=== PATIENT | male | born 1955 | race Caucasian/White ===

== ENCOUNTER 2019-02-18 10:06 | Inpatient (IN) | payer OTHER, SELFPAY ==
[2018-09-02 16:15] VITALS: BMI 24.6
[2019-02-18] VITALS (16 sets, daily range): BP systolic 123–150; BP diastolic 63–110; PULSE 71–102; RESP 16–18; TEMP 36.4–37.1; O2SAT 98–100; BMI 24.3; BMI 23.5
--- NOTE | 2019-02-18 10:11 | ED.RN ---
pt states seen for this yesterday and has been ongoing since January. due to hx this rn called for ekg
--- NOTE | 2019-02-18 10:17 | EKG12_ITS ---
Test Reason : SOB Blood Pressure : / mmHG Vent. Rate : 104 BPM Atrial Rate : 104 BPM P-R Int : 124 ms QRS Dur : 078 ms QT Int : 350 ms P-R-T Axes : 058 005 023 degrees QTc Int : 460 ms Sinus tachycardia Nonspecific ST abnormality Abnormal ECG Confirmed by AQUILES ARGUELLO MD ([id number]), greeting card editor KATHY LOGAN ([id number]) on 02/20/2019 10:56:51 AM Referred By: Christina Urbina Confirmed By:AQUILES ARGUELLO MD
--- NOTE | 2019-02-18 10:18 | ED.DCSUM_ITS ---
- ER Visit Summary Date of Service: 02/18/19 Chief Complaint: Pains History of Present Illness: The patient is a 63 M with pains in his arms and legs of the past 2 weeks. This started after he started taking Lipitor early in January. Symptoms are worse with use. At work, his pain is worse when he lifts and when he cleans floors. Better with rest. The pain is in his arms, and it is bilateral and involves the whole arm. It also involves his entire legs bilaterally. Occasionally the pain does go into his chest and he gets short of breath, but he is not having chest pain or shortness of breath currently. He has a history of diabetes, hypertension, hyperlipidemia, [place], stents. He is compliant with his medical therapies. He went to urgent care yesterday, and they started him on a Medrol Dosepak for his symptoms, but he was not advised to change his other medications or discontinue his statin. Physical Examination: Afebrile and vital signs are unremarkable. Patient alert and oriented. No acute distress. Heart regular rate and rhythm. Lungs clear. Abdomen soft. Extremities show good strength and sensation. Neurovascularly intact. Pale skin. Test Results: EKG shows sinus rhythm at a rate of 104. No sign of ischemia or infarction pattern. He has nonspecific ST changes. Laboratory studies including CPK are pending. Emergency Department Course and Treatment: Patient presents with myalgias. It seems to coincide with starting his Lipitor. We will check some basic labs. Because of his history of heart disease and occasional chest pain or shortness of breath, nursing ordered an EKG. This was unremarkable. Will monitor the patient. Hemoglobin 5.9. Chloride 108 and glucose 219. Hepatic panel normal. Troponin and CPK normal. We were notified by lab about his panic hemoglobin. I added on coags and fecal occult blood testing. Rectal exam showed no gross blood. Patient never had a colonoscopy. No history of cancer. Denies any blood in his stool. He does take aspirin and Brilinta for his heart disease. On reevaluation, patient is stable. Patient will need type and cross 2 units packed red cells. He consented to treatment. Risks discussed. Patient will need hospitalization. Coags and fecal occult blood testing is pending. Patient is stable. Dr. Buckner was notified and will see the patient in consultation. Treatment Plan: As above Disposition: Admission Impression: 1. Anemia This note was generated with [employer] dictation software. It may contain incorrect words, spelling, and punctuation that were not noted in review of the chart prior to signing ED Disposition - Plan for ED Patient: Referrals: Travis Bassett MD [Primary Care Provider] -
--- NOTE | 2019-02-18 10:20 | RAD_ITS ---
STUDY: X-RAY CHEST REASON FOR EXAM: Male, 63 years old. TECHNIQUE: 1 view COMPARISON: September 09, 2015 FINDINGS: The lungs are clear and expanded. There is no demonstrated pleural abnormality. Normal size heart. Normal mediastinum and lee. Normal visualized pulmonary arteries. Normal visualized aortic arch and descending thoracic aorta. Normal visualized thoracic spine. Normal visualized ribs, clavicles, and shoulders. There is no demonstrated abnormality of the visualized soft tissue structures of the upper abdomen. RAD/Chest 1 View (Portable) IMPRESSION: Normal x-ray examination of the chest unchanged since September 05, 2015. Electronically Signed: Wai Pruitt, at 10:36 EST Tel , Service support ,
[2019-02-18 10:49] LABS: Absolute Lymphocyte Count 0.42 X10^3/uL (0.83-4.51); Absolute Neutrophil Count 5.9 X10^3/uL (2.0-7.7); Basophil# 0.02 X10^3/uL; Basophil% 0.3 % (0-1); Eosinophil# 0.03 X10^3/uL; Eosinophils% 0.5 % (0-5); Hematocrit 19.5 % (40-54); Lymphocyte # 0.42 X10^3/ul (4.0); Lymphocyte % 6.5 % (19-41); Mean Corp Hgb Conc 30.3 g/dL (32-36); Mean Corpuscular Hgb 25.3 pg (27.0-32.0); Mean Corpuscular Volume 83.7 fL (80-94); Mean Platelet Vol. 9.2 fl (6.2-12.0); Monocyte# 0.09 X10^3/uL; Monocyte% 1.4 % (0-10); NRBC Flagged by Analyzer 0 % (0-5); Neutrophil # 5.93 X10^3/uL (2.7-7.7); POSITIVE COUNT YES; POSITIVE DIFFERENTIAL YES; Platelet Count 249 K/mm3 (150-450); RBC Distribution Width CV 14.3 % (11.6-14.6); RBC Distribution Width SD 43.3 fl (35.1-43.9); Red Blood Count 2.33 M/mm3 (4.6-6.2); White Blood Count 6.5 K/mm3 (4.4-11.0)
[2019-02-18 10:56] LABS: Hemoglobin 5.9 g/dL (13.0-16.5)
[2019-02-18 10:57] LABS: Differential Indicated SCAN CRITERIA MET
--- NOTE | 2019-02-18 11:00 | ED.RN ---
[facility] CRITICAL PER CALL FROM LAB, MD AND PRIMARY RN NOTIFIED.
[2019-02-18 11:07] LABS: ALB/GLOB Ratio 1.1 RATIO (0.9-2.4); AST(SGOT) 21 U/L (15-37); Alanine Aminotransfer ALT/SGPT 28 U/L (16-61); Albumin, Serum 3.8 g/dL (3.2-5.0); Alkaline Phosphatase 61 U/L (45-117); Anion Gap 9 (5-15); BUN 17 mg/dL (7-18); BUN/Creat Ratio 17.4 RATIO (10-20); CPK Total, Creatine Kinase 205 U/L (39-308); Calcium,Total 8.8 mg/dL (8.5-10.1); Chloride 108 mmol/L (98-107); Creatinine, Serum 0.98 mg/dL (0.70-1.30); EST Glomerular Filtration Rate 83 mL/min (>60); Est Glom Filt Rate - Afr Amer 100 mL/min (>60); Estimated Creatinine Clearance 81.73 ml/min; Globulin 3.5 g/dL (2.2-4.2); Glucose 219 mg/dL (74-106); Potassium 4.5 mmol/L (3.5-5.1); Protein, Total 7.3 g/dL (6.4-8.2); Sodium Level 139 mmol/L (136-145)
[2019-02-18 11:28] LABS: International Normalized Ratio 1.2; Prothrombin Time (Protime)PT. 14.6 SECONDS (11.7-14.9)
[2019-02-18 11:29] LABS: Partial Thromboplast Time 28.7 Seconds (24.1-36.2)
--- NOTE | 2019-02-18 11:40 | HP.PCM_ITS ---
Problem List (1) Laceration without foreign body of left thumb without damage to nail, initial encounter Status: Acute (2) Ischemic cardiomyopathy Status: Chronic Comment: EF 30-35% per echo 09/06/15 and 50% per echo 10/10/15 (3) Hyperlipidemia Status: Chronic Qualifiers: Hyperlipidemia type: unspecified Qualified Code(s): E78.5 - Hyperlipidemia, unspecified (4) Stented coronary artery Status: Chronic Comment: PCI to ostial LAD 09/05/15 @ [facility] per Dr. Todd Cagle (5) Antiplatelet or antithrombotic long-term use Status: Chronic (6) Diabetes mellitus type II, controlled Status: Chronic Qualifiers: Diabetes mellitus assisted insulin use: without asbestos brake lining finisher helper use History of Present Illness Date of Admission: 02/18/19 Chief Complaint: Shortness of breath, bilateral shoulder pain, ongoing for weeks The patient is a 63 year old M's medical history of CAD status post stents, hypertension, hyperlipidemia who comes in with progressive shortness of breath as well as bilateral shoulder and arms pain ongoing for a couple of weeks. Patient has been taking ibuprofen intermittently for shoulder pain. He denied any melena or hematochezia or abdominal discomfort or nausea vomiting. He denied any dizziness or palpitations but he has shortness of breath with exertion. His vitals in the ED showed pressure of 97.6F, heart rate 102, blood pressure was 135/110, RR 18, Spo2 98%. His admitting blood work showed WBC 6.5, Hb 5.9, (his last hemoglobin in 2016 was 15.8 ), Plt 249, INR 1.2, PTT 28.7, Na 139, 4.5, Cl 108, HCO3 22, BUN 17, Cr 0.98. Chest x-ray is unremarkable. EKG shows normal sinus rhythm, no acute ST-T changes. Past Medical History Past Medical History (Chronic Problems): Chronic Problems (Last Reviewed 09/02/18 @ 16:16 by Delia Longo) Essential (primary) hypertension (Chronic) Ischemic cardiomyopathy (Chronic) EF 30-35% per echo 09/06/15 and 50% per echo 10/10/15 Hyperlipidemia (Chronic) History of anterior wall myocardial infarction (Chronic) Atherosclerotic heart disease of [place] coronary artery without angina pectoris (Chronic) PCI to ostial LAD 09/05/15 @ [facility] per Dr. Todd Cagle Stented coronary artery (Chronic) PCI to ostial LAD 09/05/15 @ [facility] per Dr. Todd Cagle Antiplatelet or antithrombotic long-term use (Chronic) Diabetes mellitus type II, controlled (Chronic) Medical History: Medical History (Last Reviewed 09/02/18 @ 16:16 by Delia Longo) Essential (primary) hypertension (Chronic) I10 Ischemic cardiomyopathy (Chronic) I25.5 EF 30-35% per echo 09/06/15 and 50% per echo 10/10/15 Hyperlipidemia (Chronic) E78.5 History of anterior wall myocardial infarction (Chronic) I25.2 Atherosclerotic heart disease of [place] coronary artery without angina pectoris (Chronic) I25.10 PCI to ostial LAD 09/05/15 @ [facility] per Dr. Todd Cagle Antiplatelet or antithrombotic long-term use (Chronic) Z79.02 Diabetes mellitus type II, controlled (Chronic) E11.9 Allergies No Known Allergies Allergy (Verified 02/18/19 10:09) Home Medications: Ambulatory Orders Medication Instructions Recorded Aspirin [Aspirin, Baby] 81 mg PO DAILY@0800 12/02/14 Paroxetine HCl [Paxil] 30 mg PO DAILY 12/02/14 Atorvastatin Calcium [Lipitor] 80 mg PO QHS 10/25/15 Glipizide [Glipizide ER] 2.5 mg PO DAILY 10/25/15 Nitroglycerin (INPATIENT USE) 0.4 mg SUBLINGUAL Q5M PRN 10/25/15 [Nitrostat] lisinopril 10 mg tablet 10 mg PO DAILY 05/14/17 metformin 500 mg tablet 1,000 mg PO BID tab 05/14/17 metoprolol succinate ER 25 mg 12.5 mg PO DAILY tab 05/14/17 tablet,extended release 24 hr multivitamin tablet 1 tab PO QDAY 05/14/17 ticagrelor 90 mg tablet 90 mg PO BID #60 tab 12/18/18 Glimepiride 4 mg PO DAILY 02/18/19 MethylPREDNISolone DosePak [Medrol 02/18/19 DosePak] Surgical History: Surgical History (Last Reviewed 09/02/18 @ 16:16 by Delia Longo) Stented coronary artery (Chronic) Z95.5 PCI to ostial LAD 09/05/15 @ [facility] per Dr. Todd Cagle Surgical History: - - taumatic left middle finger amputation. Lives: Alone Smoking Status: Former smoker Tobacco Use: Non-smoker Alcohol: None Drugs: None - *Family History Maternal Family History: Family History (Last Reviewed 09/02/18 @ 16:16 by Delia Longo) Mother No problems noted. Father No problems noted. History Items: Heart Disease Paternal Family History: Family History (Last Reviewed 09/02/18 @ 16:16 by Delia Longo) Mother No problems noted. Father No problems noted. History Items: Unknown Review of Systems Constitutional: Reports: Fatigue. Denies: Anorexia, Chills, Fever, Malaise, Weakness, Weight Change Eyes: Denies: Blurred vision, Cataracts, Conjunctivae Inflammation HEENT: Denies: Head Aches, Hearing Changes, Sinus Congestion, Sinus Drainage Cardiovascular: Denies: Chest Pain, Claudication, Light Headedness, Palpitations, Syncope Respiratory: Reports: Shortness of Breath, Shortness of breath upon exertion. Denies: Cough, Shortness of breath at rest, Sputum production Gastrointestinal: Denies: Abdominal Pain, Hematemesis, Hematochezia, Nausea, Vomiting Genitourinary: Denies: Dysuria, Frequency Musculoskeletal: Denies: Joint Pain, Joint Tenderness Skin: Denies: Rash, Wounds Neurological: Denies: Difficulty swallowing, Focal weakness, Numbness, Tingling Psychiatric: Denies: Anxiety, Depression, Homicidal Ideations, Suicidal Ideations Hematologic/ Lymphatic: Denies: Easy Bruising, Easy Bleeding VTE Information - Inpt Only VTE Present on Admission: No VTE Pharm Prophylaxis ordered?: Yes - Physical Exam Vitals/I&O's: Vital Signs Temp Pulse Resp BP Pulse Ox 97.6 F L 102 H 18 135/110 H 98 02/18/19 10:07 02/18/19 10:07 02/18/19 10:07 02/18/19 10:07 02/18/19 10:23 Oxygen Delivery Method Room Air Weight: 77.111 kg Body Mass Index (BMI) 24.3 Finger Stick Blood Glucose 278 General: Alert, Oriented x3, Cooperative, No apparent distress, - - pale, not jaundiced HEENT: Atraumatic, PERRLA, EOMI, Normocephalic Oral: Moist Mucosa Neck: Supple Lungs: Clear to auscultation, Normal air movement Cardiovascular: Regular rate, Regular Rhythm, Normal S1, Normal S2, No murmurs Abdomen: Bowel Sounds Present, Soft, Non Tender, Non-Distended, No Hepato- splenomegaly Extremities: No edema Skin: No rashes, No breakdown Musculoskeletal: No Tenderness to Palpation of Joints or Extremities Lymphatic: No Cervical, Supraclavicular, or Inguinal Adenopathy Neurological: Cranial nerves II-XII grossly intact Psych/Mental Status: Normal Affect, Appropriate Microbiology Past 72 Hours 02/18/19 11:00 Stool Stool Occult Blood (NAYELI) - Final Occult Blood Positive Laboratory Results 02/18/19 10:30: WBC 6.5, RBC 2.33 L, Hgb 5.9 L*, Hct 19.5 L, MCV 83.7, MCH 25.3 L, MCHC 30.3 L, RDW Std Deviation 43.3, RDW Coeff of Talon 14.3, Plt Count 249, MPV 9.2, Immature Gran % (Auto) 0.300, Neut % (Auto) 91.0 H, Lymph % (Auto) 6.5 L, Sierra % (Auto) 1.4, Eos % (Auto) 0.5, Baso % (Auto) 0.3, Absolute Neuts (auto) 5.9, Absolute Lymphs (auto) 0.42 L, Nucleated RBC % 0, Differential Comment COMMENT, Diff Path Review July02/18/19 10:30: Sodium 139, Potassium 4.5, Chloride 108 H, Carbon Dioxide 22.0, Anion Gap 9, BUN 17, Creatinine 0.98, Estim Creat Clear Calc 81.73, Est GFR (M DRD) Af Amer 100, Est GFR (MDRD) Non-Af 83, BUN/Creatinine Ratio 17.4, Glucose 219 H, Calcium 8.8, Total Bilirubin 0.30, AST 21, ALT 28, Alkaline Phosphatase 61, Total Creatine Kinase 205, Troponin I < 0.015, Total Protein 7.3, Albumin 3.8, Globulin 3.5, Albumin/Globulin Ratio 1.1 02/18/19 11:10: Blood Type Pending, Antibody Screen Pending, Crossmatch See Detail 02/18/19 11:10: PT 14.6, INR 1.2, APTT 28.7 Assessment/Plan All Active Problems (Last Reviewed 09/02/18 @ 16:16 by Delia Longo) Laceration without foreign body of left thumb without damage to nail, initial encounter (Acute) 63 year old M's medical history of CAD status post stents, hypertension, hyperlipidemia who comes in with progressive shortness of breath as well as bilateral shoulder and arms pain ongoing for a couple of weeks. His hemoglobin is 5.9, stool occult blood is positive 1. Acute GI bleed, unclear etiology, likely lower History of recent NSAID use, also on aspirin and Brilinta Stool occult blood is positive General surgery consulted from the ED On clear liquid diet for EGD/colonoscopy in a.m. IV PPI twice daily Hold aspirin and Brilinta 2. Acute symptomatic blood loss anemia due to #1, hemoglobin is 5.9, dropped from 15.8 in 2016 History of CAD status post stents We will transfuse 2 units of packed RBCs with Lasix in between transfusion H&H every 6 3. Hypertension, controlled, would hold metoprolol and lisinopril 4. Type II DM, on glipizide, glimepiride, metformin Will hold home medications and continue on Accu-Cheks with insulin sliding scale 5. CAD status post stents 4 yrs ago, no acute ST-T changes on EKG We will hold aspirin and Brilinta 6. DVT prophylaxis with SCDs Code Visit Inpatient E&M: 59282 Init Hosp L3
--- NOTE | 2019-02-18 12:54 | PCM.CONS.B ---
- Consult Date of Consult: 02/18/19 - Reason for Consult Chief complaint: anemia History of present illness: 63 y/o WM presents with anemia, shortness of breath and light headedness. He was found to have a Hgb of 5.9. He denies any blood in stools, denies hematemesis, denies melena. Denies abdominal pain. Denies previous colonoscopy. Denies history of PUD. Has been taking NSAIDs for joint pain, also recently placed on steroids for this. PAST MEDICAL HISTORY ? Diabetes mellitus without mention of complication 2001? ? Diabetes mellitus - TYPE II ? Generalized anxiety disorder 1991 ? Anxiety, Generalized ? Hyperlipidemia 09/14/2015 ? Mixed hyperlipidemia 2001? ? Hyperlipidemia ? Other and unspecified disc disorder of unspecified region ? ? Intervertebral disc disorders-DEGEN. DISK DX. Coronary artery disease with stent placement Ischemic cardiomyopathy ? PAST SURGICAL HISTORY ? REMOVAL OF TONSILS,<12 Y/O ? 4 ? Tonsillectomy ? REPAIR ING HERNIA,5+Y/O,REDUCIBL ? 10 ? Hernia repair, inguinal ? CURRENT MEDICATIONS atorvastatin (LIPITOR) 80 mg tablet TAKE ONE TABLET BY MOUTH ONCE DAILY FOR CHOLESTEROL metFORMIN ER (GLUCOPHAGE XR) 500 mg 24 hr tablet Take 2 tablets by mouth twice daily. levothyroxine (LEVOXYL) 75 mcg tablet Take 1 tablet by mouth once daily. Take on empty stomach. For thyroid. glimepiride (AMARYL) 4 mg tablet Take 1 tablet by mouth daily with breakfast. PARoxetine (PAXIL) 30 mg tablet Take 1 tablet by mouth once daily. blood sugar diagnostic (InstapagarTOUCH ULTRA TEST) test strip Use with One Touch Ultra 3-4 times daily and as needed nitroglycerin sublingual (NITROSTAT) 0.4 mg SL tablet Dissolve 1 tablet under the tongue every 5 minutes as needed for Chest Pain. aspirin, enteric coated (ASPIR-LOW) 81 mg EC tablet Take 1 tablet by mouth once daily. ticagrelor (BRILINTA) 90 mg tablet Take 1 tablet by mouth twice daily. lancets(ONE TOUCH ULTRASOFT LANCETS) Use with One Touch Ultra Glucometer THERAPEUTIC MULTIVITAMIN TAB Take one(1) tablet daily. ALLERGIES: denies REVIEW OF SYSTEMS: General - denies fevers, denies weight loss, denies anorexia Cardiovascular denies chest pain Pulmonary complaint of shortness of breath, denies coughing up blood Gastrointestinal as per HPI, denies noting blood in stools, denies abdominal pain Neurological denies seizures Genitourinary denies burning with urination, denies blood in urine Hematological denies spontaneous/prolonged bleeding Skin denies open non healing wounds Musculoskeletal has joint pain in multiple locations Endocrine has diabetes Psychological denies hallucinations Physical examination: Vital signs Temp 97.7F HR 66 BP 96/64 RR 16 General WD/WN WM in no apparent distress, alert and oriented, not septic appearing HEENT Normocephalic. EOM intact with sclera clear and no icterus noted. Neck is supple with no jugular venous distention noted. Trachea is midline. Lungs normal breath sounds . No rales/rhonchi/wheezing noted. No labored breathing noted, such as retractions. No cough heard. Heart normal S1 and S2 auscultated. No rubs/clicks/murmurs noted. Normal size and location by auscultation. Abdomen soft and benign. Normal bowel sounds Extremities no calf tenderness or swelling noted. No pitting edema noted. No obvious deformity noted. Genitourinary/Rectal deferred Skin no rashes noted. Normal skin integrity. Neurological cranial nerves II-XII intact. Normal motor strength in arms and legs. No localized numbness detected. Psychological normal affect, patient is calm and appropriate Impression: anemia, heme positive stools Plan: upper and lower endoscopy tomorrow around 11:30 tomorrow I have discussed above with patient. I have explained risks of procedure, including but not limited to: infection, bleeding, perforation of the GI tract, inability to complete the procedure, injury to any intraabdominal organs such as liver/spleen, etc. - he understands. he agrees to proceed. I have answered all his questions and he has no further questions.
[2019-02-18] MEDS: 0.9% Normal Saline 1,000 ML 100 ML IV (13:46)
[2019-02-18 13:48] LABS: Hematocrit 19.7 % (40-54); POSITIVE COUNT YES
[2019-02-18 13:50] LABS: Bedside Glucose 150 mg/dL (70-110)
[2019-02-18] MEDS: 0.9% Saline Lock 10 ML Syringe IV (13:54)
[2019-02-18] MEDS: Furosemide 40 MG/4 ML Vial IV (13:54)
[2019-02-18 13:56] LABS: Hemoglobin 5.9 g/dL (13.0-16.5)
--- NOTE | 2019-02-18 14:01 | CASEMGMT ---
RN CM Assessment Intro role of CM to patient. Pt is awake, alert and able to participate in assessment. PCP: Dr. Travis Bassett Specialists: Dr. Buckner [facility]acy: [facility] Prescription Coverage: yes LNOK: Father, Huey Hess Living arrangements: Lives independently @ home. No DME and no care needs identified. DME: none DC Plan: home on discharge. Pt informed to contact CM if any dc needs arise. Frandy GALAVIZN RN ACM
--- NOTE | 2019-02-18 16:23 | CHAPLAIN ---
Type of Pastoral Visit _x__ Initial Visit ___ Follow-up Visit ___ On-call Visit ___ General Patient Visit ___ Spiritual Assessment ___ Family Conference ___ Bereavement ___ Rapid Response ___ Code Blue ___ Other (describe below) Pastoral Care Referral From _x__ Patient ___ Family ___ Nurse ___ Physician ___ Meringuer ___ Third Cook ___ Other (describe below) Sacrament/Intervention _x__ Active listening ___ Anointing ___ Spiritism ___ Bereavement ___ Communion ___ [place] exploration ___ _x__ Life review _x__ Prayer ___ Reconciliation ___ Sacrament of Sick _x__ Supportive presence ___ Wedding ___ Other (describe below) Pastoral Comments
[2019-02-18] MEDS: Insulin Lispro 100 UNIT/ML INSULN.PEN SC (18:23)
[2019-02-18] MEDS: Electrolyte Solution/Peg's 4000 ML PO (18:24)
[2019-02-18 18:30] LABS: Bedside Glucose 154 mg/dL (70-110)
--- NOTE | 2019-02-18 20:12 | NURSING ---
rickie in lab notified that blood completed @ 1999 next h&h due @ 2100
[2019-02-18 22:02] LABS: Hematocrit 27.2 % (40-54); Hemoglobin 8.6 g/dL (13.0-16.5)
[2019-02-18 23:01] LABS: Bedside Glucose 79 mg/dL (70-110)
[2019-02-19] VITALS (12 sets, daily range): BP systolic 96–139; BP diastolic 48–74; PULSE 61–76; RESP 16; TEMP 36.3–36.8; O2SAT 95–99; BMI 23.1
--- NOTE | 2019-02-19 | GASB_PTH ---
PATIENT: BRAD HALLMAN LOC: [facility] U#:[id number] AGE/SX: 63/M ROOM: [facility] RE02/18/[address]: Dr. Karthikeyan Lee MD : 1955 BED: 1 DIS: 02/19/2019 SPEC #: [id number] RECD: 02/19/19 07:31 STATUS: TEOFILO RE #: [id number] DEVON: 02/19/19 00:[address]: Moni Buckner DEPT: SURGICAL PATHOLOGY RECD BY: Cristian Galdamez ENTERED: 02/20/19 07:31 SP TYPE: Gastric Bx OTHR DR: MD Dr. Moni Dominguez MD Dr. Mark Elderbrock, MD Dr. Prakash Chand, MD Tissues: Gastric mucous membrane Procedures: Surgery Specimen Level IV Comments: @ Ordering doctor for SUIV edited from to DR.LWANG Rip AGUAYO at 02/20/19899 @ Submitting doctor edited from to DR.LWANG Rip AGUAYO at 02/20/19899 HEADER OPERATION: Colonoscopy, EGD ([facility] [place]) PRE-OP DIAGNOSIS: Anemia and guaiac positive stools TISSUE SUBMITTED: Antral biopsy for H. pylori MICROSCOPIC DIAGNOSIS Gastric antrum, biopsy: Mild chronic gastritis. See comment. AM:agnieszka 02/23/19 COMMENT The results of immunohistochemistry for Helicobacter pylori will be reported separately ([id number]). MICROSCOPIC DESCRIPTION Slides are reviewed. GROSS DESCRIPTION Received in fixative is one container labeled with the patient's name and designated antral biopsy. The specimen consists of multiple irregular fragments of light walker soft tissue that in aggregate measure 0.6 x 0.2 x 0.1 cm. The specimen is totally submitted in one cassette. / LONNIE:agnieszka 02/20/19 TC:3 CPT: 29841
[2019-02-19 06:11] LABS: Bedside Glucose 151 mg/dL (70-110)
[2019-02-19 06:19] LABS: Absolute Lymphocyte Count 1.52 X10^3/uL (0.83-4.51); Absolute Neutrophil Count 4.3 X10^3/uL (2.0-7.7); Basophil# 0.05 X10^3/uL; Basophil% 0.7 % (0-1); Eosinophil# 0.38 X10^3/uL; Eosinophils% 5.7 % (0-5); Hematocrit 28.7 % (40-54); Hemoglobin 8.8 g/dL (13.0-16.5); Lymphocyte # 1.52 X10^3/ul (4.0); Lymphocyte % 22.6 % (19-41); Mean Corp Hgb Conc 30.7 g/dL (32-36); Mean Corpuscular Hgb 26.5 pg (27.0-32.0); Mean Corpuscular Volume 86.4 fL (80-94); Mean Platelet Vol. 9.4 fl (6.2-12.0); Monocyte% 7.4 % (0-10); NRBC Flagged by Analyzer 0 % (0-5); Neutrophil # 4.25 X10^3/uL (2.7-7.7); Neutrophil % 63.3 % (47-70); Platelet Count 297 K/mm3 (150-450); RBC Distribution Width CV 14.2 % (11.6-14.6); RBC Distribution Width SD 44.9 fl (35.1-43.9); Red Blood Count 3.32 M/mm3 (4.6-6.2); White Blood Count 6.7 K/mm3 (4.4-11.0)
[2019-02-19 06:42] LABS: ALB/GLOB Ratio 1.1 RATIO (0.9-2.4); AST(SGOT) 22 U/L (15-37); Alanine Aminotransfer ALT/SGPT 26 U/L (16-61); Alkaline Phosphatase 67 U/L (45-117); Anion Gap 7 (5-15); BUN 11 mg/dL (7-18); BUN/Creat Ratio 11.4 RATIO (10-20); Calcium,Total 8.7 mg/dL (8.5-10.1); Chloride 109 mmol/L (98-107); Creatinine, Serum 0.97 mg/dL (0.70-1.30); EST Glomerular Filtration Rate 84 mL/min (>60); Est Glom Filt Rate - Afr Amer 101 mL/min (>60); Estimated Creatinine Clearance 82.57 ml/min; Globulin 3.5 g/dL (2.2-4.2); Glucose 159 mg/dL (74-106); Potassium 3.8 mmol/L (3.5-5.1); Protein, Total 7.5 g/dL (6.4-8.2); Sodium Level 141 mmol/L (136-145)
[2019-02-19 08:57] LABS: Hemoglobin A1c 6.8 % (4.2-6.3)
[2019-02-19] MEDS: 0.9% Saline Lock 10 ML Syringe IV (11:03)
[2019-02-19 11:11] LABS: Bedside Glucose 170 mg/dL (70-110)
--- NOTE | 2019-02-19 12:00 | IMM_PTH ---
PATIENT: BRAD HALLMAN LOC: [facility] U#:[id number] AGE/SX: 63/M ROOM: [facility] RE02/18/[address]: Dr. Karthikeyan Lee MD : 1955 BED: 1 DIS: 02/19/2019 SPEC #: [id number] RECD: 02/20/19 09:00 STATUS: TEOFILO REQ #: [id number] DEVON: 02/19/19 12:[address]: Moni Buckner DEPT: IMMUNOHISTOCHEMISTRY RECD BY: Fay Blankenship ENTERED: 02/20/19 09:01 SP TYPE: IMMUNO OTHR DR: MD Dr. Travis Dominguez MD Dr. Prakash Chand, MD Tissues: Stomach, NOS Procedures: H Pylori (initial) PHYSICIAN & INSTITUTION [place] [id number] SPECIMEN INFORMATION: Tissue Source: Antral biopsy Clinical Info: Anemia and guaiac positive stools Specimen Number: [id number] CPT code: 59476 METHODOLOGY: Deparaffinized sections of prefer/formalin-fixed tissue or PAP/DQ stained slides are incubated with monoclonal/polyclonal antibodies/oligonucleotide probes. Localization is made via biotin free immunoperoxidase method. Appropriate controls are performed and reacted as expected. Results on target cell population are indicated in the following table: RESULTS: ANTIBODY / CLONE RESULT H Pylori (polyclonal) negative These tests were developed and their performance characteristics determined by [facility]. They may not have been cleared or approved by the U.S. Food and Drug Administration. The FDA has determined that such clearance or approval is not necessary. INTERPRETATION: Antral biopsy: Negative for Helicobacter pylori organisms. AM:agnieszka 02/23/19
--- NOTE | 2019-02-19 12:48 | OP.EGD_ITS ---
Patient Name: Iftikhar Hess Procedure Date: 02/19/2019 11:21 AM Date of : 1955 Age: 63 Procedure: Upper GI endoscopy Indications: Unexplained iron deficiency anemia, Occult blood in stool Providers: Moni Buckner MD Referring MD: Christina Urbina Medicines: See the Anesthesia note for documentation of the administered medications Patient Profile: Refer to note in patient chart for documentation of history and physical. Complications: No immediate complications. Procedure: Pre-Anesthesia Assessment: - see anesthesia note After obtaining informed consent, the endoscope was passed under direct vision. Throughout the procedure, the patient's blood pressure, pulse, and oxygen saturations were monitored continuously. The gastroscope was introduced through the mouth, and advanced to the second part of duodenum. The upper GI endoscopy was accomplished without difficulty. The patient tolerated the procedure well. Scope In: 12:02:31 PM Scope Out: 12:09:22 PM Total Procedure Duration Time 0 hours 6 minutes 51 seconds Findings: The first portion of the duodenum and second portion of the duodenum were normal. A small hiatal hernia was present. The entire examined stomach was normal. Biopsies were taken with a cold forceps for histology. Estimated blood loss was minimal. Impression: - Normal first portion of the duodenum and second portion of the duodenum. - Small hiatal hernia. - Normal stomach. Biopsied. Recommendation: - Return patient to hospital [facility] for observation. - Resume previous diet. - Continue present medications. Procedure Code(s): --- Professional --- 35297, Esophagogastroduodenoscopy, flexible, transoral; with biopsy, single or multiple Diagnosis Code(s): --- Professional --- K44.9, Diaphragmatic hernia without obstruction or gangrene D50.9, Iron deficiency anemia, unspecified R19.5, Other fecal abnormalities CPT copyright 2017 [employer]. All rights reserved. The codes documented in this report are preliminary and upon cook chill technician review may be revised to meet current compliance requirements. MD Moni Lugo MD 02/19/2019 12:48:01 PM This report has been signed electronically. Number of Addenda: 0 Note Initiated On: 02/19/2019 11:21 AM
--- NOTE | 2019-02-19 12:50 | OP.COLON_ITS ---
Patient Name: Iftikhar Hess Procedure Date: 02/19/2019 12:10 PM Date of : 1955 Age: 63 Procedure: Colonoscopy Indications: Heme positive stool, Unexplained iron deficiency anemia Providers: Moni Buckner MD Referring MD: Christina Ubrina Medicines: See the Anesthesia note for documentation of the administered medications Patient Profile: Refer to note in patient chart for documentation of history and physical. Last Colonoscopy: date unknown. Complications: No immediate complications. Procedure: Pre-Anesthesia Assessment: - see anesthesia note After I obtained informed consent, the scope was passed under direct vision. Throughout the procedure, the patient's blood pressure, pulse, and oxygen saturations were monitored continuously. The Colonoscope was introduced through the anus and advanced to the cecum, identified by the appendiceal orifice, IC valve and transillumination. The colonoscopy was performed without difficulty. The patient tolerated the procedure well. The quality of the bowel preparation was adequate. Scope In: 12:11:42 PM Scope Withdrawal Time 0 hours 7 minutes 13 seconds Scope Out: 12:39:54 PM Total Procedure Duration Time 0 hours 28 minutes 12 seconds Findings: The perianal and digital rectal examinations were normal. Pertinent negatives include normal sphincter tone. Non-bleeding internal hemorrhoids were found. Impression: - Non-bleeding internal hemorrhoids. - No specimens collected. Recommendation: - Repeat colonoscopy in 10 years for screening purposes. - [facility]. - Continue present medications. Procedure Code(s): --- Professional --- 01408, Colonoscopy, flexible; diagnostic, including collection of specimen(s) by brushing or washing, when performed (separate procedure) Diagnosis Code(s): --- Professional --- K64.8, Other hemorrhoids R19.5, Other fecal abnormalities D50.9, Iron deficiency anemia, unspecified CPT copyright 2017 [employer]. All rights reserved. The codes documented in this report are preliminary and upon certified coder review may be revised to meet current compliance requirements. MD Moni Lugo MD 02/19/2019 12:49:44 PM This report has been signed electronically. Number of Addenda: 0 Note Initiated On: 02/19/2019 12:10 PM
--- NOTE | 2019-02-19 12:50 | PCM.PN.BLA ---
Progress Note No obvious source of GI bleeding found on upper and lower endoscopy May begin regular diet D/c to home STROKE Vital Signs/Narrative: Vital Signs Temp Pulse Resp BP Pulse Ox 02/19/19 10:53 98.1 F 71 16 139/74 H 95
--- NOTE | 2019-02-19 13:47 | PCM.DC ---
You will use the following diet at home:: Calorie/Carbohydrate Controlled (specify 1200, 1400, etc) - 1800 ADA diet, Cardiac Your food should be the consistency of: Regular Your liquids should be the consistency of: Regular/Thin Discharge Activity: May Not Drive Call your doctor if you observe: Coldness, Increased Pain, Inability to urinate, Inability to have a bowel movement, Shortness of breath, Dizziness, Fainting spells, Swelling in the ankles, Chest pain, Increased palpitations (irregular heartbeat) Additional Instructions: Don't take NSAIDS like Ibuprofen or Aleve and steroids. Allergies/Adverse Reactions: Allergies No Known Allergies Allergy (Verified 02/18/19 10:09) Medications to take at Discharge Aspirin [Aspirin, Baby] 81 mg PO DAILY@0800 12/02/14 Paroxetine HCl [Paxil] 30 mg PO DAILY 12/02/14 Atorvastatin Calcium [Lipitor] 80 mg PO QHS 10/25/15 Nitroglycerin (INPATIENT USE) [Nitrostat] 0.4 mg SUBLINGUAL Q5M PRN 10/25/15 lisinopril 10 mg tablet 10 mg PO DAILY 05/14/17 metformin 500 mg tablet 1,000 mg PO BID tab 05/14/17 metoprolol succinate ER 25 mg tablet,extended release 24 hr 12.5 mg PO DAILY tab 05/14/17 multivitamin tablet 1 tab PO QDAY 05/14/17 ticagrelor 90 mg tablet 90 mg PO BID #60 tab 12/18/18 Glimepiride 4 mg PO DAILY 02/18/19 Pantoprazole Sodium [Protonix] 40 mg PO DAILY #30 tab 02/19/19 The following prescriptions were given: Pantoprazole Sodium [Protonix] 40 mg PO DAILY #30 tab Transmission Status: Pending to [id number] Primary Care Physician: Travis Bassett MD [Primary Care Provider] - Please follow up with your Primary Care Physician in: in 1-2 weeks Test Results: Test results from this visit will be discussed in further detail at your follow-up appointment, if applicable.
--- NOTE | 2019-02-19 13:49 | PCM.DC.SUM ---
Discharge Date and Diagnosis Date of Admission: 02/18/19 Date of Discharge: 02/19/19 - Primary Discharge Diagnosis Acute blood loss anemia Acute occult GI bleed, source not found. - Secondary Discharge Diagnosis Chronic Problems (Last Reviewed 09/02/18 @ 16:16 by Delia Longo) Essential (primary) hypertension (Chronic) Ischemic cardiomyopathy (Chronic) EF 30-35% per echo 09/06/15 and 50% per echo 10/10/15 Hyperlipidemia (Chronic) History of anterior wall myocardial infarction (Chronic) Atherosclerotic heart disease of [place] coronary artery without angina pectoris (Chronic) PCI to ostial LAD 09/05/15 @ [facility] per Dr. Todd Cagle Stented coronary artery (Chronic) PCI to ostial LAD 09/05/15 @ [facility] per Dr. Todd Cagle Antiplatelet or antithrombotic long-term use (Chronic) Diabetes mellitus type II, controlled (Chronic) Hospital Course and Treatment Summary of Care Provided: The patient is a 63 year old M with medical history of CAD status post stents, hypertension, hyperlipidemia who was admitted with progressive shortness of breath as well as bilateral shoulder and arms pain ongoing for a couple of weeks. His hemoglobin is 5.9, stool occult blood is positive. Patient was recently started on methylprednisone for aches and pains and shoulder. He also takes NSAID. Patient is also on aspirin and Brilinta for history of coronary artery disease status post stents. Patient was admitted in PCU. Further evaluation and management as follows: 1. Acute GI bleed probably from NSAIDs/steroid: Patient had 2 units of PRBC transfusion. H&H was done every 6 hourly and patient showed H&H increased appropriately from 5.9 to 8.8 g%. On IV PPI twice daily. Aspirin and Brilinta were held. Patient had EGD and colonoscopy today and did not find any specific lesion. Internal hemorrhoids but nonbleeding. Small hiatus hernia. Patient given a prescription for Protonix 40 mg daily. Hold aspirin for 5 more days to complete a total of 7 days. Resume Brilinta. 2. Acute symptomatic blood loss anemia probably secondary to GI bleed: Prescription for ferrous sulfate 325 mg daily given. If patient continues to have low H&H, will need further detail anemia work-up by PCP. Follow-up PCP in 1 to 2 weeks 3. Hypertension, controlled, medications resumed 4. Type II DM, on glimepiride, metformin: Glucose in good control. Patient is not taking glipizide XL but on glimepiride 4 mg daily. Confirmed with the patient. 5. CAD status post stents 4 yrs ago, no acute ST-T changes on EKG: Medications regimen. 6. DVT prophylaxis with SCDs [] Patient was admitted as inpatient but was discharged because of sooner recovery than expected and no active bleeding was found. Discharge medication reconciliation done. Discharge follow-up instructions completed. Discharge process discussed with the patient and all questions were answered to patient's satisfaction. Prescription for Protonix and ferrous sulfate sent to patient pharmacy. Total time spent, exact 35 minutes on discharge meds reconciliation, examination, review of imaging and blood test and discussion with the patient on follow-up instructions. Subjective: Seen and examined. Patient was admitted for acute anemia along with shortness of breath on exertion, along with bilateral shoulder and arm pain for couple of weeks for which he was given methylprednisone in urgent care. Is also taking intermittent NSAIDs. EGD and colonoscopy was done. No active source of bleeding found. Patient wants to go home. - Physical Exam Vitals/I&O's: Vital Signs Temp Pulse Resp BP Pulse Ox 97.9 F 69 16 129/70 H 99 02/19/19 13:23 02/19/19 13:23 02/19/19 13:23 02/19/19 13:23 02/19/19 13:23 Oxygen Delivery Method Room Air Weight: 161 lb 6.054 oz Body Mass Index (BMI) 23.1 Finger Stick Blood Glucose 278 Intake and Output for Last 24 Hours 02/17/19 02/18/19 02/19/19 23:59 23:59 23:59 Intake Total 2400 / 2400 1921 Output Total 3550 / 3550 Balance -1150 / -1150 1921 General: Alert, Oriented x3, Cooperative HEENT: Atraumatic, PERRLA, EOMI, Normocephalic Neck: Supple, No JVD, Negative Carotid Bruits Lungs: Clear to auscultation, Normal air movement, No rhonchi, No wheeze, No rales Cardiovascular: Regular rate, Regular Rhythm, Normal S1, Normal S2, No murmurs Abdomen: Bowel Sounds Present, Soft, Non Tender, Non-Distended Extremities: No edema, Capillary Refill Less than 3 Seconds Skin: No rashes, No breakdown Musculoskeletal: No Tenderness to Palpation of Joints or Extremities, Arthritic Changes Neurological: Cranial nerves II-XII grossly intact, Deep Tendon Reflexes 2+/4 and Symmetrical, Neuro grossly intact Psych/Mental Status: Normal Affect, Appropriate Microbiology Past 72 Hours 02/18/19 11:00 Stool Stool Occult Blood (NAYELI) - Final Occult Blood Positive Laboratory Results 02/18/19 11:10: Blood Type A POSITIVE, Antibody Screen NEGATIVE, Crossmatch See Detail 02/18/19 13:40: Troponin I < 0.015 02/18/19 13:40: Hgb 5.9 L*, Hct 19.7 L 02/18/19 13:45: POC Glucose 150 H 02/18/19 17:10: Troponin I < 0.015 02/18/19 18:19: POC Glucose 154 H 02/18/19 21:55: Hgb 8.6 L, Hct 27.2 L 02/18/19 22:52: POC Glucose 79 02/19/19 05:55: WBC 6.7, RBC 3.32 L, Hgb 8.8 L, Hct 28.7 L, MCV 86.4, MCH 26.5 L, MCHC 30.7 L, RDW Std Deviation 44.9 H, RDW Coeff of Talon 14.2, Plt Count 297, MPV 9.4, Immature Gran % (Auto) 0.300, Neut % (Auto) 63.3, Lymph % (Auto) 22.6, [place] % (Auto) 7.4, Eos % (Auto) 5.7 H, Baso % (Auto) 0.7, Absolute Neuts (auto) 4.3, Absolute Lymphs (auto) 1.52, Nucleated RBC % 0 02/19/19 05:55: Sodium 141, Potassium 3.8, Chloride 109 H, Carbon Dioxide 25.0, Anion Gap 7, BUN 11, Creatinine 0.97, Estim Creat Clear Calc 82.57, Est GFR (MDRD) Af Amer 101, Est GFR (MDRD) Non-Af 84, BUN/Creatinine Ratio 11.4, Glucose 159 H, Calcium 8.7, Total Bilirubin 0.40, AST 22, ALT 26, Alkaline Phosphatase 67, Total Protein 7.5, Albumin 4.0, Globulin 3.5, Albumin/Globulin Ratio 1.1 02/19/19 05:55: Hemoglobin A1c 6.8 H 02/19/19 06:02: POC Glucose 151 H 02/19/19 10:57: POC Glucose 170 H Current Medications Acetaminophen (Tylenol) 650 mg PO Q6H PRN PRN PRN Reason: Pain Score 1-3/Temp > 100.7 F Dextrose (D50w Syringe) 0 gm IV X1 PRN; Protocol PRN Reason: Hypoglycemia Glucagon () 1 mg IM .X1 PRN PRN Reason: Hypoglycemia Insulin Human Lispro (Humalog Kwikpen (Bkc)) 0 unit SC Q6 LEANDRA; Protocol Last Admin: 02/19/19 11:03 Dose: Not Given Documented by: Multivitamins (Multivitamin) 1 tablet PO DAILY@0800 LEANDRA Last Admin: 02/19/19 07:11 Dose: Not Given Documented by: Ondansetron HCl (Zofran) 4 mg IV Q8H PRN PRN PRN Reason: NAUSEA/VOMITING Sodium Chloride () 10 - 40 ml IV UD PRN PRN Reason: SALINE FLUSH Last Admin: 02/19/19 11:03 Dose: 10 ml Documented by: Discharge Activity: May Not Drive Call your doctor if you observe: Coldness, Increased Pain, Inability to urinate, Inability to have a bowel movement, Shortness of breath, Dizziness, Fainting spells, Swelling in the ankles, Chest pain, Increased palpitations (irregular heartbeat) Home Medications: Medications to take at Discharge Aspirin [Aspirin, Baby] 81 mg PO DAILY@0800 12/02/14 Paroxetine HCl [Paxil] 30 mg PO DAILY 12/02/14 Atorvastatin Calcium [Lipitor] 80 mg PO QHS 10/25/15 Nitroglycerin (INPATIENT USE) [Nitrostat] 0.4 mg SUBLINGUAL Q5M PRN 10/25/15 lisinopril 10 mg tablet 10 mg PO DAILY 05/14/17 metformin 500 mg tablet 1,000 mg PO BID tab 05/14/17 metoprolol succinate ER 25 mg tablet,extended release 24 hr 12.5 mg PO DAILY tab 05/14/17 multivitamin tablet 1 tab PO QDAY 05/14/17 ticagrelor 90 mg tablet 90 mg PO BID #60 tab 12/18/18 Glimepiride 4 mg PO DAILY 02/18/19 Pantoprazole Sodium [Protonix] 40 mg PO DAILY #30 tab 02/19/19 Following Prescrptions Were Given to Patient: Pantoprazole Sodium [Protonix] 40 mg PO DAILY #30 tab Transmission Status: Pending to [id number] Primary Care Physician: Travis Bassett MD [Primary Care Provider] - Please follow up with your Primary Care Physician in: in 1-2 weeks Medical Necessity - Tobacco Use Smoking Status: Former smoker Tobacco Use: Non-smoker Meaningful Use Info Meaningful Use Diagnoses (Choose all that apply): None applicable Code Visit Inpatient E&M: 92812 Disch Hosp
[2019-02-20 14:18] LABS: Pathologist Review Reviewed
== END 2019-02-19 15:57 | disposition home or self-care (01) | DRG 378 ==
LOC: ED 11:06 → PCU 11:51
PROVIDERS: Anesthesiology; Surgery; Admitting Provider Internal Medicine; Emergency Provider Emergency Medicine; Family Provider Family Medicine; PCP Family Medicine; Referring Provider Internal Medicine; Visit Provider Internal Medicine
PROC: 0DJD8ZZ Inspection of Lower Intestinal Tract, Via Natural or Artificial Opening Endoscopic (ICD-10-PCS; CPT 45378; principal; 2019-02-19 11:55)
DX: K92.2 Gastrointestinal hemorrhage, unspecified (principal); D62 Acute posthemorrhagic anemia; K64.8 Other hemorrhoids; K44.9 Diaphragmatic hernia without obstruction or gangrene; R19.5 Other fecal abnormalities; I25.5 Ischemic cardiomyopathy; I25.10 Atherosclerotic heart disease of native coronary artery without angina pectoris; I25.2 Old myocardial infarction; I10 Essential (primary) hypertension; E78.5 Hyperlipidemia, unspecified; E11.9 Type 2 diabetes mellitus without complications; M25.512 Pain in left shoulder; M25.511 Pain in right shoulder; Z79.02 Long term (current) use of antithrombotics/antiplatelets; Z95.5 Presence of coronary angioplasty implant and graft; Z79.82 Long term (current) use of aspirin; Z79.84 Long term (current) use of oral hypoglycemic drugs; Z79.899 Other long term (current) drug therapy; Z87.891 Personal history of nicotine dependence
CPT/HCPCS: 36415; 71045; 80053; 82274; 82550; 82962; 83036; 84484; 85014; 85018; 85025; 85610; 85730; 86850; 86900; 86901; 86920; 86922; 88305; 88342; 93005; 99251; 99283; J7030; J7040; J7120; P9016; A4216; G0463; J1940

== ENCOUNTER 2019-12-01 06:46 | Observation (INO) | payer OTHER, SELFPAY ==
[2019-02-19 10:53] VITALS: BMI 23.1
[2019-12-01] VITALS (12 sets, daily range): BP systolic 110–135; BP diastolic 54–74; PULSE 60–78; RESP 14–18; TEMP 36.4–36.6; O2SAT 96–99; BMI 25.9; BMI 24.0
--- NOTE | 2019-12-01 07:09 | EKG12_ITS ---
Test Reason : CP Blood Pressure : / mmHG Vent. Rate : 078 BPM Atrial Rate : 078 BPM P-R Int : 138 ms QRS Dur : 082 ms QT Int : 390 ms P-R-T Axes : 028 -14 005 degrees QTc Int : 444 ms Normal sinus rhythm Normal ECG Confirmed by JOS AMBRIZ, AQUILES ([id number]), copy editor BALDO ROBERSON ([id number]) on 12/03/2019 9:34:36 AM Referred By: ANDRES Confirmed By:AQUILES ARGUELLO MD
--- NOTE | 2019-12-01 07:09 | RAD_ITS ---
STUDY: X-RAY CHEST REASON FOR EXAM: Male, 64 years old patient with chest pain starting this morning. Past medical history of myocardial infarct with endovascular coronary artery stent placement. TECHNIQUE: Single AP portable view of the chest. COMPARISON: 02/18/2019. FINDINGS: Cardiac monitoring leads are present. The lungs are clear and expanded. There is no demonstrated pleural abnormality. Normal size heart. Normal mediastinum and lee. There is prominence of the pulmonary hilar arteries without peripheral pulmonary vascular congestion. Normal visualized aortic arch and descending thoracic aorta. Normal visualized thoracic spine. Normal visualized ribs, clavicles, and shoulders. There is no demonstrated abnormality of the visualized soft tissue structures of the upper abdomen. RAD/Chest 1 View (Portable) IMPRESSION: No radiographic evidence of acute cardiopulmonary disease. Electronically Signed: Maylin Barton MD at 7:57 EDT , Service support ,
[2019-12-01] MEDS: Nitroglycerin SL (ED/IMG/CATH) 0.4 MG TABLET SUBLINGUAL (07:20)
[2019-12-01 07:25] LABS: Absolute Lymphocyte Count 1.53 X10^3/uL (0.83-4.51); Absolute Neutrophil Count 3.9 X10^3/uL (2.0-7.7); Basophil# 0.05 X10^3/uL; Basophil% 0.8 % (0-1); Eosinophil# 0.36 X10^3/uL; Eosinophils% 5.6 % (0-5); Hematocrit 37.7 % (40-54); Hemoglobin 12.8 g/dL (13.0-16.5); Lymphocyte # 1.53 X10^3/ul (4.0); Lymphocyte % 23.9 % (19-41); Mean Corpuscular Hgb 32.7 pg (27.0-32.0); Mean Corpuscular Volume 96.4 fL (80-94); Mean Platelet Vol. 9.4 fl (6.2-12.0); Monocyte# 0.51 X10^3/uL; NRBC Flagged by Analyzer 0 % (0-5); Neutrophil # 3.94 X10^3/uL (2.7-7.7); Neutrophil % 61.4 % (47-70); Platelet Count 218 K/mm3 (150-450); RBC Distribution Width CV 12.7 % (11.6-14.6); RBC Distribution Width SD 44.1 fl (35.1-43.9); Red Blood Count 3.91 M/mm3 (4.6-6.2); White Blood Count 6.4 K/mm3 (4.4-11.0)
--- NOTE | 2019-12-01 07:41 | ED.VIS.GEN ---
History of Present Illness Chief Complaint: Chest Pain Informant: Patient Onset: Today Context: Sudden Onset Timing: Continuous Quality: Indigestion Location: Midsternum Current Severity: Mild Maximum Severity: Severe Worsened by: Exertion Relieved by: Significantly improved after 1 nitro Associated Symptoms: Diaphoresis and radiation right shoulder Narrative: Patient is a 64-year-old male with past medical history of coronary disease with placement of a stent 3 years ago, diabetes and hypercholesterolemia. Patient presented from work via ambulance because he developed midsternal discomfort described as indigestion with radiation to the right shoulder and diaphoresis. He denied nausea or vomiting. He denies history of peptic ulcer disease or GERD. He denies black or maroon stool. He denies fever, chills night sweats. He denies any upper respiratory symptoms. He is still having chest discomfort. He denies abdominal pain. He denies urologic symptoms. He denies history of PE or DVT. He denies leg pain, swelling discoloration. He denies symptoms of claudication. Prior similar symptoms: Yes Recent Illness/Hospitalization: No - Past Medical History (1) Antiplatelet or antithrombotic long-term use Status: Deleted (2) Atherosclerotic heart disease of [place] coronary artery without angina pectoris Status: Chronic Comment: PCI to ostial LAD 09/05/15 @ [facility] per Dr. Todd Cagle (3) Diabetes mellitus type II, controlled Status: Chronic (4) Essential (primary) hypertension Status: Chronic (5) History of anterior wall myocardial infarction Status: Chronic (6) Hyperlipidemia Status: Chronic (7) Ischemic cardiomyopathy Status: Chronic Comment: EF 30-35% per echo 09/06/15 and 50% per echo 10/10/15 Past Medical History - Allergies and Home Meds Allergies/Adverse Reactions: Allergies No Known Allergies Allergy (Verified 12/01/19 06:54) Prior records reviewed: Yes Surgical History: - - taumatic left middle finger amputation. Lives: Alone Smoking Status: Former smoker Alcohol: None Drugs: None - Family History Maternal Family History: Family History (Last Reviewed 09/02/18 @ 16:16 by Delia Longo) Mother No problems noted. Father No problems noted. Family History: Reports: Heart Disease Paternal Family History: Family History (Last Reviewed 09/02/18 @ 16:16 by Delia Longo) Mother No problems noted. Father No problems noted. Family History: Reports: Unknown Review of Systems General: Denies: Chills, Fever, Malaise, Subjective Eyes: Denies: Visual changes - bilaterally, Blurred Vision - bilaterally ENT: Denies: Rhinorrhea, Sore throat Cardiovascular: Reports: Chest pain. Denies: Palpitations, Heart racing Respiratory: Reports: Dyspnea. Denies: Cough, Sputum, Dyspnea on exertion, Orthopnea Gastrointestinal: Denies: Abdominal pain, Nausea, Vomiting, Diarrhea, Melena, Hematochezia Genitourinary: Denies: Dysuria, Hematuria, Frequency Musculoskeletal: Denies: Myalgias, Arthralgias, Neck pain, Back pain, Swelling, Extremity Pain, -, - - Patient did report pain right shoulder which resolved with 1 nitro. Skin: Denies: Rash, Wounds Neurological: Denies: Headache, Weakness, Numbness Endocrine: Denies: Polyuria, Polydipsia Hematologic: Reports: Easy bruising Physical Exam Vital Signs/Narrative: Vital Signs Temp Pulse Resp BP Pulse Ox 12/01/19 07:31 69 15 114/67 97 12/01/19 07:20 69 130/67 H 12/01/19 06:47 97.9 F 78 17 120/71 96 Inital Vital Signs reviewed: Yes General: Well nourished, Well developed, No Acute Distress Head: Normocephalic, Atraumatic Eyes: Perrl, EOMI ENT: Moist mucous membranes, No rhinorrhea Neck: Supple, Nontender Cardiovascular: Regular rate, Regular rhythm, No murmurs Respiratory: No distress, CTA bilaterally, Chest nontender Abdomen: Soft, Nontender, Nondistended, Normal bowel sounds. Negative for: No masses Back: Nontender, Normal Inspection Extremities: Nontender, No edema, - - DP and PT pulse are palpable. There is no asymmetry, swelling, discoloration, leg vein distention, palpable cords or tenderness along the distribution of the deep venous system. Skin: Normal color, No rash, No Trauma. Negative for: Cyanosis, Diaphoresis, Jaundice Neurological: Alert, Oriented x3, Cranial nerves II-XII grossly intact, Normal Strength, Normal Sensation Psychological: Normal affect, Normal Mood Diagnostic/Tx/Re-eval Chest X-Ray - ED: 1 View, Read by ED Physician, Normal, Heart, Lungs, Mediastinum, Bony Structures, No Acute Disease, - - As interpreted by me at 0740. X-ray was a single view portable x-ray of the chest. Impressions Chest X-Ray 12/01/19 07:09 IMPRESSION: No radiographic evidence of acute cardiopulmonary disease. Electronically Signed: Maylin Barton MD at 7:57 EDT , Service support , 12/01/19 07:09 Chest 1 View (Portable) [RAD] Stat Laboratory Results 12/01/19 12/01/19 06:50 06:50 WBC 6.4 RBC 3.91 L Hgb 12.8 L Hct 37.7 L MCV 96.4 H MCH 32.7 H MCHC 34.0 RDW Std Deviation 44.1 H RDW Coeff of [place] 12.7 Plt Count 218 MPV 9.4 Immature Gran % (Auto) 0.300 Neut % (Auto) 61.4 Lymph % (Auto) 23.9 [place] % (Auto) 8.0 Eos % (Auto) 5.6 H Baso % (Auto) 0.8 Absolute Neuts (auto) 3.9 Absolute Lymphs (auto) 1.53 Nucleated RBC % 0 Sodium 132 L Potassium 4.6 Chloride 98 Carbon Dioxide 27.0 Anion Gap 7 BUN 17 Creatinine 1.24 Estim Creat Clear Calc 63.78 Est GFR (MDRD) Af Amer 76 Est GFR (MDRD) Non-Af 63 BUN/Creatinine Ratio 13.7 Glucose 624 H* Calcium 8.7 Troponin I < 0.015 Blood sugar is 624 with a normal CO2 and anion gap. He will receive a fluid bolus and subcu insulin. Dr. Thierry Baeza was paged to discuss patient's case and discuss if he would like patient to receive Lovenox. - Rhythm Strip Rhythm Strip: Sinus Rhythm Rate: 73 Ectopy: None - EKG Initial EKG Interpretation: Sinus Rhythm - EKG revealed a normal sinus rhythm with a rate of 78. NM interval is 138 ms. QS duration 82 ms. QT duration 390 ms. [place] is normal. The EKG is normal. The EKG was obtained with minimal discomfort. - Medical Decision Making Patient presents with suspicious story for classic exertional ischemia. Patient's heart score prior to troponin level is 5. The fact that the pain radiated to the right shoulder is concerning since odds ratio for cardiac ischemia is 3 times greater. He did receive aspirin prior to arrival. He received nitro since he was still having some discomfort. 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 Thierry Baeza. Patient's heart score is 5. Patient at moderate risk for coronary event. Will discuss anticoagulation with handhole machine operator. Patient did receive insulin for his elevated glucose and fluid bolus. Hospitalist was paged. - Critical Care Time Critical care time (excluding procedures): 30-74 minutes - 31 minutes, Discussing w/Patient &/or Family/Car Storer, Discussing w/Consultants, Arranging Admission or Transfer ED Disposition - Plan for ED Patient: Disposition: Acute Care Hospital [facility] Diagnosis: Acute coronary syndrome without high troponin, Hyperglycemia due to type 2 diabetes mellitus, Essential (primary) hypertension
[2019-12-01 08:04] LABS: BUN 17 mg/dL (7-18); Creatinine, Serum 1.24 mg/dL (0.70-1.30); EST Glomerular Filtration Rate 63 mL/min (>60); Est Glom Filt Rate - Afr Amer 76 mL/min (>60); Estimated Creatinine Clearance 63.78 ml/min; Glucose 624 mg/dL (74-106)
[2019-12-01 08:05] LABS: Anion Gap 7 (5-15); BUN/Creat Ratio 13.7 RATIO (10-20); Calcium,Total 8.7 mg/dL (8.5-10.1); Chloride 98 mmol/L (98-107); Potassium 4.6 mmol/L (3.5-5.1); Sodium Level 132 mmol/L (136-145)
[2019-12-01] MEDS: 0.9% Normal Saline 1,000 ML 1000 ML IV (08:18)
[2019-12-01] MEDS: Insulin Lispro 100 UNIT/ML INSULN.PEN 8 UNIT SC (08:19)
[2019-12-01] MEDS: Enoxaparin 80 MG/0.8 ML Syringe SC (08:44)
--- NOTE | 2019-12-01 09:19 | EKG12_ITS ---
Test Reason : C.P. ADMISSION Blood Pressure : / mmHG Vent. Rate : 061 BPM Atrial Rate : 061 BPM P-R Int : 130 ms QRS Dur : 084 ms QT Int : 402 ms P-R-T Axes : 020 004 023 degrees QTc Int : 404 ms Normal sinus rhythm Nonspecific T wave abnormality Abnormal ECG When compared with ECG of 18-FEB-2019 10:16, Vent. rate has decreased BY 43 BPM Nonspecific T wave abnormality now evident in Anterolateral leads QT has shortened Confirmed by JOS AMBRIZ, AQUILES ([id number]), editor dictionary BALDO ROBERSON ([id number]) on 12/03/2019 9:40:36 AM Referred By: BALDO Confirmed By:AQUILES ARGUELLO MD
[2019-12-01 09:49] LABS: Prothrombin Time (Protime)PT. 12.9 SECONDS (11.7-14.9)
[2019-12-01] MEDS: 0.9% Normal Saline 1,000 ML 100 ML IV (09:55)
--- NOTE | 2019-12-01 09:55 | HP.PCM_ITS ---
Problem List (1) Chest pain Status: Acute (2) Hyperglycemia due to type 2 diabetes mellitus Status: Acute (3) Essential (primary) hypertension Status: Chronic (4) Ischemic cardiomyopathy Status: Chronic Comment: EF 30-35% per echo 09/06/15 and 50% per echo 10/10/15 (5) Hyperlipidemia Status: Chronic Qualifiers: Hyperlipidemia type: unspecified Qualified Code(s): E78.5 - Hyperlipidemia, unspecified (6) Atherosclerotic heart disease of [place] coronary artery without angina pectoris Status: Chronic Qualifiers: [place] vs. transplanted heart: [place] heart Qualified Code(s): I25.10 - Atherosclerotic heart disease of [place] coronary artery without angina pectoris Comment: PCI to ostial LAD 09/05/15 @ [facility] per Dr. Todd Cagle (7) Stented coronary artery Status: Chronic Comment: PCI to ostial LAD 09/05/15 @ [facility] per Dr. Todd Cagle (8) Diabetes mellitus type II, controlled Status: Chronic Qualifiers: Diabetes mellitus shelter insulin use: without shelter use History of Present Illness Date of Admission: 12/01/19 Chief Complaint: Chest pain. The patient is a 64 year old M with past medical history as mentioned above presented to the emergency room because of chest pain. Patient works at [employer], went for up today and while standing lifting a heavy object, he started having chest pain, upper chest pain across the chest, dull aching pain, 4-5 out of 10 in severity, not radiating, lasted until he came to the emergency department, no associated symptoms and no aggravating or relieving factors. He denied associated shortness of breath, diaphoresis, nausea or vomiting. He denied cough or sputum production. At this time, he is chest pain-free. In the emergency department, his vital signs were stable. His routine blood work was remarkable for hemoglobin of 12.8 g/dL which is chronic, sodium of 132 and blood glucose of 624. There is no evidence of DKA. Chest x-ray showed no acute findings. EKG revealed normal sinus rhythm, normal QRS, normal OH interval, normal QTC, no acute ischemic changes. He is being admitted for chest pain for evaluation as well as hyperglycemia without evidence of DKA. Past Medical History Past Medical History (Chronic Problems): Chronic Problems (Last Updated 12/01/19 @ 09:[address] Ruslan Rodriguez MD) Essential (primary) hypertension (Chronic) Ischemic cardiomyopathy (Chronic) EF 30-35% per echo 09/06/15 and 50% per echo 10/10/15 Hyperlipidemia (Chronic) History of anterior wall myocardial infarction (Chronic) Atherosclerotic heart disease of [place] coronary artery without angina pectoris (Chronic) PCI to ostial LAD 09/05/15 @ [facility] per Dr. Todd Cagle Stented coronary artery (Chronic) PCI to ostial LAD 09/05/15 @ [facility] per Dr. Todd Cagle Diabetes mellitus type II, controlled (Chronic) Medical History: Medical History (Last Updated 12/01/19 @ 09:[address] Ruslan Rodriguez MD) Essential (primary) hypertension (Chronic) I10 Ischemic cardiomyopathy (Chronic) I25.5 EF 30-35% per echo 09/06/15 and 50% per echo 10/10/15 Hyperlipidemia (Chronic) E78.5 History of anterior wall myocardial infarction (Chronic) I25.2 Atherosclerotic heart disease of [place] coronary artery without angina pectoris (Chronic) I25.10 PCI to ostial LAD 09/05/15 @ [facility] per Dr. Todd Cagle Diabetes mellitus type II, controlled (Chronic) E11.9 Allergies No Known Allergies Allergy (Verified 12/01/19 06:54) Home Medications: Ambulatory Orders Medication Instructions Recorded Paroxetine HCl [Paxil] 30 mg PO DAILY 12/02/14 Atorvastatin Calcium [Lipitor] 80 mg PO QHS 10/25/15 Nitroglycerin (INPATIENT USE) 0.4 mg SUBLINGUAL Q5M PRN 10/25/15 [Nitrostat] lisinopril 10 mg tablet 10 mg PO DAILY 05/14/17 metformin 500 mg tablet 1,000 mg PO BID tab 05/14/17 multivitamin 1 tab PO QDAY 05/14/17 ticagrelor 90 mg tablet 90 mg PO BID #60 tab 12/18/18 Glimepiride 4 mg PO DAILY 02/18/19 Aspirin [Aspirin, Baby] 81 mg PO DAILY@0800 #0 02/19/19 Ferrous Sulfate [Ferosul] 325 mg PO DAILY #30 tab 02/19/19 Pantoprazole Sodium [Protonix] 40 mg PO DAILY #30 tab 02/19/19 Surgical History: Surgical History (Last Reviewed 09/02/18 @ 16:16 by Delia Longo) Stented coronary artery (Chronic) Z95.5 PCI to ostial LAD 09/05/15 @ [facility] per Dr. Todd Cagle Surgical History: noncontributory, - Lives: Alone Smoking Status: Former smoker Alcohol: None Drugs: None - *Family History Maternal Family History: Family History (Last Reviewed 09/02/18 @ 16:16 by Delia Longo) Mother No problems noted. Father No problems noted. History Items: Heart Disease Paternal Family History: Family History (Last Reviewed 09/02/18 @ 16:16 by Delia Longo) Mother No problems noted. Father No problems noted. History Items: No pertinent history Review of Systems Constitutional: Denies: Anorexia, Chills, Fever, Weakness Eyes: Denies: Blurred vision, Conjunctivae Inflammation, Double vision, Redness HEENT: Denies: Difficulty Hearing, Dysphasia, Ear Pain, Eye Pain, Nasal Congestion, Sore Throat Cardiovascular: Reports: Chest Pain. Denies: Chest Pressure, Chest Tightness, Heaviness, Light Headedness, Palpitations, Syncope Respiratory: Denies: Cough, Pleuritic Pain, Shortness of Breath, Sputum production, Wheezing Gastrointestinal: Denies: Abdominal Pain, Constipation, Diarrhea, Nausea, Vomiting Genitourinary: Denies: Dysuria, Frequency, Hematuria Musculoskeletal: Denies: Arm Pain, Back Pain, Foot Pain Skin: Denies: Dryness, Rash Neurological: Denies: Balance problems, Double vision, Change in Speech, Slurred speech, Confusion, Headaches, Incoordination Psychiatric: Denies: Anxiety, Depression Endocrine: Denies: Change in Body Habitus, Polydipsia, Polyuria VTE Information - Inpt Only VTE Present on Admission: No VTE Mechan Device Prophylaxis: None VTE Pharm Prophylaxis ordered?: Yes Patient Problems: Active and Suspected Problems (Last Updated 12/01/19 @ 09:[address] Ruslan Rodriguez MD) Chest pain (Acute) Hyperglycemia due to type 2 diabetes mellitus (Acute) - Physical Exam Vitals/I&O's: Vital Signs Temp Pulse Resp BP Pulse Ox 97.6 F L 60 14 135/74 H 99 12/01/19 09:03 12/01/19 09:03 12/01/19 09:03 12/01/19 09:03 12/01/19 09:03 Oxygen Delivery Method Room Air Weight: 167 lb 8.821 oz Body Mass Index (BMI) 24.0 Finger Stick Blood Glucose 278 Intake and Output for Last 24 Hours 11/29/19 11/30/19 12/01/19 23:59 23:59 23:59 Intake Total 1000 / 1000 Balance 1000 / 1000 General: Alert, Oriented x3, Cooperative, No apparent distress HEENT: Atraumatic, PERRLA, EOMI, Normocephalic Oral: Moist Mucosa, No Gingival or Mucosal Lesions/ Ulcerations Neck: Supple, No JVD, Negative Carotid Bruits, Trachea Midline, Thyroid Normal Size and Texture Lungs: Clear to auscultation, Normal air movement, No rhonchi, No wheeze, No rales Cardiovascular: Regular rate, Regular Rhythm, Normal S1, Normal S2, PMI Normal Abdomen: Bowel Sounds Present, Soft, Non Tender, Non-Distended, No Hepato- splenomegaly Extremities: No clubbing, No cyanosis, No edema Skin: No rashes, No breakdown Lymphatic: No Cervical, Supraclavicular, or Inguinal Adenopathy Neurological: Cranial nerves II-XII grossly intact, Motor Exam 5/5 strength throughout Psych/Mental Status: Normal Affect, Appropriate, Alert and oriented to time, place, person, mood and affect Laboratory Results 12/01/19 06:50: WBC 6.4, RBC 3.91 L, Hgb 12.8 L, Hct 37.7 L, MCV 96.4 H, MCH 32.7 H, MCHC 34.0, RDW Std Deviation 44.1 H, RDW Coeff of [place] 12.7, Plt Count 218, MPV 9.4, Immature Gran % (Auto) 0.300, Neut % (Auto) 61.4, Lymph % (Auto) 23.9, [place] % (Auto) 8.0, Eos % (Auto) 5.6 H, Baso % (Auto) 0.8, Absolute Neuts (auto) 3.9, Absolute Lymphs (auto) 1.53, Nucleated RBC % 0 12/01/19 06:50: Sodium 132 L, Potassium 4.6, Chloride 98, Carbon Dioxide 27.0, Anion Gap 7, BUN 17, Creatinine 1.24, Estim Creat Clear Calc 63.78, Est GFR (MDRD) Af Amer 76, Est GFR (MDRD) Non-Af 63, BUN/Creatinine Ratio 13.7, Glucose 624 H*, Calcium 8.7, Troponin I < 0.015 12/01/19 06:50: PT Pending, INR Pending 12/01/19 06:50: Hemoglobin A1c Pending Clinical Impression(s) from Imaging Studies Chest X-Ray 12/01/19 07:09 IMPRESSION: No radiographic evidence of acute cardiopulmonary disease. Electronically Signed: Maylin Barton MD at 7:57 EDT , Service support , Current Medications Acetaminophen (Tylenol) 650 mg PO Q6H PRN PRN PRN Reason: Pain Score 1-10/Temp > 100.7 F Aspirin (Aspirin, Baby) 81 mg PO DAILY@0800 [facility] Atorvastatin Calcium (Lipitor) 80 mg PO QHS [facility] Enoxaparin Sodium (Lovenox) 40 mg SC DAILY [facility] Ferrous Sulfate (Ferrous Sulfate) 325 mg PO DAILY@1200 [facility] Glimepiride (Amaryl) 4 mg PO DAILY [facility] Sodium Chloride () 1,000 mls @ 100 mls/hr IV .Q10H [facility] Stop: 12/02/19 04:52 Sodium Chloride () 250 mls @ 15 mls/hr IV .[id number] PRN PRN Reason: Saline Flush Sodium Chloride () 250 mls @ 15 mls/hr IV .[id number] PRN PRN Reason: Additional IVPB Infusion Insulin Human Lispro (Humalog Kwikpen (Bkc)) 0 unit SC Q4 [facility]; Protocol Lisinopril (Zestril) 10 mg PO DAILY [facility] Morphine Sulfate () 1 - 2 mg IV Q3H PRN PRN PRN Reason: Pain Score 6-10/10 Nitroglycerin (Nitrostat) 0.4 mg SUBLINGUAL Q5M PRN PRN Reason: CARDIAC/CHEST PAIN Non-Formulary Medication (Paroxetine Hcl [Paxil]) 30 mg PO DAILY [facility] Ondansetron HCl (Zofran) 4 mg IV Q8H PRN PRN PRN Reason: NAUSEA/VOMITING Pantoprazole Sodium (Protonix) 40 mg PO DAILY LEANDRA Senna/Docusate Sodium (Senokot-S, Any-Colace) 2 tablet PO BID PRN PRN PRN Reason: Constipation Sodium Chloride () 10 - 40 ml IV UD PRN PRN Reason: SALINE FLUSH Ticagrelor (Brilinta) 90 mg PO BID LEANDRA Zolpidem Tartrate (Ambien (Generic)) 5 mg PO QHS PRN PRN PRN Reason: INSOMNIA Assessment/Plan All Active Problems (Last Updated 12/01/19 @ 09:[address] Ruslan Rodriguez MD) Chest pain (Acute) Hyperglycemia due to type 2 diabetes mellitus (Acute) This is a 64 years old male patient presented to the emergency room because of chest pain and he is being admitted for evaluation and also found to have hyperglycemia without evidence of DKA. #1 chest pain: In context of history of CAD status post stents, hypertension, diabetes and hyperlipidemia. Initial EKG revealed no acute segment changes. Troponin is negative. Chest x-ray showed no acute findings. Plan: Admit to PCU, cardiac monitoring, serial cardiac enzymes, IV morphine PRN for pain, sublingual nitroglycerin PRN for pain, IV fluids, Tylenol PRN, Zofran PRN, nuclear stress test tomorrow morning if cardiac enzymes are negative. #2 hyperglycemia/hyponatremia: Blood sugar is 624. No evidence of DKA, serum bicarb and anion gap are normal. Patient has been on metformin and glimepiride. In the past, he used to be on insulin but he was taken off. His sodium is 132, likely due to pseudohyponatremia because of hyperglycemia. Plan: Accu- Cheks every 4 hours, continue glimepiride, hold metformin, high medium insulin sliding scale, check hemoglobin A1c, IV fluids with normal saline, repeat BMP tomorrow morning. #3 CAD status post stents: EKG reviewed as above, troponin is negative. Continue aspirin, statins, lisinopril and Brilinta. #4 type 2 diabetes mellitus: ADA diet, Accu-Cheks every 4 hours, sliding scale, continue glimepiride, hold metformin, check hemoglobin A1c. #5 ischemic cardiomyopathy: Without evidence of acute CHF. Continue aspirin, statins, lisinopril. #6 hypertension: Blood pressure stable, continue lisinopril. #7 hyperlipidemia: Continue statins. #8 DVT prophylaxis: Subcu Lovenox. This note was generated with [employer] dictation software. It may contain incorrect words, spelling, and punctuation that were not noted in checking the note before signing. Inpatient E&M: 93856 Init Hosp L2
[2019-12-01] MEDS: Insulin Lispro 100 UNIT/ML INSULN.PEN SC ×3 (10:33→21:34)
[2019-12-01] MEDS: Lisinopril 10 MG Tablet PO (10:34)
[2019-12-01] MEDS: Pantoprazole Sodium 40 MG Tablet PO (10:34)
[2019-12-01] MEDS: TICAGRELOR 90 MG TABLET PO ×2 (10:34→21:34)
[2019-12-01] MEDS: Ferrous Sulfate 325 MG Tablet PO (10:34)
[2019-12-01 10:46] LABS: Bedside Glucose 355 mg/dL (70-110)
[2019-12-01 14:10] LABS: Bedside Glucose 111 mg/dL (70-110)
[2019-12-01 18:56] LABS: Bedside Glucose 257 mg/dL (70-110)
[2019-12-01] MEDS: Atorvastatin Calcium 80 MG Tablet PO (21:34)
[2019-12-01 22:21] LABS: Bedside Glucose 240 mg/dL (70-110)
[2019-12-02 01:51] VITALS: BP 98/58; PULSE 65; RESP 16; TEMP 36.5; O2SAT 96
[2019-12-02 01:55] LABS: Bedside Glucose 196 mg/dL (70-110)
[2019-12-02] MEDS: Insulin Lispro 100 UNIT/ML INSULN.PEN SC ×3 (02:00→13:58)
[2019-12-02 03:22] VITALS: PULSE 56
--- NOTE | 2019-12-02 05:55 | EKG12_ITS ---
Test Reason : AM EKG Blood Pressure : / mmHG Vent. Rate : 060 BPM Atrial Rate : 060 BPM P-R Int : 134 ms QRS Dur : 086 ms QT Int : 436 ms P-R-T Axes : 042 003 006 degrees QTc Int : 436 ms Normal sinus rhythm Normal ECG When compared with ECG of 01-DEC-2019 09:16, MANUAL COMPARISON REQUIRED, DATA IS UNCONFIRMED Confirmed by BRYCE AMBRIZ, AGUS ([id number]), avid editor BALDO ROBERSON ([id number]) on 12/07/2019 1:33:13 PM Referred By: BALDO Confirmed By:KILO WU MD
[2019-12-02 06:10] VITALS: BP 123/71; PULSE 67; RESP 16; TEMP 36.6; O2SAT 98
[2019-12-02] MEDS: Aspirin 81 MG TAB.CHEW PO (06:13)
[2019-12-02] MEDS: TICAGRELOR 90 MG TABLET PO (06:13)
[2019-12-02] MEDS: Lisinopril 10 MG Tablet PO (06:13)
[2019-12-02 06:20] LABS: Bedside Glucose 249 mg/dL (70-110)
[2019-12-02 06:51] LABS: Absolute Lymphocyte Count 1.14 X10^3/uL (0.83-4.51); Absolute Neutrophil Count 3.8 X10^3/uL (2.0-7.7); Basophil# 0.04 X10^3/uL; Basophil% 0.7 % (0-1); Eosinophil# 0.26 X10^3/uL; Eosinophils% 4.6 % (0-5); Hemoglobin 12.3 g/dL (13.0-16.5); Lymphocyte # 1.14 X10^3/ul (4.0); Lymphocyte % 20.2 % (19-41); Mean Corp Hgb Conc 33.2 g/dL (32-36); Mean Corpuscular Hgb 32.5 pg (27.0-32.0); Mean Corpuscular Volume 97.6 fL (80-94); Mean Platelet Vol. 8.9 fl (6.2-12.0); Monocyte# 0.38 X10^3/uL; Monocyte% 6.7 % (0-10); NRBC Flagged by Analyzer 0 % (0-5); Neutrophil % 67.6 % (47-70); Platelet Count 220 K/mm3 (150-450); RBC Distribution Width CV 13.1 % (11.6-14.6); RBC Distribution Width SD 46.1 fl (35.1-43.9); Red Blood Count 3.79 M/mm3 (4.6-6.2); White Blood Count 5.6 K/mm3 (4.4-11.0)
[2019-12-02 07:00] VITALS: PULSE 71
[2019-12-02 07:32] LABS: Anion Gap 3 (5-15); BUN 12 mg/dL (7-18); BUN/Creat Ratio 12.8 RATIO (10-20); Calcium,Total 8.6 mg/dL (8.5-10.1); Chloride 106 mmol/L (98-107); Creatinine, Serum 0.94 mg/dL (0.70-1.30); EST Glomerular Filtration Rate 86 mL/min (>60); Est Glom Filt Rate - Afr Amer 105 mL/min (>60); Estimated Creatinine Clearance 84.13 ml/min; Glucose 267 mg/dL (74-106); Potassium 4.6 mmol/L (3.5-5.1); Sodium Level 138 mmol/L (136-145)
[2019-12-02 07:46] VITALS: O2SAT 95
[2019-12-02] MEDS: Pantoprazole Sodium 40 MG Tablet PO (10:45)
[2019-12-02] MEDS: Glimepiride 4 MG Tablet PO (10:45)
[2019-12-02] MEDS: PARoxetine 10 MG Tablet 30 MG PO (10:45)
[2019-12-02 10:55] LABS: Bedside Glucose 297 mg/dL (70-110)
--- NOTE | 2019-12-02 11:17 | CASEMGMT ---
RN CM Face to Face with patient for initial transition planning/care coordination assessment. RN CM introduced self and role at [facility]. Patient lying in bed, alert and oriented, brother in law at bedside. Patient willing to participate in assessment and is able to answer all questions appropriately. Care providers, pharmacy, and demographics verified. Patient wishes to discharge home, denies need for home health at this time. Patient states he has no further needs or concerns at this time. CM to follow for discharge planning needs that may arise. PCP: Danyelle Specialists: None Preferred Pharmacy: [facility] Insurance: MMO Prescription Benefit: yes Living Will/HPOA: Yes, brother in law Sam Burrows LNOK: Father, KODY Living Arrangements: Patient lives alone in a first floor apartment, 1 step to enter the home. Patient is independent at home and works Transportation: Self, family DME/HHC: Patient has glucometer and testing supplies at home. Denies further DME. No previous HHC. Disposition Plan: Patient to discharge home with family support and follow-up plans in place. Amie MCCRACKEN, RN, CM
--- NOTE | 2019-12-02 11:45 | DCINST_ITS ---
- Discharge Diagnoses Current Active Problems: Current Active and Chronic Problems (Last Updated 12/01/19 @ 09:[address] Ruslan Rodriguez MD) Chest pain (Acute) Hyperglycemia due to type 2 diabetes mellitus (Acute) Essential (primary) hypertension (Chronic) You will use the following diet at home:: Calorie/Carbohydrate Controlled (specify 1200, 1400, etc) - 1800 ADA diet, Cardiac Your food should be the consistency of: Regular Discharge Activity: Return to Normal Activity Weight Bearing Status: Weight bearing as tolerated Call your doctor if you observe: Fever of 101 or Higher, Coldness, Increased Pain, Inability to urinate, Inability to have a bowel movement, Shortness of breath, Dizziness, Fainting spells, Swelling in the ankles, Chest pain, Prolonged hiccoughing, Increased palpitations (irregular heartbeat) Allergies/Adverse Reactions: Allergies No Known Allergies Allergy (Verified 12/01/19 06:54) Medications to take at Discharge Paroxetine HCl [Paxil] 30 mg PO DAILY 12/02/14 Atorvastatin Calcium [Lipitor] 80 mg PO QHS 10/25/15 Nitroglycerin (INPATIENT USE) [Nitrostat] 0.4 mg SUBLINGUAL Q5M PRN 10/25/15 lisinopril 10 mg tablet 10 mg PO DAILY 05/14/17 metformin 500 mg tablet 1,000 mg PO BID tab 05/14/17 multivitamin 1 tab PO QDAY 05/14/17 ticagrelor 90 mg tablet 90 mg PO BID #60 tab 12/18/18 Glimepiride 4 mg PO DAILY 02/18/19 Aspirin [Aspirin, Baby] 81 mg PO DAILY@0800 #0 02/19/19 Ferrous Sulfate [Ferosul] 325 mg PO DAILY #30 tab 02/19/19 Pantoprazole Sodium [Protonix] 40 mg PO DAILY #30 tab 02/19/19 Primary Care Physician: Travis Bassett MD [Primary Care Provider] - Please follow up with your Primary Care Physician in: in 2 weeks Test Results: Test results from this visit will be discussed in further detail at your follow- up appointment, if applicable.
--- NOTE | 2019-12-02 12:07 | PCM.DC.SUM ---
Discharge Date and Diagnosis Date of Admission: 12/01/19 Date of Discharge: 12/02/19 - Primary Discharge Diagnosis Acute Problems: Active Problems (Last Updated 12/01/19 @ 09:[address] Ruslan Rodriguez MD) Chest pain (Acute) Hyperglycemia due to type 2 diabetes mellitus (Acute) - Secondary Discharge Diagnosis Chronic Problems: Chronic Problems (Last Updated 12/01/19 @ 09:[address] Ruslan Rodriguez MD) Essential (primary) hypertension (Chronic) Ischemic cardiomyopathy (Chronic) EF 30-35% per echo 09/06/15 and 50% per echo 10/10/15 Hyperlipidemia (Chronic) History of anterior wall myocardial infarction (Chronic) Atherosclerotic heart disease of [place] coronary artery without angina pectoris (Chronic) PCI to ostial LAD 09/05/15 @ [facility] per Dr. Todd Cagle Stented coronary artery (Chronic) PCI to ostial LAD 09/05/15 @ [facility] per Dr. Todd Cagle Diabetes mellitus type II, controlled (Chronic) Hospital Course and Treatment Imaging Results: 12/02/19 05:55 Nuclear Stress Test - Treadmil [NM] Routine Summary of Care Provided: The patient is a 64 year old M with history of coronary artery status post PCI came to ED with chest pain, dull ache while lifting a heavy object. EKG showed normal sinus rhythm, normal QTc interval with no acute ischemic changes. Patient is admitted in PCU. Serial troponin enzymes are negative. Patient had treadmill nuclear stress test which was reported negative for acute ischemic changes. Patient is on baby aspirin, Brilinta, atorvastatin, lisinopril. Patient not on beta-brian since home most likely secondary to heart rate in 60s. Glucose of 624 on admission with a normal anion gap and bicarb 27. A1c 10. Patient blood sugar was controlled. On glimepiride and metformin. Discharge medication reconciliation done. Discharge follow-up instructions completed. Discharge process discussed with the patient and all questions were answered to patient's satisfaction. Patient advised to follow-up with PCP for glycemic control. Patient might need long-acting insulin. Total time spent, exact 35 minutes on discharge meds reconciliation, examination, coordination of care with nurses and ancillary staff, review of imaging and blood test and discussion with the patient on follow-up instructions [] Objective: Patient does not have chest pain or shortness of breath. Patient chest pain got resolved by the time he came to ED. Physical exam General: Alert, Oriented x3, Cooperative HEENT: Atraumatic, PERRLA, EOMI, Normocephalic Oral: No Gingival or Mucosal Lesions/ Ulcerations Neck: Supple, No JVD, Negative Carotid Bruits Lungs: Air entry equal in bilateral lungs. No crepitation/rhonchi Cardiovascular: Regular rate, Regular Rhythm, Normal S1, Normal S2, No murmurs Abdomen: Bowel Sounds Present, Soft, Non Tender, Non-Distended : No renal angle tenderness. No suprapubic tenderness. Extremities: No edema, Capillary Refill Less than 3 Seconds Skin: No rashes, No breakdown Musculoskeletal: No Tenderness to Palpation of Joints or Extremities Neurological: Cranial nerves II-XII grossly intact, Deep Tendon Reflexes 2+/4 and Symmetrical, Neuro grossly intact Psych/Mental Status: Normal Affect, Appropriate. - Physical Exam Vitals/I&O's: Vital Signs Temp Pulse Resp BP Pulse Ox 97.9 F 71 16 123/71 H 95 12/02/19 06:10 12/02/19 07:00 12/02/19 06:10 12/02/19 06:10 12/02/19 07:46 Oxygen Delivery Method Room Air Weight: 167 lb 8.821 oz Body Mass Index (BMI) 24.0 Finger Stick Blood Glucose 278 Intake and Output for Last 24 Hours 11/30/19 12/01/19 12/02/19 23:59 23:59 23:59 Intake Total 2250.00 / 2250.00 0 / 0 Balance 2250.00 / 2250.00 0 / 0 Laboratory Results 12/01/19 13:10: Troponin I < 0.015 12/01/19 13:54: POC Glucose 111 H 12/01/19 18:25: POC Glucose 257 H 12/01/19 21:33: POC Glucose 240 H 12/02/19 01:46: POC Glucose 196 H 12/02/19 06:12: POC Glucose 249 H 12/02/19 06:25: WBC 5.6, RBC 3.79 L, Hgb 12.3 L, Hct 37.0 L, MCV 97.6 H, MCH 32.5 H, MCHC 33.2, RDW Std Deviation 46.1 H, RDW Coeff of [place] 13.1, Plt Count 220, MPV 8.9, Immature Gran % (Auto) 0.200, Neut % (Auto) 67.6, Lymph % (Auto) 20.2, [place] % (Auto) 6.7, Eos % (Auto) 4.6, Baso % (Auto) 0.7, Absolute Neuts (auto) 3.8, Absolute Lymphs (auto) 1.14, Nucleated RBC % 0 12/02/19 06:25: Sodium 138, Potassium 4.6, Chloride 106, Carbon Dioxide 29.0, Anion Gap 3 L, BUN 12, Creatinine 0.94, Estim Creat Clear Calc 84.13, Est GFR (MDRD) Af Amer 105, Est GFR (MDRD) Non-Af 86, BUN/Creatinine Ratio 12.8, Glucose 267 H, Calcium 8.6 12/02/19 10:41: POC Glucose 297 H Current Medications Acetaminophen (Tylenol) 650 mg PO Q6H PRN PRN PRN Reason: Pain Score 1-10/Temp > 100.7 F Aspirin (Aspirin, Baby) 81 mg PO DAILY@0800 [facility] Last Admin: 12/02/19 06:13 Dose: 81 mg Documented by: Atorvastatin Calcium (Lipitor) 80 mg PO QHS [facility] Last Admin: 12/01/19 21:34 Dose: 80 mg Documented by: Enoxaparin Sodium (Lovenox) 40 mg SC DAILY [facility] Ferrous Sulfate (Ferrous Sulfate) 325 mg PO DAILY@1200 [facility] Last Admin: 12/01/19 10:34 Dose: 325 mg Documented by: Glimepiride (Amaryl) 4 mg PO DAILY@0800 [facility] Last Admin: 12/02/19 10:45 Dose: 4 mg Documented by: Sodium Chloride () 250 mls @ 15 mls/hr IV .[id number] PRN PRN Reason: Saline Flush Sodium Chloride () 250 mls @ 15 mls/hr IV .[id number] PRN PRN Reason: Additional IVPB Infusion Insulin Glargine (Lantus (Bk)) 10 units SC DAILY [facility] Insulin Human Lispro (Humalog Kwikpen ([facility])) 0 unit SC Q4 [facility]; Protocol Last Admin: 12/02/19 10:48 Dose: 6 units Documented by: Lisinopril (Zestril) 10 mg PO DAILY [facility] Last Admin: 12/02/19 06:13 Dose: 10 mg Documented by: Morphine Sulfate () 1 - 2 mg IV Q3H PRN PRN PRN Reason: Pain Score 6-10/10 Nitroglycerin (Nitrostat) 0.4 mg SUBLINGUAL Q5M PRN PRN Reason: CARDIAC/CHEST PAIN Ondansetron HCl (Zofran) 4 mg IV Q8H PRN PRN PRN Reason: NAUSEA/VOMITING Pantoprazole Sodium (Protonix) 40 mg PO DAILY [facility] Last Admin: 12/02/19 10:45 Dose: 40 mg Documented by: Paroxetine HCl (Paxil) 30 mg PO DAILY [facility] Last Admin: 12/02/19 10:45 Dose: 30 mg Documented by: Senna/Docusate Sodium (Senokot-S, Any-Colace) 2 tablet PO BID PRN PRN PRN Reason: Constipation Sodium Chloride () 10 - 40 ml IV UD PRN PRN Reason: SALINE FLUSH Ticagrelor (Brilinta) 90 mg PO BID [facility] Last Admin: 12/02/19 06:13 Dose: 90 mg Documented by: Zolpidem Tartrate (Ambien (Generic)) 5 mg PO QHS PRN PRN PRN Reason: INSOMNIA Discharge Activity: Return to Normal Activity Weight Bearing Status: Weight bearing as tolerated Call your doctor if you observe: Fever of 101 or Higher, Coldness, Increased Pain, Inability to urinate, Inability to have a bowel movement, Shortness of breath, Dizziness, Fainting spells, Swelling in the ankles, Chest pain, Prolonged hiccoughing, Increased palpitations (irregular heartbeat) Home Medications: Medications to take at Discharge Paroxetine HCl [Paxil] 30 mg PO DAILY 12/02/14 Atorvastatin Calcium [Lipitor] 80 mg PO QHS 10/25/15 Nitroglycerin (INPATIENT USE) [Nitrostat] 0.4 mg SUBLINGUAL Q5M PRN 10/25/15 lisinopril 10 mg tablet 10 mg PO DAILY 05/14/17 metformin 500 mg tablet 1,000 mg PO BID tab 05/14/17 multivitamin 1 tab PO QDAY 05/14/17 ticagrelor 90 mg tablet 90 mg PO BID #60 tab 09/26/19 Glimepiride 4 mg PO DAILY 02/18/19 Aspirin [Aspirin, Baby] 81 mg PO DAILY@0800 #0 02/19/19 Ferrous Sulfate [Ferosul] 325 mg PO DAILY #30 tab 02/19/19 Pantoprazole Sodium [Protonix] 40 mg PO DAILY #30 tab 02/19/19 Primary Care Physician: Travis Bassett MD [Primary Care Provider] - Please follow up with your Primary Care Physician in: in 2 weeks Medical Necessity - Tobacco Use Smoking Status: Former smoker Meaningful Use Info Meaningful Use Diagnoses (Choose all that apply): None applicable OBSV E&M: 65497 Observation care discharge
[2019-12-02 12:08] VITALS: BP 124/62; PULSE 64; RESP 18; TEMP 36.7; O2SAT 98
[2019-12-02] MEDS: Ferrous Sulfate 325 MG Tablet PO (12:16)
[2019-12-02 14:06] LABS: Bedside Glucose 185 mg/dL (70-110)
--- NOTE | 2019-12-02 14:09 | PHA.DC.MR ---
Pharmacy Service has performed discharge medication reconciliation for this patient. The patient's discharge medication list was reviewed for discrepancies and discrepancies were resolved. Home Medications Paroxetine HCl [Paxil] 30 mg PO DAILY 12/02/14 Atorvastatin Calcium [Lipitor] 80 mg PO QHS 10/25/15 Nitroglycerin (INPATIENT USE) [Nitrostat] 0.4 mg SUBLINGUAL Q5M PRN 10/25/15 lisinopril 10 mg tablet 10 mg PO DAILY 05/14/17 metformin 500 mg tablet 1,000 mg PO BID tab 05/14/17 multivitamin 1 tab PO QDAY 05/14/17 ticagrelor 90 mg tablet 90 mg PO BID #60 tab 12/18/18 Glimepiride 4 mg PO DAILY 02/18/19 Aspirin [Aspirin, Baby] 81 mg PO DAILY@0800 #0 02/19/19 Ferrous Sulfate [Ferosul] 325 mg PO DAILY #30 tab 02/19/19 Pantoprazole Sodium [Protonix] 40 mg PO DAILY #30 tab 02/19/19
--- NOTE | 2019-12-02 14:57 | NURSING ---
Pt stated during discharge teaching that he does not have any of his medications at home and would not be able to fill them until Saturday when he gets paid. This RN spoke with EDWARD Holloway. Was able to give pt a coupon for Brilinta. Pt stated he could probably borrow money from brother in law who is here so he can get his meds today. Pt educated on importance of filling medications timely.
--- NOTE | 2019-12-02 18:02 | STRESSREP ---
Stress Test Report Exercise myocardial perfusion stress test. 64-year-old man with a history of chest pain and diabetes. Stress protocol: Resting EKG demonstrates normal sinus rhythm with a rate of 62 bpm normal intervals are noted resting blood pressure is 100/62 mmHg. The patient exercised according to regular Bishnu protocol for total duration of 7 minutes and 45 seconds completing 1 minute and 45 seconds into stage III of the Bishnu protocol. The maximum heart rate attained was 136 bpm which was 86% of max impacted heart rate the maximum workload was 9.7 metabolic equivalents. At rest there were no ST or T wave changes noted suggest ischemia. At peak exercise there was approximately 0.9 mm of upsloping to horizontal ST depression suggestive but not diagnostic of ischemia. The test was terminated due to dyspnea. The target heart rate was achieved. The resting blood pressure was 100/64 with a peak blood pressure 162/60 mmHg. Myocardial perfusion protocol. 12.0 mCi of technetium 99m sestamibi was injected at rest. The patient exercised according to regular Bishnu protocol for a total duration of 7 minutes and 45 seconds at peak exercise 34.2 mCi of technetium 99m sestamibi was injected stress images were obtained stress and rest images were reconstructed and compared in the short axis vertical long horizontal long axis. Gated images were also obtained Perfusion SPECT analysis: Review of the stress images demonstrate normal uptake of tracer noted in all areas of the myocardium except for small portion of the septum. The resting images similarly demonstrate normal uptake of tracer noted in all areas of the myocardium except for the septum. No obvious reversible areas are noted to suggest ischemia. Gated SPECT analysis: The gated ejection fraction is 54%. Conclusion: Normal exercise myocardial perfusion stress test at a high workload. No clinical angina noted.
== END 2019-12-02 14:56 | disposition home or self-care (01) ==
LOC: ED 08:18 → PCU 08:32
PROVIDERS: Admitting Provider Hospitalist; Emergency Provider Emergency Medicine; PCP Family Medicine; Visit Provider Internal Medicine
DX: R07.89 Other chest pain (principal); E11.65 Type 2 diabetes mellitus with hyperglycemia; I25.10 Atherosclerotic heart disease of native coronary artery without angina pectoris; I25.2 Old myocardial infarction; E78.5 Hyperlipidemia, unspecified; I10 Essential (primary) hypertension; I25.5 Ischemic cardiomyopathy; E87.1 Hypo-osmolality and hyponatremia; Z79.899 Other long term (current) drug therapy; Z79.82 Long term (current) use of aspirin; Z79.84 Long term (current) use of oral hypoglycemic drugs; Z95.5 Presence of coronary angioplasty implant and graft; Z87.891 Personal history of nicotine dependence
CPT/HCPCS: 36415; 71045; 78452; 80048; 82962; 83036; 84484; 85025; 85610; 93005; 93017; 96360; 96361; 96372; 99218; 99251; 99285; A9500; J7030; A4216; G0378; G0463

== ENCOUNTER → 2019-12-23 17:15 | Outpatient (CLI) | payer OTHER, SELFPAY ==
[2019-12-01 09:05] VITALS: BMI 24.0
== END ==
PROVIDERS: PCP Family Medicine; Referring Provider Family Medicine; Visit Provider Family Medicine
DX: Z20.828 Contact with and (suspected) exposure to other viral communicable diseases (principal)
CPT/HCPCS: 87635; C9803; U0003

== ENCOUNTER 2021-01-20 05:47 | Inpatient (IN) | payer OTHER, SELFPAY ==
[2021-01-20] VITALS (14 sets, daily range): BP systolic 95–126; BP diastolic 56–84; PULSE 83–115; RESP 16–24; TEMP 36.3–38.2; O2SAT 92–99; BMI 25.8; BMI 24.9
--- NOTE | 2021-01-20 06:00 | EDS_ITS ---
HPI History of Present Illness Chief Complaint: Weakness Informant: patient Onset/Context/Timing Onset: Days (4-5) Context: Gradual Onset Timing: Continuous Narrative Narrative: Patient presenting by EMS for for 5 days of not feeling well. He denies any other symptoms, then when we asked him specifics he says that his right elbow has been bothering him some, and his low back has been sore. He has no neurologic symptoms, cough, shortness of breath, myalgias, headaches, fevers that he knows of although he is febrile here, or loss of taste and smell. He was vaccinated against Covid, he thinks he had the final vaccine in July, no known sick contacts. Since he has felt generally malaise he has stayed home from work most of the week. Today, when trying to walk he felt so weak that he fell and bruised his left knee but sustained no other injuries. He denies any problems urinating. His blood sugar was in the 200s when EMS checked it today. He states he is on multiple medications, he does not know most of them and initially told us he had no medical problems but then we started asking about his heart stents and diabetes and the other medications he is on then he admits that he does have multiple medical issues and also admits he has not been taking his medications like he is supposed to in the last several days this week. [facility] Medical History Atherosclerotic heart disease of [place] coronary artery without angina pectoris Diabetes mellitus type II, controlled Essential (primary) hypertension History of anterior wall myocardial infarction Hyperlipidemia Ischemic cardiomyopathy Home Medications paroxetine HCl 30 mg PO DAILY 12/02/14 [History Last Taken 02/18/19] atorvastatin 80 mg PO QHS 10/25/15 [History Last Taken 02/16/19] nitroglycerin 0.4 mg SUBLINGUAL Q5M PRN 10/25/15 [History Last Taken Unknown] lisinopril 10 mg tablet 10 mg PO DAILY 05/14/17 [History Last Taken 02/18/19] metformin 500 mg tablet 1,000 mg PO BID tab 05/14/17 [History Last Taken 02/18/19] multivitamin 1 tab PO QDAY 05/14/17 [History Last Taken 02/18/19] ticagrelor 90 mg tablet 90 mg PO BID #60 tab 12/18/18 [Rx Last Taken 02/18/19] glimepiride 4 mg PO DAILY 02/18/19 [History Last Taken 02/18/19] aspirin 81 mg PO DAILY@0800 #0 02/19/19 [Rx Last Taken 02/17/19] ferrous sulfate 325 mg PO DAILY #30 tab 02/19/19 [Rx Last Taken Unknown] pantoprazole 40 mg PO DAILY #30 tab 02/19/19 [Rx Last Taken Unknown] Allergy/AdvReac Type Severity Reaction Status Date / Time No Known Allergies Allergy Verified 01/20/21 05:48 Family History Mother No problems noted. Father No problems noted. Surgical History Stented coronary artery Social History Smoking Status: Former smoker alcohol intake: never ROS ROS ED Constitutional Constitutional ED: Reports fatigue and malaise; Denies chills or fever(s) Eyes Eyes: Denies change in vision or diplopia ENT ENT ED: Denies loss taste/smell, rhinorrhea or sore throat Cardiovascular Cardiovascular: Denies chest pain or palpitations Respiratory/Chest Respiratory/Chest: Denies cough or dyspnea Gastrointestinal Gastrointestinal: Denies abdominal pain, diarrhea, nausea or vomiting Genitourinary Genitourinary ED: Denies dysuria or hematuria Musculoskeletal Musculoskeletal: Denies back pain or neck pain Integumentary Denies abscess or rash Neurologic Neurologic: Denies headache(s), paresthesias or weakness Psychiatric Psychiatric: Denies anxiety or suicidal thoughts EXAM Physical Exam Const Vital Signs: 01/20/21 05:48 01/20/21 06:50 01/20/21 07:23 Temperature 100.7 F H 100.7 F H 98.2 F Temperature Source Oral Oral Oral Pulse Rate 106 H 106 H 115 H Respiratory Rate 18 18 19 H Blood Pressure 126/72 H 126/72 H 95/84 H Blood Pressure Mean 90 90 87 Pulse Ox 96 96 95 Oxygen Delivery Method Room Air Room Air Room Air 01/20/21 07:32 Temperature Temperature Source Pulse Rate Respiratory Rate Blood Pressure Blood Pressure Mean Pulse Ox 95 Oxygen Delivery Method Room Air Positive well nourished and well developed General Appearance ED: well developed and NAD HEENT Reports moist mucous membranes normocephalic and atraumatic Eyes PERRL and EOMs intact bilaterally Neck full ROM and supple Resp normal respiratory effort and clear to auscultation bilaterally Cardio regular rate, regular rhythm, no murmurs and no JVD Cardio Narrative: Mildly tachycardic GI non-tender and non-distended Auscultation: normoactive bowel sounds Palpation: soft Back/Spine no CVA tenderness General Back: other FROM Extremity normal to inspection General Extremety ED: Negative for edema, pulses abnormal or tenderness General Extremity: Negative for edema or pulses abnormal Neuro oriented x3, CN's II-XII intact bilaterally and no sensory deficits noted Sensorium / Orientation: awake and alert Motor Exam: strength 5/5 throughout Skin no rashes or lesions noted and no wounds Skin Narrative: Contusion left anteromedial knee MDM MDM MDM Narrative Medical decision making narrative: Rapid Covid is negative. Therefore, septic workup obtained. It appears that the patient has pneumonia that is not Covid, and is septic from it. Because he is not hypoxic, I did a port score on him, and he is in class IV, putting him at high risk for mortality, hospitalization is recommended based on this see below. PSI/PORT Score: Pneumonia Severity Index for CAP from [email or web address] on 01/20/2021 All calculations should be rechecked by clinician prior to use RESULT SUMMARY: 113 points Risk Class IV, 8.2-9.3% mortality. Hospitalization recommended based on risk. INPUTS: Age ?> 65 years Sex ?> 0 = Male long-term resident ?> 0 = No Neoplastic disease ?> 0 = No Liver disease history ?> 0 = No CHF history ?> 10 = Yes Cerebrovascular disease history ?> 0 = No Renal disease history ?> 0 = No Altered mental status ?> 0 = No Respiratory rate ?30 breaths/min ?> 0 = No Systolic blood pressure ?> 0 = No Temperature 39.9?C (103.8?F) ?> 0 = No Pulse ?125 beats/min ?> 0 = No pH ?> 0 = No BUN ?30 mg/dL or ?11 mmol/L ?> 0 = No Sodium ?> 20 = Yes Glucose ?250 mg/dL or ?14 mmol/L ?> 10 = Yes Hematocrit ?> 10 = Yes Partial pressure of oxygen ?> 0 = No Pleural effusion on x-ray ?> 0 = No Treat empirically with Rocephin and Zithromax, discussed with hospitalist for admission. Patient is anemic, the last hemoglobin that we had on him was from several years ago. He denies any symptoms of GI bleeding recently. Lab Data Attestation: I reviewed the patient's lab results. Labs: Laboratory Results - last 24 hr 01/20/21 01/20/21 01/20/21 05:42 05:42 05:42 WBC 16.1 H RBC 2.61 L Hgb 8.2 L Hct 24.9 L MCV 95.4 H MCH 31.4 MCHC 32.9 RDW Std Deviation 45.2 H RDW Coeff of Talon 12.9 Plt Count 311 MPV 9.1 Immature Gran % (Auto) 0.800 Neut % (Auto) 86.6 H Lymph % (Auto) 4.9 L [place] % (Auto) 7.6 Eos % (Auto) 0.0 Baso % (Auto) 0.1 Absolute Neuts (auto) 13.9 H Absolute Lymphs (auto) 0.79 L Nucleated RBC % 0 Sodium 127 L Potassium 4.4 Chloride 93 L Carbon Dioxide 21.0 Anion Gap 13 BUN 24 H Creatinine 1.38 H Estim Creat Clear Calc 54.79 Est GFR (MDRD) Af Amer 67 Est GFR (MDRD) Non-Af 55 L BUN/Creatinine Ratio 17.4 Glucose 267 H Lactic Acid 1.5 Calcium 8.5 Total Bilirubin 0.40 AST 24 ALT 29 Alkaline Phosphatase 72 Total Protein 7.7 Albumin 3.1 L Globulin 4.6 H Albumin/Globulin Ratio 0.7 L Urine Color Urine Clarity Urine pH Ur Specific [place] Urine Protein Urine Glucose (UA) Urine Ketones Urine Occult Blood Urine Nitrite Urine Bilirubin Urine Urobilinogen Ur Leukocyte Esterase Urine RBC Urine WBC Ur Squamous Epith Cells Amorphous Sediment Urine Bacteria Urine Mucus 01/20/21 07:30 WBC RBC Hgb Hct MCV MCH MCHC RDW Std Deviation RDW Coeff of Talon Plt Count MPV Immature Gran % (Auto) Neut % (Auto) Lymph % (Auto) [place] % (Auto) Eos % (Auto) Baso % (Auto) Absolute Neuts (auto) Absolute Lymphs (auto) Nucleated RBC % Sodium Potassium Chloride Carbon Dioxide Anion Gap BUN Creatinine Estim Creat Clear Calc Est GFR (MDRD) Af Amer Est GFR (MDRD) Non-Af BUN/Creatinine Ratio Glucose Lactic Acid Calcium Total Bilirubin AST ALT Alkaline Phosphatase Total Protein Albumin Globulin Albumin/Globulin Ratio Urine Color Yellow Urine Clarity Clear Urine pH 6.0 Ur Specific [place] 1.020 Urine Protein 30 H Urine Glucose (UA) 250 H Urine Ketones 150 A* Urine Occult Blood 10 H Urine Nitrite Negative Urine Bilirubin Negative Urine Urobilinogen Normal Ur Leukocyte Esterase Negative Urine RBC 0 SEEN Urine WBC 0 SEEN Ur Squamous Epith Cells 0 SEEN Amorphous Sediment 1+ Urine Bacteria 0 SEEN Urine Mucus 0 SEEN Radiography Diagnostic Testing: Clinical Impression(s) from Imaging Studies Chest X-Ray 01/20/21 07:08 IMPRESSION: Left lower lobe airspace disease. Findings likely indicate pneumonia. at 0740 Reported and signed by: Damian Singh MD Electronically Signed: Damian Singh MD at 7:39 EDT Tel , Service support , EKG Initial EKG: Attestation: I personally reviewed and interpreted this EKG as follows: Interpretation: No Acute Injury Pattern and Sinus Tachycardia (105) Comments: ST, otherwise, nml EKG Discharge Plan Dx/Rx/DC Orders Clinical Impression: Sepsis, Pneumonia, Generalized weakness Disposition Disposition: Acute Care [facility]
--- NOTE | 2021-01-20 06:03 | EKG12_ITS ---
Test Reason : DYSRHYTHMIA Blood Pressure : / mmHG Vent. Rate : 105 BPM Atrial Rate : 105 BPM P-R Int : 126 ms QRS Dur : 090 ms QT Int : 346 ms P-R-T Axes : 016 -03 027 degrees QTc Int : 457 ms Sinus tachycardia Otherwise normal ECG Confirmed by JOS AMBRIZ, AQUILES ([id number]), electronic news gathering editor GABY LIN ([id number]) on 01/20/2021 9:10:34 AM Referred By: BB Confirmed By:AQUILES ARGUELLO MD
[2021-01-20] MEDS: Acetaminophen 500 MG Tablet 1000 MG PO (06:13)
--- NOTE | 2021-01-20 07:08 | RAD_ITS ---
EXAM: XR CHEST, 1 VIEW : 1955 CLINICAL INDICATION: fever TECHNIQUE: Frontal view of the chest. This report was created using [employer] report generation technology. COMPARISON: 12/01/19 FINDINGS: LUNGS AND PLEURAL SPACES: Left lower lobe airspace disease. No pneumothorax. No effusion. HEART: Unremarkable. Cardiac silhouette not enlarged. MEDIASTINUM: Central airways and mediastinal contour are unremarkable. BONES/JOINTS: Unremarkable. SOFT TISSUES: Unremarkable. RAD/Chest 1 View (Portable) IMPRESSION: Left lower lobe airspace disease. Findings likely indicate pneumonia. at 0740 Reported and signed by: Damian Singh MD Electronically Signed: Damian Singh MD at 7:39 EDT Tel , Service support ,
[2021-01-20 07:11] LABS: Absolute Lymphocyte Count 0.79 X10^3/uL (0.83-4.51); Absolute Neutrophil Count 13.9 X10^3/uL (2.0-7.7); Basophil# 0.02 X10^3/uL; Basophil% 0.1 % (0-1); Hematocrit 24.9 % (40-54); Hemoglobin 8.2 g/dL (13.0-16.5); Lymphocyte # 0.79 X10^3/ul (0.83-4.51); Lymphocyte % 4.9 % (19-41); Mean Corp Hgb Conc 32.9 g/dL (32-36); Mean Corpuscular Hgb 31.4 pg (27.0-32.0); Mean Corpuscular Volume 95.4 fL (80-94); Mean Platelet Vol. 9.1 fl (6.2-12.0); Monocyte# 1.23 X10^3/uL; Monocyte% 7.6 % (0-10); NRBC Flagged by Analyzer 0 % (0-5); Neutrophil # 13.93 X10^3/uL (2.7-7.7); Neutrophil % 86.6 % (47-70); Platelet Count 311 K/mm3 (150-450); RBC Distribution Width CV 12.9 % (11.6-14.6); RBC Distribution Width SD 45.2 fl (35.1-43.9); Red Blood Count 2.61 M/mm3 (4.6-6.2); White Blood Count 16.1 K/mm3 (4.4-11.0)
[2021-01-20 07:22] LABS: ALB/GLOB Ratio 0.7 RATIO (0.9-2.4); AST(SGOT) 24 U/L (15-37); Alanine Aminotransfer ALT/SGPT 29 U/L (16-61); Albumin, Serum 3.1 g/dL (3.2-5.0); Alkaline Phosphatase 72 U/L (45-117); Anion Gap 13 (5-15); BUN 24 mg/dL (7-18); BUN/Creat Ratio 17.4 RATIO (10-20); Calcium,Total 8.5 mg/dL (8.5-10.1); Chloride 93 mmol/L (98-107); Creatinine, Serum 1.38 mg/dL (0.70-1.30); EST Glomerular Filtration Rate 55 mL/min (>60); Est Glom Filt Rate - Afr Amer 67 mL/min (>60); Estimated Creatinine Clearance 54.79 ml/min; Globulin 4.6 g/dL (2.2-4.2); Glucose 267 mg/dL (74-106); Potassium 4.4 mmol/L (3.5-5.1); Protein, Total 7.7 g/dL (6.4-8.2); Sodium Level 127 mmol/L (136-145)
[2021-01-20 07:26] LABS: Lactic Acid 1.5 mmol/L (0.4-1.9)
[2021-01-20] MEDS: 0.9% Normal Saline 1,000 ML 150 ML IV (07:31)
[2021-01-20 07:35] LABS: Bacteria 0 SEEN /hpf (None Seen); Mucous, Urine 0 SEEN /hpf (<or=2+); Red Blood Cells-Urine 0 SEEN /hpf (0-5); Squamous Epithelial Cells - UA 0 SEEN /hpf (0-5); White Blood Cells 0 SEEN /hpf (0-5)
[2021-01-20 07:41] LABS: Color, Urine Yellow (Yellow); Glucose, Dipstick 250 mg/dl (Normal); Leukocyte Esterase-Dipstick Negative /ul (Negative); Nitrite-Dipstick Negative (Negative); Occult Blood-Urine 10 /ul (Negative); Protein-Dipstick 30 mg/dl (Negative); Urine Bilirubin Dipstick Negative (Negative); Urine Clarity Clear (Clear); Urine Urobilinogen Normal (Normal)
[2021-01-20 07:43] LABS: Ketone-Dipstick 150 mg/dl (Negative)
[2021-01-20 07:46] LABS: Amorphous Sediment 1+
[2021-01-20] MEDS: Ceftriaxone 1 GM/50 ML BAG IV (09:00)
[2021-01-20 09:06] LABS: Iron 12 ug/dL (65-175); Iron Binding Capacity,Total 259 ug/dL (250-450); PERCENT IRON SATURATION 4.6 % (15.0-55.0)
[2021-01-20] MEDS: 0.9% Normal Saline 1,000 ML 75 ML IV (10:50)
[2021-01-20] MEDS: Glimepiride 4 MG Tablet PO (10:56)
[2021-01-20] MEDS: Ferrous Sulfate 325 MG Tablet PO (10:56)
[2021-01-20] MEDS: Lisinopril 10 MG Tablet PO (10:56)
[2021-01-20] MEDS: Paroxetine 20 MG Tablet 30 MG PO (10:57)
[2021-01-20] MEDS: metFORMIN HCl 1,000 MG Tablet 1000 MG PO ×2 (10:57→21:28)
[2021-01-20] MEDS: Pantoprazole Sodium 40 MG Tablet PO (10:57)
[2021-01-20] MEDS: Insulin Lispro 100 UNIT/ML INSULN.PEN SC ×3 (11:06→21:28)
[2021-01-20 11:11] LABS: Bedside Glucose 281 mg/dL (70-110)
--- NOTE | 2021-01-20 12:02 | HP.PCM.HOS_ITS ---
Documented by User: Sarwat OLIVA 01/20/21 12:35 HPI - General General Date of Admission: 01/20/21 HPI Narrative Iftikhar Angeles is a 65-year-old male who presents to the ED at [facility] on 01/20/2021 with a chief complaint of generalized weakness and body aches. Patient reports that his symptoms began about 10 days ago and have remained persistent during that time. Patient reports multiple near syncopal events with occasional falls. Patient is unclear about the exact number of these events. Patient denies hitting his head on either of these events, however does report falling on his knee. Patient denies any alleviating or worsening factors. Denies shortness of breath, sputum production, fever, chills, difficulty urinating or defecating, N/V/D. Patient endorses being fully vaccinated for COVID-19 with the Pfizer vaccine, and reports his last shot was in July. Vital signs obtained in the ED are stable and patient is afebrile. Currently satting 99% on room air. CBC demonstrates a leukocytosis at 16,000 with neutrophilic predominance. Patients hemoglobin is 8.2, baseline appears around 12. Iron and iron saturation is low at 12 and 4.6 respectively. BMP demonstrates hyponatremia at 127. Creatinine is elevated at 1.38. UA is unremarkable. Chest x-ray demonstrates left lower lobe airspace disease, possibly suggestive of pneumonia. Urine Legionella antigen positive. Rapid Covid is negative. Blood cultures pending. Urine culture pending. Patient was initiated on Rocephin and azithromycin in the ED. [facility] Medical History Anxiety Atherosclerotic heart disease of [place] coronary artery without angina pectoris Depression Diabetes Diabetes mellitus type II, controlled Essential (primary) hypertension Former smoker History of anterior wall myocardial infarction Hyperlipidemia Hypertension Ischemic cardiomyopathy Myocardial infarct Home Medications paroxetine HCl 30 mg PO DAILY 12/02/14 [History Last Taken 01/19/21] atorvastatin 80 mg PO QHS 10/25/15 [History Last Taken 01/19/21] nitroglycerin 0.4 mg SUBLINGUAL Q5M PRN 10/25/15 [History Last Taken Unknown] lisinopril 10 mg tablet 10 mg PO DAILY 05/14/17 [History Last Taken 01/12/21] metformin 500 mg tablet 1,000 mg PO BID tab 05/14/17 [History Last Taken 01/19/21] multivitamin 1 tab PO QDAY 05/14/17 [History Last Taken 01/19/21] ticagrelor 90 mg tablet 90 mg PO BID #60 tab 12/18/18 [Rx Last Taken 01/19/21] glimepiride 4 mg PO DAILY 02/18/19 [History Last Taken 01/19/21] aspirin 81 mg PO DAILY@0800 #0 02/19/19 [Rx Last Taken 01/19/21] ferrous sulfate 325 mg PO DAILY #30 tab 02/19/19 [Rx Last Taken 01/19/21] pantoprazole 40 mg PO DAILY #30 tab 02/19/19 [Rx Last Taken 01/19/21] Allergy/AdvReac Type Severity Reaction Status Date / Time No Known Allergies Allergy Verified 01/20/21 05:48 Family History Mother No problems noted. Father No problems noted. Surgical History Stented coronary artery Social History (Updated 01/20/21 @ 12:11 by Sarwat OLIVA) Smoking Status: Former smoker quit date: 01/20/91 alcohol intake: never substance use type: does not use ROS Constitutional Constitutional: Reports weakness; Denies anorexia, change in weight, chills, fatigue, fever(s), malaise, night sweats or other Eyes Eyes: Denies blurry vision, change in eye color, change in vision, discharge from eye(s), double vision, erythema, eye pain, loss of vision or other ENT HEENT: Denies abnormal hearing, dysphagia, ear pain, epistaxis, headache(s), hearing loss, nasal congestion, nasal discharge, post nasal drip, sinus pressure, sore throat or other Cardiovascular Cardiovascular: Denies chest pain, claudication, dyspnea on exertion, edema, lightheadedness, orthopnea, palpitations, paroxysmal nocturnal dyspnea, rapid heart rate, syncope or other Respiratory/Chest Respiratory/Chest: Denies cough, dyspnea, excessive phlegm production, he moptysis, productive cough, shortness of breath at rest, shortness of breath with exertion, wheezing or other Gastrointestinal Gastrointestinal: Denies abdominal pain, coffee ground emesis, constipation, diarrhea, dyspepsia, hematemesis, hematochezia, loose stools, melena, nausea, vomiting or other Genitourinary Genitourinary: Denies burning urination, difficulty urinating, dysuria, hematuria, nocturia, urinary frequency, urinary hesitancy, urinary incontinence, urinary urgency or other Musculoskeletal Musculoskeletal: Denies arthralgias, back pain, joint pain, joint stiffness, joint swelling, myalgias, neck pain or other Neurologic Neurologic: Denies abnormal gait, abnormal speech, confusion, disequilibrium, dizziness, focal weakness, headache(s), numbness, paresthesias, seizure-like activity, seizures, syncope, tingling, tremor(s) or other Psychiatric Psychiatric: Denies anxiety, depression, homicidal ideation, suicidal ideation or other Endocrine Endocrinology: Denies change in body appearance, cold intolerance, excessive sweating, heat intolerance, polydipsia, polyuria or other Hematologic/Lymphatic Hematologic/Lymphatic: Denies anemia, easy bleeding, easy bruising, lymphadenopathy or other Allergic/Immunologic Allergic/Immunologic: Denies rhinitis, hives, eczemia, asthma or other Vital Signs Vital Signs Vital Signs: 01/20/21 05:48 01/20/21 06:50 01/20/21 07:23 Temperature 100.7 F H 100.7 F H 98.2 F Temperature Source Oral Oral Oral Pulse Rate 106 H 106 H 115 H Respiratory Rate 18 18 19 H Respiratory Effort Respiratory Depth Respiratory Pattern Blood Pressure 126/72 H 126/72 H 95/84 H Blood Pressure Mean 90 90 87 Blood Pressure Source Blood Pressure Position Blood Pressure Location Pulse Ox 96 96 95 Oxygen Delivery Method Room Air Room Air Room Air 01/20/21 07:32 01/20/21 08:43 01/20/21 08:44 Temperature 98.1 F 98.1 F Temperature Source Oral Oral Pulse Rate 88 Respiratory Rate 19 H Respiratory Effort Respiratory Depth Respiratory Pattern Blood Pressure 104/61 Blood Pressure Mean 75 Blood Pressure Source Blood Pressure Position Blood Pressure Location Pulse Ox 95 95 Oxygen Delivery Method Room Air Room Air 01/20/21 09:01 01/20/21 09:02 01/20/21 10:40 Temperature 98.1 F 98.1 F 97.4 F L Temperature Source Oral Oral Oral Pulse Rate 89 90 83 Respiratory Rate 24 H 19 H 16 Respiratory Effort Normal Respiratory Depth Normal Respiratory Pattern Normal Blood Pressure 110/56 L 110/56 L 120/66 Blood Pressure Mean 74 74 84 Blood Pressure Source Monitor Blood Pressure Position Semi-Fowlers Blood Pressure Location Left Arm Pulse Ox 97 96 99 Oxygen Delivery Method Room Air Room Air Room Air Weight Weight: 169 lb Body Mass Index (BMI) 24.9 Physical Exam Const alert and oriented x3 General Appearance: cooperative HEENT normocephalic, head/scalp atraumatic and hearing grossly normal bilaterally Eyes PERRL, EOMs intact bilaterally and conjunctivae normal Neck no lymphadenopathy, supple and no JVD Resp normal respiratory effort, no retractions, no use of accessory muscles and clear to auscultation bilaterally Cardio regular rate, regular rhythm, no murmurs and no JVD GI normal to inspection, nondistended, normoactive bowel sounds, soft to palpation, non-tender and non-distended Extremity normal to inspection, full ROM and no clubbing, cyanosis or edema Peripheral Pulses: Yes pulses 2+ throughout Skin no rashes or lesions noted, no wounds, skin turgor normal and no jaundice Neuro CN's II-XII intact bilaterally Psych affect normal Results Lab / Micro Data Result Diagrams: 01/20/21 05:42 01/20/21 05:42 Labs: Laboratory Results - last 24 hr 01/20/21 05:42: WBC 16.1 H, RBC 2.61 L, Hgb 8.2 L, Hct 24.9 L, MCV 95.4 H, MCH 31.4, MCHC 32.9, RDW Std Deviation 45.2 H, RDW Coeff of [place] 12.9, Plt Count 311, MPV 9.1, Immature Gran % (Auto) 0.800, Neut % (Auto) 86.6 H, Lymph % (Auto) 4.9 L, [place] % (Auto) 7.6, Eos % (Auto) 0.0, Baso % (Auto) 0.1, Absolute Neuts (auto) 13.9 H, Absolute Lymphs (auto) 0.79 L, Nucleated RBC % 0 01/20/21 05:42: Sodium 127 L, Potassium 4.4, Chloride 93 L, Carbon Dioxide 21.0, Anion Gap 13, BUN 24 H, Creatinine 1.38 H, Estim Creat Clear Calc 54.79, Est GFR (MDRD) Af Amer 67, Est GFR (MDRD) Non-Af 55 L, BUN/Creatinine Ratio 17.4, Glucose 267 H, Calcium 8.5, Total Bilirubin 0.40, AST 24, ALT 29, Alkaline Ph osphatase 72, Total Protein 7.7, Albumin 3.1 L, Globulin 4.6 H, Albumin/Globulin Ratio 0.7 L 01/20/21 05:42: Lactic Acid 1.5 01/20/21 05:42: Iron 12 L, TIBC 259, Iron Saturation 4.6 L 01/20/21 07:30: Urine Color Yellow, Urine Clarity Clear, Urine pH 6.0, Ur Specific [place] 1.020, Urine Protein 30 H, Urine Glucose (UA) 250 H, Urine Ketones 150 A*, Urine Occult Blood 10 H, Urine Nitrite Negative, Urine Bilirubin Negative, Urine Urobilinogen Normal, Ur Leukocyte Esterase Negative, Urine RBC 0 SEEN, Urine WBC 0 SEEN, Ur Squamous Epith Cells 0 SEEN, Amorphous Sediment 1+, Urine Bacteria 0 SEEN, Urine Mucus 0 SEEN 01/20/21 11:03: POC Glucose 281 H Micro: Microbiology 01/20/21 07:30 Urine, Clean Catch Legionella Antigen - Final Legionella Antigen 01/20/21 07:30 Urine, Clean Catch Streptococcus pneumoniae Antigen (M - Final 01/20/21 06:00 Nasal Secretion SARS-CoV-2 Antigen (Rapid) - Final Radiology Impression Chest X-Ray 01/20/21 07:08 IMPRESSION: Left lower lobe airspace disease. Findings likely indicate pneumonia. at 0740 Reported and signed by: Damian Singh MD Electronically Signed: Damian Singh MD at 7:39 EDT Tel , Service support , Assessment & Plan Assessment/Plan (1) Pneumonia: (2) Generalized weakness: (3) Iron deficiency anemia: PLAN: Patient is a 65-year-old male who presents to the ED at [facility] on 01/20/2021 with a chief complaint of generalized weakness and muscle aches. Patient will be admitted for community-acquired pneumonia. 1) Community acquired pneumonia Patient presents with a 2-week history of generalized weakness and muscle aches. Vital signs stable and patient is afebrile and is satting 90% on room air. CBC demonstrates a leukocytosis of 16,000 with neutrophilic predominance. Chest x- ray demonstrates left lower lobe infiltrate, possibly suggestive of pneumonia. Legionella urinary antigen positive. Blood cultures ordered/pending, urine culture pending. Rapid Covid negative. Plan; admit to [facility], continue ceftriaxone and azithromycin, viral respiratory panel ordered, O2 per protocol, PT/OT eval ordered. 2) iron deficiency anemia Hemoglobin is 8.2, baseline appears around 12. Iron and iron saturation are 12 and 4.6 respectively. GI consult ordered, IV ferric gluconate ordered, p.o. iron ordered. 3) DM2 Accu-Cheks with sliding scale insulin ordered, continue Metformin and glimepiride. 4) Depression Continue Paxil. 5) CAD status post stent PCI to the ostial LAD in 2015. Home medication list includes aspirin, statin and ticagrelor. Continue home regimen. DVT prophylaxis - SCD's Patient seen by Sarwat Dubois PA-C, under the supervision of Dr. Mailk. Documented by User: Dr. Travis Malik DO 01/20/21 19:45 HPI - General General Date of Admission: 01/20/21 [facility] Medical History Anxiety Atherosclerotic heart disease of [place] coronary artery without angina pectoris Depression Diabetes Diabetes mellitus type II, controlled Essential (primary) hypertension Former smoker History of anterior wall myocardial infarction Hyperlipidemia Hypertension Ischemic cardiomyopathy Myocardial infarct Home Medications paroxetine HCl 30 mg PO DAILY 12/02/14 [History Last Taken 01/19/21] atorvastatin 80 mg PO QHS 10/25/15 [History Last Taken 01/19/21] nitroglycerin 0.4 mg SUBLINGUAL Q5M PRN 10/25/15 [History Last Taken Unknown] lisinopril 10 mg tablet 10 mg PO DAILY 05/14/17 [History Last Taken 01/12/21] metformin 500 mg tablet 1,000 mg PO BID tab 05/14/17 [History Last Taken 01/19/21] multivitamin 1 tab PO QDAY 05/14/17 [History Last Taken 01/19/21] ticagrelor 90 mg tablet 90 mg PO BID #60 tab 12/18/18 [Rx Last Taken 01/19/21] glimepiride 4 mg PO DAILY 02/18/19 [History Last Taken 01/19/21] aspirin 81 mg PO DAILY@0800 #0 02/19/19 [Rx Last Taken 01/19/21] ferrous sulfate 325 mg PO DAILY #30 tab 02/19/19 [Rx Last Taken 01/19/21] pantoprazole 40 mg PO DAILY #30 tab 02/19/19 [Rx Last Taken 01/19/21] Allergy/AdvReac Type Severity Reaction Status Date / Time No Known Allergies Allergy Verified 01/20/21 05:48 Family History Mother No problems noted. Father No problems noted. Surgical History Stented coronary artery Social History (Updated 01/20/21 @ 12:11 by Sarwat OLIVA) Smoking Status: Former smoker quit date: 01/20/91 alcohol intake: never substance use type: does not use Results Lab / Micro Data Result Diagrams: 01/20/21 05:42 01/20/21 05:42 Charges/Coding Addendum Addendum: Patient was seen and examined independent of Sarwat Dubois today. He came to the emergency room for evaluation of generalized weakness today, work-up in the emergency room included a chest x-ray which showed a left lower lobe infiltrate. Patient was also anemic. On examination he appeared older than his stated age. Vital signs as documented. Skin warm and dry and without overt rashes. Neck without JVD, neck was supple, trachea midline, thyroid was normal. Lungs-inspiratory rales were noted of the patient's left lower lung field, normal air movement was noted. Heart exam notable for regular rhythm, normal sounds and absence of murmurs, rubs or g allops. Abdomen unremarkable and without evidence of organomegaly, masses, or abdominal aortic enlargement. Bowel sounds are present, abdomen is not distended. Extremities nonedematous, no cyanosis was noted, no clubbing was noted. Neuro: Cranial nerves II through XII are grossly intact, no focal motor deficits were noted, sensation to light touch and pinprick intact, motor exam 5/5 throughout. Psych: Patient is alert and oriented x3, he does not appear anxious or depressed, he does not appear agitated. Patient was placed in observation status on Medr 3, he will receive IV Rocephin and Zithromax, iron studies will be ordered due to the patient's anemia. I have reviewed Sarwat Dubois's history and physical including his medical assessment and plan of care and endorse it. Visit Charges OBSV E&M: 76094 Initial observation care L3
--- NOTE | 2021-01-20 12:20 | CASEMGMT ---
RN EDWARD DENTAL CHAIR ASSEMBLER CM to room to meet with patient for initial transition planning/care coordination assessment. RN EDWARD introduced self and role at [facility].? Pt voices understanding and consents to assessment at this time.? Pt resting in bed in no distress at this time.? Touhgbi-co-vkd, Sam, @ bedside. Pt is A/O at this time and answers all questions appropriately.?? Care providers, pharmacy, and demographics verified/updated at this time. PCP: Dr Bassett Specialists: Dr Baeza--states he has not seen him in awhile...probably a couple of years. Preferred Pharmacy: [facility] Retail Insurance: MMO Prescription Benefit:?Yes Living Will/HPOA:? Pt does not currently have LW/HCPOA. Pt made aware that he can contact if he decides he would like to talk with someone about this or would like to utilize [facility] social work for advanced directive completion.? LNOK: Father, Ailyn Hess. 2 brothers: Zaheer and Sarwat Hess. Bro-in-law, Sam. Living Arrangements: Lives alone in one-story home w/no steps to enter. Independent. Works full-time. Transportation: Pt states drives self. His vehicle is at his home and does not have transportation home @ d/c. Pt made aware [facility] can provide taxi voucher. DME: ?Has a glucometer. Denies need for further DME. Ambulates independently HHC/SNF: No hx of either. Denies needs for HHC and no needs identified. Pt wishes to return home and states has no concerns with going home at time of discharge.? CM to follow for any discharge planning/needs.? Pt voices no concerns/needs at this time.? Advised pt to ask for CM if any questions/concerns/needs arise.? Voices understanding. PLAN: ?Home w/discharge plans in place. Pt will need taxi voucher @ dc to transport him home. Denice MCCRACKEN RN, CM
[2021-01-20] MEDS: TICAGRELOR 90 MG TABLET PO ×2 (13:37→21:28)
[2021-01-20] MEDS: Acetaminophen 325 MG Tablet 650 MG PO (16:12)
[2021-01-20 16:20] LABS: Bedside Glucose 205 mg/dL (70-110)
[2021-01-20] MEDS: Albuterol 2.5 MG/3 ML VIAL.NEB. INHALATION (19:12)
[2021-01-20] MEDS: Atorvastatin Calcium 80 MG Tablet PO (21:28)
[2021-01-20 21:35] LABS: Bedside Glucose 176 mg/dL (70-110)
[2021-01-21] VITALS (12 sets, daily range): BP systolic 101–121; BP diastolic 53–65; PULSE 80–111; RESP 16–18; TEMP 36.6–37.8; O2SAT 91–99
[2021-01-21] MEDS: 0.9% Normal Saline 1,000 ML 75 ML IV ×2 (02:16→19:46)
[2021-01-21 06:38] LABS: Absolute Lymphocyte Count 0.61 X10^3/uL (0.83-4.51); Absolute Neutrophil Count 9.3 X10^3/uL (2.0-7.7); Basophil# 0.02 X10^3/uL; Basophil% 0.2 % (0-1); Hematocrit 24.7 % (40-54); Hemoglobin 8.1 g/dL (13.0-16.5); Lymphocyte # 0.61 X10^3/ul (0.83-4.51); Lymphocyte % 5.6 % (19-41); Mean Corp Hgb Conc 32.8 g/dL (32-36); Mean Corpuscular Hgb 31.8 pg (27.0-32.0); Mean Corpuscular Volume 96.9 fL (80-94); Monocyte# 0.79 X10^3/uL; Monocyte% 7.3 % (0-10); NRBC Flagged by Analyzer 0 % (0-5); Neutrophil # 9.32 X10^3/uL (2.7-7.7); Neutrophil % 86.3 % (47-70); Platelet Count 274 K/mm3 (150-450); RBC Distribution Width CV 13.3 % (11.6-14.6); RBC Distribution Width SD 47.2 fl (35.1-43.9); Red Blood Count 2.55 M/mm3 (4.6-6.2); White Blood Count 10.8 K/mm3 (4.4-11.0)
[2021-01-21 06:46] LABS: Bedside Glucose 120 mg/dL (70-110)
[2021-01-21 07:07] LABS: Anion Gap 7 (5-15); BUN 21 mg/dL (7-18); BUN/Creat Ratio 19.1 RATIO (10-20); Calcium,Total 8.1 mg/dL (8.5-10.1); Chloride 102 mmol/L (98-107); EST Glomerular Filtration Rate 72 mL/min (>60); Est Glom Filt Rate - Afr Amer 87 mL/min (>60); Estimated Creatinine Clearance 68.74 ml/min; Glucose 117 mg/dL (74-106); Potassium 4.1 mmol/L (3.5-5.1); Sodium Level 130 mmol/L (136-145)
[2021-01-21] MEDS: Albuterol 2.5 MG/3 ML VIAL.NEB. INHALATION ×3 (07:36→20:46)
[2021-01-21] MEDS: TICAGRELOR 90 MG TABLET PO ×2 (08:44→22:42)
[2021-01-21] MEDS: metFORMIN HCl 1,000 MG Tablet 1000 MG PO ×2 (08:44→22:42)
[2021-01-21] MEDS: Acetaminophen 325 MG Tablet 650 MG PO ×2 (08:44→17:05)
[2021-01-21] MEDS: Pantoprazole Sodium 40 MG Tablet PO (08:44)
[2021-01-21] MEDS: Glimepiride 4 MG Tablet PO (08:44)
[2021-01-21] MEDS: Ferrous Sulfate 325 MG Tablet PO (08:44)
[2021-01-21] MEDS: Paroxetine 20 MG Tablet 30 MG PO (08:45)
[2021-01-21] MEDS: Lisinopril 10 MG Tablet PO (08:54)
[2021-01-21] MEDS: Ceftriaxone 1 GM/50 ML BAG IV (08:58)
--- NOTE | 2021-01-21 10:42 | PCM.DC ---
Discharge Instructions Diet Discharge Diet: No restrictions Activity Discharge Activity: Return to Normal Activity Weight Bearing Status: Weight bearing as tolerated Dressing / Incision Call your doctor if you observe: Fever of 101 or Higher, Numbness or Tingling, Shortness of breath, Dizziness, Chest pain, Increased palpitations (irregular heartbeat) and Calf discomfort Follow Up Care Please Follow Up With: Primary care provider When: Within the next two weeks. Test Results: Test results from this visit will be discussed in further detail at your follow-up appointment, if applicable. Discharge Plan Admission Admit Date/Time: 01/20/21 08:20 Primary Reason for Your Visit: Weakness Attending Provider: Travis Malik Primary Care Provider: Travis Bassett Discharge Orders/Prescriptions Prescriptions: New azithromycin 500 mg tablet 500 mg PO DAILY 5 Days Qty: 5 RF: 0 Continued lisinopril 10 mg tablet 10 mg PO DAILY RF: 0 multivitamin tablet 1 tab PO QDAY RF: 0 metformin 500 MG tablet 1,000 mg PO BID RF: 0 paroxetine HCl 30 MG tablet 30 mg PO DAILY RF: 0 atorvastatin 80 MG tablet 80 mg PO QHS RF: 0 nitroglycerin 0.4 MG tablet 0.4 mg SUBLINGUAL Q5M PRN (Reason: Chest Pain) RF: 0 glimepiride 4 MG tablet 4 mg PO DAILY RF: 0 pantoprazole 40 MG tablet 40 mg PO DAILY Qty: 30 RF: 0 ferrous sulfate 325 MG tablet 325 mg PO DAILY Qty: 30 RF: 0 aspirin 81 MG tablet,chewable 81 mg PO DAILY@0800 Qty: 0 RF: 0 ticagrelor 90 mg tablet 90 mg PO BID Qty: 60 RF: 12 Referrals / Follow Up: Travis Bassett MD [Primary Care Provider] - Within 2 Weeks Aly Gregg DO [STAFF PHYSICIAN] - Within 1 Week Disposition Disposition (needs filled in before D/C Order can be placed): Home, Self Care
--- NOTE | 2021-01-21 11:17 | PN.HOSP_ITS ---
Documented by User: Sarwat OLIVA 01/21/21 11:30 Subjective Subjective Patient is a 65-year-old male comfortably resting in bed, alert and orient x3. Patient continues to have ongoing fatigue and weakness from admission, denies development of any new symptoms overnight. Patient complained of feeling dizzy with ambulation. Patient does not appear to be in acute distress. Objective Data Objective Data Vital Signs: Vital Signs Temp Pulse Resp BP Pulse Ox 99.6 F H 102 H 18 116/65 94 01/21/21 08:27 01/21/21 08:27 01/21/21 08:27 01/21/21 08:27 01/21/21 10:31 Oxygen Delivery Method Room Air Weight: 169 lb 1.513 oz Body Mass Index (BMI) 24.9 Intake & Output: Intake and Output for Last 24 Hours 01/19/21 01/20/21 01/21/21 23:59 23:59 23:59 Intake Total 1586.25 / 1586.25 833.75 / 833.75 Output Total 150 / 150 Balance 1436.25 / 1436.25 833.75 / 833.75 Lab / Micro Data Result Diagrams: 01/21/21 06:26 01/21/21 06:26 Labs: Laboratory Results - last 24 hr 01/20/21 16:10: POC Glucose 205 H 01/20/21 21:27: POC Glucose 176 H 01/21/21 06:26: WBC 10.8, RBC 2.55 L, Hgb 8.1 L, Hct 24.7 L, MCV 96.9 H, MCH 31.8, MCHC 32.8, RDW Std Deviation 47.2 H, RDW Coeff of [place] 13.3, Plt Count 274, MPV 9.0, Immature Gran % (Auto) 0.600, Neut % (Auto) 86.3 H, Lymph % (Auto) 5.6 L, [place] % (Auto) 7.3, Eos % (Auto) 0.0, Baso % (Auto) 0.2, Absolute Neuts (auto) 9.3 H, Absolute Lymphs (auto) 0.61 L, Nucleated RBC % 0 01/21/21 06:26: Sodium 130 L, Potassium 4.1, Chloride 102, Carbon Dioxide 21.0, Anion Gap 7, BUN 21 H, Creatinine 1.10, Estim Creat Clear Calc 68.74, Est GFR (MDRD) Af Amer 87, Est GFR (MDRD) Non-Af 72, BUN/Creatinine Ratio 19.1, Glucose 117 H, Calcium 8.1 L 01/21/21 06:36: POC Glucose 120 H Micro: Microbiology 01/20/21 07:30 Urine, Clean Catch Urine Culture - Preliminary Culture exhibits no growth. 01/20/21 13:40 Mucosa - Nasopharyngeal Respiratory Panel (PCR) - Final 01/20/21 07:30 Urine, Clean Catch Legionella Antigen - Final Legionella Antigen 01/20/21 07:30 Urine, Clean Catch Streptococcus pneumoniae Antigen (M - Final 01/20/21 06:00 Nasal Secretion SARS-CoV-2 Antigen (Rapid) - Final Physical Exam Const alert, oriented x3 and no apparent distress HEENT head/scalp atraumatic and moist oral mucous membranes Head and Scalp: normocephalic Eyes PERRL, EOMs intact bilaterally and conjunctivae normal Neck no lymphadenopathy, supple and no JVD Resp normal respiratory effort, no retractions, no use of accessory muscles and clear to auscultation bilaterally Cardio regular rate, regular rhythm, no murmurs and no JVD GI normal to inspection, nondistended, normoactive bowel sounds, soft to palpation and non-tender Extremity normal to inspection, full ROM and no clubbing, cyanosis or edema Skin no rashes or lesions noted and no wounds Neuro CN's II-XII intact bilaterally Psych affect normal Assessment & Plan Assessment/Plan (1) Iron deficiency anemia: (2) Generalized weakness: (3) Pneumonia: PLAN: Day 1 Discharge planning: Current plan is for patient to discharge home. 1) Community acquired pneumonia Patient continues to feel weak, but denies development of any new symptoms overnight. Vital signs are stable and patient is currently satting 94% on room air with rest and ambulation. Initial plan was to discharge patient today, however patient became dizzy with ambulation despite good oxygen saturations. Believe the dizziness is a result of #2. WBCs are currently 10,000, leukocytosis from admission has resolved. Legionella urinary antigen positive. Urine culture is negative. Rapid Covid negative. Blood cultures ordered/pending. Plan; remain admitted overnight, continue Rocephin and azithromycin. 2) iron deficiency anemia Despite normal oxygen saturations, patient became dizzy with ambulation. Hemoglobin is 8.1, baseline appears around 12. Iron and iron saturation are 12 and 4.6 respectively. Patient to be transfused 1 unit of PRBCs on 01/21/2021. Will trend H&H in the a.m. GI consult ordered, IV ferric gluconate ordered, p.o. iron ordered. 3) DM2 Accu-Cheks with sliding scale insulin ordered, continue Metformin and glimepiride. 4) Depression Continue Paxil. 5) CAD status post stent PCI to the ostial LAD in 2015. Home medication list includes aspirin, statin and ticagrelor. Continue home regimen. DVT prophylaxis - SCD's Patient seen by Sarwat Dubois PA-C, under the supervision of Dr. Malik. Documented by User: Dr. Travis Malik DO 01/21/21 19:11 Objective Data Lab / Micro Data Result Diagrams: 01/21/21 06:26 01/21/21 06:26 Charges/Coding Addendum Addendum: Patient was seen and examined today independently of Sarwat Dubois, his hemoglobin today was 8.1, patient was ambulated and felt dizzy like he was going to pass out. I elected to keep the patient here and transfuse him with 1 unit of packed red blood cells. On examination he appeared in good health and spirits. Vital signs as do cumented. Skin warm and dry and without overt rashes. Neck without JVD, neck was supple, trachea midline, thyroid was normal. Lungs clear bilaterally, normal air movement was noted. Heart exam notable for regular rhythm, normal sounds and absence of murmurs, rubs or gallops. Abdomen unremarkable and without evidence of organomegaly, masses, or abdominal aortic enlargement. Bowel sounds are present, abdomen is not distended. Extremities nonedematous, no cyanosis was noted, no clubbing was noted. Neuro: Cranial nerves II through XII are grossly intact, no focal motor deficits were noted, sensation to light touch and pinprick intact, motor exam 5/5 throughout. Psych: Patient is alert and or iented x3, he does not appear anxious or depressed, he does not appear agitated. Patient will be seen in consultation by gastroenterology, we will recheck his labs in the morning. I have reviewed Sarwat Dubois's progress note including his medical assessment and plan of care and endorse it. Visit Charges Inpatient E&M: 61710 Subs Hosp L2
[2021-01-21 12:11] LABS: Bedside Glucose 259 mg/dL (70-110)
[2021-01-21] MEDS: Insulin Lispro 100 UNIT/ML INSULN.PEN SC (12:40)
--- NOTE | 2021-01-21 15:50 | CASEMGMT ---
RN EDWARD Face to Face with patient for initial transition planning/care coordination assessment. RN CM introduced self and role at [facility]. Patient lying in bed, alert and oriented. Patient willing to participate in assessment and is able to answer all questions appropriately. Care providers, pharmacy, and demographics verified. Patient wishes to discharge home, denies need for home health at this time. Patient states he has no further needs or concerns at this time. CM to follow for discharge planning needs that may arise. PCP: Danyelle Specialists: none Preferred Pharmacy: [facility] Insurance: MMO Prescription Benefit: yes Living Will/HPOA: none LNOK: father, brother in law Living Arrangements: Patient lives alone in a first floor apartment, no steps to enter. Patient states he is independent at home. Transportation: self DME/HHC: Patient denies DME or previous HHC. Disposition Plan: Patient to discharge home with family support and follow-up plans in place. Amie MCCRACKEN, RN, CM
[2021-01-21] MEDS: 0.9% Saline Lock 10 ML Syringe IV (17:06)
[2021-01-21 17:30] LABS: Bedside Glucose 93 mg/dL (70-110)
--- NOTE | 2021-01-21 17:41 | EX.PCM.CON.G ---
HPI Consult Data Date of Consult: 01/21/21 HPI Narrative HPI Narrative: BRAD HALLMAN, is a 65 M who presentsWith lethargy and He has a history of ischemic cardiomyopathy status post PTCA with stent in 09/05/2015. He also carries a history of type 2 diabetes previous [place], depression and anemia. He was admitted to the hospital and diagnosed with commune acquired pneumonia. However he has been struggling with hypotension. When he came into the hospital his hemoglobin was 8.7 And has been slowly trending down to 8.1. He was here for the evaluation of fatigue and weakness back in 2019 was discovered to have a hemoglobin of 5.7. He underwent upper lower endoscopy and did not find any etiology of his Anemia. I was called to see him because he started having some melanotic stools with possibly some maroonish blood. It was also determined to be hypotensive. [facility] Medical History Anxiety Atherosclerotic heart disease of [place] coronary artery without angina pectoris Depression Diabetes Diabetes mellitus type II, controlled Essential (primary) hypertension Former smoker History of anterior wall myocardial infarction Hyperlipidemia Hypertension Ischemic cardiomyopathy Myocardial infarct Home Medications paroxetine HCl 30 mg PO DAILY 12/02/14 [History Last Taken 01/19/21] atorvastatin 80 mg PO QHS 10/25/15 [History Last Taken 01/19/21] nitroglycerin 0.4 mg SUBLINGUAL Q5M PRN 10/25/15 [History Last Taken Unknown] lisinopril 10 mg tablet 10 mg PO DAILY 05/14/17 [History Last Taken 01/12/21] metformin 500 mg tablet 1,000 mg PO BID tab 05/14/17 [History Last Taken 01/19/21] multivitamin 1 tab PO QDAY 05/14/17 [History Last Taken 01/19/21] ticagrelor 90 mg tablet 90 mg PO BID #60 tab 12/18/18 [Rx Last Taken 01/19/21] glimepiride 4 mg PO DAILY 02/18/19 [History Last Taken 01/19/21] aspirin 81 mg PO DAILY@0800 #0 02/19/19 [Rx Last Taken 01/19/21] ferrous sulfate 325 mg PO DAILY #30 tab 02/19/19 [Rx Last Taken 01/19/21] pantoprazole 40 mg PO DAILY #30 tab 02/19/19 [Rx Last Taken 01/19/21] azithromycin 500 mg PO DAILY 5 Days #5 tab 01/21/21 [Rx Last Taken Unknown] Allergy/AdvReac Type Severity Reaction Status Date / Time No Known Allergies Allergy Verified 01/20/21 05:48 Family History Mother No problems noted. Father No problems noted. Surgical History Stented coronary artery Social History (Updated 01/20/21 @ 12:11 by Sarwat OLIVA) Smoking Status: Former smoker quit date: 01/20/91 alcohol intake: never substance use type: does not use ROS Review of Systems ROS Unobtainable: other Constitutional Constitutional: Denies fatigue, fever(s), poor appetite, weight gain or weight loss ENT HEENT: Denies mouth lesions Cardiovascular Cardiovascular: Denies abdominal bloating, abdominal edema or abdominal pain Respiratory/Chest Respiratory/Chest: Denies change in mental status, change in phlegm color, chest congestion or chest tightness Gastrointestinal Gastrointestinal: Denies belching, bloating, change in bowel habits, change in stool character, chewing difficulty, coffee ground emesis, constipation, cramping, diarrhea, dyspepsia, dysphagia, early satiety, excessive flatus, fecal incontinence, heartburn, hematemesis, hematochezia, hemorrhoids, loose stools, melena, nausea, odynophagia, rectal bleeding, tenesmus, vomiting or weight changes Genitourinary Genitourinary: Denies abdominal discomfort, burning urination or itching Musculoskeletal Musculoskeletal: Reports as per HPI; Denies muscle weakness or myalgias Integumentary Integumentary: Denies jaundice Neurologic Neurologic: Denies lack of coordination or weakness Psychiatric Psychiatric: Denies confusion, depression, memory loss, mood swings, paranoia or suicidal ideation Endocrine Endocrinology: Denies systems reviewed and no addt'l complaints, except as documented Hematologic/Lymphatic Hematologic/Lymphatic: Denies anemia, easy bleeding, easy bruising or lymphadenopathy Allergic/Immunologic Allergic/Immunologic: Denies systems reviewed and no addt'l complaints, except as documented Physical Exam Const alert General Appearance: cooperative Orientation / Consciousness: oriented to person HEENT hearing grossly normal bilaterally Head and Scalp: normal to inspection Face and Sinus: face symmetric Nose: external nose normal Mouth: oral and palatal mucosa normal Eyes conjunctivae normal General Eye: normal appearance of both eyes Neck full ROM General: normal visual inspection Lymph Lymphatic: no lymphadenopathy noted Chest inspection of chest normal and palpation of chest normal Chest: symmetrical chest wall rise Resp normal respiratory effort Effort and Inspection: able to speak in complete sentences Cardio regular rate GI non-distended Percussion: normal to percussion Rectal Exam: deferred Neuro Speech: speech normal Gait (Neuro): normal gait Lab / Micro Data Result Diagrams: 01/21/21 06:26 01/21/21 06:26 Labs: Laboratory Results - last 24 hr 01/20/21 21:27: POC Glucose 176 H 01/21/21 06:26: WBC 10.8, RBC 2.55 L, Hgb 8.1 L, Hct 24.7 L, MCV 96.9 H, MCH 31.8, MCHC 32.8, RDW Std Deviation 47.2 H, RDW Coeff of [place]on 13.3, Plt Count 274, MPV 9.0, Immature Gran % (Auto) 0.600, Neut % (Auto) 86.3 H, Lymph % (Auto) 5.6 L, [place] % (Auto) 7.3, Eos % (Auto) 0.0, Baso % (Auto) 0.2, Absolute Neuts (auto) 9.3 H, Absolute Lymphs (auto) 0.61 L, Nucleated RBC % 0 01/21/21 06:26: Sodium 130 L, Potassium 4.1, Chloride 102, Carbon Dioxide 21.0, Anion Gap 7, BUN 21 H, Creatinine 1.10, Estim Creat Clear Calc 68.74, Est GFR (MDRD) Af Amer 87, Est GFR (MDRD) Non-Af 72, BUN/Creatinine Ratio 19.1, Glucose 117 H, Calcium 8.1 L 01/21/21 06:36: POC Glucose 120 H 01/21/21 11:16: POC Glucose 259 H 01/21/21 11:30: Blood Type A POSITIVE, Antibody Screen NEGATIVE, Crossmatch See Detail 01/21/21 16:20: POC Glucose 93 Micro: Microbiology 01/20/21 07:30 Urine, Clean Catch Urine Culture - Preliminary Culture exhibits no growth. 10/29/21 13:40 Mucosa - Nasopharyngeal Respiratory Panel (PCR) - Final Assessment & Plan Assessment/Plan (1) Iron deficiency anemia: PLAN: Patient should undergo iron studies testing along with an EGD, colonoscopy and possible capsule endoscopy. He should also get LDH and reticulocyte count. I will also get a Lizbeth test. (2) Generalized weakness: PLAN: Patient should undergo ACTH cortical stim testing and a cortisol level at 5 AM. I will order this along with an ESR, CRP. He may also need a serum gastrin level and other hormonal testing such as a 5 HIAA because of his symptoms. Charges/Coding Visit Charges Inpatient E&M: 87285 Init Hosp L3
--- NOTE | 2021-01-21 17:46 | EKG12_ITS ---
Test Reason : HYPOTENSION Blood Pressure : / mmHG Vent. Rate : 095 BPM Atrial Rate : 095 BPM P-R Int : 130 ms QRS Dur : 088 ms QT Int : 368 ms P-R-T Axes : 039 004 028 degrees QTc Int : 462 ms Normal sinus rhythm Normal ECG When compared with ECG of 20-JAN-2021 06:01, No significant change was found Confirmed by BRYCE AMBRIZ, AGUS ([id number]), image editor GABY LIN ([id number]) on 01/24/2021 12:30:15 P M Referred By: DR MÁRQUEZ Confirmed By:KILO WU MD
[2021-01-21 18:46] LABS: Platelet Count 296 K/mm3 (150-450); RET-HE 19.4 pg (30-35); Reticulocyte Count 1.64 % (0.5-1.5)
[2021-01-21 19:00] LABS: Erythrocyte Sedimentation Rate 51 mm/hr (0-20)
[2021-01-21 19:09] LABS: Iron 55 ug/dL (65-175); Troponin-I HS 18 pg/mL (3.0-78.0)
[2021-01-21 19:16] LABS: LDH 198 U/L (87-241)
[2021-01-21] MEDS: Electrolyte Solution/Peg's 4000 ML PO (19:44)
[2021-01-21] MEDS: Bisacodyl 5 MG Tablet 20 MG PO (19:47)
--- NOTE | 2021-01-21 22:36 | NURSING ---
Patient was instructed to drink bowel prep at 1999, he has been reminded several times but he keeps going to sleep and is not drinking the golytely. Told him he would not be able to have colonoscopy if his bowels were not cleaned out. Still sleeping at this time.
[2021-01-21] MEDS: Atorvastatin Calcium 80 MG Tablet PO (22:42)
[2021-01-21 22:55] LABS: Bedside Glucose 107 mg/dL (70-110)
[2021-01-22] VITALS (17 sets, daily range): BP systolic 100–124; BP diastolic 51–74; PULSE 80–107; RESP 18; TEMP 36.3–37.3; O2SAT 93–98
[2021-01-22 06:12] LABS: Hematocrit 22.6 % (40-54); Hemoglobin 7.5 g/dL (13.0-16.5)
[2021-01-22 06:51] LABS: Bedside Glucose 130 mg/dL (70-110)
[2021-01-22] MEDS: Albuterol 2.5 MG/3 ML VIAL.NEB. INHALATION ×3 (07:03→20:31)
[2021-01-22] MEDS: Magnesium Citrate 300 ML PO (07:49)
[2021-01-22] MEDS: Bisacodyl 5 MG Tablet 20 MG PO (07:49)
[2021-01-22] MEDS: 0.9% Normal Saline 1,000 ML 75 ML IV (10:04)
[2021-01-22] MEDS: Ceftriaxone 1 GM/50 ML BAG IV (10:04)
[2021-01-22] MEDS: Pantoprazole Sodium 40 MG Tablet PO (10:07)
[2021-01-22] MEDS: metFORMIN HCl 1,000 MG Tablet 1000 MG PO ×2 (10:07→22:46)
[2021-01-22] MEDS: Ferrous Sulfate 325 MG Tablet PO (10:08)
[2021-01-22] MEDS: Glimepiride 4 MG Tablet PO (10:08)
[2021-01-22] MEDS: TICAGRELOR 90 MG TABLET PO ×2 (10:08→22:46)
[2021-01-22] MEDS: Paroxetine 20 MG Tablet 30 MG PO (10:10)
[2021-01-22] MEDS: Lisinopril 10 MG Tablet PO (10:10)
[2021-01-22 11:46] LABS: Bedside Glucose 179 mg/dL (70-110)
--- NOTE | 2021-01-22 12:46 | PN.HOSP_ITS ---
Documented by User: Sarwat OLIVA 01/22/21 12:58 Subjective Subjective Patient is a 65-year-old male comfortably resting in bed, alert and orient x3. Patient reports slight improvement in his weakness and fatigue from admission, denies development of any new symptoms overnight. Does not appear to be in acute distress. Objective Data Objective Data Vital Signs: Vital Signs Temp Pulse Resp BP Pulse Ox 98.9 F 107 H 18 116/65 95 01/22/21 07:54 01/22/21 07:54 01/22/21 07:54 01/22/21 07:54 01/22/21 07:54 Oxygen Delivery Method Room Air Weight: 169 lb 1.513 oz Body Mass Index (BMI) 24.9 Intake & Output: Intake and Output for Last 24 Hours 01/20/21 01/21/21 01/22/21 23:59 23:59 23:59 Intake Total 1586.25 / 1586.25 3238.75 / 3238.75 1309.25 / 1309.25 Output Total 150 / 150 Balance 1436.25 / 1436.25 3238.75 / 3238.75 1309.25 / 1309.25 Lab / Micro Data Result Diagrams: 01/22/21 05:40 01/21/21 06:26 Labs: Laboratory Results - last 24 hr 01/21/21 06:26: ESR 51 H, Retic Count 1.64 H, Immature Retic Fraction 8.30, Retic Hgb Equivalent 19.4 L 01/21/21 11:30: Blood Type A POSITIVE, Antibody Screen NEGATIVE, Crossmatch See Detail 01/21/21 11:30: Crossmatch See Detail 01/21/21 16:20: POC Glucose 93 01/21/21 17:46: Lactate Dehydrogenase 198, C-React Prot Ext Range 187.00 H 01/21/21 18:03: Cortisol 33.90 H 01/21/21 18:03: Iron 55 L, Troponin I High Sens 18 01/21/21 22:42: POC Glucose 107 01/22/21 05:40: Hgb 7.5 L, Hct 22.6 L 01/22/21 05:40: Cortisol 31.00 H 01/22/21 06:14: POC Glucose 130 H 01/22/21 08:33: Cortisol 34.40 H 01/22/21 09:03: Cortisol 40.30 H 01/22/21 11:21: POC Glucose 179 H Micro: Microbiology 01/20/21 07:30 Urine, Clean Catch Urine Culture - Final Culture exhibits no growth. 01/20/21 06:08 Blood Culture (Wb) - Anticubital Left Blood Culture - Preliminary No growth in 48 hours. 01/20/21 07:21 Blood Culture (Wb) - Anticubital Right Blood Culture - Preliminary No growth in 48 hours. 01/20/21 13:40 Mucosa - Nasopharyngeal Respiratory Panel (PCR) - Final 01/20/21 07:30 Urine, Clean Catch Legionella Antigen - Final Legionella Antigen 01/20/21 07:30 Urine, Clean Catch Streptococcus pneumoniae Antigen (M - Final 01/20/21 06:00 Nasal Secretion SARS-CoV-2 Antigen (Rapid) - Final Physical Exam Const alert, oriented x3 and no apparent distress HEENT head/scalp atraumatic and moist oral mucous membranes Head and Scalp: normocephalic Eyes PERRL, EOMs intact bilaterally and conjunctivae normal Neck no lymphadenopathy, supple and no JVD Resp normal respiratory effort, no retractions, no use of accessory muscles and clear to auscultation bilaterally Cardio regular rate, regular rhythm, no murmurs and no JVD GI normal to inspection, nondistended, normoactive bowel sounds, soft to palpation and non-tender Extremity normal to inspection, full ROM and no clubbing, cyanosis or edema Peripheral Pulses: Yes pulses 2+ throughout Skin no rashes or lesions noted, no wounds and skin turgor normal Neuro CN's II-XII intact bilaterally Psych affect normal Assessment & Plan Assessment/Plan (1) Pneumonia: (2) Generalized weakness: (3) Iron deficiency anemia: PLAN: Day 2 Discharge planning: Current plan is for patient to discharge home. 1) Community acquired pneumonia Patient continues to feel weak, but denies development of any new symptoms overnight. Vital signs are stable and patient is currently satting 95% on room air with rest and ambulation. Initial plan was to discharge patient today, however patient became dizzy with ambulation despite good oxygen saturations. Believe the dizziness is a result of #2. WBCs are currently 10,000, leukocytosis from admission has resolved. Legionella urinary antigen positive. Urine culture is negative. Rapid Covid negative. Blood cultures are negative. Plan; remain admitted overnight, continue Rocephin and azithromycin. 2) iron deficiency anemia Patient was transfused 1 unit of blood yesterday, and hemoglobin was 8.1 after transfusion. This morning hemoglobin is currently 7.5. Will transfuse 2 more units. Patient to have EGD and colonoscopy later on today, GI following. LDH, reticulocyte and Lizbeth test pending. 3) DM2 Accu-Cheks with sliding scale insulin ordered, continue Metformin and glimepiride. 4) Depression Continue Paxil. 5) CAD status post stent PCI to the ostial LAD in 2016. Home medication list includes aspirin, statin and ticagrelor. Continue home regimen. DVT prophylaxis - SCD's Patient seen by Sarwat Dubois PA-C, under the supervision of Dr. Malik. Documented by User: Dr. Travis Malik, 01/22/21 14:42 Objective Data Lab / Micro Data Result Diagrams: 01/22/21 05:40 01/21/21 06:26 Charges/Coding Addendum Addendum: Patient was seen and examined independently of Sarwat Dubois, his hem oglobin dropped today to 7.5, I decided to give the patient 2 units of packed red blood cells. Patient was not able to drink his GoLYTELY prep yesterday, he stated to me that he did not feel good I told him that in order to have his colonoscopy he must have a similar prep to be cleaned out completely, I ordered a 2000 cc Colyte prep for the patient. On examination he appeared in good health and spirits. Vital signs as documented. Skin warm and dry and without overt rashes. Neck without JVD, neck was supple, trachea midline, thyroid was normal. Lungs clear bilaterally, normal air movement was noted. Heart exam notable for regular rhythm, normal sounds and absence of murmurs, rubs or gallops. Abdomen unremarkable and without evidence of organomegaly, masses, or abdominal aortic enlargement. Bowel sounds are present, abdomen is not distended. Extremities nonedematous, no cyanosis was noted, no clubbing was noted. Neuro: Cranial nerves II through XII are grossly intact, no focal motor deficits were noted, sensation to light touch and pinprick intact, motor exam 5/5 throughout. Psych: Patient is alert and oriented x3, he does not appear anxious or depressed, he does not appear a gitated. Patient will undergo an EGD and colonoscopy tomorrow, his labs will be rechecked in the morning, I have reviewed Sarwat Calvin's progress note including his medical assessment and plan of care and endorse it. Visit Charges Inpatient E&M: 23657 Subs Hosp L2
[2021-01-22] MEDS: Electrolyte Solution/Peg's 4000 ML 2000 ML PO (15:10)
[2021-01-22] MEDS: Insulin Lispro 100 UNIT/ML INSULN.PEN SC ×2 (16:57→22:48)
[2021-01-22 17:06] LABS: Bedside Glucose 209 mg/dL (70-110)
--- NOTE | 2021-01-22 18:03 | PN.GI_ITS ---
Subjective Subjective Patient was supposed to have an upper and lower endoscopy today to evaluate his anemia. However he did not take his prep. He has been on clear liquids today. He is supposed to be starting His prep with mag citrate. Objective Data Objective Data Vital Signs: Vital Signs Temp Pulse Resp BP Pulse Ox 98.9 F 80 18 121/60 H 98 01/22/21 16:50 01/22/21 16:50 01/22/21 16:50 01/22/21 16:50 01/22/21 16:50 Oxygen Delivery Method Room Air Weight: 169 lb 1.513 oz Body Mass Index (BMI) 24.9 Intake & Output: Intake and Output for Last 24 Hours 01/20/21 01/21/21 01/22/21 23:59 23:59 23:59 Intake Total 1586.25 / 1586.25 3238.75 / 3238.75 2103.00 / 2103.00 Output Total 150 / 150 Balance 1436.25 / 1436.25 3238.75 / 3238.75 2103.00 / 2103.00 Lab / Micro Data Result Diagrams: 01/22/21 05:40 01/21/21 06:26 Labs: Laboratory Results - last 24 hr 01/21/21 06:26: ESR 51 H, Retic Count 1.64 H, Immature Retic Fraction 8.30, Retic Hgb Equivalent 19.4 L 01/21/21 11:30: Crossmatch See Detail 01/21/21 17:46: Lactate Dehydrogenase 198, C-React Prot Ext Range 187.00 H 01/21/21 18:03: Cortisol 33.90 H 01/21/21 18:03: Iron 55 L, Troponin I High Sens 18 01/21/21 22:42: POC Glucose 107 01/22/21 05:40: Hgb 7.5 L, Hct 22.6 L 01/22/21 05:40: Cortisol 31.00 H 01/22/21 06:14: POC Glucose 130 H 01/22/21 08:33: Cortisol 34.40 H 01/22/21 09:03: Cortisol 40.30 H 01/22/21 11:21: POC Glucose 179 H 01/22/21 16:57: POC Glucose 209 H Micro: Microbiology 01/20/21 07:30 Urine, Clean Catch Urine Culture - Final Culture exhibits no growth. 01/20/21 06:08 Blood Culture (Wb) - Anticubital Left Blood Culture - Preliminary No growth in 48 hours. 01/20/21 07:21 Blood Culture (Wb) - Anticubital Right Blood Culture - Prelim inary No growth in 48 hours. 01/20/21 13:40 Mucosa - Nasopharyngeal Respiratory Panel (PCR) - Final 01/20/21 07:30 Urine, Clean Catch Legionella Antigen - Final Legionella Antigen 01/20/21 07:30 Urine, Clean Catch Streptococcus pneumoniae Antigen (M - Final 01/20/21 06:00 Nasal Secretion SARS-CoV-2 Antigen (Rapid) - Final Physical Exam Const alert General Appearance: cooperative Orientation / Consciousness: oriented to person HEENT hearing grossly normal bilaterally Head and Scalp: normal to inspection Face and Sinus: face symmetric Nose: external nose normal Mouth: oral and palatal mucosa normal Eyes conjunctivae normal General Eye: normal appearance of both eyes Neck full ROM General: normal visual inspection Lymph Lymphatic: no lymphadenopathy noted Chest inspection of chest normal and palpation of chest normal Chest: symmetrical chest wall rise Resp normal respiratory effort Effort and Inspection: able to speak in complete sentences Cardio regular rate GI non-distended Percussion: normal to percussion Rectal Exam: deferred Neuro Speech: speech normal Gait (Neuro): normal gait Assessment & Plan Assessment/Plan (1) Hypotension: PLAN: His random cortisol and ACTH stimulation test was normal and he had an appropriate increase in his cortisol with ACTH.His hypotension could be from volume depletion from his iron deficiency anemia. Hopefully will be able to perform an upper or lower endoscopy and possible capsule endoscopy. (2) Iron deficiency anemia: PLAN: Plan is for EGD and colonoscopy tomorrow. Charges/Coding Visit Charges Inpatient E&M: 87500 Subs Hosp L2
--- NOTE | 2021-01-22 18:16 | NURSING ---
2 units of blood to be given this afternoon #1 unit was given and complete.Error on second unit initiated but ended incorrectly. Charge nurse and this nurse attempt to correct the ending time on the TAR was unable to.
[2021-01-22] MEDS: Atorvastatin Calcium 80 MG Tablet PO (22:46)
[2021-01-22 22:56] LABS: Bedside Glucose 229 mg/dL (70-110)
[2021-01-23 02:00] VITALS: BP 105/59; PULSE 88; RESP 18; TEMP 37.3; O2SAT 95
[2021-01-23 05:47] LABS: Absolute Lymphocyte Count 0.66 X10^3/uL (0.83-4.51); Absolute Neutrophil Count 7.3 X10^3/uL (2.0-7.7); Basophil# 0.01 X10^3/uL; Basophil% 0.1 % (0-1); Eosinophils% 1.1 % (0-5); Hematocrit 31.7 % (40-54); Hemoglobin 10.3 g/dL (13.0-16.5); Lymphocyte # 0.66 X10^3/ul (0.83-4.51); Lymphocyte % 7.3 % (19-41); Mean Corp Hgb Conc 32.5 g/dL (32-36); Mean Corpuscular Hgb 30.1 pg (27.0-32.0); Mean Corpuscular Volume 92.7 fL (80-94); Mean Platelet Vol. 9.1 fl (6.2-12.0); Monocyte# 0.87 X10^3/uL; Monocyte% 9.6 % (0-10); NRBC Flagged by Analyzer 0 % (0-5); Neutrophil # 7.31 X10^3/uL (2.7-7.7); Platelet Count 309 K/mm3 (150-450); RBC Distribution Width CV 15.7 % (11.6-14.6); RBC Distribution Width SD 53.1 fl (35.1-43.9); Red Blood Count 3.42 M/mm3 (4.6-6.2)
[2021-01-23 06:55] LABS: Bedside Glucose 139 mg/dL (70-110)
[2021-01-23 07:44] VITALS: BP 121/72; PULSE 89; RESP 16; TEMP 37; O2SAT 96
--- NOTE | 2021-01-23 08:06 | PN.HOSP_ITS ---
Subjective Subjective Patient is a 65-year-old gentleman admitted with progressive generalized weakness. Patient was found to be anemic. He was also found to have pneumonia admitted to regular nursing floor for further management Objective Data Objective Data Vital Signs: Vital Signs Temp Pulse Resp BP Pulse Ox 98.6 F 89 16 121/72 H 96 01/23/21 07:44 01/23/21 07:44 01/23/21 07:44 01/23/21 07:44 01/23/21 07:44 Oxygen Delivery Method Room Air Weight: 76.7 kg Body Mass Index (BMI) 24.9 Intake & Output: Intake and Output for Last 24 Hours 01/21/21 01/22/21 01/23/21 23:59 23:59 23:59 Intake Total 3238.75 / 3238.75 3303.00 / 3303.00 705 / 705 Balance 3238.75 / 3238.75 3303.00 / 3303.00 705 / 705 Lab / Micro Data Result Diagrams: 01/23/21 05:02 01/21/21 06:26 Labs: Laboratory Results - last 24 hr 01/21/21 11:30: Crossmatch See Detail 01/21/21 11:30: Crossmatch See Detail 01/21/21 18:03: Cortisol 33.90 H 01/22/21 05:40: Cortisol 31.00 H 01/22/21 08:33: Cortisol 34.40 H 01/22/21 09:03: Cortisol 40.30 H 01/22/21 11:21: POC Glucose 179 H 01/22/21 16:57: POC Glucose 209 H 01/22/21 22:48: POC Glucose 229 H 01/23/21 05:02: WBC 9.0, RBC 3.42 L, Hgb 10.3 L, Hct 31.7 L, MCV 92.7, MCH 30.1, MCHC 32.5, RDW Std Deviation 53.1 H, RDW Coeff of [place]on 15.7 H, Plt Count 309, MPV 9.1, Immature Gran % (Auto) 0.900, Neut % (Auto) 81.0 H, Lymph % (Auto) 7.3 L, [place] % (Auto) 9.6, Eos % (Auto) 1.1, Baso % (Auto) 0.1, Absolute Neuts (auto) 7.3, Absolute Lymphs (auto) 0.66 L, Nucleated RBC % 0 01/23/21 06:12: POC Glucose 139 H Micro: Microbiology 01/20/21 07:30 Urine, Clean Catch Urine Culture - Final Culture exhibits no growth. 01/20/21 06:08 Blood Culture (Wb) - Anticubital Left Blood Culture - Preliminary No growth in 48 hours. 01/20/21 07:21 Blood Culture (Wb) - Anticubital Right Blood Culture - Preliminary No growth in 48 hours. 01/20/21 13:40 Mucosa - Nasopharyngeal Respiratory Panel (PCR) - Final 01/20/21 07:30 Urine, Clean Catch Legionella Antigen - Final Legionella Antigen 01/20/21 07:30 Urine, Clean Catch Streptococcus pneumoniae Antigen (M - Final 01/20/21 06:00 Nasal Secretion SARS-CoV-2 Antigen (Rapid) - Final Physical Exam Narrative GENERAL: cooperative HEENT: Atraumatic; EYES; Anicteric, Normal Conjunctiva NECK; supple, normal thyroid, RESPIRATORY: Diminished to auscultation CARDIOVASCULAR: Regular S1 S2, GI: soft, normoactive bowel sounds, : No Renal angle tenderness; EXTREMITIES: No edema, no clubbing, MUSCULOSKELETAL: no muscle waisting NEURO: Awake; no lateralizing signs. SKIN: No Rash PSYCH; Flat affect Assessment & Plan Assessment/Plan (1) Pneumonia: PLAN: Patient is a 65-year-old gentleman admitted with progressive g eneralized weakness. Patient was found to be anemic. He was also found to have pneumonia admitted to regular nursing floor for further management 1. Pneumonia - Suspected to be secondary to streptococcal pneumonia, Blood and sputum cultures sent. Patient placed on Rocephin and Zithromax and placed on oxygen titrated to keep Pulse Ox greater than 90 1. Symptomatic anemia ?patient was transfused 1 unit PRBC on 01/21/2021. Hemoglobin dropped from 8.1 on admission to 7.5.. Patient Red cell indices consistent with normocytic anemia. Consult placed to GI plan is for patient to undergo EGD and colonoscopy 3. Coronary artery disease ?status post PCI to an ostial LAD lesion in 2015. Patient currently on dual antiplatelet therapy with aspirin and ticagrelor in addition to atorvastatin and ROBY inhibitors 4. Diabetes mellitus type II -patient's oral hypoglycemics held. Placed on long acting insulin, Accu-Cheks a.c. and at bedtime and covered with sliding scale insulin 5. Depression ?patient is on Paxil did continue 6. DVT prophylaxis ?SCDs for now 7. Hyponatremia ?sodium level on admission was 127, 130 as of 01/21/1928 1 repeat labs ordered Charges/Coding Visit Charges Inpatient E&M: 34357 Subs Hosp L3
[2021-01-23] MEDS: 0.9% Normal Saline 1,000 ML 75 ML IV (09:31)
[2021-01-23] MEDS: Lisinopril 10 MG Tablet PO (09:49)
[2021-01-23] MEDS: Pantoprazole Sodium 40 MG Tablet PO (09:50)
[2021-01-23 11:04] VITALS: O2SAT 94
[2021-01-23] MEDS: Insulin Lispro 100 UNIT/ML INSULN.PEN SC ×2 (11:13→16:17)
[2021-01-23 11:20] LABS: Bedside Glucose 162 mg/dL (70-110)
[2021-01-23] MEDS: Ceftriaxone 1 GM/50 ML BAG IV (11:52)
[2021-01-23 12:28] LABS: Anion Gap 5 (5-15); BUN 14 mg/dL (7-18); Calcium,Total 7.7 mg/dL (8.5-10.1); Chloride 109 mmol/L (98-107); Creatinine, Serum 0.93 mg/dL (0.70-1.30); EST Glomerular Filtration Rate 87 mL/min (>60); Est Glom Filt Rate - Afr Amer 105 mL/min (>60); Glucose 127 mg/dL (74-106); Magnesium 2.5 mg/dL (1.6-2.6); Potassium 3.4 mmol/L (3.5-5.1); Sodium Level 130 mmol/L (136-145)
[2021-01-23 14:29] VITALS: O2SAT 93
[2021-01-23 15:09] VITALS: BP 125/65; PULSE 93; RESP 16; TEMP 36.8; O2SAT 97
--- NOTE | 2021-01-23 15:35 | CHAPLAIN ---
Type of Pastoral Visit _x__ Initial Visit ___ Follow-up Visit ___ On-call Visit ___ General Patient Visit ___ Spiritual Assessment ___ Family Conference ___ Bereavement ___ Rapid Response ___ Code Blue ___ Other (describe below) Pastoral Care Referral From _x__ Patient ___ Family ___ Nurse ___ Physician ___ Termite Treater ___ Ball Rolling Machine Operator ___ Other (describe below) Sacrament/Intervention _x__ Active listening ___ Anointing ___ Christianity ___ Bereavement ___ Communion ___ [place] exploration ___ _x__ Life review _x__ Prayer ___ Reconciliation ___ Sacrament of Sick ___ Supportive presence ___ Wedding ___ Other (describe below) Pastoral Comments patient has been seen before in this hospital as previous patient and as spouse of patient; pt states his current condition and desire to go home instead of finishing process of colonoscopy; pt's brother in law is with him; pt welcomes visit and prayer
--- NOTE | 2021-01-23 16:13 | DS.PCM_ITS ---
Providers Date of Admission: 01/20/21 Primary Care Physician: Dr. Travis Bassett MD Consultations 01/20/21 12:02 Consult: Gastroenterology Routine Consulting Provider: [facility] Reason for Consult: iron def anemia EMERGENT Consult: No MD Notified: Yes Date Notified: 01/20/21 Time Notified: 12:02 Method of Notification: Verbal Reason For Visit: LEFT LOWER LOBE COMMUNITY-AQUIRED PNEUMONIA Diagnosis Discharge Diagnosis (1) Pneumonia: Status: Acute Code(s): J18.9 - Pneumonia, unspecified organism Medications at Discharge Home Medications paroxetine HCl 30 mg PO DAILY 12/02/14 atorvastatin 80 mg PO QHS 10/25/15 nitroglycerin 0.4 mg SUBLINGUAL Q5M PRN 10/25/15 lisinopril 10 mg tablet 10 mg PO DAILY 05/14/17 metformin 500 mg tablet 1,000 mg PO BID tab 05/14/17 multivitamin 1 tab PO QDAY 05/14/17 ticagrelor 90 mg tablet 90 mg PO BID #60 tab 12/18/18 glimepiride 4 mg PO DAILY 02/18/19 aspirin 81 mg PO DAILY@0800 #0 02/19/19 ferrous sulfate 325 mg PO DAILY #30 tab 02/19/19 pantoprazole 40 mg PO DAILY #30 tab 02/19/19 azithromycin 500 mg PO DAILY 5 Days #5 tab 01/21/21 cefdinir 300 mg PO BID #10 cap 01/23/21 Hospital Course Summary of Care Provided Minutes Spent on Discharge: 35 Hospital Course: Patient is a 65-year-old gentleman admitted with progressive generalized weakness. Patient was found to be anemic. He was also found to have pneumonia admitted to regular nursing floor for further management 1. Pneumonia - Suspected to be secondary to streptococcal pneumonia, Blood and sputum cultures sent. Patient placed on Rocephin and Zithromax and placed on oxygen titrated to keep Pulse Ox greater than 90 1. Symptomatic anemia ?patient was transfused 1 unit PRBC on 01/21/2021. Hemoglobin dropped from 8.1 on admission to 7.5.. Patient Red cell indices consistent with normocytic anemia. Consult placed to GI plan is for patient to undergo EGD and colonoscopy -Patient refused to have the colonoscopy performed was in the hospital. She was discharged home instructed to follow-up with Dr. Gregg for the colonoscopy to be performed as outpatient 3. Coronary artery disease ?status post PCI to an ostial LAD lesion in 2016. Patient currently on dual antiplatelet therapy with aspirin and ticagrelor in addition to atorvastatin and ROBY inhibitors 4. Diabetes mellitus type II -patient's oral hypoglycemics held. Placed on long acting insulin, Accu-Cheks a.c. and at bedtime and covered with sliding scale insulin 5. Depression ?patient is on Paxil did continue 6. DVT prophylaxis ?SCDs for now 7. Hyponatremia ?sodium level on admission was 127, 130 as of 01/21/1930 1 repeat labs ordered Physical Exam Narrative GENERAL: cooperative HEENT: Atraumatic; EYES; Anicteric, Normal Conjunctiva NECK; supple, normal thyroid, RESPIRATORY: Diminished to auscultation CARDIOVASCULAR: Regular S1 S2, GI: soft, normoactive bowel sounds, : No Renal angle tenderness; EXTREMITIES: No edema, no clubbing, MUSCULOSKELETAL: no muscle waisting NEURO: Awake; no lateralizing signs. Weight / BMI Weight Weight: 76.7 kg Body Mass Index (BMI) 24.9 ABG / Lab / Microbiology Data Result Diagrams: 01/23/21 05:02 01/23/21 05:02 Laboratory: Laboratory Results - last 24 hr 01/21/21 11:30: Crossmatch See Detail 01/21/21 11:30: Crossmatch See Detail 01/22/21 16:57: POC Glucose 209 H 01/22/21 22:48: POC Glucose 229 H 01/23/21 05:02: WBC 9.0, RBC 3.42 L, Hgb 10.3 L, Hct 31.7 L, MCV 92.7, MCH 30.1, MCHC 32.5, RDW Std Deviation 53.1 H, RDW Coeff of [place] 15.7 H, Plt Count 309, MPV 9.1, Immature Gran % (Auto) 0.900, Neut % (Auto) 81.0 H, Lymph % (Auto) 7.3 L, [place] % (Auto) 9.6, Eos % (Auto) 1.1, Baso % (Auto) 0.1, Absolute Neuts (auto) 7.3, Absolute Lymphs (auto) 0.66 L, Nucleated RBC % 0 01/23/21 05:02: Sodium 130 L, Potassium 3.4 L, Chloride 109 H, Carbon Dioxide 16.0 L, Anion Gap 5, BUN 14, Creatinine 0.93, Estim Creat Clear Calc 81.30, Est GFR (MDRD) Af Amer 105, Est GFR (MDRD) Non-Af 87, BUN/Creatinine Ratio 15.0, Glucose 127 H, Calcium 7.7 L, Magnesium 2.5 01/23/21 06:12: POC Glucose 139 H 01/23/21 11:11: POC Glucose 162 H Microbiology: Microbiology 01/20/21 07:30 Urine, Clean Catch Urine Culture - Final Culture exhibits no growth. 01/20/21 06:08 Blood Culture (Wb) - Anticubital Left Blood Culture - Preliminary No growth in 48 hours. 01/20/21 07:21 Blood Culture (Wb) - Anticubital Right Blood Culture - Preliminary No growth in 48 hours. 01/20/21 13:40 Mucosa - Nasopharyngeal Respiratory Panel (PCR) - Final 01/20/21 07:30 Urine, Clean Catch Legionella Antigen - Final Legionella Antigen 01/20/21 07:30 Urine, Clean Catch Streptococcus pneumoniae Antigen (M - Final 01/20/21 06:00 Nasal Secretion SARS-CoV-2 Antigen (Rapid) - Final D/C Instructions Discharge Diet: No restrictions Discharge Activity: Return to Normal Activity Weight Bearing Status: Weight bearing as tolerated Call your doctor if you observe: Fever of 101 or Higher, Numbness or Tingling, Shortness of breath, Dizziness, Chest pain, Increased palpitations (irregular heartbeat) and Calf discomfort Please Follow Up With: Primary care provider When: Within the next two weeks. Meaningful Use Info Meaningful Use Diagnoses (Choose all that apply): None applicable Discharge Plan Admission Admit Date/Time: 01/20/21 08:20 Primary Reason for Your Visit: Weakness Attending Provider: Greg Crockett Primary Care Provider: Travis Bassett Discharge Orders/Prescriptions Prescriptions: New azithromycin 500 mg tablet 500 mg PO DAILY 5 Days Qty: 5 RF: 0 cefdinir 300 mg capsule 300 mg PO BID Qty: 10 RF: 0 Continued lisinopril 10 mg tablet 10 mg PO DAILY RF: 0 multivitamin tablet 1 tab PO QDAY RF: 0 metformin 500 MG tablet 1,000 mg PO BID RF: 0 paroxetine HCl 30 MG tablet 30 mg PO DAILY RF: 0 atorvastatin 80 MG tablet 80 mg PO QHS RF: 0 nitroglycerin 0.4 MG tablet 0.4 mg SUBLINGUAL Q5M PRN (Reason: Chest Pain) RF: 0 glimepiride 4 MG tablet 4 mg PO DAILY RF: 0 pantoprazole 40 MG tablet 40 mg PO DAILY Qty: 30 RF: 0 ferrous sulfate 325 MG tablet 325 mg PO DAILY Qty: 30 RF: 0 aspirin 81 MG tablet,chewable 81 mg PO DAILY@0800 Qty: 0 RF: 0 ticagrelor 90 mg tablet 90 mg PO BID Qty: 60 RF: 12 Referrals / Follow Up: Travis Bassett MD [Primary Care Provider] - Within 2 Weeks Aly Gregg DO [STAFF PHYSICIAN] - Within 1 Week Disposition Disposition (needs filled in before D/C Order can be placed): Home, Self Care Charges/Coding Visit Charges Inpatient E&M: 71086 Disch Hosp
[2021-01-23 16:25] LABS: Bedside Glucose 172 mg/dL (70-110)
--- NOTE | 2021-01-24 15:15 | CASEMGMT ---
JUSTINO LEON Discharge Follow Up Phone Call: CYNTHIA: Missy Strata:3 Call Date: 01/24/2021 Discharge Date: 01/23/21 Time of Call:1514 Duration:3 min Admitting Dx:JOHNATHAN MO RN, CM completed follow up phone call after recent hospitalization. Pt states he is doing ok. States he slept well lastnight and that he was able to shower today. Pt was able to get his rx picked up. He has not yet made any follow up appts yet. He prefers to go in person to the clinic to schedule these as he needs some papers for returning to work. Pt denies further questions or concerns regarding his dc instructions or medications at this time.
== END 2021-01-23 17:29 | disposition home or self-care (01) | DRG 194 ==
LOC: ED 08:38 → MS3 14:56
PROVIDERS: Internal Medicine Gastroenterology; Physician Assistant; Admitting Provider Internal Medicine; Emergency Provider Emergency Medicine; PCP Family Medicine; Visit Provider Internal Medicine
DX: J13 Pneumonia due to Streptococcus pneumoniae (principal); E87.1 Hypo-osmolality and hyponatremia; I25.10 Atherosclerotic heart disease of native coronary artery without angina pectoris; E11.9 Type 2 diabetes mellitus without complications; I10 Essential (primary) hypertension; D50.9 Iron deficiency anemia, unspecified; F32.A Depression, unspecified; F41.9 Anxiety disorder, unspecified; E78.5 Hyperlipidemia, unspecified; I25.5 Ischemic cardiomyopathy; I95.9 Hypotension, unspecified; I25.2 Old myocardial infarction; Z79.899 Other long term (current) drug therapy; Z79.84 Long term (current) use of oral hypoglycemic drugs; Z79.82 Long term (current) use of aspirin; Z87.891 Personal history of nicotine dependence; Z95.5 Presence of coronary angioplasty implant and graft
CPT/HCPCS: 36415; 71045; 80048; 80053; 81001; 82533; 82962; 83540; 83550; 83605; 83615; 83735; 84484; 85014; 85018; 85025; 85045; 85652; 86140; 86850; 86900; 86901; 86920; 86922; 87040; 87086; 87426; 87449; 87633; 93005; 94640; 97802; 99285; J7030; J7040; J7050; P9016; A4216; J0834; J2916; J3490

== ENCOUNTER 2022-05-05 08:24 | Emergency (ER) | payer OTHER, SELFPAY ==
[2022-05-05] VITALS (7 sets, daily range): BP systolic 110–129; BP diastolic 54–88; PULSE 81–103; RESP 14–19; TEMP 36.3–37; O2SAT 98–100; BMI 25.4
--- NOTE | 2022-05-05 08:43 | EKG12_ITS ---
Test Reason : Blood Pressure : / mmHG Vent. Rate : 091 BPM Atrial Rate : 091 BPM P-R Int : 144 ms QRS Dur : 072 ms QT Int : 332 ms P-R-T Axes : 013 012 011 degrees QTc Int : 408 ms Normal sinus rhythm Normal ECG Confirmed by JOS AMBRIZ, AQUILES ([id number]), clinical editor GABY LIN ([id number]) on 05/07/2022 12:29:29 PM Referred By: Confirmed By:AQUILES ARGUELLO MD
[2022-05-05 09:27] LABS: Troponin-I HS 6 pg/mL (3.0-78.0)
--- NOTE | 2022-05-05 09:42 | EKG12_ITS ---
Test Reason : Blood Pressure : / mmHG Vent. Rate : 087 BPM Atrial Rate : 087 BPM P-R Int : 142 ms QRS Dur : 074 ms QT Int : 350 ms P-R-T Axes : 031 021 018 degrees QTc Int : 421 ms Normal sinus rhythm Normal ECG Confirmed by JOS AMBRIZ, AQUILES ([id number]), map editor GABY LIN ([id number]) on 05/07/2022 12:32:34 PM Referred By: Confirmed By:AQUILES ARGUELLO MD
--- NOTE | 2022-05-05 13:01 | EDS_ITS ---
HPI History of Present Illness Chief Complaint: Abn Labs Detail of Chief Complaint: Low hemoglobin Informant: patient Onset/Context/Timing Onset: Days Context: Gradual Onset Timing: Continuous Quality: Dyspnea, dyspnea on exertion Location: iron deficiency anemia suspect GI Current Severity: Mild Maximum Severity: Moderate Worsened by: Dyspnea on exertion Relieved by: Better with rest Associated Symptoms Associated Symptoms: Occasionally lightheadedness Narrative Narrative: Patient is a 66-year-old male with history of ischemic cardiomyopathy, essential hypertension, type 2 diabetes, patient does have stents in place. Patient is on high thrombotic medication. He is not on an anticoagulant. He denies bruising easily. [place] bleeding of his gums, blood in his urine, black or maroon-colored stool. He denies bright red blood per rectum. Patient states he did have a transfusion 1 year ago. He has seen Dr. Gregg. The etiology of his bleeding is unknown. He is awaiting approval for capsule swallow test. Prior similar symptoms: Yes Recent Illness/Hospitalization: No [facility] Medical History Anemia Anxiety Atherosclerotic heart disease of [place] coronary artery without angina pectoris Depression Diabetes Diabetes mellitus type II, controlled Essential (primary) hypertension Former smoker GI bleed History of anterior wall myocardial infarction History of stress test Hyperlipidemia Hypertension Hypotension Iron deficiency anemia Ischemic cardiomyopathy Myocardial infarct Home Medications paroxetine HCl 30 mg tablet 30 mg PO DAILY depression 12/02/14 [History Last Taken 05/05/22] nitroglycerin 0.4 mg sublingual tablet 0.4 mg sublingual Q5M PRN Chest Pain 10/25/15 [History Last Taken Unknown] lisinopril 10 mg tablet 10 mg PO DAILY BP 05/14/17 [History Last Taken 05/05/22] metformin 500 mg tablet 1,000 mg PO BID BS 05/14/17 [History Last Taken 05/05/22] multivitamin 1 tab PO QDAY health 05/14/17 [History Last Taken 05/05/22] ticagrelor 90 mg tablet 90 mg PO BID #60 tabs 12/18/18 [Rx Last Taken 05/05/22] glimepiride 4 mg tablet 2 mg PO DAILY DM 02/18/19 [History Last Taken 05/04/22] aspirin 81 mg chewable tablet 81 mg PO DAILY@0800 heart ##0 02/19/19 [Rx Last Taken 05/05/22] ferrous sulfate 325 mg (65 mg iron) tablet 325 mg PO DAILY #30 tabs 02/19/19 [Rx Last Taken 05/05/22] pantoprazole 40 mg tablet,delayed release 40 mg PO DAILY #30 tabs 02/19/19 [Rx Last Taken 05/05/22] levothyroxine 100 mcg tablet 100 mcg PO DAILY THYROID 05/05/22 [History Last Taken 05/05/22] levothyroxine 112 mcg tablet (Euthyrox) 112 mcg PO DAILY #30 tabs 05/05/22 [Rx Last Taken Unknown] Allergy/AdvReac Type Severity Reaction Status Date / Time No Known Allergies Allergy Verified 05/05/22 08:25 Family History Mother No problems noted. Father No problems noted. Surgical History (Updated 01/21/21 @ 21:40 by Tariq Mullen) H/O cardiac catheterization Stented coronary artery Social History (Updated 05/05/22 @ 13:[address] Chico Herron MD) household members: none Smoking Status: Former smoker quit date: 01/20/91 alcohol intake: never substance use type: does not use ROS ROS ED Constitutional Constitutional ED: Denies chills, fever(s), subjective, sweats or weight loss Eyes Eyes: Denies blurry vision or change in vision ENT ENT ED: Denies ear pain, rhinorrhea or sore throat Cardiovascular Cardiovascular: Denies chest pain, orthopnea, palpitations, paroxysmal nocturnal dyspnea or racing heartbeat Respiratory/Chest Respiratory/Chest: Reports dyspnea and dyspnea on exertion; Denies cough, orthopnea or paroxysmal nocturnal dyspnea Gastrointestinal Gastrointestinal: Denies abdominal pain, melena, nausea or vomiting Genitourinary Genitourinary ED: Denies dysuria, hematuria or urinary frequency Musculoskeletal Musculoskeletal: Denies arthralgias, back pain or myalgias Integumentary Denies rash Neurologic Neurologic: Reports weakness; Denies paresthesias Psychiatric Psychiatric: Denies anxiety or depression Hematologic/Lymphatic Hematologic/Lymphatic: Reports anemia, easy bleeding and easy bruising EXAM Physical Exam Const Vital Signs: 05/05/22 08:25 05/05/22 09:33 05/05/22 10:08 Temperature 97.3 F L Temperature Source Temporal Pulse Rate 103 H 81 Respiratory Rate 18 16 Respiratory Effort Normal Non-Labored Respiratory Pattern Normal Blood Pressure 129/82 H 115/56 L Blood Pressure Mean 97 75 Blood Pressure Source Blood Pressure Position Blood Pressure Location Pulse Ox 100 98 Oxygen Delivery Method Room Air Room Air 05/05/22 11:00 05/05/22 11:03 05/05/22 11:08 Temperature 98.4 F 98.4 F Temperature Source Temporal Temporal Pulse Rate 86 86 84 Respiratory Rate 18 16 19 H Respiratory Effort Respiratory Pattern Blood Pressure 118/60 118/60 114/54 L Blood Pressure Mean 79 79 74 Blood Pressure Source Manual Monitor Blood Pressure Position Semi-Fowlers Semi-Fowlers Blood Pressure Location Right Arm Right Arm Pulse Ox 99 98 99 Oxygen Delivery Method Room Air Room Air Room Air 05/05/22 11:23 05/05/22 12:23 05/05/22 12:23 Temperature 98.5 F 98.4 F 98.6 F Temperature Source Temporal Temporal Temporal Pulse Rate 94 91 86 Respiratory Rate 18 18 14 Respiratory Effort Respiratory Pattern Blood Pressure 110/64 121/88 H 119/65 Blood Pressure Mean 79 99 83 Blood Pressure Source Monitor Monitor Monitor Blood Pressure Position Semi-Fowlers Semi-Fowlers Semi-Fowlers Blood Pressure Location Left Arm Left Arm Left Arm Pulse Ox 99 100 100 Oxygen Delivery Method Room Air Room Air Room Air Positive well nourished and well developed Constitutional Narrative: Patient appears pale. He is tachycardic. He is not hypotensive. General Appearance ED: well developed, NAD and pallor; Negative for cyanotic or diaphoretic HEENT Reports moist mucous membranes HEENT Narrative: Head is atraumatic normocephalic. Ears normal. Nares patent. Uvula midline. No the posterior pharynx. Eyes PERRL and EOMs intact bilaterally General Eye ED: Negative for pale conjunctiva or scleral icterus Neck no lymphadenopathy and supple General: Negative for tenderness Chest Wall inspection of chest normal and palpation of chest normal Resp normal respiratory effort and clear to auscultation bilaterally Cardio regular rhythm, S1 normal heart sound, S2 normal heart sound and no murmurs Rate: tachycardic GI normal to inspection, nondistended, normoactive bowel sounds, non-tender, non- distended and no masses; Negative for hepatosplenomegaly Back/Spine no CVA tenderness Thoracic Spine / Upper Back: Negative for thoracic spinal tenderness Lumbar Spine / Lower Back: Negative for lumbar spinal tenderness Extremity normal to inspection Neuro oriented x3, CN's II-XII intact bilaterally and no sensory deficits noted Sensorium / Orientation: alert Psych mental status grossly normal Skin no rashes or lesions noted, no wounds and No skin turgor normal General Skin Exam: pallor; Negative for elasticity normal or jaundice MDM MDM MDM Narrative Medical decision making narrative: BetaVersity was used to evaluate patient's most recent laboratory results. H&H is 6.8 and 22.5. Indices are normal. Platelet count is 427,000. Hemoglobin was 10.3 and hematocrit 31.7 January 23, 2021. Calcium, albumin and transaminases are unremarkable. Basic metabolic panel reveals a sodium 134 and a potassium of 5.2. Iron studies were obtained and are low consistent with iron deficiency anemia. TSH is elevated to 5.7. This may also be a reason for his fatigue. He does not know the dose of his levothyroxine. Patient presently is on iron 325 mg ferrous sulfate tablets. He is instructed to take 1 twice a day. His levothyroxine dose is 100 mcg. Because patient has history of ischemic cardiomyopathy EKG was obtained to evaluate for cardiac ischemia as well as evaluate for changes consistent with hyperkalemia. Troponin was obtained to rule out recent cardiac ischemia since he is reported shortness of breath for greater than a week with activity. Since his levothyroxine dose is known will increase since his TSH is elevated. Since patient has symptomatic anemia he was transfused with 1 unit of blood. He received the blood without complication. Lab Data Attestation: I reviewed the patient's lab results. Lab results narrative: Troponin is less than 7 with several days of pain. This essentially rules out cardiac anemia as cause of his dyspnea and exertion and would attribute this to his anemia, hemoglobin 6.8 Labs: Laboratory Results - last 24 hr 05/05/22 05/05/22 09:00 09:00 Troponin I High Sens 6 Blood Type A POSITIVE Antibody Screen NEGATIVE Crossmatch See Detail EKG Initial EKG: Attestation: I personally reviewed and interpreted this EKG as follows: Interpretation: Sinus Rhythm (First EKG performed at 0852 is normal. Rate is 91. FL interval is 144 ms. Cures duration 72 ms. QT duration 332 ms. [place]lin is normal.) Follow-up EKG: Attestation: I personally reviewed and interpreted this EKG as follows: Interpretation: Sinus Rhythm (EKG was repeated. This was performed at 1007. It is normal. Rate is 87. FL interval is 142 ms. Cures duration 74 ms. [place] is normal. QT interval is 350 ms.) Discharge Plan Triage Chief Complaint: Abn Labs ED Provider: Chico Herrno Dx/Rx/DC Orders Clinical Impression: Symptomatic anemia, Diabetes mellitus type II, controlled, Ischemic cardiomyopathy, Essential (primary) hypertension, Signs and symptoms of anemia, Iron (Fe) deficiency anemia, Blood transfusion during current hospitalisation, Elevated TSH, Sinus tachycardia Instructions: When You Need a Blood ..., ED Anemia, Iron-Deficiency (Adult) Prescriptions: New levothyroxine [Euthyrox] 112 mcg tablet 112 mcg PO DAILY Qty: 30 0RF No Action lisinopril 10 mg tablet 10 mg PO DAILY multivitamin tablet 1 tab PO QDAY metformin 500 MG tablet 1,000 mg PO BID Label Comments: 500 mg PO 2 tablets by mouth (1000 mg) twice daily Rx Instructions: 500 mg PO 2 tablets by mouth (1000 mg) twice daily paroxetine HCl 30 MG tablet 30 mg PO DAILY nitroglycerin 0.4 MG tablet 0.4 mg SUBLINGUAL Q5M PRN (Reason: Chest Pain) glimepiride 4 MG tablet 2 mg PO DAILY Label Comments: TAKE 1 TABLET BY MOUTH ONCE DAILY WITH BREAKFAST pantoprazole 40 MG tablet 40 mg PO DAILY Qty: 30 0RF ferrous sulfate 325 MG tablet 325 mg PO DAILY Qty: 30 0RF aspirin 81 MG tablet,chewable 81 mg PO DAILY@0800 Qty: 0 0RF levothyroxine 100 mcg tablet 100 mcg PO DAILY Label Comments: TAKE 1 TABLET BY MOUTH ONCE DAILY ON AN EMPTY STOMACH FOR THYROID ticagrelor 90 mg tablet 90 mg PO BID Qty: 60 12RF Primary Care Provider: Travis Bassett Referrals: Travis Bassett MD [Primary Care Provider] - 1-2 Weeks Activity Restrictions/Additional Instructions: 1. Make sure you take your iron tablets twice a day as prescribed by Dr. Bassett 2. Your dose of levothyroxine is 100 mcg. Since your TSH is elevated a new prescription was written for you. Disposition Disposition: Home, Self Care
== END 2022-05-05 13:30 | disposition home or self-care (01) ==
PROVIDERS: Emergency Provider Emergency Medicine; PCP Family Medicine; Visit Provider Emergency Medicine
DX: D50.9 Iron deficiency anemia, unspecified (principal); E11.9 Type 2 diabetes mellitus without complications; I25.10 Atherosclerotic heart disease of native coronary artery without angina pectoris; I25.5 Ischemic cardiomyopathy; R00.0 Tachycardia, unspecified; I10 Essential (primary) hypertension; I25.2 Old myocardial infarction; F32.A Depression, unspecified; F41.9 Anxiety disorder, unspecified; Z79.82 Long term (current) use of aspirin; Z79.84 Long term (current) use of oral hypoglycemic drugs; Z79.899 Other long term (current) drug therapy; Z87.891 Personal history of nicotine dependence; Z95.5 Presence of coronary angioplasty implant and graft
CPT/HCPCS: 36430; 84484; 86850; 86900; 86901; 86920; 86922; 93005; 99283; J7040; P9016; A4216

== ENCOUNTER 2022-07-16 07:44 | Day surgery (SDC) | payer OTHER, SELFPAY ==
--- NOTE | 2022-07-12 13:02 | NURSING ---
DR BROWNLEE OFFICE CALLED TO [facility] FOR PT TO STOP TAKING BRILINTA AND ASA FOR SCOPES 07/16. WILL RETURN CALL. DR CROWELL OFFICE NOTIFIED THAT PT HASNT STOPPED TAKING OF 07/12, DONELL NURSE STATES THAT SCOPES CAN GO FORWARD EVEN IF PT DOESN'T STOP TAKING. WILL NOTIFY PT OF DR GREEN'S RECOMMENDATION, ONCE RETURN CALL IS RECEIVED.
--- NOTE | 2022-07-12 15:45 | NURSING ---
RETURN CALL FROM DR BROWNLEE OFFICE, [place] FOR PT TO STOP BRILINTA AND ASA OF TODAY FOR SCOPE 07/16. PT CALLED AND MESSAGE LEFT.
[2022-07-16] VITALS (7 sets, daily range): BP systolic 96–149; BP diastolic 42–67; PULSE 63–88; RESP 16–18; TEMP 36.3–37.6; O2SAT 95–100; BMI 24.3
--- NOTE | 2022-07-16 07:55 | HP.PCM_ITS ---
History and Physical Date of Admission: 07/16/22 65 M who presents to the office today for a follow-up visit regarding anemia.? Patient was previously diagnosed with iron deficiency anemia thought to be secondary to in the acute recurrent GI bleed.? He underwent evaluation with an upper and lower endoscopy not by myself.? No etiology of his blood loss anemia was found.? I consulted him in the hospital for an evaluation of his ongoing acute blood loss anemia.? However the patient did not want to stay in the hospital. ? This has been going on for 2 years.? His hemoglobin does get as low as 5.5 after bleeding.? When I saw him it was down to 7.8.? He was transfused 3 units of packed red blood cells prior to him leaving the hospital and his hemoglobin is up to 10.3.? He is feeling more energy and is less fatigued.? He is on iron therapy. ROS Const Constitutional: Positive for weight change Musc Musculoskeletal: Positive for back pain, muscle weakness and leg pain at night Endo Endocrine: Positive for weight change Melvin/Lymp Hematologic/Lymphatic: Positive for easy bruising Exam Const General: cooperative and comfortable Nutritional Appearance: average body habitus and well nourished [facility] Head: normal to inspection Ears: hearing grossly normal bilaterally Nose: external nose normal Face and sinus: normal facial exam Mouth: oral mucosae normal Throat: posterior oropharynx normal Eyes General: appearance normal, both eyes and all related structures Neck Neck: normal visual inspection Chest Chest palpation & inspection: normal inspection of the chest and normal palpation of entire chest wall Resp Effort & Inspection: normal respiratory effort Auscultation: Bilateral: Clear to Auscultation Cardio Palpation: normal PMI Rate: regular rate Rhythm: regular rhythm GI Inspection: normal to inspection Auscultation: normal bowel sounds Percussion: normal to percussion Palpation: no hepatosplenomegaly Skin General: no rashes or lesions noted Neuro General: patient alert Extrem General: normal to inspection Psych Affect: normal affect Quality Reporting Tobacco Screening ([facility] 138) Smoking Status: Former smoker Assessment and Plan Assessment and Plan (1) Anemia: ?Status:?Acute ?Plan - Dr. Lu Friend, DO: He will undergo an upper and lower endoscopy further evaluation of his acute recurrent GI blood loss.? If this evaluation is normal then he will need a capsule endoscopy.? We will check his iron studies.? Including iron, ferritin, TIBC, reticulocyte count, LDH and possibly Lizbeth test. I have examined the patient and the H&P has been reviewed. There are no clinical changes since date of exam.
[2022-07-16] MEDS: Lactated Ringers 1,000 ML 15 ML IV (08:12)
[2022-07-16 08:30] LABS: Bedside Glucose 349 mg/dL (74-106)
--- NOTE | 2022-07-16 10:00 | COLBX_PTH ---
PATIENT: BRAD HALLMAN LOC: EN U#:[id number] AGE/SX: 66/M ROOM: RE07/16/[address]: Dr. Aly Gregg DO : 1955 BED: DIS: 07/16/2022 SPEC #: [id number] RECD: 07/16/22 10:36 STATUS: TEOFILO REAudrey #: [id number] DEVON: 07/16/22 10:[address]: Aly Gregg DEPT: SURGICAL PATHOLOGY RECD BY: Carly Campbell ENTERED: 07/16/22 11:16 SP TYPE: COLON BX OTHR DR: Dr. Travis Bassett MD Tissues: A - Small intestine biopsy B - Duodenum, NOS C - COLON BIOPSY Procedures: Surgery Specimen Level IV HEADER OPERATION: Colonoscopy, EGD ([facility] [place]), biopsy, electrohemostasis PRE-OP DIAGNOSIS: Anemia TISSUE SUBMITTED: A - Small bowel biopsy, B - Duodenal bulb biopsy, C - Splenic flexure polyp biopsy MICROSCOPIC DIAGNOSIS A. Small bowel, biopsy: No pathologic change. B. Duodenal bulb, biopsy: No pathologic change. C. Colonic polyp at hepatic flexure, biopsy: Tubular adenoma. AM:[email or web address] 07/17/2022 MICROSCOPIC DESCRIPTION Slides are reviewed. GROSS DESCRIPTION A - Received in fixative is one container labeled with the patient's name and designated small bowel biopsy. The specimen consists of multiple irregular fragments of light walker soft tissue that in aggregate measure 1.0 x 0.5 x 0.1 cm. The specimen is totally submitted in one cassette. B - Received in fixative is one container labeled with the patient's name and designated duodenal biopsy. The specimen consists of multiple irregular fragments of light walker soft tissue that in aggregate measure 1.5 x 0.6 x 0.1 cm. The specimen is totally submitted in one cassette. C - Received in fixative is one container labeled with the patient's name and designated splenic flexure polyp biopsy. The specimen consists of two irregular fragments of light walker soft tissue that in aggregate measure 0.7 x 0.3 x 0.1 cm. The specimen is totally submitted in one cassette. / AM:[email or web address] 07/16/2022 TC:5 CPT: 69882 x3
--- NOTE | 2022-07-16 10:31 | OP.EGD_ITS ---
Patient Name: Iftikhar Hess Procedure Date: 07/16/2022 9:53 AM Date of : 1955 Age: 66 Procedure: Upper GI endoscopy Indications: Iron deficiency anemia Providers: Aly Gregg DO Medicines: Monitored Anesthesia Care Complications: No immediate complications. Procedure: Pre-Anesthesia Assessment: - Prior to the procedure, a History and Physical was performed, and patient medications and allergies were reviewed. The patient is competent. The risks and benefits of the procedure and the sedation options and risks were discussed with the patient. All questions were answered and informed consent was obtained. Patient identification and proposed procedure were verified by the physician in the pre-procedure area. Mental Status Examination: alert and oriented. Airway Examination: normal oropharyngeal airway and neck mobility. Respiratory Examination: clear to auscultation. CV Examination: normal. Prophylactic Antibiotics: The patient does not require prophylactic antibiotics. Prior Anticoagulants: The patient has taken antiplatelet medication, last dose was 2 days prior to procedure. ASA Grade Assessment: III - A patient with severe systemic disease. After reviewing the risks and benefits, the patient was deemed in satisfactory condition to undergo the procedure. The anesthesia plan was to use monitored anesthesia care (MAC). Immediately prior to administration of medications, the patient was re-assessed for adequacy to receive sedatives. The heart rate, respiratory rate, oxygen saturations, blood pressure, adequacy of pulmonary ventilation, and response to care were monitored throughout the procedure. The physical status of the patient was re-assessed after the procedure. After obtaining informed consent, the endoscope was passed under direct vision. Throughout the procedure, the patient's blood pressure, pulse, and oxygen saturations were monitored continuously. The pediatric colonoscope was introduced through the mouth, and advanced to the second part of duodenum. The upper GI endoscopy was accomplished without difficulty. The patient tolerated the procedure well. Scope In: 10:01:18 AM Scope Out: 10:05:09 AM Total Procedure Duration Time 0 hours 3 minutes 51 seconds Findings: The examined esophagus was normal. The entire examined stomach was normal. Diffuse mildly scalloped mucosa was found in the duodenal bulb. Biopsies for histology were taken with a cold forceps for evaluation of celiac disease. Verification of patient identification for the specimen was done. Estimated blood loss was minimal. Impression: - Normal esophagus. - Normal stomach. - Scalloped mucosa was found in the duodenum, diagnostic of celiac disease. Biopsied. Recommendation: - Discharge patient to home. - Resume previous diet. - Continue present medications. - Await pathology results. Procedure Code(s): --- Professional --- 48857, Esophagogastroduodenoscopy, flexible, transoral; with biopsy, single or multiple CPT copyright 2017 [employer]. All rights reserved. The codes documented in this report are preliminary and upon xerox machine mechanic review may be revised to meet current compliance requirements. Aly Gregg DO 07/16/2022 10:30:57 AM This report has been signed electronically. Number of Addenda: 0 Note Initiated On: 07/16/2022 9:53 AM
--- NOTE | 2022-07-16 10:32 | OP.CCLET_ITS ---
07/16/2022 Travis Bassett [address] [place] [address] Re : Upper GI endoscopy procedure for Iftikhar Hess Dear Dr. Bassett This procedure was performed on Saturday, July 16, 2022. My impressions and recommendations are as follows: Impressions : - Normal esophagus. - Normal stomach. - Scalloped mucosa was found in the duodenum, diagnostic of celiac disease. Biopsied. Recommendations : - Discharge patient to home. - Resume previous diet. - Continue present medications. - Await pathology results. My findings are described in the full procedure note, which is enclosed. If I can be of further assistance, please feel free to contact me at . Sincerely, Aly Gregg, 07/16/2022 10:30:57 AM This report has been signed electronically.
--- NOTE | 2022-07-16 10:39 | OP.COLON_ITS ---
Patient Name: Iftikhar Hess Procedure Date: 07/16/2022 10:05 AM Date of : 1955 Age: 66 Procedure: Colonoscopy Indications: Iron deficiency anemia Providers: Aly Gregg DO Medicines: Propofol per Anesthesia, Monitored Anesthesia Care Patient Profile: This is a 66 year old male. Refer to note in patient chart for documentation of history and physical. Last Colonoscopy: within the past 3 years. Complications: No immediate complications. Procedure: Pre-Anesthesia Assessment: - Prior to the procedure, a History and Physical was performed, and patient medications and allergies were reviewed. The patient is competent. The risks and benefits of the procedure and the sedation options and risks were discussed with the patient. All questions were answered and informed consent was obtained. Patient identification and proposed procedure were verified by the physician in the pre-procedure area. Mental Status Examination: alert and oriented. Airway Examination: normal oropharyngeal airway and neck mobility. Respiratory Examination: clear to auscultation. CV Examination: normal. Prophylactic Antibiotics: The patient does not require prophylactic antibiotics. Prior Anticoagulants: The patient has taken antiplatelet medication, last dose was 2 days prior to procedure. ASA Grade Assessment: III - A patient with severe systemic disease. After reviewing the risks and benefits, the patient was deemed in satisfactory condition to undergo the procedure. The anesthesia plan was to use monitored anesthesia care (MAC). Immediately prior to administration of medications, the patient was re-assessed for adequacy to receive sedatives. The heart rate, respiratory rate, oxygen saturations, blood pressure, adequacy of pulmonary ventilation, and response to care were monitored throughout the procedure. The physical status of the patient was re-assessed after the procedure. After I obtained informed consent, the scope was passed under direct vision. Throughout the procedure, the patient's blood pressure, pulse, and oxygen saturations were monitored continuously. The pediatric colonoscope was introduced through the anus and advanced to the cecum, identified by appendiceal orifice and ileocecal valve. The colonoscopy was performed without difficulty. The patient tolerated the procedure well. The quality of the bowel preparation was adequate. Scope In: 10:07:13 AM Scope Withdrawal Time 0 hours 12 minutes 44 seconds Scope Out: 10:24:27 AM Total Procedure Duration Time 0 hours 17 minutes 14 seconds Findings: The perianal and digital rectal examinations were normal. A few small-mouthed diverticula were found in the recto-sigmoid colon. A 5 mm polyp was found in the sigmoid colon. The polyp was sessile. The polyp was removed with a cold snare. Resection and retrieval were complete. Verification of patient identification for the specimen was done. Estimated blood loss was minimal. Multiple medium-sized angiodysplastic lesions with bleeding were found in the transverse colon, at the hepatic flexure and in the ascending colon. Coagulation for hemostasis using heater probe was successful. Estimated blood loss was minimal. Impression: - Mild diverticulosis in the recto-sigmoid colon. - One 5 mm polyp in the sigmoid colon, removed with a cold snare. Resected and retrieved. - Multiple bleeding colonic angiodysplastic lesions. Treated with a heater probe. Recommendation: - Discharge patient to home. - Resume previous diet. - Continue present medications. - Await pathology results. - Repeat colonoscopy in 5 years for surveillance. Procedure Code(s): --- Professional --- 56928, 59, Colonoscopy, flexible; with control of bleeding, any method 94913, Colonoscopy, flexible; with removal of tumor(s), polyp(s), or other lesion(s) by snare technique CPT copyright 2017 [employer]. All rights reserved. The codes documented in this report are preliminary and upon manager utilization review review may be revised to meet current compliance requirements. Aly Gregg DO 07/16/2022 10:38:47 AM This report has been signed electronically. Number of Addenda: 0 Note Initiated On: 07/16/2022 10:05 AM
--- NOTE | 2022-07-16 10:40 | OP.CCLET_ITS ---
07/16/2022 Travis Bassett [address] [place] [address] Re : Colonoscopy procedure for Iftikhar Hess Dear Dr. Bassett This procedure was performed on Saturday, July 16, 2022. My impressions and recommendations are as follows: Impressions : - Mild diverticulosis in the recto-sigmoid colon. - One 5 mm polyp in the sigmoid colon, removed with a cold snare. Resected and retrieved. - Multiple bleeding colonic angiodysplastic lesions. Treated with a heater probe. Recommendations : - Discharge patient to home. - Resume previous diet. - Continue present medications. - Await pathology results. - Repeat colonoscopy in 5 years for surveillance. My findings are described in the full procedure note, which is enclosed. If I can be of further assistance, please feel free to contact me at . Sincerely, Aly Gregg, 07/16/2022 10:38:47 AM This report has been signed electronically.
== END 2022-07-16 11:23 | disposition home or self-care (01) ==
LOC: EN 07:44 → AC 07:46
PROVIDERS: PCP Family Medicine; Referring Provider Family Medicine; Visit Provider Internal Medicine Gastroenterology
PROC: 0DJD8ZZ Inspection of Lower Intestinal Tract, Via Natural or Artificial Opening Endoscopic (ICD-10-PCS; CPT 45378; principal; 2022-07-16 09:55)
DX: D12.3 Benign neoplasm of transverse colon (principal); E11.9 Type 2 diabetes mellitus without complications; K57.30 Diverticulosis of large intestine without perforation or abscess without bleeding; D64.9 Anemia, unspecified; K90.0 Celiac disease; I25.2 Old myocardial infarction; I25.10 Atherosclerotic heart disease of native coronary artery without angina pectoris; I10 Essential (primary) hypertension; F32.A Depression, unspecified; F41.9 Anxiety disorder, unspecified; K21.9 Gastro-esophageal reflux disease without esophagitis; E78.00 Pure hypercholesterolemia, unspecified; E07.9 Disorder of thyroid, unspecified; Z95.5 Presence of coronary angioplasty implant and graft; Z79.82 Long term (current) use of aspirin; Z79.84 Long term (current) use of oral hypoglycemic drugs; Z79.899 Other long term (current) drug therapy; Z87.891 Personal history of nicotine dependence
CPT/HCPCS: 43239; 45385; 45382; 82962; 88305; J7120; J2405

== ENCOUNTER 2022-08-24 16:55 | Emergency (ER) | payer OTHER, SELFPAY ==
[2022-08-24 16:56] VITALS: BP 157/66; PULSE 100; RESP 18; TEMP 36.8; O2SAT 98; BMI 25.2
--- NOTE | 2022-08-24 17:59 | EX.ED.DYSGE1 ---
HPI <HAZEL Pike - Last Filed: 08/24/22 19:21> History of Present Illness Chief Complaint: Cold Sx Narrative Narrative: Patient presenting today with clear sinus drainage and sinus pressure to his forehead that he has had for about a week. He reports that the sinus pressure is most severe when he is lying down and when he sits up, he does not notice it as much. He reports that he gets this every year and his doctor usually gives him a decongestant. He tried taking Apryl-Valdez cold and flu once, but it made him tired so he stopped taking it but he did notice relief from it. He denies any fever, chills, cough, chest pain, shortness of breath, abdominal pain, nausea, and vomiting. [facility]LY [facility] <HAZEL Pike - Last Filed: 08/24/22 19:21> [facility] Medical History (Updated 08/24/22 @ 18:31 by HAZEL Pike) Anemia Anxiety Atherosclerotic heart disease of [place] coronary artery without angina pectoris Cardiology follow-up encounter Depression Diabetes Diabetes mellitus type II, controlled Easy bruising Essential (primary) hypertension Former smoker Gastric reflux GI bleed Gout High cholesterol History of anterior wall myocardial infarction History of heart attack History of stress test Hyperlipidemia Hypertension Hypotension Iron deficiency anemia Ischemic cardiomyopathy Low iron Myocardial infarct Thyroid disease Wears glasses Home Medications paroxetine HCl 30 mg tablet 30 mg PO DAILY depression 12/02/14 [History Last Taken 05/05/22] nitroglycerin 0.4 mg sublingual tablet 0.4 mg sublingual Q5M PRN Chest Pain 10/25/15 [History Last Taken Unknown] lisinopril 10 mg tablet 10 mg PO DAILY BP 05/14/17 [History Last Taken 05/05/22] metformin 500 mg tablet 1,000 mg PO BID BS 05/14/17 [History Last Taken 05/05/22] multivitamin 1 tab PO QDAY health 05/14/17 [History Last Taken 05/05/22] ticagrelor 90 mg tablet 90 mg PO BID #60 tabs 12/18/18 [Rx Last Taken 07/12/22] glimepiride 4 mg tablet 2 mg PO DAILY DM 02/18/19 [History Last Taken 05/04/22] aspirin 81 mg chewable tablet 81 mg PO DAILY@0800 heart ##0 02/19/19 [Rx Last Taken 07/12/22] ferrous sulfate 325 mg (65 mg iron) tablet 325 mg PO DAILY #30 tabs 02/19/19 [Rx Last Taken 05/05/22] pantoprazole 40 mg tablet,delayed release 40 mg PO DAILY #30 tabs 02/19/19 [Rx Last Taken 05/05/22] levothyroxine 100 mcg tablet 100 mcg PO DAILY THYROID 05/05/22 [History Last Taken 05/05/22] fluticasone propionate 50 mcg/actuation nasal spray,suspension (Flonase Allergy Relief) 1 spray intranasal DAILY #16 grams 08/24/22 [Rx Last Taken Unknown] phenylephrine HCl 10 mg tablet 10 mg PO Q6H 6 days #24 tabs 08/24/22 [Rx Last Taken Unknown] Allergy/AdvReac Type Severity Reaction Status Date / Time No Known Allergies Allergy Verified 08/24/22 16:55 Family History Mother No problems noted. Father No problems noted. Surgical History H/O cardiac catheterization History of surgery Stented coronary artery Social History household members: none Smoking Status: Former smoker quit date: 01/20/91 alcohol intake: never substance use type: does not use ROS <HAZEL Pike - Last Filed: 08/24/22 19:21> ROS ED Constitutional Constitutional ED: Denies chills, fever(s) or sweats Eyes Eyes: Denies blurry vision or diplopia ENT ENT ED: Reports rhinorrhea; Denies ear pain or sore throat Cardiovascular Cardiovascular: Denies chest pain or palpitations Respiratory/Chest Respiratory/Chest: Denies cough or dyspnea Gastrointestinal Gastrointestinal: Denies abdominal pain, nausea or vomiting Musculoskeletal Musculoskeletal: Denies arthralgias or myalgias Integumentary Denies abscess, Abrasions or rash Neurologic Neurologic: Reports headache(s); Denies weakness Psychiatric Psychiatric: Denies anxiety or depression EXAM <HAZEL Pike - Last Filed: 08/24/22 19:21> Physical Exam Const Vital Signs: 08/24/22 16:56 08/24/22 18:42 Temperature 98.2 F Temperature Source Temporal Pulse Rate 100 Respiratory Rate 18 Respiratory Effort Normal Respiratory Pattern Normal Blood Pressure 157/66 H Blood Pressure Mean 96 Pulse Ox 98 Oxygen Delivery Method Room Air Positive well nourished and well developed General Appearance ED: well developed and NAD HEENT Reports TM's clear and moist mucous membranes HEENT Narrative: Posterior pharynx without any erythema, no tonsillar exudates normocephalic and atraumatic Tympanic Membrane ED: Yes TM's clear bilateral Eyes PERRL and EOMs intact bilaterally Neck no lymphadenopathy, supple and no meningeal signs Chest Wall inspection of chest normal Resp normal respiratory effort and clear to auscultation bilaterally Cardio regular rate and regular rhythm GI non-tender and non-distended Extremity normal to inspection Neuro oriented x3, CN's II-XII intact bilaterally and no sensory deficits noted Sensorium / Orientation: alert Motor Exam: strength 5/5 throughout Psych mental status grossly normal Skin Lesions: no lesions Rashes: no rashes <Dr. Ba Clifford, - Last Filed: 08/24/22 22:36> Physical Exam Const Vital Signs: 08/24/22 16:56 08/24/22 18:42 Temperature 98.2 F Temperature Source Temporal Pulse Rate 100 Respiratory Rate 18 Respiratory Effort Normal Respiratory Pattern Normal Blood Pressure 157/66 H Blood Pressure Mean 96 Pulse Ox 98 Oxygen Delivery Method Room Air [facility] <HAZEL Pike - Last Filed: 08/24/22 19:21> [facility] Narrative Medical decision making narrative: Patient presenting with symptoms of viral sinusitis that he has had for the past week. He has had clear nasal discharge, nothing that has been purulent. He has not really tried taking any decongestants, he only tried taking 1 dose of Apryl-Valdez plus cold and flu and did notice relief, but it did make him tired. I do not feel that he needs antibiotics at this time, he has had no fevers or chills, he is well-appearing and in no acute distress, he is afebrile here. He will be started on decongestants, he has been given return instructions, he will be discharged home in stable condition and is comfortable with plan. He is to follow-up with his PCP in 3 to 5 days. <DO Ignacio Watson Last Filed: 08/24/22 22:36> [facility] Treatment and Re-Evaluation :: ED attending note: I evaluated the patient in conjunction with the KATIA. I agree with his/her statements and above findings. I have personally performed a face to face assessment of the patient and have reviewed the KATIA Note. I performed a substantive portion of the visit including all aspects of the following. I personally saw the patient performed chart review, physical exam, reviewed labs, imaging (if obtained), and formulated a treatment and management plan. Exam: Nursing triage notes reviewed, Vital signs reviewed Constitutional: please see mdm HENT: MMM Eyes: Pupils equal round and reactive to light, Extraocular muscles intact Neck: No stridor, no JVD, full neck ROM Lungs: Clear to auscultation, No wheezing or rales. No increased work of breathing, no conversational dyspnea, no accessory muscle use, no nasal flaring. No respiratory distress noted Heart: Regular rate and rhythm, No murmurs, No rubs and No gallops, 2+ distal pulses (radial, femoral, posterior tibial) in all extremities Abdomen: Soft, there is no tenderness, rigidity, rebound or guarding, no obvious peritoneal signs, no palpable pulsatile abdominal masses, no auscultated abdominal bruit : No CVAT Extremities: No edema Neuro: Alert and oriented x3, neuro exam at baseline, cranial nerves II through XII are intact. No pain with extraocular muscle movement. There is negative test of skew. Normal speech. 5 of 5 strength in upper and lower extremities in flexion extension. Intact sensation to light touch in upper and lower extremity dermatomes. No truncal or extremity ataxia. No dysdiadochokinesia. Normal gait. 2+ reflexes. No meningeal signs. Negative Babinski. NIH of 0 Skin: No rash or lesions noted MDM/plan: Chief Complaint: Sinus pressure External records reviewed: No recent advanced imaging of the brain I considered the following differential diagnosis: Bacterial versus viral sinusitis, cavernous sinus thrombosis No focal neurologic deficits. No evidence of cavernous sinus thrombosis. Patient likely suffering from viral sinusitis. Gave strict return precautions and sinusitis instructions. Factors affecting care: Type 2 diabetes Social determinants of health: None History obtained from others: None Shared decision making: I will have a discussion with the patient and or visitors regarding risk/benefits of further testing or admission. They will be made aware of of the risk/benefits inherent in this decision they will be given the opportunity to voice understanding. Consults: None Discharge Plan Triage Chief Complaint: Cold Sx ED Midlevel Provider: Veronique Shipley ED Provider: Ba Clifford Dx/Rx/DC Orders Clinical Impression: Sinusitis Instructions: ED Sinusitis (No Antibiotics) Prescriptions: New phenylephrine HCl 10 mg tablet 10 mg PO Q6H 6 Days Qty: 24 0RF fluticasone propionate [Flonase Allergy Relief] 50 mcg/actuation spray,suspension 1 spray intranasal DAILY Qty: 16 0RF Rx Instructions: administer into each nostril No Action lisinopril 10 mg tablet 10 mg PO DAILY multivitamin tablet 1 tab PO QDAY metformin 500 MG tablet 1,000 mg PO BID Label Comments: 500 mg PO 2 tablets by mouth (1000 mg) twice daily Rx Instructions: 500 mg PO 2 tablets by mouth (1000 mg) twice daily paroxetine HCl 30 MG tablet 30 mg PO DAILY nitroglycerin 0.4 MG tablet 0.4 mg SUBLINGUAL Q5M PRN (Reason: Chest Pain) glimepiride 4 MG tablet 2 mg PO DAILY Label Comments: TAKE 1 TABLET BY MOUTH ONCE DAILY WITH BREAKFAST pantoprazole 40 MG tablet 40 mg PO DAILY Qty: 30 0RF ferrous sulfate 325 MG tablet 325 mg PO DAILY Qty: 30 0RF aspirin 81 MG tablet,chewable 81 mg PO DAILY@0800 Qty: 0 0RF levothyroxine 100 mcg tablet 100 mcg PO DAILY Label Comments: TAKE 1 TABLET BY MOUTH ONCE DAILY ON AN EMPTY STOMACH FOR THYROID ticagrelor 90 mg tablet 90 mg PO BID Qty: 60 12RF Primary Care Provider: Travis Bassett Referrals: Travis Bassett MD [Primary Care Provider] - 3-5 Days Activity Restrictions/Additional Instructions: Follow-up with your PCP, return for any worsening of symptoms. Disposition Disposition: Home, Self Care Discharge Date/Time: 08/24/22 18:43
== END 2022-08-24 18:43 | disposition home or self-care (01) ==
PROVIDERS: Emergency Provider Emergency Medicine; PCP Family Medicine; Visit Provider Emergency Medicine
DX: J32.9 Chronic sinusitis, unspecified (principal); E11.9 Type 2 diabetes mellitus without complications; E78.00 Pure hypercholesterolemia, unspecified; I25.5 Ischemic cardiomyopathy; I10 Essential (primary) hypertension; I25.10 Atherosclerotic heart disease of native coronary artery without angina pectoris; Z87.891 Personal history of nicotine dependence
CPT/HCPCS: 99282

== ENCOUNTER 2023-03-15 08:58 | Emergency (ER) | payer OTHER, SELFPAY ==
[2023-03-15 08:59] VITALS: BP 95/63; PULSE 98; RESP 18; TEMP 35.9; O2SAT 100; BMI 23.3
--- NOTE | 2023-03-15 09:29 | EKG12_ITS ---
Test Reason : GENERAL Blood Pressure : / mmHG Vent. Rate : 084 BPM Atrial Rate : 084 BPM P-R Int : 148 ms QRS Dur : 072 ms QT Int : 358 ms P-R-T Axes : 055 026 060 degrees QTc Int : 423 ms Normal sinus rhythm Normal ECG Confirmed by JOS AMBRIZ, AQUILES ([id number]), videotape editor HUMZA WHALEN ([id number]) on 03/26/2023 8:42:46 AM Referred By: Confirmed By:AQUILES ARGUELLO MD
--- NOTE | 2023-03-15 09:30 | EX.ED.DYSGE1 ---
HPI History of Present Illness Chief Complaint: Fatigue Informant: patient Onset/Context/Timing Onset: Days Context: Gradual Onset Timing: Continuous Current Severity: Mild Maximum Severity: Mild Narrative Narrative: 67-year-old male history of anemia, prior GI bleed, CAD and stent, diabetes. Several years ago he had a GI bleed had a colonoscopy. He had a blood transfusion at that time. States recently he just felt very fatigued and believes his blood counts may be low again. He denies nausea, vomiting or diarrhea. He denies chest pain. He denies dysuria. He denies any melena. Denies cough. Prior similar symptoms: Yes Recent Illness/Hospitalization: No PFSH PFSH Medical History Anemia Anxiety Atherosclerotic heart disease of [place] coronary artery without angina pectoris Cardiology follow-up encounter Depression Diabetes Diabetes mellitus type II, controlled Easy bruising Essential (primary) hypertension Former smoker Gastric reflux GI bleed Gout High cholesterol History of anterior wall myocardial infarction History of heart attack History of stress test Hyperlipidemia Hypertension Hypotension Iron deficiency anemia Ischemic cardiomyopathy Low iron Myocardial infarct Thyroid disease Wears glasses Home Medications paroxetine HCl 30 mg tablet 30 mg PO DAILY depression 12/02/14 [History Last Taken 03/15/23] lisinopril 10 mg tablet 10 mg PO DAILY BP 05/14/17 [History Last Taken 03/15/23] metformin 500 mg tablet 1,000 mg PO BID BS 05/14/17 [History Last Taken 05/05/22] multivitamin 1 tab PO QDAY health 05/14/17 [History Last Taken 03/15/23] ticagrelor 90 mg tablet 90 mg PO BID #60 tabs 12/18/18 [Rx Last Taken 03/15/23] glimepiride 4 mg tablet 2 mg PO DAILY DM 02/18/19 [History Last Taken 05/04/22] aspirin 81 mg chewable tablet 81 mg PO DAILY@0800 heart ##0 02/19/19 [Rx Last Taken 03/15/23] ferrous sulfate 325 mg (65 mg iron) tablet 325 mg PO DAILY #30 tabs 02/19/19 [Rx Last Taken 05/05/22] pantoprazole 40 mg tablet,delayed release 40 mg PO DAILY #30 tabs 02/19/19 [Rx Last Taken 03/15/23] fluticasone propionate 50 mcg/actuation nasal spray,suspension (Flonase Allergy Relief) 1 spray intranasal DAILY #16 grams 08/24/22 [Rx Last Taken Unknown] ferrous sulfate 325 mg (65 mg iron) tablet 325 mg PO DAILY 30 days #30 tabs 03/15/23 [Rx Last Taken Unknown] glyburide 5 mg tablet 5 mg PO DAILY 30 days #30 tabs 03/15/23 [Rx Last Taken Unknown] metformin 500 mg tablet 500 mg PO BID 30 days #60 tabs 03/15/23 [Rx Last Taken Unknown] Allergy/AdvReac Type Severity Reaction Status Date / Time No Known Allergies Allergy Verified 08/24/22 16:55 Family History Mother No problems noted. Father No problems noted. Surgical History H/O cardiac catheterization History of surgery Stented coronary artery Social History household members: none Smoking Status: Former smoker quit date: 01/20/91 alcohol intake: never substance use type: does not use ROS ROS ED ROS Narrative Generalized fatigue. Review of Systems ROS Unobtainable: Denies due to encephalopathy Constitutional Constitutional ED: Denies chills or fever(s) Eyes Eyes: Denies blurry vision ENT ENT ED: Denies ear pain Cardiovascular Cardiovascular: Denies chest pain or palpitations Respiratory/Chest Respiratory/Chest: Reports dyspnea on exertion; Denies cough Gastrointestinal Gastrointestinal: Denies abdominal pain, constipation, diarrhea, melena, nausea or vomiting Genitourinary Genitourinary ED: Denies dysuria or hematuria Musculoskeletal Musculoskeletal: Denies arthralgias or back pain Integumentary Denies abscess or Abrasions Neurologic Neurologic: Denies headache(s) Psychiatric Psychiatric: Denies anxiety Endocrine Endocrinology: Denies cold intolerance Hematologic/Lymphatic Hematologic/Lymphatic: Reports anemia Allergic/Immunologic Allergic/Immunologic ED: Denies mouth swelling, tongue swelling, urticaria or other EXAM Physical Exam Narrative Exam Narrative: Well-appearing 67-year-old male. Initial blood pressure 95/63. No distress. Afebrile. Pulse ox 100% on room air no hypoxia. He does appear pale. H EENT exam unremarkable. Moist use membranes. Neck nontender. No lymphadenopathy. Lungs clear to auscultation bilaterally. Heart regular rhythm rate about 95 no murmur. Abdomen soft nontender. Moving all 4 extremities. Calves are nontender without edema. Neurologically is awake and alert. No focal motor deficits. Const Vital Signs: 03/15/23 08:59 03/15/23 09:08 03/15/23 13:09 Temperature 96.7 F L Temperature Source Temporal Pulse Rate 98 76 Respiratory Rate 18 16 Respiratory Effort Normal Non-Labored Blood Pressure 95/63 123/58 H Blood Pressure Mean 73 79 Blood Pressure Source Blood Pressure Position Blood Pressure Location Pulse Ox 100 99 Oxygen Delivery Method Room Air 03/15/23 13:07 Temperature 98 F Temperature Source Temporal Pulse Rate 79 Respiratory Rate 16 Respiratory Effort Blood Pressure 114/53 L Blood Pressure Mean 73 Blood Pressure Source Monitor Blood Pressure Position Semi-Fowlers Blood Pressure Location Right Arm Pulse Ox 99 Oxygen Delivery Method Room Air Positive well nourished and well developed; Negative for obese, cachectic, contractures or unkempt General Appearance ED: well developed and NAD; Negative for unkempt, cachectic, contractures, cyanotic, diaphoretic or pallor Nutritional Appearance: Negative for cachectic or obese HEENT Reports moist mucous membranes; Denies dry mucous membranes Negative for trauma or tenderness Mouth ED: No dry mucous membranes Mouth: No dry mucous membranes Eyes PERRL and EOMs intact bilaterally General Eye ED: Negative for pale conjunctiva or scleral icterus Neck no lymphadenopathy, supple and no JVD General: Negative for tenderness Lymph Lymphatic: Negative for other Chest Wall inspection of chest normal and palpation of chest normal Chest: Negative for other Resp normal respiratory effort and clear to auscultation bilaterally Effort and Inspection: Negative for retractions Auscultation: Negative for rales, rhonchi or wheezes Cardio regular rate, regular rhythm, S1 normal heart sound, S2 normal heart sound and no murmurs Palpation: Negative for palpable S3 or palpable S4 Rate: Negative for bradycardia or tachycardic Rhythm: Negative for abnormal rhythm GI normal to inspection, nondistended, normoactive bowel sounds, non-tender, non-distended and no masses Inspection: Negative for abdominal distention Auscultation: normoactive bowel sounds Palpation: soft; Negative for tender, guarding or rebound tenderness present Back/Spine no CVA tenderness General Back: Negative for CVA tenderness Cervical Spine: Negative for cervical spine tenderness Thoracic Spine / Upper Back: Negative for thoracic spinal tenderness Lumbar Spine / Lower Back: Negative for lumbar spinal tenderness Extremity normal to inspection General Extremety ED: Negative for edema or tenderness General Extremity: Negative for edema Neuro oriented x3 and CN's II-XII intact bilaterally Sensorium / Orientation: alert; Negative for orientation impaired, lethargic or stuporous Motor Exam: strength 5/5 throughout Psych mental status grossly normal Appearance: Negative for unkempt Attitude: No agitated Mood & Affect: Negative for depressed, anxious or tearful Skin no rashes or lesions noted, no wounds and skin turgor normal General Skin Exam: elasticity normal; Negative for jaundice or pallor Lesions: No lesion noted Rashes: No rashes noted Trauma: Negative for abrasion Wounds: Negative for wounds noted MDM MDM MDM Narrative Medical decision making narrative: 67-year-old male complaining of fatigue. He is got no infectious symptoms. He is mildly hypotensive but tolerating it well. Screening labs are being obtained. This may be secondary to recurrent anemia and/or GI bleed. But he denies any recent rectal bleeding or black stool. Repeat exam patient doing well at 11:45 AM. No significant change. He will be typed and crossed to be transfused at least 1 unit of blood. I have the hospitalist on page. Patient be given a liter normal saline both for his blood pressure and his hyper glycemia. Will be given 6 units of insulin subcu because he is normally only on oral hypoglycemics. Spoke with our hospitalist. He preferred the patient be treated to the emergency department. We are decreasing the patient's blood sugar an hour after his Humalog injection his blood sugar was 318. His 1 unit of blood transfusion is and he is currently resting comfortably and doing well at 2:58 PM. Will recheck his blood sugar and he will be discharged home with outpatient follow-up with his primary care physician Dr. Bassett. Watch his blood sugars closely. History & Record Review Discussion w/independent historian: Patient Additional record(s) reviewed:: Prior inpatient record, Prior outpatient record, Prior ED visit, Prior labs and No prior records Lab Data Attestation: I reviewed the patient's lab results. Lab results narrative: CBC shows a white count of 5.2. H&H is 7.5 and 25.6. His last hemoglobin was 10.1 after he was transfused. Platelets of 304. Electrolytes show sodium 131 most likely secondary to his elevated glucose. Gap is 5. BUN and creatinine are 22 and 1.34. His glucose is elevated at 44 consistent with a diabetic hyperglycemia but not DKA. Lactic acid is normal at 1.4. He has been typed and screened his blood type is a positive. Patient will be typed and crossed and transfused a unit. I have the hospitalist on page. Labs: Laboratory Results - last 24 hr 03/15/23 03/15/23 09:35 13:22 WBC 5.2 RBC 3.19 L Hgb 7.5 L Hct 25.6 L MCV 80.3 MCH 23.5 L MCHC 29.3 L RDW Std Deviation 43.5 RDW Coeff of [place] 14.7 H Plt Count 304 MPV 9.1 Immature Gran % (Auto) 0.400 Neut % (Auto) 83.0 H Lymph % (Auto) 9.2 L [place] % (Auto) 5.8 Eos % (Auto) 1.0 Baso % (Auto) 0.6 Absolute Neuts (auto) 4.3 Absolute Lymphs (auto) 0.48 L Nucleated RBC % 0 Differential Comment SCANNED Sodium 131 L Potassium 4.7 Chloride 98 Carbon Dioxide 28.0 Anion Gap 5 BUN 22 H Creatinine 1.34 H Estim Creat Clear Calc 54.96 Est GFR (MDRD) Af Amer 69 Est GFR (MDRD) Non-Af 57 L BUN/Creatinine Ratio 16.4 Glucose 484 H* Lactic Acid 1.4 Calcium 9.4 POC Glucose 318 H Blood Type A POSITIVE Antibody Screen NEGATIVE Crossmatch See Detail Rhythm Strip Rhythm Strip: Sinus Rhythm Rate: 84 Ectopy: None EKG Initial EKG: Attestation: I personally reviewed and interpreted this EKG as follows: Interpretation: Sinus Rhythm Comments: Normal sinus rhythm rate 84 no acute signs of VT nor ischemia nor dysrhythmia. Discharge Plan Triage Chief Complaint: Fatigue ED Provider: Bartolo Cali Dx/Rx/DC Orders Clinical Impression: Acute on chronic anemia, Hypotension, History of GI bleed, History of blood transfusion, Hyperglycemia due to diabetes mellitus Instructions: Anemia, ED Diabetic Hyperglycemia Prescriptions: New metformin 500 mg tablet 500 mg PO BID 30 Days Qty: 60 0RF glyburide 5 mg tablet 5 mg PO DAILY 30 Days Qty: 30 0RF ferrous sulfate 325 mg (65 mg iron) tablet 325 mg PO DAILY 30 Days Qty: 30 0RF No Action lisinopril 10 mg tablet 10 mg PO DAILY multivitamin tablet 1 tab PO QDAY metformin 500 MG tablet 1,000 mg PO BID Patient Comments: 500 mg PO 2 tablets by mouth (1000 mg) twice daily Rx Instructions: 500 mg PO 2 tablets by mouth (1000 mg) twice daily paroxetine HCl 30 MG tablet 30 mg PO DAILY glimepiride 4 MG tablet 2 mg PO DAILY Patient Comments: TAKE 1 TABLET BY MOUTH ONCE DAILY WITH BREAKFAST pantoprazole 40 MG tablet 40 mg PO DAILY Qty: 30 0RF ferrous sulfate 325 MG tablet 325 mg PO DAILY Qty: 30 0RF aspirin 81 MG tablet,chewable 81 mg PO DAILY@0800 Qty: 0 0RF fluticasone propionate [Flonase Allergy Relief] 50 mcg/actuation spray,suspension 1 spray intranasal DAILY Qty: 16 0RF Rx Instructions: administer into each nostril ticagrelor 90 mg tablet 90 mg PO BID Qty: 60 12RF Primary Care Provider: Travis Bassett Referrals: Travis Bassett MD [Primary Care Provider] - As soon as possible Activity Restrictions/Additional Instructions: Watch your blood sugars closely make sure you are checking them at minimum twice a day. I sent prescriptions for your metformin, glimepiride and iron pick those up and start those medications. Check with your doctor to make sure that they are the correct dosages that you normally take. Follow-up with your doctor this week. Plenty of fluids and rest. Disposition Disposition: Home, Self Care
[2023-03-15 09:47] LABS: Absolute Lymphocyte Count 0.48 X10^3/uL (0.83-4.51); Absolute Neutrophil Count 4.3 X10^3/uL (2.0-7.7); Basophil# 0.03 X10^3/uL; Basophil% 0.6 % (0-1); Differential Indicated SCAN CRITERIA MET; Eosinophil# 0.05 X10^3/uL; Hematocrit 25.6 % (40-54); Hemoglobin 7.5 g/dL (13.0-16.5); Lymphocyte # 0.48 X10^3/ul (0.83-4.51); Lymphocyte % 9.2 % (19-41); Mean Corp Hgb Conc 29.3 g/dL (32-36); Mean Corpuscular Hgb 23.5 pg (27.0-32.0); Mean Corpuscular Volume 80.3 fL (80-94); Mean Platelet Vol. 9.1 fl (6.2-12.0); Monocyte% 5.8 % (0-10); NRBC Flagged by Analyzer 0 % (0-5); Neutrophil # 4.32 X10^3/uL (2.7-7.7); POSITIVE DIFFERENTIAL YES; Platelet Count 304 K/mm3 (150-450); RBC Distribution Width CV 14.7 % (11.6-14.6); RBC Distribution Width SD 43.5 fl (35.1-43.9); Red Blood Count 3.19 M/mm3 (4.6-6.2); White Blood Count 5.2 K/mm3 (4.4-11.0)
[2023-03-15 10:00] LABS: Differential Comment SCANNED
[2023-03-15 10:11] LABS: Lactic Acid 1.4 mmol/L (0.4-1.9)
[2023-03-15 10:12] LABS: Anion Gap 5 (5-15); BUN 22 mg/dL (7-18); BUN/Creat Ratio 16.4 RATIO (10-20); Calcium,Total 9.4 mg/dL (8.5-10.1); Chloride 98 mmol/L (98-107); Creatinine, Serum 1.34 mg/dL (0.70-1.30); EST Glomerular Filtration Rate 57 mL/min (>60); Est Glom Filt Rate - Afr Amer 69 mL/min (>60); Estimated Creatinine Clearance 54.96 ml/min; Glucose 484 mg/dL (74-106); Potassium 4.7 mmol/L (3.5-5.1); Sodium Level 131 mmol/L (136-145)
--- NOTE | 2023-03-15 10:14 | ED.RN ---
dr. luther- notified of glucose 487
--- NOTE | 2023-03-15 11:58 | NURSING ---
DR NITHIN KOROMA
[2023-03-15] MEDS: 0.9% Normal Saline (1000mL) 1,000 ML 999 ML IV (12:14)
[2023-03-15] MEDS: Insulin Lispro 100 UNIT/ML INSULN.PEN 6 UNIT SC (12:15)
--- NOTE | 2023-03-15 12:16 | PCM.CONS.GEN ---
Assessment & Plan Assessment/Plan (1) Anemia: PLAN: Patient is symptomatic from his anemia and I do agree with the transfusion of 1 unit of packed red blood cells. 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 In the absence of any acute GI bleeding, I do not feel that patient needs to be brought to the hospital to receive transfusion. Patient is established with Dr. Gregg and is waiting on insurance approval for capsule endoscopy. Patient does take ferrous sulfate daily and he states that he is compliant with that. Consideration may be to change out to every other day for better absorption and may help prevent constipation the patient denies any issues with constipation at present. Patient did have a hemoglobin in April was 6.8 I was able to identify this through [facility], however, he did not have any follow-up labs that I can see. I do recommend the patient follow-up with his primary care provider to get that some blood work as outpatient. Future considerations may include iron infusions. HPI Consult Data Date of Consult: 03/15/23 HPI Narrative Reason for Consultation: consult requested by Dr. Cali for anemia. HPI Narrative: BRAD HALLMAN, is a 67 M who presents feeling fatigued for the past few days. Presented emergency room as he felt that he was becoming anemic again and his hemoglobin was 7.5. Patient has had a history of anemia and GI bleed. Was seen here in April we had a hemoglobin 6.8 at that time and was received a transfusion. He denies any melena nor hematochezia. He did undergo EGD and colonoscopy in June. Colonoscopy showed multiple bleeding colonic angiodysplastic lesions that were treated with heater probe at that time. Patient has been awaiting on getting insurance authorization for capsule endoscopy. [facility] Medical History Anemia Anxiety Atherosclerotic heart disease of [place] coronary artery without angina pectoris Cardiology follow-up encounter Depression Diabetes Diabetes mellitus type II, controlled Easy bruising Essential (primary) hypertension Former smoker Gastric reflux GI bleed Gout High cholesterol History of anterior wall myocardial infarction History of heart attack History of stress test Hyperlipidemia Hypertension Hypotension Iron deficiency anemia Ischemic cardiomyopathy Low iron Myocardial infarct Thyroid disease Wears glasses Home Medications paroxetine HCl 30 mg tablet 30 mg PO DAILY depression 12/02/14 [History Last Taken 03/15/23] lisinopril 10 mg tablet 10 mg PO DAILY BP 05/14/17 [History Last Taken 03/15/23] metformin 500 mg tablet 1,000 mg PO BID BS 05/14/17 [History Last Taken 05/05/22] multivitamin 1 tab PO QDAY health 05/14/17 [History Last Taken 03/15/23] ticagrelor 90 mg tablet 90 mg PO BID #60 tabs 12/18/18 [Rx Last Taken 03/15/23] glimepiride 4 mg tablet 2 mg PO DAILY DM 02/18/19 [History Last Taken 05/04/22] aspirin 81 mg chewable tablet 81 mg PO DAILY@0800 heart ##0 02/19/19 [Rx Last Taken 03/15/23] ferrous sulfate 325 mg (65 mg iron) tablet 325 mg PO DAILY #30 tabs 02/19/19 [Rx Last Taken 05/05/22] pantoprazole 40 mg tablet,delayed release 40 mg PO DAILY #30 tabs 02/19/19 [Rx Last Taken 03/15/23] fluticasone propionate 50 mcg/actuation nasal spray,suspension (Flonase Allergy Relief) 1 spray intranasal DAILY #16 grams 08/24/22 [Rx Last Taken Unknown] Allergy/AdvReac Type Severity Reaction Status Date / Time No Known Allergies Allergy Verified 08/24/22 16:55 Family History Mother No problems noted. Father No problems noted. Surgical History H/O cardiac catheterization History of surgery Stented coronary artery Social History household members: none Smoking Status: Former smoker quit date: 01/20/91 alcohol intake: never substance use type: does not use ROS ROS Narrative Has been losing weight. Appetite is good. All review of systems were negative except as mentioned above in the history of present illness and the other review of systems. Physical Exam Const alert and no apparent distress Constitutional Narrative: Pale appearance Resp normal respiratory effort, no retractions, no use of accessory muscles and clear to auscultation bilaterally Cardio regular rate, regular rhythm, S1 normal heart sound and S2 normal heart sound GI normal to inspection, nondistended, normoactive bowel sounds, soft to palpation and non-tender Lab / Micro Data 03/15/23 09:35 03/15/23 09:35 Labs: Laboratory Results - last 24 hr 03/15/23 09:35: WBC 5.2, RBC 3.19 L, Hgb 7.5 L, Hct 25.6 L, MCV 80.3, MCH 23.5 L, MCHC 29.3 L, RDW Std Deviation 43.5, RDW Coeff of [place] 14.7 H, Plt Count 304, MPV 9.1, Immature Gran % (Auto) 0.400, Neut % (Auto) 83.0 H, Lymph % (Auto) 9.2 L, [place] % (Auto) 5.8, Eos % (Auto) 1.0, Baso % (Auto) 0.6, Absolute Neuts (auto) 4.3, Absolute Lymphs (auto) 0.48 L, Nucleated RBC % 0, Differential Comment SCANNED, Sodium 131 L, Potassium 4.7, Chloride 98, Carbon Dioxide 28.0, Anion Gap 5, BUN 22 H, Creatinine 1.34 H, Estim Creat Clear Calc 54.96, Est GFR (MDRD) Af Amer 69, Est GFR (MDRD) Non-Af 57 L, BUN/Creatinine Ratio 16.4, Glucose 484 H*, Lactic Acid 1.4, Calcium 9.4, Blood Type A POSITIVE, Antibody Screen NEGATIVE Rhythm Strip Rhythm Strip: Sinus Rhythm Rate: 84 Ectopy: None Charges/Coding Visit Charges Office Visits / Consults: 86895 OP Consult L3
[2023-03-15 13:07] VITALS: BP 114/53; PULSE 79; RESP 16; TEMP 36.6; O2SAT 99
[2023-03-15 13:09] VITALS: BP 123/58; PULSE 76; RESP 16; O2SAT 99
[2023-03-15 13:45] LABS: Bedside Glucose 318 mg/dL (74-106)
[2023-03-15 14:57] VITALS: BP 124/68; PULSE 78; RESP 18; O2SAT 99
[2023-03-15 15:08] VITALS: BP 141/55; PULSE 77; RESP 18; TEMP 36.7; O2SAT 99
[2023-03-15 15:17] LABS: Bedside Glucose 307 mg/dL (74-106)
== END 2023-03-15 15:54 | disposition home or self-care (01) ==
PROVIDERS: Emergency Provider Emergency Medicine; PCP Family Medicine; Visit Provider Emergency Medicine
DX: D64.9 Anemia, unspecified (principal); E11.65 Type 2 diabetes mellitus with hyperglycemia; I25.5 Ischemic cardiomyopathy; I95.9 Hypotension, unspecified; I10 Essential (primary) hypertension; I25.10 Atherosclerotic heart disease of native coronary artery without angina pectoris; I25.2 Old myocardial infarction; F41.9 Anxiety disorder, unspecified; F32.A Depression, unspecified; Z87.891 Personal history of nicotine dependence; Z79.82 Long term (current) use of aspirin; Z79.84 Long term (current) use of oral hypoglycemic drugs
CPT/HCPCS: 36430; 80048; 82962; 83605; 85025; 86850; 86900; 86901; 86920; 93005; 99283; J7040; P9040

== ENCOUNTER 2023-05-10 16:38 | Inpatient (IN) | payer OTHER, MEDICARE, SELFPAY ==
[2023-05-10 16:38] VITALS: BP 134/58; PULSE 102; RESP 20; TEMP 36.2; O2SAT 100; BMI 24.2
--- NOTE | 2023-05-10 17:06 | EX.ED.DYSGE1 ---
HPI <HAZEL Velasquez - Last Filed: 05/10/23 19:36> History of Present Illness Chief Complaint: Abn Labs Narrative Narrative: 67-year-old male states he had routine blood work this morning and was told his hemoglobin was 5.8 and sent in for a blood transfusion. He has a history of anemia and blood transfusions. He has been worked up extensively and has history of angiodysplastic lesions in his colon. He is established with Dr. Gregg. He takes ferrous sulfate daily. He states he ran out for about a week and a half but just restarted it. He is having a once daily bowel movement. He states he was constipated once earlier this week but still passed the stool and has had no melena or hematochezia. No nausea, vomiting, appetite changes or weight loss. He is on Brilinta for remote cardiac stents. [facility] <HAZEL Velasquez - Last Filed: 05/10/23 19:36> [facility] Medical History Anemia Anxiety Atherosclerotic heart disease of [place] coronary artery without angina pectoris Cardiology follow-up encounter Depression Diabetes Diabetes mellitus type II, controlled Easy bruising Essential (primary) hypertension Former smoker Gastric reflux GI bleed Gout High cholesterol History of anterior wall myocardial infarction History of heart attack History of stress test Hyperlipidemia Hypertension Hypotension Iron deficiency anemia Ischemic cardiomyopathy Low iron Myocardial infarct Thyroid disease Wears glasses Home Medications paroxetine HCl 30 mg tablet 30 mg PO DAILY depression 12/02/14 [History Last Taken 05/10/23] lisinopril 10 mg tablet 10 mg PO DAILY BP 05/14/17 [History Last Taken 03/15/23] multivitamin 1 tab PO QDAY health 05/14/17 [History Last Taken 05/10/23] ticagrelor 90 mg tablet 90 mg PO BID #60 tabs 12/18/18 [Rx Last Taken 05/10/23] glimepiride 4 mg tablet 2 mg PO DAILY DM 02/18/19 [History Last Taken 05/10/23] aspirin 81 mg chewable tablet 81 mg PO DAILY@0800 heart ##0 02/19/19 [Rx Last Taken 05/10/23] ferrous sulfate 325 mg (65 mg iron) tablet 325 mg PO DAILY #30 tabs 02/19/19 [Rx Last Taken 05/10/23] pantoprazole 40 mg tablet,delayed release 40 mg PO DAILY #30 tabs 02/19/19 [Rx Last Taken 05/10/23] fluticasone propionate 50 mcg/actuation nasal spray,suspension (Flonase Allergy Relief) 1 spray intranasal DAILY #16 grams 08/24/22 [Rx Last Taken 05/10/23] metformin 500 mg tablet,extended release 24 hr 1,000 mg PO BID 05/10/23 [History Last Taken 05/10/23] Allergy/AdvReac Type Severity Reaction Status Date / Time No Known Allergies Allergy Verified 08/24/22 16:55 Family History Mother No problems noted. Father No problems noted. Surgical History H/O cardiac catheterization History of surgery Stented coronary artery Social History household members: none Smoking Status: Former smoker quit date: 01/20/91 alcohol intake: never substance use type: does not use ROS <HAZEL Velasquez - Last Filed: 05/10/23 19:36> ROS ED ROS Narrative Constitutional: Negative for fever, chills, malaise. CVS: Negative for chest pain, syncope. Respiratory: Negative for cough. GI: Negative for abdominal pain, nausea, vomiting, diarrhea,melena, hematochezia. EXAM <HAZEL Velasquez - Last Filed: 05/10/23 19:36> Physical Exam Narrative Exam Narrative: CONST: Patient sitting in no acute distress. EYES: Normal inspection. NECK: Normal inspection. RESP: No respiratory distress, CTAB. CVS: Regular rate and rhythm, no murmur, no gallop. ABD: Soft and nontender, no guarding or rebound, nondistended. SKIN: Pale, no rash, warm, dry, intact. EXTREMITIES: Normal appearance, no pedal edema. NEURO: Oriented x4. PSYCH: Normal affect. Const Vital Signs: 05/10/23 16:38 05/10/23 16:57 05/10/23 19:01 Temperature 97.2 F L Temperature Source Temporal Pulse Rate 102 H 79 Respiratory Rate 20 H 13 Respiratory Pattern Normal Blood Pressure 134/58 H 123/60 H Blood Pressure Mean 83 81 Pulse Ox 100 100 Oxygen Delivery Method Room Air Room Air 05/10/23 19:53 Temperature 97.6 F L Temperature Source Pulse Rate 80 Respiratory Rate 14 Respiratory Pattern Blood Pressure 120/51 L Blood Pressure Mean 74 Pulse Ox 100 Oxygen Delivery Method <Dr. Lucas Nash DO - Last Filed: 05/10/23 22:09> Physical Exam Const Vital Signs: 05/10/23 16:38 05/10/23 16:57 05/10/23 19:01 Temperature 97.2 F L Temperature Source Temporal Pulse Rate 102 H 79 Respiratory Rate 20 H 13 Respiratory Pattern Normal Blood Pressure 134/58 H 123/60 H Blood Pressure Mean 83 81 Pulse Ox 100 100 Oxygen Delivery Method Room Air Room Air 05/10/23 19:53 Temperature 97.6 F L Temperature Source Pulse Rate 80 Respiratory Rate 14 Respiratory Pattern Blood Pressure 120/51 L Blood Pressure Mean 74 Pulse Ox 100 Oxygen Delivery Method [facility] <HAZEL Velasquez - Last Filed: 05/10/23 19:36> [facility] Narrative Medical decision making narrative: Patient with a history of GI bleed, on Brilinta for cardiac stents was sent in for a low hemoglobin level. He reports fatigue and dyspnea on exertion. He denies melena or hematochezia. He appears well and nontoxic. He was tachycardic in triage with otherwise normal vital signs. He now is consistently in the 80s normal sinus rhythm on telemetry during my exam. Abdomen is soft and nontender. He does appear slightly pale. Prior records show he had multiple bleeding angiodysplastic lesions in the large colon that required cauterization in June 2022. Hemoglobin today is 5.6?about 2 months ago it was 7.5. BUN is 18, creatinine 1.49. He was ordered 2 units PRBCs, IV Protonix 40 mg bolus and I discussed the case with Dr. Gregg who recommended admission with bowel prep and colonoscopy tomorrow. Case was discussed with the hospitalist. Differential: GI bleed, diverticulosis, hemorrhoids External records reviewed 07/12/[address] Gregg Sigmoid colon polyp removed, multiple medium sized angiodysplastic lesions with bleeding in the transverse colon and at the hepatic flexure and ascending colon were treated with heater probe. Lab Data Attestation: I reviewed the patient's lab results. Labs: Laboratory Results - last 24 hr 05/10/23 17:00 WBC 7.1 RBC 2.56 L Hgb 5.6 L* Hct 20.1 L MCV 78.5 L MCH 21.9 L MCHC 27.9 L RDW Std Deviation 48.8 H RDW Coeff of [place] 17.1 H Plt Count 355 MPV 9.8 Immature Gran % (Auto) 0.400 Neut % (Auto) 66.1 Lymph % (Auto) 23.6 [place] % (Auto) 6.8 Eos % (Auto) 2.5 Baso % (Auto) 0.6 Absolute Neuts (auto) 4.7 Absolute Lymphs (auto) 1.67 Nucleated RBC % 0 [address] Review May foll Sodium 136 Potassium 3.7 Chloride 104 Carbon Dioxide 24.0 Anion Gap 8 BUN 18 Creatinine 1.49 H Estim Creat Clear Calc 49.43 Est GFR (MDRD) Af Amer 61 Est GFR (MDRD) Non-Af 50 L BUN/Creatinine Ratio 12.1 Glucose 311 H Calcium 9.2 Blood Type A POSITIVE Antibody Screen POSITIVE Antibody Identification ANTI-Fya Crossmatch See Detail <Dr. Lucas Nash, DO - Last Filed: 05/10/23 22:09> [facility] Lab Data Labs: Laboratory Results - last 24 hr 05/10/23 17:00 WBC 7.1 RBC 2.56 L Hgb 5.6 L* Hct 20.1 L MCV 78.5 L MCH 21.9 L MCHC 27.9 L RDW Std Deviation 48.8 H RDW Coeff of [place] 17.1 H Plt Count 355 MPV 9.8 Immature Gran % (Auto) 0.400 Neut % (Auto) 66.1 Lymph % (Auto) 23.6 [place] % (Auto) 6.8 Eos % (Auto) 2.5 Baso % (Auto) 0.6 Absolute Neuts (auto) 4.7 Absolute Lymphs (auto) 1.67 Nucleated RBC % 0 Diff [address] Review May foll Sodium 136 Potassium 3.7 Chloride 104 Carbon Dioxide 24.0 Anion Gap 8 BUN 18 Creatinine 1.49 H Estim Creat Clear Calc 49.43 Est GFR (MDRD) Af Amer 61 Est GFR (MDRD) Non-Af 50 L BUN/Creatinine Ratio 12.1 Glucose 311 H Calcium 9.2 Blood Type A POSITIVE Antibody Screen POSITIVE Antibody Identification ANTI-Fya Crossmatch See Detail Treatment and Re-Evaluation :: I have personally performed a face to face assessment of the patient and have reviewed the KATIA Note. I performed a substantive portion of the visit including all aspects of the following. My lai findings include: History: Patient presents with anemia that was noticed today. Patient had routine outpatient labs drawn today. Patient was notified that his hemoglobin was low. Patient states he was told to come to the emergency department. Patient states he has a history of chronic anemia. Patient states he is on iron for this. Patient states he has had upper and lower endoscopies. Patient denies any abdominal pain. Patient states he does feel lightheaded. Patient states he does get short of breath with some exertion. Patient denies any fevers or chills. Exam: Vital signs are stable except for a slight tachycardia of 102. Patient is afebrile. Patient is in no acute distress. Oral mucosa is pink and moist. Neck is supple. Trachea is midline. There is no JVD. Heart was regular rate and rhythm. Lungs are clear and equal bilaterally. Abdomen is soft. Bowel sounds are normal. There is no tenderness. Cranial nerves II through XII are intact. There are no focal motor or sensory deficits noted. Medical Decision Making: Differential diagnosis includes anemia, gastrointestinal bleeding, dehydration, and electrolyte abnormality. CBC will be obtained to assess for anemia and leukocytosis. Basic metabolic profile will be obtained to assess for electrolyte abnormality and renal function. CBC was reviewed. Hemoglobin was 5.6 and hematocrit was 20.1. White blood cell count was normal. Platelets were normal. Basic metabolic profile was obtained. Creatinine was slightly elevated at 1.49. Glucose was elevated at 311. Anion gap was normal. Patient was typed and crossmatched for 2 units of packed red blood cells. Patient will be transfused 2 units of packed red blood cells. Case was discussed with Dr. Gregg from gastroenterology. He recommended keeping the patient in the hospital and he will perform endoscopy to look for source of bleeding. Case was discussed with the hospitalist. She will admit the patient to her service. Patient understood and was agreeable with the plan. All questions were answered. Discharge Plan Dx/Rx/DC Orders Clinical Impression: Anemia, History of GI bleed Disposition Disposition: Acute Care Hospital [facility] Discharge Date/Time: 05/10/23 21:10
[2023-05-10 17:24] LABS: Absolute Lymphocyte Count 1.67 X10^3/uL (0.83-4.51); Absolute Neutrophil Count 4.7 X10^3/uL (2.0-7.7); Basophil# 0.04 X10^3/uL; Basophil% 0.6 % (0-1); Eosinophil# 0.18 X10^3/uL; Eosinophils% 2.5 % (0-5); Hematocrit 20.1 % (40-54); Lymphocyte # 1.67 X10^3/ul (0.83-4.51); Lymphocyte % 23.6 % (19-41); Mean Corp Hgb Conc 27.9 g/dL (32-36); Mean Corpuscular Hgb 21.9 pg (27.0-32.0); Mean Corpuscular Volume 78.5 fL (80-94); Mean Platelet Vol. 9.8 fl (6.2-12.0); Monocyte# 0.48 X10^3/uL; Monocyte% 6.8 % (0-10); NRBC Flagged by Analyzer 0 % (0-5); Neutrophil # 4.68 X10^3/uL (2.7-7.7); Neutrophil % 66.1 % (47-70); POSITIVE COUNT YES; Platelet Count 355 K/mm3 (150-450); RBC Distribution Width CV 17.1 % (11.6-14.6); RBC Distribution Width SD 48.8 fl (35.1-43.9); Red Blood Count 2.56 M/mm3 (4.6-6.2); White Blood Count 7.1 K/mm3 (4.4-11.0)
[2023-05-10 17:32] LABS: Anion Gap 8 (5-15); BUN 18 mg/dL (7-18); BUN/Creat Ratio 12.1 RATIO (10-20); Calcium,Total 9.2 mg/dL (8.5-10.1); Chloride 104 mmol/L (98-107); Creatinine, Serum 1.49 mg/dL (0.70-1.30); EST Glomerular Filtration Rate 50 mL/min (>60); Est Glom Filt Rate - Afr Amer 61 mL/min (>60); Estimated Creatinine Clearance 49.43 ml/min; Glucose 311 mg/dL (74-106); Potassium 3.7 mmol/L (3.5-5.1); Sodium Level 136 mmol/L (136-145)
[2023-05-10 17:34] LABS: Hemoglobin 5.6 g/dL (13.0-16.5)
[2023-05-10 19:01] VITALS: BP 123/60; PULSE 79; RESP 13; O2SAT 100
[2023-05-10 19:53] VITALS: BP 120/51; PULSE 80; RESP 14; TEMP 36.4; O2SAT 100
--- NOTE | 2023-05-10 19:54 | PCM.HP.STD ---
HPI - General General Date of Admission: 05/10/23 Date of Service: 05/10/23 Chief Complaint: Anemia with hemoglobin of 5.8 g/dL HPI Narrative BRAD HALLMAN, is a 67 M with a past medical history of essential hypertension, hyperlipidemia, hypothyroidism DM-2; of unknown control, former tobacco abuse (quit 1999), CAD; s/p anterior wall NH (2015) on Brilinta, ischemic cardiomyopathy, NIA, gout, OA, GERD, depression with anxiety and a known history of angiodysplastic lesions in his colon with intermittent GI bleeding requiring blood transfusions followed by Dr. Gregg of gastroenterology who presents to [facility] ER complaining that routine outpatient labs revealed severe acute blood loss anemia with hemoglobin of 5.8 g/dL requiring blood transfusion. He denies gross bleeding of any kind but he does admit to easy fatigability and SCHMITZ. He also states he ran out of his iron supplement about 10 days ago but he has now restarted it with no other recent medication changes. He denies associated fever, chills, nausea, vomiting, appetite change or weight loss but he did admit to constipation earlier this week with subsequent normal once daily BM's. He was then admitted to the PCU for ongoing care for a stay that is expected to be greater than 48 hours. [facility] Medical History Anemia Anxiety Atherosclerotic heart disease of [place] coronary artery without angina pectoris Cardiology follow-up encounter Depression Diabetes Diabetes mellitus type II, controlled Easy bruising Essential (primary) hypertension Former smoker Gastric reflux GI bleed Gout High cholesterol History of anterior wall myocardial infarction History of heart attack History of stress test Hyperlipidemia Hypertension Hypotension Iron deficiency anemia Ischemic cardiomyopathy Low iron Myocardial infarct Thyroid disease Wears glasses Home Medications paroxetine HCl 30 mg tablet 30 mg PO DAILY depression 12/02/14 [History Last Taken 05/10/23] lisinopril 10 mg tablet 10 mg PO DAILY BP 05/14/17 [History Last Taken 03/15/23] multivitamin 1 tab PO QDAY health 05/14/17 [History Last Taken 05/10/23] ticagrelor 90 mg tablet 90 mg PO BID #60 tabs 12/18/18 [Rx Last Taken 05/10/23] glimepiride 4 mg tablet 2 mg PO DAILY DM 02/18/19 [History Last Taken 05/10/23] aspirin 81 mg chewable tablet 81 mg PO DAILY@0800 heart ##0 02/19/19 [Rx Last Taken 05/10/23] ferrous sulfate 325 mg (65 mg iron) tablet 325 mg PO DAILY #30 tabs 02/19/19 [Rx Last Taken 05/10/23] pantoprazole 40 mg tablet,delayed release 40 mg PO DAILY #30 tabs 02/19/19 [Rx Last Taken 05/10/23] fluticasone propionate 50 mcg/actuation nasal spray,suspension (Flonase Allergy Relief) 1 spray intranasal DAILY #16 grams 08/24/22 [Rx Last Taken 05/10/23] metformin 500 mg tablet,extended release 24 hr 1,000 mg PO BID 05/10/23 [History Last Taken 05/10/23] Allergy/AdvReac Type Severity Reaction Status Date / Time No Known Allergies Allergy Verified 08/24/22 16:55 Family History Mother No problems noted. Father No problems noted. Surgical History H/O cardiac catheterization History of surgery Stented coronary artery Social History household members: none Smoking Status: Former smoker quit date: 01/20/91 alcohol intake: never substance use type: does not use ROS ROS Narrative Review of systems: General: Patient denies fevers or chills HENT: Patient denies headache, denies stuffy nose, denies sore throat EYES: Patient denies changes in vision Resp: Patient admits to dyspnea on exertion with easy fatigability Cardiac: Denies chest pain or palpitations GI: Denies abdominal pain, denies changes in bowel, denies nausea or vomiting : Denies changes in urination or urinary frequency Extremity: Denies swelling Musculoskeletal: Feels somewhat generally weak Neuro: Denies any numbness/tingling Heme: Patient admits to easy bruisability since being on Brilinta Skin: Denies rashes Psychiatric: No complaints voiced related to uncontrolled depression or anxiety Endocrine: No polyuria, polydipsia or polyphagia The rest of the 14 point ROS was negative except for positives in HPI. Vital Signs Vital Signs Vital Signs: 05/10/23 16:38 05/10/23 16:57 05/10/23 19:01 Temperature 97.2 F L Temperature Source Temporal Pulse Rate 102 H 79 Respiratory Rate 20 H 13 Respiratory Pattern Normal Blood Pressure 134/58 H 123/60 H Blood Pressure Mean 83 81 Pulse Ox 100 100 Oxygen Delivery Method Room Air Room Air 05/10/23 19:53 Temperature 97.6 F L Temperature Source Pulse Rate 80 Respiratory Rate 14 Respiratory Pattern Blood Pressure 120/51 L Blood Pressure Mean 74 Pulse Ox 100 Oxygen Delivery Method Weight Weight: 163 lb 14.4 oz Body Mass Index (BMI) 24.2 Physical Exam Const alert, oriented x3, no apparent distress and average body habitus General Appearance: cooperative HEENT normocephalic, head/scalp atraumatic, hearing grossly normal bilaterally and moist oral mucous membranes Eyes PERRL, EOMs intact bilaterally and conjunctivae normal Neck no lymphadenopathy and supple Resp normal respiratory effort, no retractions, no use of accessory muscles and clear to auscultation bilaterally Cardio regular rate and regular rhythm GI normal to inspection, nondistended, normoactive bowel sounds, soft to palpation, non-tender and non-distended Extremity normal to inspection and full ROM Skin Skin Narrative: Patient has no evidence of rash at this time. Neuro oriented x3, CN's II-XII intact bilaterally, moves all extremities and no focal motor deficits Sensorium / Orientation: awake, oriented to person, oriented to place and oriented to time Speech: speech normal Motor Exam: strength 5/5 throughout Psych affect normal Results Medical Records Data Attestation: I reviewed the patient's medical records Lab / Micro Data Attestation: I reviewed the patient's lab results. 05/10/23 17:00 05/10/23 17:00 Labs: Laboratory Results - last 24 hr 05/10/23 17:00: WBC 7.1, RBC 2.56 L, Hgb 5.6 L*, Hct 20.1 L, MCV 78.5 L, MCH 21.9 L, MCHC 27.9 L, RDW Std Deviation 48.8 H, RDW Coeff of Talon 17.1 H, Plt Count 355, MPV 9.8, Immature Gran % (Auto) 0.400, Neut % (Auto) 66.1, Lymph % (Auto) 23.6, [place] % (Auto) 6.8, Eos % (Auto) 2.5, Baso % (Auto) 0.6, Absolute Neuts (auto) 4.7, Absolute Lymphs (auto) 1.67, Nucleated RBC % 0, Diff Path Review May foll, Sodium 136, Potassium 3.7, Chloride 104, Carbon Dioxide 24.0, Anion Gap 8, BUN 18, Creatinine 1.49 H, Estim Creat Clear Calc 49.43, Est GFR (MDRD) Af Amer 61, Est GFR (MDRD) Non-Af 50 L, BUN/Creatinine Ratio 12.1, Glucose 311 H, Calcium 9.2, Blood Type A POSITIVE, Antibody Screen POSITIVE, Antibody Identification ANTI-Fya, Crossmatch See Detail Assessment & Plan Assessment/Plan (1) Acute blood loss anemia: (2) Angiodysplasia of colon: (3) History of GI bleed: (4) Adverse drug reaction: QUALIFIERS: Encounter type: initial encounter Qualified Code(s): T50.905A - Adverse effect of unspecified drugs, medicaments and biological substances, initial encounter PLAN: Plan 1. Severe acute blood loss anemia with hemoglobin of 5.8 g/dL requiring blood transfusion - Admit to PCU. Proceed with blood transfusion 2 units of packed red blood cells and then recheck CBC in the a.m. to ensure improvement. 2. Known history of angiodysplastic lesions in his colon with intermittent GI bleeding requiring blood transfusions followed by Dr. Gregg of gastroenterology likely causing #1 - Noted. Keep n.p.o. except medications with pending endoscopy. We will consult Dr. Gregg of the gastroenterology service see this patient on rounds in the a.m. with help appreciated in advance. 3. CAD; s/p anterior wall NH (2016) on Brilinta complicating #1 & #2 - Brilinta may need to be discontinued this patient continues to have repeated bouts of severe anemia requiring transfusion. 4. Ischemic cardiomyopathy; with easy fatigability and SCHMITZ due to #1 - Noted. Serialize troponins. 5. Essential hypertension - Hold scheduled antihypertensives in light of #1. 6. Hyperlipidemia - Resume statin. 7. Hypothyroidism - Continue Synthroid and check TSH. 8. DM-2; of unknown control - NPO for now. FSBS q. 6 hours. 9. Former tobacco abuse (quit 1999) - Noted. 10. NIA - Restart iron supplement after endoscopy. 11. Gout - Stable with no evidence of acute flare. 12. OA - Give Tylenol prn. 13. GERD - Continue PPI. 14. Depression with anxiety - Rsume current treatment after endoscopy. 15. DVT prophylaxis - SCD's only in light of #1. Total time: Approximately 55 minutes. Charges/Coding Visit Charges Inpatient E&M: 33180 Init Hosp L2
[2023-05-10] MEDS: Pantoprazole Sodium 40 MG in 0.9% Normal Saline (100mL MB+) 100 ML 330 MG IV (20:13)
--- OUTSIDE RECORDS SUMMARY | 2023-05-10 20:18 | XMS RPT_ITS | CCD ---
Author Name Unknown Address [address] [place] [address] Organization [facility] Care Team Providers [facility] Rep Name Role Phone Kimmie BADILLO, Kala Martin Unavailable Unavailable Pamela Green MD Primary Care Provider Pamela Green MD Primary Care Provider Pamela Green MD Primary Care Provider Pamela Green MD Primary Care Provider PAMELA GREEN Referring Unavailable PAMELA GREEN Primary Care Unavailable PAMELA GREEN Attending Unavailable PAMELA GREEN Primary Care Unavailable Allergies Allergy Classification Reported Allergen(s) Allergy Type Date of Onset Reaction(s) Facility (4 sources) Non-steroidal anti-inflammato ry agent; Translations: [NSAIDS (NON-STEROIDAL ANTI-INFLAMMATO RY DRUG)] Drug Intolerance 0 Other: See Comments [facility] (11 sources) Non-steroidal anti-inflammato ry agent Drug Intolerance 0 Other: See Comments [facility] Medications Completed/Discontinued Medications Medication Drug Class(es) Dates Sig (Normalized) Sig (Original) aspirin 81 mg delayed release oral tablet (16 sources) Nonsteroidal Anti-inflammatory Drug Start: 02-03-2017 take 1 tablet by mouth once daily aspirin, enteric coated (ASPIR-LOW) 81 mg EC tablet Take 1 tablet by mouth once daily. 90 tablet 3 02/03/2017 Active Problems Active Problems Problem Classification Problem Date Documented Da te Episodic/Chronic Acute myocardial infarction (18 sources) Acute myocardial infarction of anterior wall; Translations: [Acute ST segment elevation myocardial infarction] Onset: 6 09-24-2015 Chronic Anxiety disorders (16 sources) Generalized anxiety disorder; Translations: [Generalized anxiety disorder] Onset: 7 05-07-2006 Chronic Coronary atherosclerosis and other heart disease (2 sources) Old anterior myocardial infarction ; Translations: [Atherosclerotic heart disease of [place] coronary artery without angina pectoris] Onset: 6 09-12-2016 Chronic Diabetes mellitus without complication (20 sources) Diabetes mellitus; Translations: [Type 2 diabetes mellitus without complication] Onset: 7 03-08-2016 Chronic Disorders of lipid metabolism (20 sources) Hyperlipidemia; Translations: [Hyperlipidemia, unspecified] Onset: 7 09-22-2015 Chronic Esophageal disorders (1 source) Gastroesophageal reflux disease without esophagitis; Translations: [Gastro-esophageal reflux disease without esophagitis] Chronic Essential hypertension (2 sources) Essential hypertension; Translations: [Essential (primary) hypertension] Chronic Heart valve disorders (1 source) H/O: artificial heart valve; Translations: [Old myocardial infarction] Onset: 6 09-22-2015 Chronic Immunizations and screening for infectious disease (1 source) Vaccination needed; Translations: [Encounter for immunization] Episodic Other gastrointestinal disorders (3 sources) History of gastrointestinal bleed; Translations: [Personal history of other diseases of the digestive system] Episodic Other gastrointestinal disorders (1 source) Personal history of other diseases of the digestive system; Translations: [History of GI bleed] Onset: 3 Episodic Other screening for suspected conditions (not mental disorders or infectious disease) (1 source) Patient encounter status; Translations: [Encounter for screening for malignant neoplasm of prostate] Episodic Thyroid disorders (19 sources) Acquired hypothyroidism; Translations: [Hypothyroidism, unspecified] Onset: 8 12-09-2017 Chronic Unclassified (1 source) Drug therapy finding; Translations: [custodial (current) use of antithrombotics/antipl atelets] Onset: 6 09-24-2015 Unclassified (1 source) Placement of stent in coronary artery ; Translations: [Presence of coronary angioplasty implant and graft] Onset: 6 09-24-2015 Past or Other Problems Problem Classification Problem Date Documented Da te Episodic/Chronic Other aftercare (1 source) Other longterm (current) drug therapy; Translations: [Other longterm (current) drug therapy] Onset: 09-24-2015 09-24-2015 Episodic Other aftercare (1 source) custodial (current) use of insulin; Translations: [Type 2 diabetes mellitus without complication, with long-term current use of insulin (HCC)] Onset: 09-14-2015 Episodic Results Test Name Value Interpretation Reference Range Facil ity Vital Signs Date Time Vital Sign Value Performing Clinician Lexie ashley 05-04-2022 08:18-0500 Body weight 78.52 kg Pamela Green MD Work Phone: [facility] 05-04-2022 08:18-0500 Diastolic blood pressure 70 mm[Hg] Pamela Green MD Work Phone: [facility] 05-04-2022 08:18-0500 Heart rate 70 /min Pamela Green MD Work Phone: [facility] 05-04-2022 08:18-0500 Respiratory rate 16 /min Pamela Green MD Work Phone: [facility] 05-04-2022 08:18-0500 Systolic blood pressure 120 mm[Hg] Pamela Green MD Work Phone: [facility] 06-29-2021 08:38-0400 Body weight 79.7 kg Pamela Green MD Work Phone: [facility] 06-29-2021 08:38-0400 Diastolic blood pressure 74 mm[Hg] Pamela Green MD Work Phone: [facility] 06-29-2021 08:38-0400 Heart rate 74 /min Pamela Green MD Work Phone: [facility] 06-29-2021 08:38-0400 Respiratory rate 16 /min Pamela Green MD Work Phone: [facility] 06-29-2021 08:38-0400 Systolic blood pressure 124 mm[Hg] Pamela Green MD Work Phone: [facility] 03-08-2016 15:31-0500 BMI (Body Mass Index) 24.57 kg/m2 [facility] [employer] Work Phone: 03-08-2016 15:31-0500 BP Diastolic 68 mm[Hg] Kala uBrks RN [facility] Work Phone: 03-08-2016 15:31-0500 BP Systolic 130 mm[Hg] Kala Burks RN [facility] Work Phone: 03-08-2016 15:31-0500 BSA (Body Surface Area) 1.91 m2 Kala Burks RN [facility] Work Phone: 03-08-2016 15:31-0500 Pulse (Heart Rate) 68 /min Kala Burks RN [facility] Work Phone: 03-08-2016 15:31-0500 Respiratory Rate 18 /min Kala Burks RN [facility] Work Phone: 03-08-2016 15:31-0500 Weight 75.48 kg Kala Burks RN [facility] Work Phone: 09-28-2015 11:03-0400 Height 175.26 cm Kala Burks RN [facility] Work Phone: Encounters Encounter Date Encounter Type Care Provider Facility Start: 05-09-2023 Refill Pamela hernandez MD Work Phone: [facility] [place] Procedures Date Procedure Procedure Detail Performing Clinician Start: 05-04-2022 PFIZER-BIONTECH COVI D-19 BIVALENT BOOSTER VACCINE, AGE 12+ YR Pamela Green MD Work Phone: Start: 11-07-2020 Adult depression scr eening assessment Pamela Green MD Work Phone: Start: 02-19-2019 Colonoscopy Pamela short MD Work Phone: Start: 03-08-2016 End: 03-08-2016 [employer] WORK[employer] Nellie Knox PA-C Work Phone: Start: 03-08-2016 End: 03-08-2016 Follow Up Appt 6 months Nellie olivares PA-C Work Phone: Start: 12-06-2015 End: 12-06-2015 Follow Up Appt 3 months [facility] Start: 12-06-2015 End: 12-06-2015 MMM Thierry Baeza MD Start: 09-28-2015 End: 10-10-2015 *Hepatic Function Panel [facility] Start: 09-28-2015 End: 02-27-2016 [employer] WORK[employer] Thierry Baeza MD Start: 09-28-2015 End: 10-10-2015 Echocardiography Thierry Baeza MD Start: 09-28-2015 End: 02-27-2016 Electrocardiogram, complete Thierry Fernandes i, MD Start: 09-28-2015 End: 02-27-2016 Follow Up Appt 2 months [facility] Start: 09-28-2015 End: 10-10-2015 Lipid panel [AGGREGATE] [facility] Start: 09-28-2015 End: 09-29-2015 Referral to medical equipment sales Thierry Baeza MD Plan of Treatment Date Care Activity Detail Author Start: 11-07-2030 Urine microalbumin profile [facility] Start: 02-19-2029 Colonoscopy COLONOSCOPY [facility] Start: 02-19-2029 COLORECTAL CANCER SCREENING COLORECTAL CANCER SCREENING [facility] Start: 02-19-2029 Screening for malignant neoplasm of colon [facility] Start: 06-29-2026 PROSTATE CANCER SCREENING DISCUSSION PROSTATE CANCER SCREENING DISCUSSION [facility] Start: 06-29-2026 Prostate specific antigen measurement Prostate Cancer Screening Discussion [facility] Start: 11-07-2025 PROSTATE CANCER SCREENING DISCUSSION PROSTATE CANCER SCREENING DISCUSSION [facility] Start: 05-09-2023 End: 08-08-2023 ALBUMIN/CREAT RATIO RND UR ALBUMIN/CREAT RATIO RND UR Lab Routine Type 2 diabetes mellitus without complication, with long-term current use of insulin (HCC) Expected: 05/09/2023 (Approximate), Expires: 08/08/2023 [facility] Work Phone: Immunizations Immunization Date Immunization Notes Care Provider Fa cility 05-04-2022 COVID-19 booster vaccine, age 12+ yr, bivalent (PFIZER-BIONTECH) Pamela Green MD Work Phone: [facility] 05-04-2022 pneumococcal (PCV20) vaccine, 20 valent (PREVNAR 20) Pamela Green MD Work Phone: [facility] 05-04-2022 pneumococcal Conjuga te, unspecified formulation Pamela Green MD Work Phone: [facility] Work Phone: 11-23-2021 influenza, seasonal, injectable Pamela Green MD Work Phone: [facility] 11-23-2021 influenza virus vaccine, unspecified formulation Pamela Green MD Work Phone: [facility] 03-30-2021 COVID-19 vaccine, ag e 12+ yr (PFIZER-BIONTECH - PURPLE TOP) Pamela Green MD Work Phone: [facility] 12-29-2020 influenza, seasonal, injectable Pamela Green MD Work Phone: [facility] 11-07-2020 tetanus toxoid, redu nessa diphtheria toxoid, and acellular pertussis vaccine, adsorbed Pamela Green MD Work Phone: [facility] 12-18-2018 influenza, seasonal, injectable Pamela Green MD Work Phone: [facility] 12-24-2016 influenza, injectabl e, quadrivalent, contains preservative Pamela Green MD Work Phone: [facility] 12-13-2011 influenza virus vaccine, unspecified formulation Pamela Green MD Work Phone: [facility] 01-20-2011 pneumococcal polysaccharide vaccine, 23 valent Pamela Green MD Work Phone: [facility] Work Phone: 05-08-2008 tetanus toxoid, redu nessa diphtheria toxoid, and acellular pertussis vaccine, adsorbed Pamela Green MD Work Phone: [facility] 03-25-1994 diphtheria and tetan us toxoids, adsorbed for pediatric use Pamela Green MD Work Phone: [facility] Work Phone: Payers Date Payer Category Payer Unknown MMO MMO [employer] [id number] 2018-Present [phone] [address] [place] [address] PPO [id number] 2018 Unknown [id number] 2018 Unknown [id number] Social History Date Type Detail Facility Start: 03-05-2012 End: 05-04-2022 Tobacco smoking status NHIS Ex-smoker [facility] History of tobacco use Pipe Smoker [facility] Start: 03-05-2012 End: 05-04-2022 Tobacco use and exposure User of smokeless tobacco [facility] History of tobacco use Snuff User [facility] Start: 01-30-2021 End: 05-04-2022 Alcohol intake Current non-drinker of alcohol (finding) [facility] Start: 03-05-2012 End: 05-04-2022 Tobacco Comment Pipe smoker for about 10 years-quit 1985 [facility] Start: 1955 Sex Assigned At Not on file [facility] Start: 06-19-2021 End: 06-29-2021 Exposure to SARS-CoV-2 (event) Not sure [facility] History of tobacco use Current smoker [facility] Start: 05-04-2022 End: 05-24-2022 History of Social function [facility] Work Phone: Start: 05-04-2022 End: 05-24-2022 Tobacco use panel [facility] Work Phone: Adult Depression Screening Assessment 0 [facility] Work Phone: Medical Equipment Procedure Code Equipment Code Equipment Origin al Text Equipment Identifier Dates Start: 04-21-2007 Clinical Notes 06-22-2021 to 05-09-2023 Telephone Encounter - Zina Leahy RN - 05/09/2023 4:00 PM ESTTelephone Encounter - Ligia Mead Ma - 05/09/2023 3:32 PM ESTTelephone Encounter - Karen Short - 05/09/2023 2:17 PM EST Note Date & Type Note Facility 05-09-2023 Miscellaneous Notes Formattin g of this note might be different from the original. Patient returned call and appointment scheduled for yearly check up. Zina Leahy RN Message left for pt to call back. Please assist with schedule him. Needs 40 minutes. Ligia Mead Ma OK to refill as ordered Needs labs as ordered and appt Pamela Green MD Patient has been identified by name and date of : Yes, Provider Pamela Green MD Date May 09, 2023 Time 2:43 PM Patient phones for refill(s): Requested Prescriptions Pending Prescriptions Disp Refills ferrous sulfate 325 mg (65 mg iron) tablet 60 tablet 5 Sig: Take 1 tablet by mouth two times a day with meals. glimepiride (AMARYL) 2 mg tablet 30 tablet 11 Sig: Take 1 tablet by mouth daily with breakfast. metFORMIN ER (GLUCOPHAGE XR) 500 mg 24 hr tablet 120 tablet 11 Sig: Take 2 tablets by mouth two times a day. Date of last office visit in primary care: 05/04/2022 Date of next office visit in primary care: none Pt needs appt, not seen in over a year. Please advise. Thank you. Ligia Mead Ma. Patient has been identified by name and date of : Patient phones for refill(s): Requested Prescriptions Pending Prescriptions Disp Refills ferrous sulfate 325 mg (65 mg iron) tablet 60 tablet 5 Sig: Take 1 tablet by mouth two times a day with meals. glimepiride (AMARYL) 2 mg tablet 30 tablet 11 Sig: Take 1 tablet by mouth daily with breakfast. metFORMIN ER (GLUCOPHAGE XR) 500 mg 24 hr tablet 120 tablet 11 Sig: Take 2 tablets by mouth two times a day. Date of last office visit in primary care: 05/04/2022 Date of next office visit in primary care: Visit date not found Please advise. Thank you. Karen Short. documented in this encounter [facility] 02-12-2023 Miscellaneous Notes Formattin g of this note is different from the original. The following approved medication requests have been transmitted electronically. Requested Prescriptions Pending Prescriptions Disp Refills PARoxetine (PAXIL) 30 mg tablet 30 tablet 5 Sig: Take 1 tablet by mouth once daily. Maury Salcedo APRN.CNP Last office visit: 05/04/22 F/u scheduled: none Ligia Mead Ma Patient has been identified by name and date of : Yes Requested Prescriptions Pending Prescriptions Disp Refills PARoxetine (PAXIL) 30 mg tablet 30 tablet 5 Sig: Take 1 tablet by mouth once daily. RX INSTRUCTIONS: Patient aware RX will be sent to pharmacy. No need to notify patient. Karen Short documented in this encounter [facility] 07-18-2022 Miscellaneous Notes Formattin g of this note is different from the original. The following approved medication requests have been transmitted electronically. Requested Prescriptions Pending Prescriptions Disp Refills ticagrelor (BRILINTA) 90 mg tablet 60 tablet 11 Sig: Take 1 tablet by mouth twice daily. Erika Marquez APRN.CNP Patient has been identified by name and date of : Yes Patient phones requesting refills as follows: Requested Prescriptions Pending Prescriptions Disp Refills ticagrelor (BRILINTA) 90 mg tablet 60 tablet 11 Sig: Take 1 tablet by mouth twice daily. ANDRY-05/04/22 Labs-05/04/22 NOV-none med filled 06/22/21 RX INSTRUCTIONS: Is the Brilinta ok to fill? Patient is out of that medication Patient aware RX will be sent to pharmacy. No need to notify patient. Bernice Herman [employer] documented in this encounter [facility] 07-12-2022 Miscellaneous Notes Formattin g of this note might be different from the original. Called and left detailed message on secure VM with information below. If any questions to contact the office and speak with Triage Nurse. Rosa Pete Ma Yes, he may hold the Brilinta and ASA starting today Pamela Green MD KASANDRA Haynes @ [facility] Pre Admission Testing calling on behalf of patient to let PCP know patient is scheduled for upper and lower endoscopy by Dr. Gregg @ [facility] on Sunday 07/16. She is asking if okay for patient to hold Brilinta and ASA prior to procedure starting today? Please call her back @ [phone]. May leave message. She says she will contact patient. Maira De Anda RN documented in this encounter [facility] 06-11-2022 Miscellaneous Notes Formattin g of this note is different from the original. The following approved medication requests have been transmitted electronically. Requested Prescriptions Pending Prescriptions Disp Refills PARoxetine (PAXIL) 30 mg tablet 30 tablet 5 Sig: Take 1 tablet by mouth once daily. Erika Marquez APRN.CNP Patient has been identified by name and date of : Yes Last office visit in this department: 05/04/2022 RX INSTRUCTIONS: Patient aware RX will be sent to pharmacy. No need to notify patient. Patient phones requesting refills as follows: Requested Prescriptions Pending Prescriptions Disp Refills PARoxetine (PAXIL) 30 mg tablet 30 tablet 5 Sig: Take 1 tablet by mouth once daily. ANDRY-05/04/22 Labs-05/04/22 NOV-none med filled 11/23/21 Please review and advise. Jeri Martin documented in this encounter [facility] 05-15-2022 Miscellaneous Notes Formattin g of this note might be different from the original. Noted Pamela Green MD Pt went into [facility] ED on 05/05/22. Nothing received for discharge, will continue to watch for hospital paperwork. Rosa Pete Ma Please contact patient and see if he went to the ER last week as recommended. He should have fololw up for his low hemoglobin and for his elevated glucose and A1c. Pamela Green MD documented in this encounter [facility] 05-04-2022 Note HNO ID: [id number] Author: Pamela Green MD Service: ? Author Type: Physician Type: Progress Notes Filed: 05/04/2022 3:22 PM Note Text: Chief Complaint Patient presents with: Follow Up: Medication follow up HPI Iftikhar Hess is a 66 year old male who presents here today for follow up. Has FMLA forms that need updated for his diabetes and low blood count. He states that he misses 3-4 days per episode, 2-3 episodes per month. FMLA forms will be completed and faxed to [employer] at [phone]. Chewing tobacco. No bowel, Gi, or urinary issues. GERD: Sx controlled on Protonix 40 mg daily. He states he has been without this medication for some time and the reflux has been bothering him. [place]: Taking Iron 65 mg BID. He feels his blood count might be down again, he feels light headed, weak, feels like he is going to pass out. States that when he stands up he gets light headed, SOB, start having neck and shoulder pain. States his sx started yesterday. He has had this happen in the past; he was admitted to [facility] 02/12 with pneumonia and Hgb at 8.2, which dropped to a low of 7.5. He received one transfusion at that time. He states he has been out of his iron pills x 1 week now. He was supposed to get colonoscopy/EGD done by Dr Gregg but never followed up with him. Denies seeing any blood in stool, no rectal bleeding. He states his stools are darker. He is pale in color. DM: Taking Amaryl 2 mg daily and Metformin xr 500 mg 2 pills BID. Amaryl was decreased last visit as BS were controlled. No hypoglycemic episodes or neuropathy sx. He checks BS occ at home. Eye exams done at [facility]. He had his BS checked yesterday by nurse at work and it was 300 but that was after nurse gave him a glucose tablet because she though the BS was low due to his sx. HTN: Denies checking BP at home, no chest pains, dizziness. Has SOB with the anemia. Taking Lisinopril 10 mg daily. Lipid/CAD: Taking Lipitor 80 mg daily. He does not do much exercise. He states he tries to watch diet, does not eat much fast food, drinks zero pop. He puts cream in sugar. He uses Splenda if he needs sugar. Thyroid: Taking Levoxyl 100 mcg daily, increased last visit.. JAZZY/Depression: Stable with Paxil 30 mg daily. Past medical history, appointments, medications, allergies reviewed. Previous Medical History PAST MEDICAL HISTORY Diagnosis Date Anemia, unspecified 01/2019 Diabetes mellitus without mention of complication 2001? Diabetes mellitus - TYPE II Generalized anxiety disorder 1991 Anxiety, Generalized Hyperlipidemia 09/14/2015 Mixed hyperlipidemia 2001? Hyperlipidemia Other and unspecified disc disorder of unspecified region Intervertebral disc disorders-DEGEN. DISK DX. Previous Surgical History PAST SURGICAL HISTORY Procedure Laterality Date COLONOSCOPY FLX DX W/COLLJ SPEC WHEN PFRMD 02/19/2019 EGD TRANSORAL BIOPSY SINGLE/MULTIPLE 02/19/2019 RPR 1ST INGUN HRNA AGE 7 YRS/> REDUCIBLE 10 Hernia repair, inguinal TONSILLECTOMY PRIMARY/SECONDARY Tonsillectomy Family History FAMILY HISTORY Problem Relation Age of Onset Hypertension Mother Heart Mother Diabetes Maternal Grandmother Patient Allergies ALLERGIES Allergen Reactions Nsaids (Non-Steroid* Other: See Comments GI bleed Current Medications Current Outpatient Medications on File Prior to Visit Medication Sig lisinopril (ZESTRIL, PRINIVIL) 10 mg tablet Take 1 tablet by mouth once daily. metFORMIN ER (GLUCOPHAGE XR) 500 mg 24 hr tablet Take 2 tablets by mouth twice daily. PARoxetine (PAXIL) 30 mg tablet Take 1 tablet by mouth once daily ferrous sulfate 325 mg (65 mg iron) tablet Take 1 tablet by mouth twice daily with meals. glimepiride (AMARYL) 2 mg tablet Take 1 tablet by mouth daily with breakfast. levothyroxine (LEVOXYL) 100 mcg tablet Take 1 tablet by mouth once daily. Take on empty stomach. For thyroid. nitroglycerin sublingual (NITROSTAT) 0.4 mg SL tablet Dissolve 1 tablet under the tongue every 5 minutes as needed for chest pain. ticagrelor (BRILINTA) 90 mg tablet Take 1 tablet by mouth twice daily. cyclobenzaprine (FLEXERIL) 10 mg tablet Take 1 tablet by mouth three times daily as needed for muscle spasm. pantoprazole DR (PROTONIX) 40 mg tablet Take 1 tablet by mouth daily before breakfast. Take on empty stomach, 1/2 hr before meal. atorvastatin (LIPITOR) 80 mg tablet TAKE ONE TABLET BY MOUTH ONCE DAILY FOR CHOLESTEROL blood sugar diagnostic ([employer] ULTRA TEST) test strip Use with Clipsure 3-4 times daily and as needed aspirin, enteric coated (ASPIR-LOW) 81 mg EC tablet Take 1 tablet by mouth once daily. lancets(ONE TOUCH ULTRASOFT LANCETS) Use with One Touch Ultra Glucometer THERAPEUTIC MULTIVITAMIN TAB Take one(1) tablet daily. No current facility-administered medications on file prior to visit. Social History Social History Tobacco Use Smoking status: Former Types: Pi (more content not included)... [facility] 05-04-2022 History of Presen t illness Narrative Chief Complaint Patient presents with: Follow Up: Medication follow up HPI Iftikhar Hess is a 66 year old male who presents here today for follow up. Has FMLA forms that need updated for his diabetes and low blood count. He states that he misses 3-4 days per episode, 2-3 episodes per month. FMLA forms will be completed and faxed to [employer] at [phone]. Chewing tobacco. No bowel, Gi, or urinary issues. GERD: Sx controlled on Protonix 40 mg daily. He states he has been without this medication for some time and the reflux has been bothering him. [place]: Taking Iron 65 mg BID. He feels his blood count might be down again, he feels light headed, weak, feels like he is going to pass out. States that when he stands up he gets light headed, SOB, start having neck and shoulder pain. States his sx started yesterday. He has had this happen in the past; he was admitted to [facility] 02/12 with pneumonia and Hgb at 8.2, which dropped to a low of 7.5. He received one transfusion at that time. He states he has been out of his iron pills x 1 week now. He was supposed to get colonoscopy/EGD done by Dr Gregg but never followed up with him. Denies seeing any blood in stool, no rectal bleeding. He states his stools are darker. He is pale in color. DM: Taking Amaryl 2 mg daily and Metformin xr 500 mg 2 pills BID. Amaryl was decreased last visit as BS were controlled. No hypoglycemic episodes or neuropathy sx. He checks BS occ at home. Eye exams done at [facility]. He had his BS checked yesterday by nurse at work and it was 300 but that was after nurse gave him a glucose tablet because she though the BS was low due to his sx. HTN: Denies checking BP at home, no chest pains, dizziness. Has SOB with the anemia. Taking Lisinopril 10 mg daily. Lipid/CAD: Taking Lipitor 80 mg daily. He does not do much exercise. He states he tries to watch diet, does not eat much fast food, drinks zero pop. He puts cream in sugar. He uses Splenda if he needs sugar. Thyroid: Taking Levoxyl 100 mcg daily, increased last visit.. JAZZY/Depression: Stable with Paxil 30 mg daily. Past medical history, appointments, medications, allergies reviewed. Previous Medical History PAST MEDICAL HISTORY Diagnosis Date Anemia, unspecified 01/2019 Diabetes mellitus without mention of complication 2001? Diabetes mellitus - TYPE II Generalized anxiety disorder 1991 Anxiety, Generalized Hyperlipidemia 09/14/2015 Mixed hyperlipidemia 2001? Hyperlipidemia Other and unspecified disc disorder of unspecified region Intervertebral disc disorders-DEGEN. DISK DX. Previous Surgical History PAST SURGICAL HISTORY Procedure Laterality Date COLONOSCOPY FLX DX W/COLLJ SPEC WHEN PFRMD 02/19/2019 EGD TRANSORAL BIOPSY SINGLE/MULTIPLE 02/19/2019 RPR 1ST INGUN HRNA AGE 7 YRS/> REDUCIBLE 10 Hernia repair, inguinal TONSILLECTOMY PRIMARY/SECONDARY <AGE 14 4 Tonsillectomy Family History FAMILY HISTORY Problem Relation Age of Onset Hypertension Mother Heart Mother Diabetes Maternal Grandmother Patient Allergies ALLERGIES Allergen Reactions Nsaids (Non-Steroid* Other: See Comments GI bleed Current Medications Current Outpatient Medications on File Prior to Visit Medication Sig lisinopril (ZESTRIL, PRINIVIL) 10 mg tablet Take 1 tablet by mouth once daily. metFORMIN ER (GLUCOPHAGE XR) 500 mg 24 hr tablet Take 2 tablets by mouth twice daily. PARoxetine (PAXIL) 30 mg tablet Take 1 tablet by mouth once daily ferrous sulfate 325 mg (65 mg iron) tablet Take 1 tablet by mouth twice daily with meals. glimepiride (AMARYL) 2 mg tablet Take 1 tablet by mouth daily with breakfast. levothyroxine (LEVOXYL) 100 mcg tablet Take 1 tablet by mouth once daily. Take on empty stomach. For thyroid. nitroglycerin sublingual (NITROSTAT) 0.4 mg SL tablet Dissolve 1 tablet under the tongue every 5 minutes as needed for chest pain. ticagrelor (BRILINTA) 90 mg tablet Take 1 tablet by mouth twice daily. cyclobenzaprine (FLEXERIL) 10 mg tablet Take 1 tablet by mouth three times daily as needed for muscle spasm. pantoprazole DR (PROTONIX) 40 mg tablet Take 1 tablet by mouth daily before breakfast. Take on empty stomach, 1/2 hr before meal. atorvastatin (LIPITOR) 80 mg tablet TAKE ONE TABLET BY MOUTH ONCE DAILY FOR CHOLESTEROL blood sugar diagnostic (ImagekindTOUCH ULTRA TEST) test strip Use with One Touch Ultra 3-4 times daily and as needed aspirin, enteric coated (ASPIR-LOW) 81 mg EC tablet Take 1 tablet by mouth once daily. lancets(ONE TOUCH ULTRASOFT LANCETS) Use with One Touch Ultra Glucometer THERAPEUTIC MULTIVITAMIN TAB Take one(1) tablet daily. No current facility-administered medications on file prior to visit. Social History Social History Tobacco Use Smoking status: Former Types: Pipe Smokeless tobacco: Current Types: Snuff Tobacco comments: Pipe smoker for about 10 years-quit 1984 Vaping Use Vaping Use: Never used Substance Use Topics Alcohol use: No Drug use: No EXAM: BP 120/70 Pulse 70 Resp 16 Wt 78.5 kg (173 lb 1.6 oz) General Appearance: Well appearing, alert, in no acute distress, well-hydrated, well nourished. and Overweight. Pt is pale in color. Lungs: Lungs clear to auscultation. No wheezing, rhonchi, rales.. Heart: RRR without murmur, gallop, or rubs. No ectopy. Abdomen: Abdomen soft, non-tender. Bowel sounds normal. No masses, organomegaly.. Health Maintenance List SHINGRIX VACCINE(1 of 2) Never done PNEUMOCOCCAL(2 - PCV) due on 01/21/2012 DILATED RETINAL EXAM due on 01/29/2013 COVID-19 VACCINE(5 - Booster for Pfizer series) due on 05/25/2021 DIABETIC FOOT EXAM due on 11/07/2021 INFLUENZA(1) due on 11/23/2021 HBA1C due on 12/29/2021 DEPRESSION ASSESSMENT Never done URINE ALBUMIN:CREATININE RATIO due on 06/29/2022 LDL CHOLESTEROL due on 06/29/2022 ANNUAL PCP TEAM CHRONIC DISEASE VISIT due on 06/29/2022 PROSTATE CANCER SCREENING DISCUSSION due on 06/29/2026 COLORECTAL CANCER SCREENING due on 02/19/2029 DTAP,TDAP,TD(4 - Td or Tdap) due on 11/07/2030 HEPATITIS C SCREENING Completed HIV SCREENING Discontinued Data reviewed None ASSESSMENT/PLAN: 1. Type 2 diabetes mellitus without complication, with long-term current use of insulin (HCC) - ICD9: 250.00, V58.67, ICD10: E11.9, Z79.4 (primary diagnosis) Determine upon lab results Continue current medications. 2. Need for vaccination - ICD9: V05.9, ICD10: Z23 - PNEUMOCOCCAL VACCINE (PREVNAR 20) - [employer] COVID-19 BIVALENT BOOSTER VACCINE, AGE 12+ YR 3. History of GI bleed - ICD9: V12.79, ICD10: Z87.19 Check labs Continue current medications. Consult Gastro-Dr. Gregg - FERROUS SULFATE 325 MG (65 MG IRON) TABLET 4. GERD without esophagitis - ICD9: 530.81, ICD10: K21.9 - stable Continue current medications. - PANTOPRAZOLE 40 MG TABLET,DELAYED RELEASE 5. Hyperlipidemia, mixed - ICD9: 272.2, ICD10: E78.2 - good control - Continue current medication. - Encouraged following a low fat, low cholesterol diet. - Discussed the benefits of regular aerobic exercise and weight loss. 6. Hypothyroidism, acquired - ICD9: 244.9, ICD10: E03.9 - Instructed patient on importance of taking on an empty stomach either first thing in the morning or at bedtime. Continue current medications. 7. Generalized anxiety disorder - ICD9: 300.02, ICD10: F41.1 Controlled Continue current medications. Follow up determined upon lab results. Will notify of labs. FMLA forms will be completed and faxed to [employer] at [phone]. I agree with the Chief Complaint, ROS, and Past Histories independently gathered by the clinical learning support services director and the remaining scribed note accurately describes my personal service to the patient. Medical Decision Making: Problems: Moderate: 1+ chronic illnesses with change and 2+ stable chronic illnesses Data: Unique test(s) ordered: 3+ Risk: Moderate: Drug management Medical Decision Making Level: 4 - Moderate Pamela Green MD The documentation for this note was completed by Ligia Mead Ma acting as scribe for Pamela Green MD. May 04, 2022 8:12 AM. Ligia Mead Ma documented in this encounter [facility] 01-12-2022 Miscellaneous Notes Formattin g of this note is different from the original. Patient has been identified by name and date of : Yes Last office visit in this department: 06/29/2021 Labs-06/29/21 NOV-none RX INSTRUCTIONS: Patient aware RX will be sent to pharmacy. No need to notify patient. Patient phones requesting refills as follows: Requested Prescriptions Pending Prescriptions Disp Refills lisinopril (ZESTRIL, PRINIVIL) 10 mg tablet 30 tablet 11 Sig: Take 1 tablet by mouth once daily. metFORMIN ER (GLUCOPHAGE XR) 500 mg 24 hr tablet 120 tablet 11 Sig: Take 2 tablets by mouth twice daily. Please review and advise. Sally Doll documented in this encounter [facility] 11-24-2021 Miscellaneous Notes Formattin g of this note might be different from the original. Patient was calling for a refill, this is has already been filled , this is a duplicate request on the Paoxetine, please disregard Electronically signed by [facility]ice [facility] 11/24/2021 1:17 PM EDT documented in this encounter [facility] 11-23-2021 Miscellaneous Notes Formattin g of this note might be different from the original. OK to refill as ordered Pamela Green MD documented in this encounter [facility] 09-02-2021 Miscellaneous Notes Formattin g of this note is different from the original. The following approved medication requests have been transmitted electronically. Pending Prescriptions Disp Refills FERROUS SULFATE 325 MG (65 MG IRON) TABLET 60 tablet 5 Sig: Take 1 tablet by mouth twice daily with meals. CARTER: No Erika Marquez APRN.CNP Patient has been identified by name and date of : Yes Patient phones for refill(s): Pending Prescriptions Disp Refills FERROUS SULFATE 325 MG (65 MG IRON) TABLET 60 tablet 5 Sig: Take 1 tablet by mouth twice daily with meals. CARTER: No Date of last office visit in primary care: 06/29/21 Last 2 Encounter Wt Readings: Date: Wt: 06/29/2021 79.7 kg (175 lb 11.2 oz) 01/30/2021 75.3 kg (166 lb) Previous labs/tests for medication: Not applicable Please advise. Thank you. Kiah Castellano LPN Patient has been identified by name and date of : Yes Patient phones for refill(s): No medications selected for refill. Date of last office visit in primary care: 06/29/2021 Last 2 Encounter Wt Readings: Date: Wt: 06/29/2021 79.7 kg (175 lb 11.2 oz) 01/30/2021 75.3 kg (166 lb) Previous labs/tests for medication: Not applicable Please advise. Thank you. Kala Rosario documented in this encounter [facility] 07-03-2021 Miscellaneous Notes Patient notified of results and provider's instructions. Patient verbalizes understanding. Susan Hernandez RN Message left for pt to call back for results. Ligia Mead MA Tried calling pt but number did not ring or dial out. Will try calling again later. Rosa Pete Ma Please notify patient that his lab results all look good, except his thyroid test is just off a little. It looks like he should have a higher dose of thyroid medicine, so I would like to increase his Levoxyl to 100 mcg daily. I would also like to decrease he glimepiride to 2 mg daily, since his sugar is well controlled. Follow up with labs and office visit in 6 months as planned Pamela Green MD documented in this encounter [facility] 06-29-2021 History of Presen t illness Narrative Chief Complaint Patient presents with: Follow Up HPI Iftikhar Hess is a 65 year old male who presents here today for follow up. FMLA paperwork recently completed for pt. He is still working. Didn't make his last appt due to work being short staffed and he needed to work over. Chews tobacco, has decreased usage. No bowel, Gi, or urinary issues. GERD: Controlled with Protonix 40 mg daily. DM: Taking Metformin 500 mg 2 pills BID, Amaryl 4 mg daily. Denies any hypoglycemic episodes, no neuropathy sx. Does check BS occ, not as much as he should. Unable to recall any recent readings. He has not had an eye exam in some time. Stated he will get his eyes checked at [facility]. Lipid/CAD: Taking Lipitor 80 mg daily and Brilinta 90 mg BID. Depression/JAZZY: Taking Paxil 30 mg daily, stable. HTN:Taking Lisinopril 10 mg daily. Does not check BP at home, no chest pains, dizziness, or SOB. Thyroid: Taking Levoxyl 75 mcg daily. Denies missing any dosages. Pain: left arm from upper arm down to the forearm, tenderness with bending, the pain seems to be doing better today, he states swelling has improved. Thinks he has just over used it at work. Past medical history, appointments, medications, allergies reviewed. Previous Medical History PAST MEDICAL HISTORY Diagnosis Date Anemia, unspecified 01/2019 Diabetes mellitus without mention of complication 2001? Diabetes mellitus - TYPE II Generalized anxiety disorder 1991 Anxiety, Generalized Hyperlipidemia 09/14/2015 Mixed hyperlipidemia 2001? Hyperlipidemia Other and unspecified disc disorder of unspecified region Intervertebral disc disorders-DEGEN. DISK DX. Previous Surgical History PAST SURGICAL HISTORY Procedure Laterality Date COLONOSCOP W/ OR W/O [facility] SPEC 02/19/2019 EGD W/O [email or web address] SPECIMEN W/BX 02/19/2019 REMOVAL OF TONSILS,<14 Y/O 4 Tonsillectomy REPAIR ING HERNIA,5+Y/O,REDUCIBL 10 Hernia repair, inguinal Family History FAMILY HISTORY Problem Relation Age of Onset Hypertension Mother Heart Mother Diabetes Maternal Grandmother Patient Allergies ALLERGIES Allergen Reactions Nsaids (Non-Steroid* Other: See Comments GI bleed Current Medications Current Outpatient Medications on File Prior to Visit Medication Sig cyclobenzaprine (FLEXERIL) 10 mg tablet Take 1 tablet by mouth three times daily as needed for muscle spasm. metFORMIN ER (GLUCOPHAGE XR) 500 mg 24 hr tablet Take 2 tablets by mouth twice daily ferrous sulfate 325 mg (65 mg iron) tablet Take 1 tablet by mouth twice daily with meals. ticagrelor (BRILINTA) 90 mg tablet Take 1 tablet by mouth twice daily. PARoxetine (PAXIL) 30 mg tablet Take 1 tablet by mouth once daily. glimepiride (AMARYL) 4 mg tablet Take 1 tablet by mouth daily with breakfast. nitroglycerin sublingual (NITROSTAT) 0.4 mg SL tablet Dissolve 1 tablet under the tongue every 5 minutes as needed for chest pain. lisinopril (ZESTRIL, PRINIVIL) 10 mg tablet Take 1 tablet by mouth once daily. pantoprazole DR (PROTONIX) 40 mg tablet Take 1 tablet by mouth daily before breakfast. Take on empty stomach, 1/2 hr before meal. levothyroxine (LEVOXYL) 75 mcg tablet Take 1 tablet by mouth once daily. Take on empty stomach. For thyroid. atorvastatin (LIPITOR) 80 mg tablet TAKE ONE TABLET BY MOUTH ONCE DAILY FOR CHOLESTEROL blood sugar diagnostic (ImagekindTOUCH ULTRA TEST) test strip Use with One Touch Ultra 3-4 times daily and as needed aspirin, enteric coated (ASPIR-LOW) 81 mg EC tablet Take 1 tablet by mouth once daily. lancets(ONE TOUCH ULTRASOFT LANCETS) Use with One Touch Ultra Glucometer THERAPEUTIC MULTIVITAMIN TAB Take one(1) tablet daily. No current facility-administered medications on file prior to visit. Social History Social History Tobacco Use Smoking status: Former Smoker Types: Pipe Smokeless tobacco: Current User Types: Snuff Tobacco comment: Pipe smoker for about 10 years-quit 1984 Vaping Use Vaping Use: Never used Substance Use Topics Alcohol use: No Drug use: No EXAM: BP 124/74 Pulse 74 Resp 16 Wt 79.7 kg (175 lb 11.2 oz) General Appearance: Well appearing, alert, in no acute distress, well-hydrated, well nourished. and Overweight. Lungs: Lungs clear to auscultation. No wheezing, rhonchi, rales.. Heart: RRR without murmur, gallop, or rubs. No ectopy. Health Maintenance List SHINGRIX VACCINE(1 of 2) Never done DILATED RETINAL EXAM due on 01/29/2013 URINE ALBUMIN:CREATININE RATIO due on 04/19/2019 HBA1C due on 07/30/2021 LDL CHOLESTEROL due on 11/05/2021 DIABETIC FOOT EXAM due on 11/07/2021 DEPRESSION SCREENING due on 11/07/2021 ANNUAL PCP TEAM CHRONIC DISEASE VISIT due on 01/30/2022 PROSTATE CANCER SCREENING DISCUSSION due on 11/07/2025 COLORECTAL CANCER SCREENING due on 02/19/2029 DTAP,TDAP,TD(4 - Td or Tdap) due on 11/07/2030 ONE PNEUMOVAX PRIOR TO AGE 65 Completed INFLUENZA Completed HEPATITIS C SCREENING Completed COVID-19 VACCINE Completed MENINGOCOCCAL CONJUGATE Aged Out HIV SCREENING Discontinued Data reviewed None ASSESSMENT/PLAN: 1. Type 2 diabetes mellitus without complication, with long-term current use of insulin (HCC) - ICD9: 250.00, V58.67, ICD10: E11.9, Z79.4 (primary diagnosis) Determine upon lab results. Continue current medications. 2. Acute ST elevation myocardial infarction (STEMI) involving left main coronary artery (HCC) - ICD9: 410.10, ICD10: I21.01 Continue current medications. - NITROGLYCERIN 0.4 MG SUBLINGUAL TABLET 3. Hyperlipidemia, mixed - ICD9: 272.2, ICD10: E78.2 - to be determined upon return of lab results - Continue current medication. - Encouraged following a low fat, low cholesterol diet. - Discussed the benefits of regular aerobic exercise and weight loss. 4. Hypothyroidism, acquired - ICD9: 244.9, ICD10: E03.9 - Instructed patient on importance of taking on an empty stomach either first thing in the morning or at bedtime. Continue current medications. 5. Generalized anxiety disorder - ICD9: 300.02, ICD10: F41.1 Stable. Continue current medications. 6. Screening PSA (prostate specific antigen) - ICD9: V76.44, ICD10: Z12.5 - Counseled on healthy diet and regular exercise - Discussed need for and benefit of weight loss. BMI 26.52 kg/(m^2) - Risks/benefits of prostate cancer screening discussed. screening PSA ordered Follow up in 6 months. Will call with lab results; if A1c low may decrease glimepiride. I agree with the Chief Complaint, ROS, and Past Histories independently gathered by the clinical learning support services director and the remaining scribed note accurately describes my personal service to the patient. Medical Decision Making: Problems: Moderate: 2+ stable chronic illnesses Data: Unique test(s) ordered: 3+ Risk: Moderate: Drug management Medical Decision Making Level: 4 - Moderate Pamela Green MD The documentation for this note was completed by Ligia Mead Ma acting as scribe for Pamela Green MD. June 29, 2021 8:41 AM. Ligia Mead Ma documented in this encounter [facility] 06-22-2021 Miscellaneous Notes OK to refill as ordered Pamela Green MD Last OV: 01/30/21 Next OV:no showed 05/08/21 appt, cancelled 05/30/21 appt. Currently no appt scheduled. Last Rx: 11/07/20 #60 w/5. Rosa Pete Ma documented in this encounter [facility] Diagnosis Type 2 diabetes mellitus without complication, with long-term current use of insulin (HCC)- Primary Acute ST elevation myocardial infarction (STEMI) involving left main coronary artery (HCC) Hyperlipidemia, mixed Mixed hyperlipidemia Hypothyroidism, acquired Unspecified hypothyroidism Generalized anxiety disorder Screening PSA (prostate specific antigen) Special screening for malignant neoplasm of prostate [facility] Diagnosis Hyperlipidemia, mixed- Primary Mixed hyperlipidemia Type 2 diabetes mellitus without complication, with long-term current use of insulin (HCC) Hypothyroidism, acquired Unspecified hypothyroidism [facility] Diagnosis Type 2 diabetes mellitus without complication, with long-term current use of insulin (HCC) [facility] Diagnosis Type 2 diabetes mellitus without complication, with long-term current use of insulin (HCC) [facility]* Diagnosis Hypertension, essential Unspecified essential hypertension Type 2 diabetes mellitus without complication, with long-term current use of insulin (HCC) documented in this encounter [facility] note* Diagnosis Type 2 diabetes mellitus without complication, with long-term current use of insulin (HCC)- Primary Need for vaccination Need for prophylactic vaccination and inoculation against unspecified single disease History of GI bleed Personal history of other diseases of digestive system GERD without esophagitis Esophageal reflux Hyperlipidemia, mixed Mixed hyperlipidemia Hypothyroidism, acquired Unspecified hypothyroidism Generalized anxiety disorder [facility] Diagnosis History of GI bleed Personal history of other diseases of digestive system documented in this encounter [facility] note* Diagnosis Type 2 diabetes mellitus without complication, with long-term current use of insulin (HCC) [facility]* Diagnosis Acute ST elevation myocardial infarction (STEMI) involving left main coronary artery (HCC) Hypertension, essential Unspecified essential hypertension [facility]* Diagnosis Type 2 diabetes mellitus without complication, with long-term current use of insulin (HCC) [facility]* Diagnosis Hyperlipidemia, mixed- Primary Mixed hyperlipidemia History of GI bleed Personal history of other diseases of digestive system Type 2 diabetes mellitus without complication, with long-term current use of insulin (HCC) Hypothyroidism, acquired Unspecified hypothyroidism documented in this encounter [facility] Reason for Referral Specialty Diagnoses / Procedures Referred By Lucille t Referred To Contact Ophthalmology Diagnoses Type 2 diabetes mellitus without complication, with long-term current use of insulin (HCC) Procedures CONSULT TO OPHTHALMOLOGY OFFICE/OUTPATIENT [facility] 60-74 MINUTES Pamela Green MD [address] [place] [address] Referral ID Status Reason Start Date Expiration Date Visits Requested Visits Authorized [id number] Authorized PCP Requested Referral 05/04/2022 05/04/2023 1 1 Specialty Diagnoses / Procedures Referred By Contac t Referred To Contact Gastroenterology Diagnoses History of GI bleed Procedures CONSULT TO GASTROENTEROLOGY OFFICE/OUTPATIENT [facility] 60-74 MINUTES Pamela Green MD [address] [place] [address] Referral ID Status Reason Start Date Expiration Date Visits Requested Visits Authorized [id number] Authorized PCP Requested Referral 05/04/2022 05/04/2023 1 1 Summary Purpose Family History No Family History Records Found Advance Directives No Advanced Directives Records Found Additional Source Comments Source Comments (unrecognize d section and content) In the event this informatio n is protected by the Federal Confidentiality of Alcohol and Drug Abuse Patient Records regulations: The Federal rules restrict any use of the information to criminally investigate or prosecute any alcohol or drug abuse patient.[facility] event this information is protected by the Federal Confidentiality of Alcohol and Drug Abuse Patient Records regulations: The Federal rules restrict any use of the information to criminally investigate or prosecute any alcohol or drug abuse patient.[facility] the event this information is protected by the Federal Confidentiality of Alcohol and Drug Abuse Patient Records regulations: The Federal rules restrict any use of the information to criminally investigate or prosecute any alcohol or drug abuse patient.[facility] the event this information is protected by the Federal Confidentiality of Alcohol and Drug Abuse Patient Records regulations: The Federal rules restrict any use of the information to criminally investigate or prosecute any alcohol or drug abuse patient.[facility] the event this information is protected by the Federal Confidentiality of Alcohol and Drug Abuse Patient Records regulations: The Federal rules restrict any use of the information to criminally investigate or prosecute any alcohol or drug abuse patient.[facility] the event this information is protected by the Federal Confidentiality of Alcohol and Drug Abuse Patient Records regulations: The Federal rules restrict any use of the information to criminally investigate or prosecute any alcohol or drug abuse patient.[facility] the event this information is protected by the Federal Confidentiality of Alcohol and Drug Abuse Patient Records regulations: The Federal rules restrict any use of the information to criminally investigate or prosecute any alcohol or drug abuse patient.[facility] the event this information is protected by the Federal Confidentiality of Alcohol and Drug Abuse Patient Records regulations: The Federal rules restrict any use of the information to criminally investigate or prosecute any alcohol or drug abuse patient.[facility] the event this information is protected by the Federal Confidentiality of Alcohol and Drug Abuse Patient Records regulations: The Federal rules restrict any use of the information to criminally investigate or prosecute any alcohol or drug abuse patient.[facility] the event this information is protected by the Federal Confidentiality of Alcohol and Drug Abuse Patient Records regulations: The Federal rules restrict any use of the information to criminally investigate or prosecute any alcohol or drug abuse patient.[facility] CenterIn the event this information is protected by the Federal Confidentiality of Alcohol and Drug Abuse Patient Records regulations: The Federal rules restrict any use of the information to criminally investigate or prosecute any alcohol or drug abuse patient.[facility] CenterIn the event this information is protected by the Federal Confidentiality of Alcohol and Drug Abuse Patient Records regulations: The Federal rules restrict any use of the information to criminally investigate or prosecute any alcohol or drug abuse patient.[facility] Center[facility] the event this information is protected by the Federal Confidentiality of Alcohol and Drug Abuse Patient Records regulations: The Federal rules restrict any use of the information to criminally investigate or prosecute any alcohol or drug abuse patient.[facility] Center[facility] the event this information is protected by the Federal Confidentiality of Alcohol and Drug Abuse Patient Records regulations: The Federal rules restrict any use of the information to criminally investigate or prosecute any alcohol or drug abuse patient.[facility] Reason for Visit (unrecogniz ed section and content) Reason Comments Follow Up Reason Comments Results Reason Comments Refill Request Reason Comments duplicate refill request, disregard plea se Reason Comments Follow Up Medication follow up Reason Comments Patient Update Reason Onset Date Comments Refill Request 09/01/2021 Reason Comments Medication Question Reason Onset Date Comments Refill Request 06/09/2022 Reason Onset Date Comments Refill Request 02/12/2023 Reason Onset Date Comments Refill Request 05/09/2023 Care Teams (unrecognized sec tion and content) Campus Rep Relationship Specialty Start Date End Date Pamela Green MD [address] [facility] [place] [address] PCP - General 03/19/09 Campus Rep Relationship Specialty Start Date End Date Pamela Green MD [address] [facility] [place] [address] PCP - General 03/19/09 Campus Rep Relationship Specialty Start Date End Date Pamela Green MD [address] [facility] [place] [address] PCP - General 03/19/09 Campus Rep Relationship Specialty Start Date End Date Pamela Green MD [address] [facility] [place] [address] PCP - General 03/19/09 Campus Rep Relationship Specialty Start Date End Date Pamela Green MD [address] [facility] [place] [address] PCP - General 03/19/09 Campus Rep Relationship Specialty Start Date End Date Pamela Green MD [address] [facility] [place] [address] PCP - General 03/19/09 Campus Rep Relationship Specialty Start Date End Date Pamela Green MD [address] [facility] [place] [address] PCP - General 03/19/09 Campus Rep Relationship Specialty Start Date End Date Pamela Green MD [address] [facility] [place] [address] PCP - General 03/19/09 Campus Rep Relationship Specialty Start Date End Date Pamela Green MD [address] [place] [address] PCP - General 03/19/09 Campus Rep Relationship Specialty Start Date End Date Pamela Green MD [address] [place], [place] [address] PCP - General 03/19/09 (unrecognized sect ion and content) No Status Records Found INFORMATION SOURCE (unrecogn ized section and content) FOR RECORDS PERTAINING TO PATIENTS WHO ARE OR HAVE BEEN ENROLLED IN A CHEMICAL DEPENDENCY/SUBSTANCEABUSE PROGRAM, SOME INFORMATION MAY BE OMITTED. This clinical summary was aggregated from multiple sources. Caution should be exercised in using it in the provision of clinical care. This summary normalizes information from multiple sources, and as a consequence, information in this document may materially change the coding, format and clinical context of patient data. In addition, data may be omitted in some cases. CLINICAL DECISIONS SHOULD BE BASED ON THE PRIMARY CLINICAL RECORDS. [facility] [employer] provides no warranty or guarantee of the accuracy or completeness of information in this document.
--- OUTSIDE RECORDS SUMMARY | 2023-05-10 20:38 | XMS RPT_ITS | CCD ---
Author Name Unknown Address [address] [place] [address] Organization [facility] Care Team Providers Care Travel Consultant Name Role Phone Kimmie BADILLO, Kala Martin [...] DRUG)] Drug Intolerance 0 Other: See Comments [facility] (11 sources) Non-steroidal anti-inflammato ry agent Drug Intolerance 0 Other: See Comments [facility] Medications Completed/Discontinued Medications Medication Drug Class(es) Dates [...] infarction ; Translations: [Atherosclerotic heart disease of [place] coronary artery without angina pectoris] Onset: 6 [...] Unclassified (1 source) Drug therapy finding; Translations: [shelter (current) use of antithrombotics/antipl atelets] Onset: 6 09-24-2015 Unclassified (1 source) Placement of stent in coronary artery ; Translations: [Presence of coronary angioplasty implant and graft] Onset: 6 09-24-2015 Past or Other Problems Problem Classification Problem Date Documented Da te Episodic/Chronic Other aftercare (1 source) Other [facility] (current) drug therapy; Translations: [Other [facility] (current) drug therapy] Onset: 09-24-2015 09-24-2015 Episodic Other aftercare (1 source) shelter (current) use of insulin; Translations: [Type 2 diabetes mellitus without complication, with long-term current use of insulin (HCC)] Onset: 09-14-2015 Episodic Results Test Name Value Interpretation Reference Range Facil ity Vital Signs Date Time Vital Sign Value Performing Clinician Lexie ashley 05-04-2022 08:18-0500 Body weight 78.52 kg Pamela Green MD Work Phone: [facility] 05-04-2022 08:18-0500 Diastolic blood pressure 70 mm[Hg] Pamela Green MD Work Phone: [facility] 05-04-2022 08:18-0500 Heart rate 70 /min Pamela Green MD Work Phone: [facility] 05-04-2022 08:18-0500 Respiratory rate 16 /min Pamela Green MD Work Phone: [facility] 05-04-2022 08:18-0500 Systolic blood pressure 120 mm[Hg] Pamela Green MD Work Phone: [facility] 06-29-2021 08:38-0400 Body weight 79.7 kg Pamela Green MD Work Phone: [facility] 06-29-2021 08:38-0400 Diastolic blood pressure 74 mm[Hg] Pamela Green MD Work Phone: [facility] 06-29-2021 08:38-0400 Heart rate 74 /min Pamela Green MD Work Phone: [facility] 06-29-2021 08:38-0400 Respiratory rate 16 /min Pamela Green MD Work Phone: [facility] 06-29-2021 08:38-0400 Systolic blood pressure 124 mm[Hg] Pamela Green MD Work Phone: [facility] 03-08-2016 15:31-0500 BMI (Body Mass Index) 24.57 kg/m2 [facility] [employer] Work Phone: 03-08-2016 15:31-0500 BP Diastolic 68 mm[Hg] Kala Bursk RN [facility] Work Phone: 03-08-2016 15:31-0500 BP Systolic 130 mm[Hg] Kala Burks RN [facility] Work Phone: 03-08-2016 15:31-0500 BSA (Body Surface Area) 1.91 m2 Kala Burks RN [facility] Work Phone: 03-08-2016 15:31-0500 Pulse (Heart Rate) 68 /min Kala Burks RN [facility] Work Phone: 03-08-2016 15:31-0500 Respiratory Rate 18 /min Kala Burks RN [facility] Work Phone: 03-08-2016 15:31-0500 Weight 75.48 kg Kala Burks RN [facility] Work Phone: 09-28-2015 11:03-0400 Height 175.26 cm Kala Burks RN [facility] Work Phone: Encounters Encounter Date Encounter Type Care Provider Facility Start: 05-09-2023 Refill Pamela hernandez MD Work Phone: [facility] [place] Procedures Date Procedure Procedure Detail Performing Clinician Start: 05-04-2022 PFIZER-BIONTECH COVI D-19 BIVALENT BOOSTER VACCINE, AGE 12+ YR Pamela Green MD Work Phone: Start: 11-07-2020 Adult depression scr eening assessment Pamela Green MD Work Phone: Start: 02-19-2019 Colonoscopy Pamela short MD Work Phone: Start: 03-08-2016 End: 03-08-2016 POWER REACTOR OPERATOR Nellie Knox PA-C Work Phone: Start: 03-08-2016 End: 03-08-2016 Follow Up Appt 6 months Nellie olivares PA-C Work Phone: Start: 12-06-2015 End: 12-06-2015 Follow Up Appt 3 months [facility] Start: 12-06-2015 End: 12-06-2015 MMM Thierry Baeza MD Start: 09-28-2015 End: 10-10-2015 *Hepatic Function Panel [facility] Start: 09-28-2015 End: 02-27-2016 POWER REACTOR OPERATOR Thierry Baeza MD Start: 09-28-2015 End: 10-10-2015 Echocardiography Thierry Baeza MD Start: 09-28-2015 End: 02-27-2016 Electrocardiogram, complete Thierry Fernandes i, MD Start: 09-28-2015 End: 02-27-2016 Follow Up Appt 2 months [facility] Start: 09-28-2015 End: 10-10-2015 Lipid panel [AGGREGATE] [facility] Start: 09-28-2015 End: 09-29-2015 Referral to maxillofacial prosthetics dentist Thierry Baeza MD Plan of Treatment Date Care Activity Detail Author Start: 11-07-2030 Urine microalbumin profile [facility] Start: 02-19-2029 Colonoscopy COLONOSCOPY [facility] Start: 02-19-2029 COLORECTAL CANCER SCREENING COLORECTAL CANCER SCREENING [facility] Start: 02-19-2029 Screening for malignant neoplasm of colon [facility] Start: 06-29-2026 PROSTATE CANCER SCREENING DISCUSSION PROSTATE CANCER SCREENING DISCUSSION [facility] Start: 06-29-2026 Prostate specific antigen measurement Prostate Cancer Screening Discussion [facility] Start: 11-07-2025 PROSTATE CANCER SCREENING DISCUSSION PROSTATE CANCER SCREENING DISCUSSION [facility] Start: 05-09-2023 End: 08-08-2023 ALBUMIN/CREAT RATIO RND UR ALBUMIN/CREAT RATIO RND UR Lab Routine Type 2 diabetes mellitus without complication, with long-term current use of insulin (HCC) Expected: 05/09/2023 (Approximate), Expires: 08/08/2023 [facility] Work Phone: Immunizations Immunization Date Immunization Notes Care Provider Fa cility 05-04-2022 COVID-19 booster vaccine, age 12+ yr, bivalent (PFIZER-BIONTECH) Pamela Green MD Work Phone: [facility] 05-04-2022 pneumococcal (PCV20) vaccine, 20 valent (PREVNAR 20) Pamela Green MD Work Phone: [facility] 05-04-2022 pneumococcal Conjuga te, unspecified formulation Pamela Green MD Work Phone: [facility] Work Phone: 11-23-2021 influenza, seasonal, injectable Pamela Green MD Work Phone: [facility] 11-23-2021 influenza virus vaccine, unspecified formulation Pamela Green MD Work Phone: [facility] 03-30-2021 COVID-19 vaccine, ag e 12+ yr (PFIZER-BIONTECH - PURPLE TOP) Pamela Green MD Work Phone: [facility] 12-29-2020 influenza, seasonal, injectable Paemla Green MD Work Phone: [facility] 11-07-2020 tetanus toxoid, redu nessa diphtheria toxoid, and acellular pertussis vaccine, adsorbed Pamela Green MD Work Phone: [facility] 12-18-2018 influenza, seasonal, injectable Pamela Green MD Work Phone: [facility] 12-24-2016 influenza, injectabl e, quadrivalent, contains preservative Pamela Green MD Work Phone: [facility] 12-13-2011 influenza virus vaccine, unspecified formulation Pamela Green MD Work Phone: [facility] 01-20-2011 pneumococcal polysaccharide vaccine, 23 valent Pamela Green MD Work Phone: [facility] Work Phone: 05-08-2008 tetanus toxoid, redu nessa diphtheria toxoid, and acellular pertussis vaccine, adsorbed Pamela Green MD Work Phone: [facility] 03-25-1994 diphtheria and tetan us toxoids, adsorbed for pediatric use Pamela Green MD Work Phone: [facility] Work Phone: Payers Date Payer Category Payer Unknown MMO MMO [employer] [id number] 2018-Present [phone] [address] [place] [address] PPO [id number] 2018 Unknown [id number] 2018 Unknown [id number] Social History Date Type Detail Facility Start: 03-05-2012 End: 05-04-2022 Tobacco smoking status NHIS Ex-smoker [facility] History of tobacco use Pipe Smoker [facility] Start: 03-05-2012 End: 05-04-2022 Tobacco use and exposure User of smokeless tobacco [facility] History of tobacco use Snuff User [facility] Start: 01-30-2021 End: 05-04-2022 Alcohol intake Current non-drinker of alcohol (finding) [facility] Start: 03-05-2012 End: 05-04-2022 Tobacco Comment Pipe smoker for about 10 years-quit 1985 [facility] Start: 1955 Sex Assigned At Not on file [facility] Start: 06-19-2021 End: 06-29-2021 Exposure to SARS-CoV-2 (event) Not sure [facility] History of tobacco use Current smoker [facility] Start: 05-04-2022 End: 05-24-2022 History of Social function [facility] Work Phone: Start: 05-04-2022 End: 05-24-2022 Tobacco use panel [facility] Work Phone: Adult Depression Screening Assessment 0 [facility] Work Phone: Medical Equipment Procedure Code Equipment [...] you. Karen Short. documented in this encounter [facility] 02-12-2023 Miscellaneous Notes Formattin g of this [...] patient. Karen Short documented in this encounter [facility] 07-18-2022 Miscellaneous Notes Formattin g of this [...] Bernice Herman [employer] documented in this encounter [facility] 07-12-2022 Miscellaneous Notes Formattin g of this note might be different from the original. Called and left detailed message on secure VM with information below. If any questions to contact the office and speak with Triage Nurse. Rosa Pete Ma Yes, he may hold the Brilinta and ASA starting today Pamela Green MD KASANDRA Haynes @ [facility] Pre Admission Testing calling on behalf of patient to let PCP know patient is scheduled for upper and lower endoscopy by Dr. Gregg @ [facility] on Sunday 07/16. She is asking if okay for patient to hold Brilinta and ASA prior to procedure starting today? Please call her back @ [phone]. May leave message. She says she will contact patient. Maira De Anda RN documented in this encounter [facility] 06-11-2022 Miscellaneous Notes Formattin g of this [...] advise. Jeri Martin documented in this encounter [facility] 05-15-2022 Miscellaneous Notes Formattin g of this note might be different from the original. Noted Pamela Green MD Pt went into [facility] ED on 05/05/22. Nothing received for discharge, will continue to watch for hospital paperwork. Rosa Pete Ma Please contact patient and see if he went to the ER last week as recommended. He should have fololw up for his low hemoglobin and for his elevated glucose and A1c. Pamela Green MD documented in this encounter [facility] 05-04-2022 Note HNO ID: [id number] Author: Pamela Green MD Service: ? Author [...] forms will be completed and faxed to [employer] at [phone]. Chewing tobacco. No bowel, Gi, or urinary issues. GERD: Sx controlled on Protonix 40 mg daily. He states he has been without this medication for some time and the reflux has been bothering him. [place]: Taking Iron 65 mg BID. He feels his blood count might be down again, he feels light headed, weak, feels like he is going to pass out. States that when he stands up he gets light headed, SOB, start having neck and shoulder pain. States his sx started yesterday. He has had this happen in the past; he was admitted to [facility] 02/12 with pneumonia and Hgb at 8.2, [...] occ at home. Eye exams done at [facility]. He had his BS checked yesterday by [...] ONCE DAILY FOR CHOLESTEROL blood sugar diagnostic (Souche ULTRA TEST) test strip Use with [facility] 3-4 times daily and as needed aspirin, enteric coated (ASPIR-LOW) 81 mg EC tablet Take 1 tablet by mouth once daily. lancets(ONE TOUCH ULTRASOFT LANCETS) Use with One Touch Ultra Glucometer THERAPEUTIC MULTIVITAMIN TAB Take one(1) tablet daily. No current facility-administered medications on file prior to visit. Social History Social History Tobacco Use Smoking status: Former Types: Pi (more content not included)... [facility] 05-04-2022 History of Presen t illness [...] forms will be completed and faxed to [employer] at [phone]. Chewing tobacco. No bowel, Gi, or urinary issues. GERD: Sx controlled on Protonix 40 mg daily. He states he has been without this medication for some time and the reflux has been bothering him. [place]: Taking Iron 65 mg BID. He feels his blood count might be down again, he feels light headed, weak, feels like he is going to pass out. States that when he stands up he gets light headed, SOB, start having neck and shoulder pain. States his sx started yesterday. He has had this happen in the past; he was admitted to [facility] 02/12 with pneumonia and Hgb at 8.2, [...] occ at home. Eye exams done at [facility]. He had his BS checked yesterday by [...] ONCE DAILY FOR CHOLESTEROL blood sugar diagnostic (BrandProjectTOUCH ULTRA TEST) test strip Use with One [...] Z23 - PNEUMOCOCCAL VACCINE (PREVNAR 20) - [employer] COVID-19 BIVALENT BOOSTER VACCINE, AGE 12+ YR [...] forms will be completed and faxed to [employer] at [phone]. I agree with the Chief Complaint, ROS, and Past Histories independently gathered by the clinical network support administrator and the remaining scribed note accurately describes [...] Ligia Mead Ma documented in this encounter [facility] 01-12-2022 Miscellaneous Notes Formattin g of this [...] advise. Sally Doll documented in this encounter [facility] 11-24-2021 Miscellaneous Notes Formattin g of this note might be different from the original. Patient was calling for a refill, this is has already been filled , this is a duplicate request on the Paoxetine, please disregard Electronically signed by Bernice [facility] at 11/24/2021 1:17 PM EDT documented in this encounter [facility] 11-23-2021 Miscellaneous Notes Formattin g of this note might be different from the original. OK to refill as ordered Pamela Green MD documented in this encounter [facility] 09-02-2021 Miscellaneous Notes Formattin g of this [...] you. Kala Rosario documented in this encounter [facility] 07-03-2021 Miscellaneous Notes Patient notified of results [...] Pamela Green MD documented in this encounter [facility] 06-29-2021 History of Presen t illness Narrative [...] he will get his eyes checked at [facility]. Lipid/CAD: Taking Lipitor 80 mg daily and [...] OR W/O [facility] SPEC 02/19/2019 EGD W/O [facility] SPECIMEN W/BX 02/19/2019 REMOVAL OF TONSILS,<12 Y/O [...] ONCE DAILY FOR CHOLESTEROL blood sugar diagnostic (BrandProjectTOUCH ULTRA TEST) test strip Use with One [...] Past Histories independently gathered by the clinical network support administrator and the remaining scribed note accurately describes [...] Ligia Mead Ma documented in this encounter [facility] 06-22-2021 Miscellaneous Notes OK to refill as ordered Pamela Green MD Last OV: 01/30/21 Next OV:no showed 05/08/21 appt, cancelled 05/30/21 appt. Currently no appt scheduled. Last Rx: 11/07/20 #60 w/5. Rosa Pete Ma documented in this encounter [facility] Diagnosis Type 2 diabetes mellitus without complication, with long-term current use of insulin (HCC)- Primary Acute ST elevation myocardial infarction (STEMI) involving left main coronary artery (HCC) Hyperlipidemia, mixed Mixed hyperlipidemia Hypothyroidism, acquired Unspecified hypothyroidism Generalized anxiety disorder Screening PSA (prostate specific antigen) Special screening for malignant neoplasm of prostate [facility] Diagnosis Hyperlipidemia, mixed- Primary Mixed hyperlipidemia Type 2 diabetes mellitus without complication, with long-term current use of insulin (HCC) Hypothyroidism, acquired Unspecified hypothyroidism [facility] Diagnosis Type 2 diabetes mellitus without complication, with long-term current use of insulin (HCC) [facility] Diagnosis Type 2 diabetes mellitus without complication, with long-term current use of insulin (HCC) [facility]* Diagnosis Hypertension, essential Unspecified essential hypertension Type 2 diabetes mellitus without complication, with long-term current use of insulin (HCC) documented in this encounter [facility] note* Diagnosis Type 2 diabetes mellitus without complication, with long-term current use of insulin (HCC)- Primary Need for vaccination Need for prophylactic vaccination and inoculation against unspecified single disease History of GI bleed Personal history of other diseases of digestive system GERD without esophagitis Esophageal reflux Hyperlipidemia, mixed Mixed hyperlipidemia Hypothyroidism, acquired Unspecified hypothyroidism Generalized anxiety disorder [facility]* Diagnosis History of GI bleed Personal history of other diseases of digestive system documented in this encounter [facility] note* Diagnosis Type 2 diabetes mellitus without complication, with long-term current use of insulin (HCC) [facility]* Diagnosis Acute ST elevation myocardial infarction (STEMI) involving left main coronary artery (HCC) Hypertension, essential Unspecified essential hypertension [facility]* Diagnosis Type 2 diabetes mellitus without complication, with long-term current use of insulin (HCC) [facility]* Diagnosis Hyperlipidemia, mixed- Primary Mixed hyperlipidemia History of GI bleed Personal history of other diseases of digestive system Type 2 diabetes mellitus without complication, with long-term current use of insulin (HCC) Hypothyroidism, acquired Unspecified hypothyroidism documented in this encounter [facility] Reason for Referral Specialty Diagnoses / Procedures Referred By Lucille t Referred To Contact Ophthalmology Diagnoses Type 2 diabetes mellitus without complication, with long-term current use of insulin (HCC) Procedures CONSULT TO OPHTHALMOLOGY OFFICE/OUTPATIENT [facility] 60-74 MINUTES Pamela Green MD [address] [place] [address] Referral ID Status Reason Start Date Expiration Date Visits Requested Visits Authorized [id number] Authorized PCP Requested Referral 05/04/2022 05/04/2023 1 1 Specialty Diagnoses / Procedures Referred By Contac t Referred To Contact Gastroenterology Diagnoses History of GI bleed Procedures CONSULT TO GASTROENTEROLOGY OFFICE/OUTPATIENT [facility] 60-74 MINUTES Pamela Green MD [address] [place] [address] Referral ID Status Reason Start Date Expiration Date Visits Requested Visits Authorized [id number] Authorized PCP Requested Referral 05/04/2022 05/04/2023 1 [...] or prosecute any alcohol or drug abuse patient.[facility] the event this information is protected by the Federal Confidentiality of Alcohol and Drug Abuse Patient Records regulations: The Federal rules restrict any use of the information to criminally investigate or prosecute any alcohol or drug abuse patient.[facility] the event this information is protected by the Federal Confidentiality of Alcohol and Drug Abuse Patient Records regulations: The Federal rules restrict any use of the information to criminally investigate or prosecute any alcohol or drug abuse patient.[facility] the event this information is protected by the Federal Confidentiality of Alcohol and Drug Abuse Patient Records regulations: The Federal rules restrict any use of the information to criminally investigate or prosecute any alcohol or drug abuse patient.[facility] the event this information is protected by the Federal Confidentiality of Alcohol and Drug Abuse Patient Records regulations: The Federal rules restrict any use of the information to criminally investigate or prosecute any alcohol or drug abuse patient.[facility] the event this information is protected by the Federal Confidentiality of Alcohol and Drug Abuse Patient Records regulations: The Federal rules restrict any use of the information to criminally investigate or prosecute any alcohol or drug abuse patient.[facility] the event this information is protected by the Federal Confidentiality of Alcohol and Drug Abuse Patient Records regulations: The Federal rules restrict any use of the information to criminally investigate or prosecute any alcohol or drug abuse patient.[facility] the event this information is protected by the Federal Confidentiality of Alcohol and Drug Abuse Patient Records regulations: The Federal rules restrict any use of the information to criminally investigate or prosecute any alcohol or drug abuse patient.[facility] the event this information is protected by the Federal Confidentiality of Alcohol and Drug Abuse Patient Records regulations: The Federal rules restrict any use of the information to criminally investigate or prosecute any alcohol or drug abuse patient.[facility] HospitalIn the event this information is protected by the Federal Confidentiality of Alcohol and Drug Abuse Patient Records regulations: The Federal rules restrict any use of the information to criminally investigate or prosecute any alcohol or drug abuse patient.[facility] Hospital[facility] the event this information is protected by the Federal Confidentiality of Alcohol and Drug Abuse Patient Records regulations: The Federal rules restrict any use of the information to criminally investigate or prosecute any alcohol or drug abuse patient.[facility] HospitalIn the event this information is protected by the Federal Confidentiality of Alcohol and Drug Abuse Patient Records regulations: The Federal rules restrict any use of the information to criminally investigate or prosecute any alcohol or drug abuse patient.[facility] HospitalIn the event this information is protected by the Federal Confidentiality of Alcohol and Drug Abuse Patient Records regulations: The Federal rules restrict any use of the information to criminally investigate or prosecute any alcohol or drug abuse patient.[facility] Hospital[facility] the event this information is protected by the Federal Confidentiality of Alcohol and Drug Abuse Patient Records regulations: The Federal rules restrict any use of the information to criminally investigate or prosecute any alcohol or drug abuse patient.[facility] Reason for Visit (unrecogniz ed section and [...] Care Teams (unrecognized sec tion and content) Travel Consultant Relationship Specialty Start Date End Date Pamela Green MD [address] [facility] [place] [address] PCP - General 03/19/09 Travel Consultant Relationship Specialty Start Date End Date Pamela Green MD [address] [facility] [place] [address] PCP - General 03/19/09 Travel Consultant Relationship Specialty Start Date End Date Pamela Green MD [address] [facility] [place] [address] PCP - General 03/19/09 Travel Consultant Relationship Specialty Start Date End Date Pamela Green MD [address] [facility] [place] [address] PCP - General 03/19/09 Travel Consultant Relationship Specialty Start Date End Date Pamela Green MD [address] [facility] [place] [address] PCP - General 03/19/09 Travel Consultant Relationship Specialty Start Date End Date Pamela Green MD [address] [facility] [place] [address] PCP - General 03/19/09 Travel Consultant Relationship Specialty Start Date End Date Pamela Green MD [address] [facility] [place] [address] PCP - General 03/19/09 Travel Consultant Relationship Specialty Start Date End Date Pamela Green MD [address] [facility] [place] [address] PCP - General 03/19/09 Travel Consultant Relationship Specialty Start Date End Date Pamela Green MD [address] [place] [address] PCP - General 03/19/09 Travel Consultant Relationship Specialty Start Date End Date Pamela Green MD [address] [place], [place] [id number] PCP - General 03/19/09 (unrecognized sect ion [...] BE BASED ON THE PRIMARY CLINICAL RECORDS. [facility] provides no warranty or guarantee of the accuracy or completeness of information in this document.
[2023-05-10 21:25] VITALS: BMI 23.5
[2023-05-10 21:38] VITALS: BP 137/66; PULSE 84; RESP 18; TEMP 36.8; O2SAT 100
[2023-05-10 22:56] VITALS: BP 111/67; PULSE 78; RESP 15; TEMP 36.6; O2SAT 100
[2023-05-10] MEDS: Bisacodyl 5 MG Tablet 20 MG PO (23:00)
[2023-05-10 23:10] VITALS: BMI 23.5
[2023-05-10 23:11] VITALS: BP 115/67; PULSE 70; RESP 15; TEMP 36.8; O2SAT 98
--- NOTE | 2023-05-10 23:50 | CON.PCM.GI_ITS ---
HPI Consult Data Date of Consult: 05/10/23 HPI Narrative Reason for Consultation: Anemia HPI Narrative: BRAD HALLMAN, is a 67 M with a past medical history of essential hypertension, hyperlipidemia, hypothyroidism DM-2; of unknown control, former tobacco abuse (quit 1999), CAD; s/p anterior wall IN (2015) on Brilinta, ischemic cardiomyopa thy, NIA, gout, OA, GERD, depression with anxiety. He has a known history of angiodysplastic lesions in his colon with intermittent GI bleeding requiring blood transfusions. He presented to [facility] ER complaining that routine outpatient labs revealed severe acute blood loss anemia with hemoglobin of 5.8 g/dL requiring blood transfusion. He denies gross bleeding of any kind but he does admit to easy fatigability and SCHMITZ. He also states he ran out of his iron supplement about 10 days ago but he has now restarted it with no other recent medication changes. He denies ass ociated fever, chills, nausea, vomiting, appetite change or weight loss but he did admit to constipation earlier this week with subsequent normal once daily BM's. He was then admitted to the PCU for ongoing care for a stay that is expected to be greater than 48 hours. [facility] Medical History Anemia Anxiety Atherosclerotic heart disease of [place] coronary artery without angina pectoris Cardiology follow-up encounter Depression Diabetes Diabetes mellitus type II, controlled Easy bruising Essential (primary) hypertension Former smoker Gastric reflux GI bleed Gout High cholesterol History of anterior wall myocardial infarction History of heart attack History of stress test Hyperlipidemia Hypertension Hypotension Iron deficiency anemia Ischemic cardiomyopathy Low iron Myocardial infarct Thyroid disease Wears glasses Home Medications paroxetine HCl 30 mg tablet 30 mg PO DAILY depression 12/02/14 [History Last Taken 05/10/23] lisinopril 10 mg tablet 10 mg PO DAILY BP 05/14/17 [History Last Taken 03/15/23] multivitamin 1 tab PO QDAY health 05/14/17 [History Last Taken 05/10/23] ticagrelor 90 mg tablet 90 mg PO BID #60 tabs 12/18/18 [Rx Last Taken 05/10/23] glimepiride 4 mg tablet 2 mg PO DAILY DM 02/18/19 [History Last Taken 05/10/23] aspirin 81 mg chewable tablet 81 mg PO DAILY@0800 heart ##0 02/19/19 [Rx Last Taken 05/10/23] ferrous sulfate 325 mg (65 mg iron) tablet 325 mg PO DAILY #30 tabs 02/19/19 [Rx Last Taken 05/10/23] pantoprazole 40 mg tablet,delayed release 40 mg PO DAILY #30 tabs 02/19/19 [Rx Last Taken 05/10/23] fluticasone propionate 50 mcg/actuation nasal spray,suspension (Flonase Allergy Relief) 1 spray intranasal DAILY #16 grams 08/24/22 [Rx Last Taken 05/10/23] metformin 500 mg tablet,extended release 24 hr 1,000 mg PO BID 05/10/23 [History Last Taken 05/10/23] Allergy/AdvReac Type Severity Reaction Status Date / Time No Known Allergies Allergy Verified 08/24/22 16:55 Family History Mother No problems noted. Father No problems noted. Surgical History H/O cardiac catheterization History of surgery Stented coronary artery Social History household members: none Smoking Status: Former smoker quit date: 01/20/91 alcohol intake: never substance use type: does not use ROS ROS Narrative Review of systems: General: Patient denies fevers or chills HENT: Patient denies headache, denies stuffy nose, denies sore throat EYES: Patient denies changes in vision Resp: Patient admits to dyspnea on exertion with easy fatigability Cardiac: Denies chest pain or palpitations GI: Denies abdominal pain, denies changes in bowel, denies nausea or vomiting : Denies changes in urination or urinary frequency Extremity: Denies swelling Musculoskeletal: Feels somewhat generally weak Neuro: Denies any numbness/tingling Heme: Patient admits to easy bruisability since being on Brilinta Skin: Denies rashes Psychiatric: No complaints voiced related to uncontrolled depression or anxiety Endocrine: No polyuria, polydipsia or polyphagia The rest of the 14 point ROS was negative except for positives in HPI. Physical Exam Narrative General: Alert, Oriented x3, Cooperative, No apparent distress HEENT: Atraumatic, PERRLA, EOMI, Normocephalic Oral: Moist Mucosa Neck: Supple, No JVD Lungs: Diminished, Normal air movement, No rhonchi, No wheeze, No rales Cardiovascular: Regular rate, Regular Rhythm, Normal S1, Normal S2, No murmurs Abdomen: Soft, Non Tender, Non-Distended, No Hepato-splenomegaly Extremities: No edema, Capillary Refill Less than 3 Seconds Skin: No rashes, No breakdown, pallor Musculoskeletal: No Tenderness to Palpation of Joints or Extremities Neurological: No focal neurological deficits, Motor Exam 5/5 strength throughout, Sensory exam intact to light touch and pain Psych/Mental Status: Normal Affect, Appropriate Lab / Micro Data 05/11/23 11:45 05/11/23 05:03 Labs: Laboratory Results - last 24 hr 05/10/23 17:00: WBC 7.1, RBC 2.56 L, Hgb 5.6 L*, Hct 20.1 L, MCV 78.5 L, MCH 21.9 L, MCHC 27.9 L, RDW Std Deviation 48.8 H, RDW Coeff of Talon 17.1 H, Plt Count 355, MPV 9.8, Immature Gran % (Auto) 0.400, Neut % (Auto) 66.1, Lymph % (Auto) 23.6, [place] % (Auto) 6.8, Eos % (Auto) 2.5, Baso % (Auto) 0.6, Absolute Neuts (auto) 4.7, Absolute Lymphs (auto) 1.67, Nucleated RBC % 0, Diff Path Review July, Sodium 136, Potassium 3.7, Chloride 104, Carbon Dioxide 24.0, Anion Gap 8, BUN 18, Creatinine 1.49 H, Estim Creat Clear Calc 49.43, Est GFR (MDRD) Af Amer 61, Est GFR (MDRD) Non-Af 50 L, BUN/Creatinine Ratio 12.1, G lucose 311 H, Calcium 9.2, Blood Type A POSITIVE, Antibody Screen POSITIVE, Antibody Identification ANTI-Fya, Crossmatch See Detail 05/11/23 05:03: WBC 5.8, RBC 2.92 L, Hgb 7.2 L, Hct 23.7 L, MCV 81.2, MCH 24.7 L , MCHC 30.4 L D, RDW Std Deviation 49.5 H, RDW Coeff of Talon 16.9 H, Plt Count 266, MPV 9.5, Immature Gran % (Auto) 0.300, Neut % (Auto) 70.4 H, Lymph % (Auto) 17.4 L, [place] % (Auto) 7.8, Eos % (Auto) 3.6, Baso % (Auto) 0.5, Absolute Neuts (auto) 4.1, Absolute Lymphs (auto) 1.01, Nucleated RBC % 0, Sodium 135 L, Potassium 3.9, Chloride 105, Carbon Dioxide 26.0, Anion Gap 4 L, BUN 13, Creatinine 1.02, Estim Creat Clear Calc 72.20, Est GFR (MDRD) Af Amer 94, Est GFR (MDRD) Non-Af 78, BUN/Creatinine Ratio 12.7, Glucose 369 H, Hemoglobin A1c 9.4 H, Calcium 8.0 L, Total Bilirubin 0.80, AST 11 L, ALT 14 L, Alkaline Phosphatase 62, Total Protein 6.1 L, Albumin 3.3, Globulin 2.8, Albumin/Globulin Ratio 1.2, TSH 7.17 H 05/11/23 05:38: POC Glucose 353 H 05/11/23 07:13: PT 14.0, INR 1.1, APTT 25.7 05/11/23 11:45: Hgb 7.5 L, Hct 24.8 L Assessment & Plan Assessment/Plan (1) Iron deficiency anemia: PLAN: Patient should undergo iron studies testing along with an EGD, colonoscopy and possible capsule endoscopy. He should also get LDH and reticulocyte count. I will also get a Lizbeth test. He was explained alternatives, risk, benefits including outstanding bleeding, infection, sepsis, perforation, need for emergent urgent . Have an ASA of 3. (2) Generalized weakness: PLAN: Likely secondary to severe anemia. Charges/Coding Visit Charges Inpatient E&M: 45040 Init Hosp L3
[2023-05-11] VITALS (12 sets, daily range): BP systolic 92–145; BP diastolic 42–71; PULSE 66–82; RESP 14–17; TEMP 35.9–37.1; O2SAT 94–100; BMI 23.6
[2023-05-11] MEDS: Polyethylene Glycol 3350 BOWEL PREP PO (01:09)
[2023-05-11] MEDS: Ondansetron 4 MG/2 ML Vial IV (02:26)
[2023-05-11] MEDS: 0.9% Normal Saline (1000mL) 1,000 ML 70 ML IV ×2 (03:34→18:34)
--- NOTE | 2023-05-11 05:55 | EKG12_ITS ---
Test Reason : AM EKG Blood Pressure : / mmHG Vent. Rate : 074 BPM Atrial Rate : 074 BPM P-R Int : 144 ms QRS Dur : 074 ms QT Int : 398 ms P-R-T Axes : 057 001 069 degrees QTc Int : 441 ms Normal sinus rhythm Nonspecific T wave abnormality Abnormal ECG Confirmed by JOS AMBRIZ, AQUILES ([id number]), book or script editor HUMZA WHALEN ([id number]) on 05/14/2023 6:28:27 AM Referred By: BOSS Confirmed By:AQUILES ARGUELLO MD
[2023-05-11 06:10] LABS: Absolute Lymphocyte Count 1.01 X10^3/uL (0.83-4.51); Absolute Neutrophil Count 4.1 X10^3/uL (2.0-7.7); Basophil# 0.03 X10^3/uL; Basophil% 0.5 % (0-1); Eosinophil# 0.21 X10^3/uL; Eosinophils% 3.6 % (0-5); Hematocrit 23.7 % (40-54); Hemoglobin 7.2 g/dL (13.0-16.5); Lymphocyte # 1.01 X10^3/ul (0.83-4.51); Lymphocyte % 17.4 % (19-41); Mean Corp Hgb Conc 30.4 g/dL (32-36); Mean Corpuscular Hgb 24.7 pg (27.0-32.0); Mean Corpuscular Volume 81.2 fL (80-94); Mean Platelet Vol. 9.5 fl (6.2-12.0); Monocyte# 0.45 X10^3/uL; Monocyte% 7.8 % (0-10); NRBC Flagged by Analyzer 0 % (0-5); Neutrophil # 4.07 X10^3/uL (2.7-7.7); Neutrophil % 70.4 % (47-70); Platelet Count 266 K/mm3 (150-450); RBC Distribution Width CV 16.9 % (11.6-14.6); RBC Distribution Width SD 49.5 fl (35.1-43.9); Red Blood Count 2.92 M/mm3 (4.6-6.2); White Blood Count 5.8 K/mm3 (4.4-11.0)
[2023-05-11] MEDS: Insulin Lispro 100 UNIT/ML INSULN.PEN SC (06:31)
[2023-05-11 06:52] LABS: Bedside Glucose 353 mg/dL (74-106)
[2023-05-11 06:55] LABS: ALB/GLOB Ratio 1.2 RATIO (0.9-2.4); AST(SGOT) 11 U/L (15-37); Alanine Aminotransfer ALT/SGPT 14 U/L (16-61); Albumin, Serum 3.3 g/dL (3.2-5.0); Alkaline Phosphatase 62 U/L (45-117); Anion Gap 4 (5-15); BUN 13 mg/dL (7-18); BUN/Creat Ratio 12.7 RATIO (10-20); Chloride 105 mmol/L (98-107); Creatinine, Serum 1.02 mg/dL (0.70-1.30); EST Glomerular Filtration Rate 78 mL/min (>60); Est Glom Filt Rate - Afr Amer 94 mL/min (>60); Globulin 2.8 g/dL (2.2-4.2); Glucose 369 mg/dL (74-106); Potassium 3.9 mmol/L (3.5-5.1); Protein, Total 6.1 g/dL (6.4-8.2); Sodium Level 135 mmol/L (136-145); Thyroid Stim Hormone (TSH) 7.17 uIU/mL (0.358-3.74)
[2023-05-11 08:00] LABS: International Normalized Ratio 1.1
[2023-05-11 08:01] LABS: Partial Thromboplast Time 25.7 Seconds (24.1-36.2)
[2023-05-11] MEDS: Pantoprazole Sodium 40 MG in 0.9% Normal Saline (100mL MB+) 100 ML 330 MG IV (08:15)
[2023-05-11] MEDS: Fluticasone 0.05% 1 SPRAY NASAL.SRY NASAL (08:16)
[2023-05-11 08:48] LABS: Hemoglobin A1c 9.4 % (3.8-5.6)
--- NOTE | 2023-05-11 10:45 | PN.HOSP_ITS ---
Subjective Subjective Doing well, no issues overnight. He did receive some blood and hemoglobin this morning corrected to 7.2, will recheck this afternoon Objective Data Objective Data Vital Signs: Vital Signs Temp Pulse Resp BP Pulse Ox O2 Del Method 98.3 F 71 16 105/68 94 Room Air 05/11/23 08:12 05/11/23 08:12 05/11/23 08:12 05/11/23 08:12 05/11/23 08:12 05/11/23 08:12 Oxygen Delivery Method Room Air Weight: 160 lb 4.417 oz Body Mass Index (BMI) 23.6 Intake & Output: Intake and Output for Last 24 Hours 05/10/23 05/11/23 05/12/23 03:59 03:59 03:59 Intake Total 112.17 / 112.17 111 / 111 Output Total 0 / 0 Balance 112.17 / 112.17 111 / 111 Lab / Micro Data 05/11/23 05:03 05/11/23 05:03 Labs: Laboratory Results - last 24 hr 05/10/23 17:00: WBC 7.1, RBC 2.56 L, Hgb 5.6 L*, Hct 20.1 L, MCV 78.5 L, MCH 21.9 L, MCHC 27.9 L, RDW Std Deviation 48.8 H, RDW Coeff of Talon 17.1 H, Plt Count 355, MPV 9.8, Immature Gran % (Auto) 0.400, Neut % (Auto) 66.1, Lymph % (Auto) 23.6, [place] % (Auto) 6.8, Eos % (Auto) 2.5, Baso % (Auto) 0.6, Absolute Neuts (auto) 4.7, Absolute Lymphs (auto) 1.67, Nucleated RBC % 0, Diff Path Review July foll, Sodium 136, Potassium 3.7, Chloride 104, Carbon Dioxide 24.0, Anion Gap 8, BUN 18, Creatinine 1.49 H, Estim Creat Clear Calc 49.43, Est GFR (MDRD) Af Amer 61, Est GFR (MDRD) Non-Af 50 L, BUN/Creatinine Ratio 12.1, Glucose 311 H, Calcium 9.2, Blood Type A POSITIVE, Antibody Screen POSITIVE, Antibody Identification ANTI-Fya, Crossmatch See Detail 05/11/23 05:03: WBC 5.8, RBC 2.92 L, Hgb 7.2 L, Hct 23.7 L, MCV 81.2, MCH 24.7 L , MCHC 30.4 L D, RDW Std Deviation 49.5 H, RDW Coeff of Talon 16.9 H, Plt Count 266, MPV 9.5, Immature Gran % (Auto) 0.300, Neut % (Auto) 70.4 H, Lymph % (Auto) 17.4 L, [place] % (Auto) 7.8, Eos % (Auto) 3.6, Baso % (Auto) 0.5, Absolute Neuts (auto) 4.1, Absolute Lymphs (auto) 1.01, Nucleated RBC % 0, Sodium 135 L, Potassium 3.9, Chloride 105, Carbon Dioxide 26.0, Anion Gap 4 L, BUN 13, Creatinine 1.02, Estim Creat Clear Calc 72.20, Est GFR (MDRD) Af Amer 94, Est GFR (MDRD) Non-Af 78, BUN/Creatinine Ratio 12.7, Glucose 369 H, Hemoglobin A1c 9.4 H, Calcium 8.0 L, Total Bilirubin 0.80, AST 11 L, ALT 14 L, Alkaline Phosphatase 62, Total Protein 6.1 L, Albumin 3.3, Globulin 2.8, Albumin/Globulin Ratio 1.2, TSH 7.17 H 05/11/23 05:38: POC Glucose 353 H 05/11/23 07:13: PT 14.0, INR 1.1, APTT 25.7 Physical Exam Narrative General: Alert, Oriented x3, Cooperative, No apparent distress HEENT: Atraumatic, PERRLA, EOMI, Normocephalic Oral: Moist Mucosa Neck: Supple, No JVD Lungs: Diminished, Normal air movement, No rhonchi, No wheeze, No rales Cardiovascular: Regular rate, Regular Rhythm, Normal S1, Normal S2, No murmurs Abdomen: Soft, Non Tender, Non-Distended, No Hepato-splenomegaly Extremities: No edema, Capillary Refill Less than 3 Seconds Skin: No rashes, No breakdown, pallor Musculoskeletal: No Tenderness to Palpation of Joints or Extremities Neurological: No focal neurological deficits, Motor Exam 5/5 strength throughout, Sensory exam intact to light touch and pain Psych/Mental Status: Normal Affect, Appropriate Assessment & Plan Assessment/Plan (1) Acute blood loss anemia: (2) Angiodysplasia of colon: (3) History of GI bleed: (4) Adverse drug reaction: QUALIFIERS: Encounter type: initial encounter Qualified Code(s): T50.905A - Adverse effect of unspecified drugs, medicaments and biological substances, initial encounter PLAN: Plan 1. Acute blood loss anemia likely from GI bleed/GERD/iron deficiency anemia ? Hemoglobin on admission was 5.8 received 2 units corrected 7.2 ? Will recheck hemoglobin this afternoon ? Appreciate GIs assistance ? Continue with PPI ? Apparently has a history of colonic AVMs 2. Essential HTN/HLD/CAD status post stents ? His stents were in 2016 so antiplatelet potentially could be discontinued as he is on aspirin and Brilinta ? Continue with blood pressure medications ? We will monitor make adjustments as necessary ? Unclear why with his coronary artery history he is not on statin 3. DM2 ? Will hold his home medications ? Continue with insulin ? Accu-Cheks ACHS ? Will monitor and make adjustments as necessary 4. Hypothyroidism ? Stable ? Continue with Synthroid ? TSH 7.17, will continue with outpatient monitoring and adjustment of medications 5. Depression/anxiety ? Stabilized ? Continue with his home medications DVT: SCDs Charges/Coding Visit Charges Inpatient E&M: 38477 Subs Hosp L2
--- NOTE | 2023-05-11 11:31 | CPS ---
Pt refused to do SMI and Pep at this time
[2023-05-11 11:59] LABS: Hematocrit 24.8 % (40-54); Hemoglobin 7.5 g/dL (13.0-16.5)
--- NOTE | 2023-05-11 13:55 | CASEMGMT ---
JUSTINO LEON Discharge Planning Assesment: Face to Face with patient for initial transition planning/care coordination assessment. JUSTINO LEON introduced self and role at [facility], pt voices understanding. Pt alert, oriented and agreeable to participate in assessment.? Care providers, pharmacy, and demographics verified. Admitting dx: JEANNE MARIE Strata: 2 PCP: Danyelle Specialists: none Preferred Pharmacy: [facility] Insurance: MMO Prescription Benefit: yes LNOK: Father Huey Living Arrangements: Pt lives alone in a single story apartment. Pt states he is independent with ADLs and IADLs. Transportation: pt drives and states he can find someone to drive him if needed DME: glucometer with supplies HHC/SNF: denies any previous Pt?s goal/plan: return home. Pt states he has been ambulatory in his room and denies any concerns or needs at discharge. Plan: Home with support of friends Liliana Grajeda RN ACM
--- NOTE | 2023-05-11 15:26 | CPS ---
Pt not in room. SMI and PEP not done
--- NOTE | 2023-05-11 18:02 | OP.EGD_ITS ---
Patient Name: Iftikhar Hess Procedure Date: 05/11/2023 5:46 PM Date of : 1955 Age: 67 Procedure: Upper GI endoscopy Indications: Iron deficiency anemia Providers: Aly Gregg DO Medicines: Monitored Anesthesia Care Patient Profile: This is a 67 year old male. Refer to note in patient chart for documentation of history and physical. Patient has symptoms. Complications: No immediate complications. Procedure: Pre-Anesthesia Assessment: - Prior to the procedure, a History and Physical was performed, and patient medications and allergies were reviewed. The patient is competent. The risks and benefits of the procedure and the sedation options and risks were discussed with the patient. All questions were answered and informed consent was obtained. Patient identification and proposed procedure were verified by the physician in the pre-procedure area. Mental Status Examination: alert and oriented. Airway Examination: normal oropharyngeal airway and neck mobility. Respiratory Examination: clear to auscultation. CV Examination: normal. Prophylactic Antibiotics: The patient does not require prophylactic antibiotics. Prior Anticoagulants: The patient has taken no anticoagulant or antiplatelet agents except for NSAID medication. ASA Grade Assessment: II - A patient with mild systemic disease. After reviewing the risks and benefits, the patient was deemed in satisfactory condition to undergo the procedure. The anesthesia plan was to use monitored anesthesia care (MAC). Immediately prior to administration of medications, the patient was re-assessed for adequacy to receive sedatives. The heart rate, respiratory rate, oxygen saturations, blood pressure, adequacy of pulmonary ventilation, and response to care were monitored throughout the procedure. The physical status of the patient was re-assessed after the procedure. After obtaining informed consent, the endoscope was passed under direct vision. Throughout the procedure, the patient's blood pressure, pulse, and oxygen saturations were monitored continuously. The Colonoscope was introduced through the anus and advanced to the second part of duodenum. After obtaining informed consent, the endoscope was passed under direct vision. Throughout the procedure, the patient's blood pressure, pulse, and oxygen saturations were monitored continuously. The upper GI endoscopy was accomplished without difficulty. The patient tolerated the procedure well. Scope In: 5:46:41 PM Scope Out: 5:50:50 PM Total Procedure Duration Time 0 hours 4 minutes 9 seconds Findings: The examined esophagus was normal. Three 5 mm angiodysplastic lesions with bleeding were found in the gastric body. Coagulation for hemostasis using heater probe was successful. The second portion of the duodenum was normal. Impression: - Normal esophagus. - Three bleeding angiodysplastic lesions in the stomach. Treated with a heater probe. - Normal second portion of the duodenum. - No specimens collected. Recommendation: - [facility] for [facility] care. - Advance diet as tolerated. - Continue present medications. Procedure Code(s): --- Professional --- 58314, Esophagogastroduodenoscopy, flexible, transoral; with control of bleeding, any method CPT copyright 2021 [employer]. All rights reserved. The codes documented in this report are preliminary and upon marketing content coordinator review may be revised to meet current compliance requirements. Aly Gregg DO 05/11/2023 6:01:56 PM This report has been signed electronically. Number of Addenda: 0 Note Initiated On: 05/11/2023 5:46 PM
--- NOTE | 2023-05-11 18:02 | OP.CCLET_ITS ---
05/11/2023 Travis Bassett [address] [place] [address] Re : Upper GI endoscopy procedure for Iftikhar Monetamy Dear Dr. Bassett This procedure was performed on Thursday, May 11, 2023. My impressions and recommendations are as follows: Impressions : - Normal esophagus. - Three bleeding angiodysplastic lesions in the stomach. Treated with a heater probe. - Normal second portion of the duodenum. - No specimens collected. Recommendations : - Return [facility] to [facility] for [facility] care. - Advance diet as tolerated. - Continue present medications. My findings are described in the full procedure note, which is enclosed. If I can be of further assistance, please feel free to contact me at . Sincerely, Aly Gregg, 05/11/2023 6:01:56 PM This report has been signed electronically.
[2023-05-11 22:31] LABS: Bedside Glucose 346 mg/dL (74-106)
[2023-05-12] VITALS (8 sets, daily range): BP systolic 100–126; BP diastolic 54–77; PULSE 75–88; RESP 14–18; TEMP 36.6–37.1; O2SAT 95–99; BMI 23.6
[2023-05-12] MEDS: Insulin Lispro 100 UNIT/ML INSULN.PEN SC ×5 (01:13→20:32)
[2023-05-12] MEDS: Pantoprazole Sodium 40 MG in 0.9% Normal Saline (100mL MB+) 100 ML 330 MG IV ×3 (01:19→20:29)
[2023-05-12 01:43] LABS: Bedside Glucose 440 mg/dL (74-106)
[2023-05-12 06:21] LABS: Absolute Lymphocyte Count 1.19 X10^3/uL (0.83-4.51); Absolute Neutrophil Count 3.4 X10^3/uL (2.0-7.7); Basophil# 0.04 X10^3/uL; Basophil% 0.8 % (0-1); Eosinophil# 0.16 X10^3/uL; Hemoglobin 6.9 g/dL (13.0-16.5); Lymphocyte # 1.19 X10^3/ul (0.83-4.51); Lymphocyte % 22.4 % (19-41); Mean Corp Hgb Conc 28.8 g/dL (32-36); Mean Corpuscular Hgb 23.8 pg (27.0-32.0); Mean Corpuscular Volume 82.8 fL (80-94); Mean Platelet Vol. 9.8 fl (6.2-12.0); Monocyte# 0.49 X10^3/uL; Monocyte% 9.2 % (0-10); NRBC Flagged by Analyzer 0 % (0-5); Neutrophil # 3.41 X10^3/uL (2.7-7.7); Neutrophil % 64.2 % (47-70); Platelet Count 248 K/mm3 (150-450); RBC Distribution Width SD 50.7 fl (35.1-43.9); White Blood Count 5.3 K/mm3 (4.4-11.0)
[2023-05-12 06:37] LABS: Anion Gap 3 (5-15); BUN 13 mg/dL (7-18); BUN/Creat Ratio 12.5 RATIO (10-20); Calcium,Total 8.5 mg/dL (8.5-10.1); Chloride 108 mmol/L (98-107); Creatinine, Serum 1.04 mg/dL (0.70-1.30); EST Glomerular Filtration Rate 76 mL/min (>60); Est Glom Filt Rate - Afr Amer 92 mL/min (>60); Estimated Creatinine Clearance 70.81 ml/min; Glucose 376 mg/dL (74-106); Potassium 4.1 mmol/L (3.5-5.1); Sodium Level 137 mmol/L (136-145)
[2023-05-12 06:46] LABS: Bedside Glucose 374 mg/dL (74-106)
[2023-05-12] MEDS: PARoxetine 10 MG Tablet 30 MG PO (08:11)
--- NOTE | 2023-05-12 09:37 | PN.HOSP_ITS ---
Subjective Subjective Doing well, denies any bloody bowel movements. Hemoglobin is 6.9 today likely equilibration Objective Data Objective Data Vital Signs: Vital Signs Temp Pulse Resp BP Pulse Ox O2 Del Method 98.6 F 77 16 119/54 L 99 Room Air 05/12/23 08:06 05/12/23 08:06 05/12/23 08:06 05/12/23 08:06 05/12/23 08:06 05/12/23 08:06 Oxygen Delivery Method Room Air Weight: 159 lb 9.835 oz Body Mass Index (BMI) 23.6 Intake & Output: Intake and Output for Last 24 Hours 05/11/23 05/12/23 05/13/23 03:59 03:59 03:59 Intake Total 112.17 / 112.17 1135.67 / 1135.67 1071 / 1071 Output Total 0 / 0 0 / 0 Balance 112.17 / 112.17 1135.67 / 1135.67 1071 / 1071 Lab / Micro Data 05/12/23 05:38 05/12/23 05:38 Labs: Laboratory Results - last 24 hr 05/11/23 11:45: Hgb 7.5 L, Hct 24.8 L 05/11/23 22:13: POC Glucose 346 H 05/12/23 01:12: POC Glucose 440 H 05/12/23 05:38: WBC 5.3, RBC 2.90 L, Hgb 6.9 L, Hct 24.0 L, MCV 82.8, MCH 23.8 L , MCHC 28.8 L D, RDW Std Deviation 50.7 H, RDW Coeff of Talon 17.0 H, Plt Count 248, MPV 9.8, Immature Gran % (Auto) 0.400, Neut % (Auto) 64.2, Lymph % (Auto) 22.4, [place] % (Auto) 9.2, Eos % (Auto) 3.0, Baso % (Auto) 0.8, Absolute Neuts (auto) 3.4, Absolute Lymphs (auto) 1.19, Nucleated RBC % 0, Sodium 137, Potassium 4.1, Chloride 108 H, Carbon Dioxide 26.0, Anion Gap 3 L, BUN 13, Creatinine 1.04, Estim Creat Clear Calc 70.81, Est GFR (MDRD) Af Amer 92, Est GFR (MDRD) Non-Af 76, BUN/Creatinine Ratio 12.5, Glucose 376 H, Calcium 8.5 05/12/23 06:27: POC Glucose 374 H Physical Exam Narrative General: Alert, Oriented x3, Cooperative, No apparent distress HEENT: Atraumatic, PERRLA, EOMI, Normocephalic Oral: Moist Mucosa Neck: Supple, No JVD Lungs: Diminished, Normal air movement, No rhonchi, No wheeze, No rales Cardiovascular: Regular rate, Regular Rhythm, Normal S1, Normal S2, No murmurs Abdomen: Soft, Non Tender, Non-Distended, No Hepato-splenomegaly Extremities: No edema, Capillary Refill Less than 3 Seconds Skin: No rashes, No breakdown, pallor Musculoskeletal: No Tenderness to Palpation of Joints or Extremities Neurological: No focal neurological deficits, Motor Exam 5/5 strength throughout, Sensory exam intact to light touch and pain Psych/Mental Status: Normal Affect, Appropriate Assessment & Plan Assessment/Plan (1) Acute blood loss anemia: (2) Angiodysplasia of colon: (3) History of GI bleed: (4) Adverse drug reaction: QUALIFIERS: Encounter type: initial encounter Qualified Code(s): T50.905A - Adverse effect of unspecified drugs, medicaments and biological substances, initial encounter PLAN: Plan 1. Acute blood loss anemia likely from GI bleed/GERD/iron deficiency anemia ? Hemoglobin on admission was 5.8 received 2 units corrected 7.2, now it is 6.9 likely collaboration will transfuse 1 more unit ?Recheck hemoglobin in the morning ? Appreciate GIs assistance, EGD demonstrated multiple gastric AVMs ? Continue with PPI ? Apparently has a history of colonic AVMs 2. Essential HTN/HLD/CAD status post stents ? His stents were in 2016 so antiplatelet potentially could be discontinued as he is on aspirin and Brilinta ? Continue with blood pressure medications ? We will monitor make adjustments as necessary ? Unclear why with his coronary artery history he is not on statin 3. DM2 ? Will hold his home medications ? Continue with insulin ? Accu-Cheks ACHS ? Will monitor and make adjustments as necessary 4. Hypothyroidism ? Stable ? Continue with Synthroid ? TSH 7.17, will continue with outpatient monitoring and adjustment of medications 5. Depression/anxiety ? Stabilized ? Continue with his home medications DVT: SCDs Charges/Coding Visit Charges Inpatient E&M: 32570 Subs Hosp L2
[2023-05-12] MEDS: Insulin Glargine-YFGN 100 UNIT/ML Pen 10 UNIT SC (10:21)
[2023-05-12 10:28] LABS: Bedside Glucose 334 mg/dL (74-106)
[2023-05-12 16:14] LABS: Bedside Glucose 318 mg/dL (74-106)
[2023-05-12 22:14] LABS: Bedside Glucose 256 mg/dL (74-106)
[2023-05-13 02:30] VITALS: BP 142/72; PULSE 65; RESP 15; TEMP 36.3; O2SAT 98
[2023-05-13 04:55] VITALS: BMI 24.2
[2023-05-13 06:36] LABS: Absolute Lymphocyte Count 1.07 X10^3/uL (0.83-4.51); Absolute Neutrophil Count 3.2 X10^3/uL (2.0-7.7); Basophil# 0.03 X10^3/uL; Basophil% 0.6 % (0-1); Eosinophil# 0.17 X10^3/uL; Eosinophils% 3.4 % (0-5); Hematocrit 27.8 % (40-54); Hemoglobin 8.4 g/dL (13.0-16.5); Lymphocyte # 1.07 X10^3/ul (0.83-4.51); Lymphocyte % 21.5 % (19-41); Mean Corp Hgb Conc 30.2 g/dL (32-36); Mean Corpuscular Hgb 25.3 pg (27.0-32.0); Mean Corpuscular Volume 83.7 fL (80-94); Mean Platelet Vol. 9.8 fl (6.2-12.0); Monocyte# 0.46 X10^3/uL; Monocyte% 9.3 % (0-10); NRBC Flagged by Analyzer 0 % (0-5); Neutrophil # 3.23 X10^3/uL (2.7-7.7); Platelet Count 229 K/mm3 (150-450); RBC Distribution Width CV 17.1 % (11.6-14.6); RBC Distribution Width SD 50.5 fl (35.1-43.9); Red Blood Count 3.32 M/mm3 (4.6-6.2)
[2023-05-13] MEDS: Insulin Lispro 100 UNIT/ML INSULN.PEN SC ×2 (06:45→11:06)
[2023-05-13 06:51] LABS: Bedside Glucose 314 mg/dL (74-106)
[2023-05-13 07:01] LABS: Anion Gap 5 (5-15); BUN 12 mg/dL (7-18); BUN/Creat Ratio 11.3 RATIO (10-20); Calcium,Total 8.9 mg/dL (8.5-10.1); Chloride 106 mmol/L (98-107); Creatinine, Serum 1.06 mg/dL (0.70-1.30); EST Glomerular Filtration Rate 74 mL/min (>60); Est Glom Filt Rate - Afr Amer 90 mL/min (>60); Estimated Creatinine Clearance 69.48 ml/min; Glucose 346 mg/dL (74-106); Sodium Level 136 mmol/L (136-145)
[2023-05-13 07:16] VITALS: O2SAT 96
[2023-05-13 08:18] VITALS: BP 140/76; PULSE 72; RESP 18; TEMP 37; O2SAT 99
[2023-05-13] MEDS: PARoxetine 10 MG Tablet 30 MG PO (08:20)
[2023-05-13] MEDS: Insulin Glargine-YFGN 100 UNIT/ML Pen 10 UNIT SC (08:20)
[2023-05-13] MEDS: Pantoprazole Sodium 40 MG in 0.9% Normal Saline (100mL MB+) 100 ML 330 MG IV (08:24)
[2023-05-13 11:22] LABS: Bedside Glucose 366 mg/dL (74-106)
[2023-05-13 13:15] LABS: Hemoglobin 8.6 g/dL (13.0-16.5)
--- NOTE | 2023-05-13 13:37 | PCM.DC ---
Discharge Instructions Diet Discharge Diet: Low fat / Low cholesterol Activity Discharge Activity: Return to Normal Activity Dressing / Incision Call your doctor if you observe: Fever of 101 or Higher, Shortness of breath, Dizziness, Fainting spells, Swelling in the ankles, Chest pain and Increased palpitations (irregular heartbeat) Follow Up Care Test Results: Test results from this visit will be discussed in further detail at your follow-up appointment, if applicable. Discharge Plan Admission Admit Date/Time: 05/10/23 20:18 Attending Provider: Asaf Argueta Primary Care Provider: Travis Bassett Consulting Providers: Greg Prieto Instructions Patient Instructions: Anemia Additional Instructions / Restrictions: Follow-up with your primary care doctor to evaluate your anemia later this week or early next week with a CBC. Discharge Orders/Prescriptions Prescriptions: Continued lisinopril 10 mg tablet 10 mg PO DAILY Patient Comments: THINKS HE RAN OUT multivitamin tablet 1 tab PO QDAY paroxetine HCl 30 MG tablet 30 mg PO DAILY glimepiride 4 MG tablet 2 mg PO DAILY Patient Comments: TAKE 1 TABLET BY MOUTH ONCE DAILY WITH BREAKFAST pantoprazole 40 MG tablet 40 mg PO DAILY Qty: 30 0RF ferrous sulfate 325 MG tablet 325 mg PO DAILY Qty: 30 0RF aspirin 81 MG tablet,chewable 81 mg PO DAILY@0800 Qty: 0 0RF fluticasone propionate [Flonase Allergy Relief] 50 mcg/actuation spray,suspension 1 spray intranasal DAILY Qty: 16 0RF Rx Instructions: administer into each nostril metformin 500 mg tablet extended release 24 hr 1,000 mg PO BID Held ticagrelor 90 mg tablet 90 mg PO BID Qty: 60 12RF Hold Instructions: Resume on 05/17/23. Follow up with your doctor about restarting this medication Referrals / Follow Up: Travis Bassett MD [Primary Care Provider] - Within 1 Week Friend,DO Aly [Med Staff - Active Staff] - Within 3 Months Disposition Disposition (needs filled in before D/C Order can be placed): Home, Self Care
[2023-05-13 13:48] VITALS: BP 143/67; PULSE 67; RESP 16; TEMP 36.5; O2SAT 99
--- NOTE | 2023-05-13 13:48 | DS.PCM_ITS ---
Providers Date of Admission: 05/10/23 Primary Care Physician: Dr. Travis Bassett MD Reason For Visit: SEVERE ABLA REQ XFUSION Diagnosis Discharge Diagnosis (1) Acute blood loss anemia: Status: Acute Code(s): D62 - Acute posthemorrhagic anemia (2) Angiodysplasia of colon: Status: Acute Code(s): K55.20 - Angiodysplasia of colon without hemorrhage (3) History of GI bleed: Status: Acute Code(s): Z87.19 - Personal history of other diseases of the digestive system (4) Adverse drug reaction: Status: Acute Code(s): T50.905A - Adverse effect of unspecified drugs, medicaments and biological substances, initial encounter Qualifiers: Encounter type: initial encounter Qualified Code(s): T50.905A - Adverse effect of unspecified drugs, medicaments and biological substances, initial encounter Medications at Discharge Home Medications paroxetine HCl 30 mg tablet 30 mg PO DAILY depression 12/02/14 lisinopril 10 mg tablet 10 mg PO DAILY BP 05/14/17 multivitamin 1 tab PO QDAY health 05/14/17 ticagrelor 90 mg tablet 90 mg PO BID #60 tabs 12/18/18 glimepiride 4 mg tablet 2 mg PO DAILY DM 02/18/19 aspirin 81 mg chewable tablet 81 mg PO DAILY@0800 heart ##0 02/19/19 ferrous sulfate 325 mg (65 mg iron) tablet 325 mg PO DAILY #30 tabs 02/19/19 pantoprazole 40 mg tablet,delayed release 40 mg PO DAILY #30 tabs 02/19/19 fluticasone propionate 50 mcg/actuation nasal spray,suspension (Flonase Allergy Relief) 1 spray intranasal DAILY #16 grams 08/24/22 metformin 500 mg tablet,extended release 24 hr 1,000 mg PO BID 05/10/23 Hospital Course Operations None Procedures EGD Summary of Care Provided Minutes Spent on Discharge: 35 Hospital Course: Per HPI: BRDA HALLMAN, is a 67 M with a past medical history of essential hypertension, hyperlipidemia, hypothyroidism DM-2; of unknown control, former tobacco abuse (quit 1999), CAD; s/p anterior wall [place] (2015) on Brilinta, ischemic cardiomyopathy, NIA, gout, OA, GERD, depression with anxiety and a known history of angiodysplastic lesions in his colon with intermittent GI bleeding requiring blood transfusions followed by Dr. Gregg of gastroenterology who presents to [facility] ER complaining that routine outpatient labs revealed severe acute blood loss anemia with hemoglobin of 5.8 g/dL requiring blood transfusion. He denies gross bleeding of any kind but he does admit to easy fatigability and SCHMITZ. He also states he ran out of his iron supplement about 10 days ago but he has now restarted it with no other recent medication changes. He denies associated fever, chills, nausea, vomiting, appetite change or weight loss but he did admit to constipation earlier this week with subsequent normal once daily BM's. He was then admitted to the PCU for ongoing care for a stay that is expected to be greater than 48 hours. Hospital Course: 1. Acute blood loss anemia secondary to a GI bleed from gastric angiodysplasias/GERD/iron deficiency anemia?67-year-old male presented to the hospital due to significant anemia on outpatient lab work. EGD was performed during his hospitalization which demonstrated multiple gastric AVMs that were successfully treated. He required 3 units of blood total to correct his anemia and on the day of discharge his hemoglobin went from 8.4 in the morning to 8.6 on recheck in the afternoon. He denies any abdominal pain I discussed with him the plan for possible discharge today he expressed understanding of the risk benefits going home and would like to go home today. He is on aspirin and Brilinta secondary to stents placed in 2016, given that his AVMs have been treated we will restart his aspirin today on discharge and will hold his Brilinta until he can have outpatient follow-up with his PCP and obtain lab work to ensure that his anemia is not worsening. 2. Essential hypertension, hyperlipidemia, coronary artery disease status post stents, type 2 diabetes, hypothyroidism, depression, anxiety are all chronic medical conditions which complicate his care. His home medications were continued where appropriate Physical Exam Narrative General: Alert, Oriented x3, Cooperative, No apparent distress HEENT: Atraumatic, PERRLA, EOMI, Normocephalic Oral: Moist Mucosa Neck: Supple, No JVD Lungs: Diminished, Normal air movement, No rhonchi, No wheeze, No rales Cardiovascular: Regular rate, Regular Rhythm, Normal S1, Normal S2, No murmurs Abdomen: Soft, Non Tender, Non-Distended, No Hepato-splenomegaly Extremities: No edema, Capillary Refill Less than 3 Seconds Skin: No rashes, No breakdown, pallor Musculoskeletal: No Tenderness to Palpation of Joints or Extremities Neurological: No focal neurological deficits, Motor Exam 5/5 strength throughout, Sensory exam intact to light touch and pain Psych/Mental Status: Normal Affect, Appropriate Weight / BMI Weight Weight: 163 lb 12.855 oz Body Mass Index (BMI) 24.2 ABG / Lab / Microbiology Data 05/13/23 13:07 05/13/23 06:10 Laboratory: Laboratory Results - last 24 hr 05/10/23 17:00: Crossmatch See Detail 05/12/23 15:53: POC Glucose 318 H 05/12/23 20:31: POC Glucose 256 H 05/13/23 06:10: WBC 5.0, RBC 3.32 L, Hgb 8.4 L, Hct 27.8 L, MCV 83.7, MCH 25.3 L , MCHC 30.2 L, RDW Std Deviation 50.5 H, RDW Coeff of Talon 17.1 H, Plt Count 229, MPV 9.8, Immature Gran % (Auto) 0.200, Neut % (Auto) 65.0, Lymph % (Auto) 21.5, [place] % (Auto) 9.3, Eos % (Auto) 3.4, Baso % (Auto) 0.6, Absolute Neuts (auto) 3.2, Absolute Lymphs (auto) 1.07, Nucleated RBC % 0, Sodium 136, Potassium 4.0, Chloride 106, Carbon Dioxide 25.0, Anion Gap 5, BUN 12, Creatinine 1.06, Estim Creat Clear Calc 69.48, Est GFR (MDRD) Af Amer 90, Est GFR (MDRD) Non-Af 74, BUN/Creatinine Ratio 11.3, Glucose 346 H, Calcium 8.9 05/13/23 06:33: POC Glucose 314 H 05/13/23 11:05: POC Glucose 366 H 05/13/23 13:07: Hgb 8.6 L, Hct 29.0 L D/C Instructions Discharge Diet: Low fat / Low cholesterol Call your doctor if you observe: Fever of 101 or Higher, Shortness of breath, Dizziness, Fainting spells, Swelling in the ankles, Chest pain and Increased palpitations (irregular heartbeat) Meaningful Use Info Meaningful Use Diagnoses (Choose all that apply): None applicable Discharge Plan Admission Admit Date/Time: 05/10/23 20:18 Attending Provider: Asaf Argueta Primary Care Provider: Travis Bassett Consulting Providers: Greg Prieto Instructions Patient Instructions: Anemia Additional Instructions / Restrictions: Follow-up with your primary care doctor to evaluate your anemia later this week or early next week with a CBC. Discharge Orders/Prescriptions Prescriptions: Continued lisinopril 10 mg tablet 10 mg PO DAILY Patient Comments: THINKS HE RAN OUT multivitamin tablet 1 tab PO QDAY paroxetine HCl 30 MG tablet 30 mg PO DAILY glimepiride 4 MG tablet 2 mg PO DAILY Patient Comments: TAKE 1 TABLET BY MOUTH ONCE DAILY WITH BREAKFAST pantoprazole 40 MG tablet 40 mg PO DAILY Qty: 30 0RF ferrous sulfate 325 MG tablet 325 mg PO DAILY Qty: 30 0RF aspirin 81 MG tablet,chewable 81 mg PO DAILY@0800 Qty: 0 0RF fluticasone propionate [Flonase Allergy Relief] 50 mcg/actuation spray,suspension 1 spray intranasal DAILY Qty: 16 0RF Rx Instructions: administer into each nostril metformin 500 mg tablet extended release 24 hr 1,000 mg PO BID Held ticagrelor 90 mg tablet 90 mg PO BID Qty: 60 12RF Hold Instructions: Resume on 05/17/23. Follow up with your doctor about restarting this medication Referrals / Follow Up: Travis Bassett MD [Primary Care Provider] - Within 1 Week FriendAly DO [Med Staff - Active Staff] - Within 3 Months Disposition Disposition (needs filled in before D/C Order can be placed): Home, Self Care Charges/Coding Visit Charges Inpatient E&M: 52464 Disch Hosp >30min
--- NOTE | 2023-05-13 13:54 | PHA.DC.MR.R ---
Pharmacy [place] Med Reconciliation Pharmacy Service has performed discharge medication reconciliation for this patient. The patient's discharge medication list was reviewed for discrepancies and discrepancies were resolved. Medications at Discharge Home Medications paroxetine HCl 30 mg tablet 30 mg PO DAILY depression 12/02/14 lisinopril 10 mg tablet 10 mg PO DAILY BP 05/14/17 multivitamin 1 tab PO QDAY health 05/14/17 ticagrelor 90 mg tablet 90 mg PO BID #60 tabs 12/18/18 glimepiride 4 mg tablet 2 mg PO DAILY DM 02/18/19 aspirin 81 mg chewable tablet 81 mg PO DAILY@0800 heart ##0 02/19/19 ferrous sulfate 325 mg (65 mg iron) tablet 325 mg PO DAILY #30 tabs 02/19/19 pantoprazole 40 mg tablet,delayed release 40 mg PO DAILY #30 tabs 02/19/19 fluticasone propionate 50 mcg/actuation nasal spray,suspension (Flonase Allergy Relief) 1 spray intranasal DAILY #16 grams 08/24/22 metformin 500 mg tablet,extended release 24 hr 1,000 mg PO BID 05/10/23
--- NOTE | 2023-05-13 14:35 | CASEMGMT ---
Patient has order for discharge. RN CM in to discuss needs at discharge. Patient denies needs or help at discharge. Patient had no further questions or concerns at this time.
--- NOTE | 2023-05-13 14:36 | NURSING ---
PIV removed. discharge instructions given and reviewed with pt.
[2023-05-14 10:20] LABS: Pathologist Review Reviewed
== END 2023-05-13 14:35 | disposition home or self-care (01) | DRG 378 ==
LOC: ED 17:34 → PCU 20:35
PROVIDERS: Internal Medicine Gastroenterology; Physician Assistant; Admitting Provider Internal Medicine; Emergency Provider Emergency Medicine; PCP Family Medicine; Visit Provider Family Medicine
PROC: 0DJD8ZZ Inspection of Lower Intestinal Tract, Via Natural or Artificial Opening Endoscopic (ICD-10-PCS; CPT 45378; principal; 2023-05-11 15:45)
DX: K31.811 Angiodysplasia of stomach and duodenum with bleeding (principal); D62 Acute posthemorrhagic anemia; E11.65 Type 2 diabetes mellitus with hyperglycemia; E03.9 Hypothyroidism, unspecified; I10 Essential (primary) hypertension; F32.A Depression, unspecified; E78.00 Pure hypercholesterolemia, unspecified; I25.5 Ischemic cardiomyopathy; I25.10 Atherosclerotic heart disease of native coronary artery without angina pectoris; K21.9 Gastro-esophageal reflux disease without esophagitis; I25.2 Old myocardial infarction; F41.9 Anxiety disorder, unspecified; Z95.5 Presence of coronary angioplasty implant and graft; Z79.02 Long term (current) use of antithrombotics/antiplatelets; Z79.82 Long term (current) use of aspirin; Z79.84 Long term (current) use of oral hypoglycemic drugs; Z79.899 Other long term (current) drug therapy; Z87.891 Personal history of nicotine dependence
CPT/HCPCS: 36415; 80048; 80053; 82962; 83036; 84443; 85014; 85018; 85025; 85610; 85730; 86850; 86870; 86900; 86901; 86902; 86905; 86920; 86922; 93005; 94668; 99252; 99283; J7030; J7040; J7120; P9016; A4216; G0463; J2405

== ENCOUNTER 2023-11-27 18:20 | Inpatient (IN) | payer MEDICARE, SELFPAY ==
[2023-11-27 18:21] VITALS: BP 115/72; PULSE 100; RESP 16; TEMP 36.7; O2SAT 96; BMI 26.6
--- NOTE | 2023-11-27 18:28 | EDS_ITS ---
HPI History of Present Illness Chief Complaint: Fatigue [facility] Medical History Anemia Anxiety Atherosclerotic heart disease of [place] coronary artery without angina pectoris Cardiology follow-up encounter Depression Diabetes Diabetes mellitus type II, controlled Easy bruising Essential (primary) hypertension Former smoker Gastric reflux GI bleed Gout High cholesterol History of anterior wall myocardial infarction History of heart attack History of stress test Hyperlipidemia Hypertension Hypotension Iron deficiency anemia Ischemic cardiomyopathy Low iron Myocardial infarct Thyroid disease Wears glasses Home Medications ?Medication ?Instructions ?Recorded ?Last Taken ?Type paroxetine HCl 30 mg tablet 30 mg PO DAILY depression 12/02/14 05/10/23 History lisinopril 10 mg tablet 10 mg PO DAILY BP 05/14/17 03/15/23 History multivitamin 1 tab PO QDAY health 05/14/17 05/10/23 History glimepiride 4 mg tablet 2 mg PO DAILY DM 02/18/19 05/10/23 History aspirin 81 mg chewable tablet 81 mg PO DAILY@0800 heart ##0 02/19/19 05/10/23 Rx ferrous sulfate 325 mg (65 mg 325 mg PO DAILY #30 tabs 02/19/19 05/10/23 Rx iron) tablet pantoprazole 40 mg tablet,delayed 40 mg PO DAILY #30 tabs 02/19/19 05/10/23 Rx release metformin 500 mg tablet,extended 1,000 mg PO BID 05/10/23 05/10/23 History release 24 hr fluticasone propionate 50 1 spray intranasal DAILY PRN nasal 11/27/23 Unknown History mcg/actuation nasal congestion spray,suspension (Flonase Allergy Relief) Allergy/AdvReac Type Severity Reaction Status Date / Time No Known Allergies Allergy Verified 11/27/23 18:22 Family History Mother No problems noted. Father No problems noted. Surgical History H/O cardiac catheterization History of surgery Stented coronary artery Social History household members: none Smoking Status: Former smoker quit date: 01/20/91 alcohol intake: never substance use type: does not use EXAM Physical Exam Const Vital Signs: 11/27/23 18:21 11/27/23 18:53 Temperature 98.1 F Temperature Source Temporal Pulse Rate 100 Respiratory Rate 16 Respiratory Effort Normal Respiratory Pattern Normal Blood Pressure 115/72 Blood Pressure Mean 86 Pulse Ox 96 Oxygen Delivery Method Room Air [facility] Narrative Medical decision making narrative: HISTORY OF PRESENT ILLNESS: 68-year-old male presents with fatigue when he exerts himself. He thinks his blood counts are off. He further states he has no bleeding diathesis including melena or hematochezia. Denies hemoptysis, hematemesis. Denies chest pain. Denies leg swelling. The patient denies recent surgery in the last 4 weeks or immobilization in the last 3 days, denies previous diagnosis of DVT or PE, hemoptysis, unilateral leg swelling or malignancy with treatment the last 6 months or palliative. No estrogen use noted. REVIEW OF SYSTEMS: Pertinent positives: Fatigue with exertion Pertinent negatives: Chest pain, syncope PHYSICAL EXAM: Nursing triage notes reviewed, Vital signs reviewed Constitutional: please see [facility] HENT: MMM Eyes: Pupils equal round and reactive to light, Extraocular muscles intact Neck: No stridor, no JVD, full neck ROM Lungs: Clear to auscultation, No wheezing or rales. No increased work of breathing, no conversational dyspnea, no accessory muscle use, no nasal flaring. No respiratory distress noted Heart: Regular rate and rhythm, No murmurs, No rubs and No gallops, 2+ distal pulses (radial, femoral, posterior tibial) in all extremities Abdomen: Soft, there is no tenderness, rigidity, rebound or guarding, no obvious peritoneal signs, no palpable pulsatile abdominal masses, no auscultated abdominal bruit : No CVAT Extremities: No edema Neuro: No focal neurological deficits, cranial nerves II through XII intact, 5/5 strength in all extremities. Intact sensation to light touch in all extremities, 2+ reflexes bilateral patella tendons. Normal gait. No ataxia. Skin: No rash or lesions noted, skin pallor noted MEDICAL DECISION MAKING: Chief Complaint: Fatigue, dyspnea on exertion External records reviewed: Medications reviewed: Patient currently takes aspirin and Brilinta. Reviewed prior EGD from 2023 Factors affecting care: Angiodysplasia of the colon, ischemic cardiomyopathy, type 2 diabetes, hypertension, CAD status post stent Social determinants of health: none History obtained from others: none Consults: GI (Dr. Gregg), Internal Medicine (Dr. Garcia) MDM Narrative: The patient was initially hemodynamically stable, afebrile and nontoxic- appearing. Exam exam with noted pallor. I considered the following differential diagnosis: ACS, arrhythmia, anemia, electrolyte disturbance, PE While I considered pulmonary embolism as a potential etiology the patient's complaint of low sufficient for PE at this time as the patient had a low risk Wells score, no tachycardia, no hypoxia. No stigmata of VTE on exam. I considered obtaining a CT of the chest however thought this was not indicated at this time given lack of historical and physical exam risk factors. ALL IMAGES (IF OBTAINED) HAVE BEEN PERSONALLY REVIEWED AND INTERPRETED BY MYSELF. EKG with normal sinus rhythm, normal axis, normal intervals, no obvious STEMI, I have personally reviewed the patient's chest x-ray. Chest x-ray is unremarkable for pulmonary edema, pneumothorax, pneumonia or focal cardiopulmonary abnormality. CT of the chest positive for PE CBC with no leukocytosis, noted baseline anemia, no thrombocytopenia Coagulation studies within normal limits BMP with mild renal insufficiency, mild hyponatremia otherwise no signs of metabolic acidosis or endorgan hypoperfusion LFTs show no evidence of hepatobiliary pathology. BNP elevated consistent with increased ventricular stretch The synthesis of the patient's history, physical exam, labs images suggest pulmonary embolism as a potential etiology for his condition. Of note the patient is a history of GI bleed and significant anemia. I discussed risk and benefits of heparin versus no treatment with the patient. Alert and orient x 3 and a capacity to make his own medical decisions and understood the risk of beginning heparin and also the benefits. I did discuss this risk-benefit with the patient's GI doctor Dr. Gregg who agreed that given his presentation with fatigue, elevated troponin, elevated BNP in setting of a PE he will be reasonable to start him on anticoagulation which I agreed with. Discussed case with hospitalist as well The patient and/or family, caregivers express understanding. The patient and/or family, caregivers agrees with the plan. Shared decision making: I will have a discussion with the patient and or visitors regarding risk/benefits of further testing or admission. They will be made aware of of the risk/benefits inherent in this decision they will be given the opportunity to voice understanding. Total critical care time today provided was at least 0 minutes. This excludes separately billable procedures. Critical care time (if documented) is secondary to the patient having high probability of clinically significant/life threatening deterioration in the patient's condition which required my urgent intervention. Impression: 1. Acute pulmonary embolism 2. Fatigue 3. History of anemia Dispo: Admit to PCU This note was generated with Dist[employer] dictation software. It may contain incorrect words, spelling, and punctuation that were not noted in review of the chart prior to signing. Lab Data Labs: Laboratory Results - last 24 hr 11/27/23 18:35 WBC 6.2 RBC 2.94 L Hgb 8.0 L Hct 25.8 L MCV 87.8 MCH 27.2 MCHC 31.0 L RDW Std Deviation 40.9 RDW Coeff of Talon 12.8 Plt Count 298 MPV 9.1 PT 13.4 INR 1.0 APTT 26.0 Sodium 135 L Potassium 4.1 Chloride 102 Carbon Dioxide 26.0 Anion Gap 7 BUN 15 Creatinine 1.62 H Estim Creat Clear Calc 44.85 Est GFR (MDRD) Af Amer 55 L Est GFR (MDRD) Non-Af 46 L BUN/Creatinine Ratio 9.3 L Glucose 332 H Calcium 9.0 Total Bilirubin 0.20 AST 10 L ALT 16 Alkaline Phosphatase 82 Troponin I High Sens 673 H* B-Natriuretic Peptide 447.5 H Total Protein 6.9 Albumin 3.4 Globulin 3.5 Albumin/Globulin Ratio 1.0 Radiography Diagnostic Testing: Clinical Impression(s) from Imaging Studies Chest X-Ray 11/27/23 18:45 IMPRESSION: No acute radiographic abnormalities. Electronically Signed: Nba Carson MD at 19:30 EDT , Chest CTA 11/27/23 19:29 IMPRESSION: Moderate volume occlusive acute pulmonary emboli mostly in the left upper and lower lobe segmental and subsegmental pulmonary arteries. No evidence of right heart strain. Electronically Signed: Nba Carson MD at 20:07 EDT , Discharge Plan Triage Chief Complaint: Fatigue ED Provider: Ba Clifford Dx/Rx/DC Orders Prescriptions: No Action lisinopril 10 mg tablet 10 mg PO DAILY Patient Comments: THINKS HE RAN OUT multivitamin tablet 1 tab PO QDAY paroxetine HCl 30 MG tablet 30 mg PO DAILY glimepiride 4 MG tablet 2 mg PO DAILY Patient Comments: TAKE 1 TABLET BY MOUTH ONCE DAILY WITH BREAKFAST pantoprazole 40 MG tablet 40 mg PO DAILY Qty: 30 0RF ferrous sulfate 325 MG tablet 325 mg PO DAILY Qty: 30 0RF aspirin 81 MG tablet,chewable 81 mg PO DAILY@0800 Qty: 0 0RF metformin 500 mg tablet extended release 24 hr 1,000 mg PO BID fluticasone propionate [Flonase Allergy Relief] 50 mcg/actuation spray,suspension 1 spray intranasal DAILY PRN (Reason: nasal congestion) Rx Instructions: administer into each nostril Primary Care Provider: Travis Bassett Referrals: Travis Bassett MD [Primary Care Provider] - Print Language: Swedish
--- NOTE | 2023-11-27 18:32 | EKG12_ITS ---
Test Reason : GEN ILL Blood Pressure : / mmHG Vent. Rate : 100 BPM Atrial Rate : 100 BPM P-R Int : 134 ms QRS Dur : 078 ms QT Int : 362 ms P-R-T Axes : 039 033 -69 degrees QTc Int : 466 ms Normal sinus rhythm Nonspecific ST and T wave abnormality Prolonged QT Abnormal ECG Confirmed by JOS AMBRIZ, AQUILES ([id number]), [employer] magazine GABY LIN ([id number]) on 11/28/2023 1:53:40 PM Referred By: Confirmed By:AQUILES ARGUELLO MD
[2023-11-27] MEDS: 0.9% Normal Saline (500mL Bag) 500 ML 1000 ML IV (18:40)
--- NOTE | 2023-11-27 18:45 | RAD_ITS ---
INDICATION: Fatigue, dyspnea on exertion, rule out heart failu EXAMINATION/TECHNIQUE: X-RAY - XR Chest 1 View COMPARISON: 01/20/2021. FINDINGS: The lungs are clear. Tortuous and calcified thoracic aorta. The heart is borderline enlarged. No pleural effusion or pneumothorax. Degenerative changes of the thoracic spine. RAD/Chest 1 View (Portable) IMPRESSION: No acute radiographic abnormalities. Electronically Signed: Nba Carson MD at 19:30 EDT ,
[2023-11-27 18:47] LABS: Hematocrit 25.8 % (40-54); Mean Corpuscular Hgb 27.2 pg (27.0-32.0); Mean Corpuscular Volume 87.8 fL (80-94); Mean Platelet Vol. 9.1 fl (6.2-12.0); Platelet Count 298 K/mm3 (150-450); RBC Distribution Width CV 12.8 % (11.6-14.6); RBC Distribution Width SD 40.9 fl (35.1-43.9); Red Blood Count 2.94 M/mm3 (4.6-6.2); White Blood Count 6.2 K/mm3 (4.4-11.0)
[2023-11-27 18:55] LABS: Prothrombin Time (Protime)PT. 13.4 SECONDS (11.7-14.9)
[2023-11-27 19:09] LABS: BNP,B-Type NATRIURETIC PEPTIDE 447.5 pg/mL (0-100)
[2023-11-27 19:16] LABS: AST(SGOT) 10 U/L (15-37); Alanine Aminotransfer ALT/SGPT 16 U/L (16-61); Albumin, Serum 3.4 g/dL (3.2-5.0); Alkaline Phosphatase 82 U/L (45-117); Anion Gap 7 (5-15); BUN 15 mg/dL (7-18); BUN/Creat Ratio 9.3 RATIO (10-20); Chloride 102 mmol/L (98-107); Creatinine, Serum 1.62 mg/dL (0.70-1.30); EST Glomerular Filtration Rate 46 mL/min (>60); Est Glom Filt Rate - Afr Amer 55 mL/min (>60); Estimated Creatinine Clearance 44.85 ml/min; Globulin 3.5 g/dL (2.2-4.2); Glucose 332 mg/dL (74-106); Potassium 4.1 mmol/L (3.5-5.1); Protein, Total 6.9 g/dL (6.4-8.2); Sodium Level 135 mmol/L (136-145); Troponin-I HS 673 pg/mL (3.0-78.0)
--- NOTE | 2023-11-27 19:29 | CT_ITS ---
ACR Level 3 findings have been noted. An addendum which confirms receipt of the report will follow. INDICATION: DYSPNEA EXAMINATION: CTA Chest WO/W Contrast Injection TECHNIQUE: Helically acquired images were obtained of the chest following administration of IV contrast. A radiation dose optimization technique was used for this scan. 3D postprocessing images including MIPS were reviewed. IV Contrast dosage and agent: IV 100mL [id number] COMPARISON: None. FINDINGS: Lungs: Unremarkable Mediastinum: The cardiomediastinal silhouette is not enlarged. No mediastinal, hilar or axillary adenopathy. Mild aortic arch and coronary artery calcifications. Moderate volume occlusive clot seen in the left upper and lower lobe segmental and subsegmental pulmonary arteries. There is also a small amount of nonocclusive clot in the right upper lobe subsegmental pulmonary artery. No evidence of right heart strain. Pleura: Unremarkable Bones/Soft tissues: There are diffuse degenerative changes of the spine. Upper abdomen: No visualized abnormalities in the upper abdomen. CT/CTA Chest W/WO Contrast IMPRESSION: Moderate volume occlusive acute pulmonary emboli mostly in the left upper and lower lobe segmental and subsegmental pulmonary arteries. No evidence of right heart strain. Electronically Signed: Nba Carson MD at 20:07 EDT ,
[2023-11-27] MEDS: Aspirin 81 MG TAB.CHEW PO (19:39)
[2023-11-27 20:20] VITALS: BP 120/63; PULSE 89; RESP 16; O2SAT 95
[2023-11-27 20:49] VITALS: O2SAT 85; O2SAT 92
[2023-11-27 21:05] VITALS: BP 111/65; PULSE 83; RESP 18; TEMP 36.6; O2SAT 99
[2023-11-27 21:28] LABS: International Normalized Ratio 1.1; Partial Thromboplast Time 25.9 Seconds (24.1-36.2); Prothrombin Time (Protime)PT. 13.7 SECONDS (11.7-14.9)
--- NOTE | 2023-11-27 21:29 | PCM.HP.STD ---
HPI - General General Date of Admission: 11/27/23 Date of Service: 11/27/23 Chief Complaint: Dyspnea, fatigue, worse with exertion HPI Narrative The patient is a 68 y/o M w/ PMHx: Allergic rhinitis, CKD stage II per GFR trending, Chronic anemia/Fe deficiency anemia, HTN, HLD, Anxiety and Depression, Former tobacco use, Hx GI bleed with history of angiodysplasia of the colon, GERD, CAD s/p PCI w/ Ischemic cardiomyopathy, Diabetes mellitus type II who presents to the [facility] ED on 11/27/23 with history of significant fatigue and malaise worse with exertion with chronic anemia with no recent bleeding per rectum nor any dark black stools or any hemoptysis or hematemesis but given significant fatigue prompted eventual ED evaluation to be cautious. Workup in the ED included T98.1, heart rate 100, BP 115/72, respiratory rate 16, 96% on room air with desaturation in the ED down to 85% requiring initiation of 2 L nasal cannula noted to maintain 92%, most recent vital signs T97.9, heart rate 83, BP 111/65, respiratory rate 18, CBC with WBC 6.2, hemoglobin 8.0, MCV 87.8, platelet 298 without differential, unremarkable coags, CMP with sodium 135, BUN/creatinine 15/1.62, GFR 46, glucose 332, BNP 447.5, initial troponin 673, type and screen initiated per ED physician, chest x-ray with no acute cardiopulmonary findings, chest CTA with a moderate volume occlusive acute pulmonary emboli mostly in the left upper and lower lobe segment and subsegmental pulmonary arteries with no evidence of any cardiac right heart strain, EKG with SR with no acute evidence of ischemia. In the ED patient ministered aspirin 81 mg as well as heparin bolus and drip in addition to normal saline bolus. ED discussed case with Dr. Gregg to be cautious given history of angiodysplasia and was amenable to anticoagulation. [facility] Medical History Wears glasses Thyroid disease Gout Low iron High cholesterol Easy bruising Gastric reflux Cardiology follow-up encounter History of heart attack GI bleed Anemia Hypotension History of stress test Iron deficiency anemia Anxiety Diabetes Former smoker Myocardial infarct Hypertension Depression Essential (primary) hypertension Ischemic cardiomyopathy Hyperlipidemia History of anterior wall myocardial infarction Atherosclerotic heart disease of [place] coronary artery without angina pectoris Diabetes mellitus type II, controlled Home Medications ?Medication ?Instructions ?Recorded ?Last Taken ?Type paroxetine HCl 30 mg tablet 30 mg PO DAILY depression 12/02/14 05/10/23 History lisinopril 10 mg tablet 10 mg PO DAILY BP 05/14/17 03/15/23 History multivitamin 1 tab PO QDAY health 05/14/17 05/10/23 History glimepiride 4 mg tablet 2 mg PO DAILY DM 02/18/19 05/10/23 History aspirin 81 mg chewable tablet 81 mg PO DAILY@0800 heart ##0 02/19/19 05/10/23 Rx ferrous sulfate 325 mg (65 mg 325 mg PO DAILY #30 tabs 02/19/19 05/10/23 Rx iron) tablet pantoprazole 40 mg tablet,delayed 40 mg PO DAILY #30 tabs 02/19/19 05/10/23 Rx release metformin 500 mg tablet,extended 1,000 mg PO BID 05/10/23 05/10/23 History release 24 hr fluticasone propionate 50 1 spray intranasal DAILY PRN nasal 11/27/23 Unknown History mcg/actuation nasal congestion spray,suspension (Flonase Allergy Relief) Allergy/AdvReac Type Severity Reaction Status Date / Time No Known Allergies Allergy Verified 11/27/23 18:22 Family History Mother No problems noted. Father No problems noted. Surgical History History of surgery H/O cardiac catheterization Stented coronary artery Social History household members: none Smoking Status: Former smoker quit date: 01/20/91 alcohol intake: never substance use type: does not use ROS ROS Narrative Physical Examination: General: Awake, alert, oriented x 3 and cooperative, seated upright in the ED bed, fatigued but otherwise denies any acute complaints Skin: Normal color, normal turgor, no icterus, no cyanosis except occasional staged ecchymoses. HEENT: AT/NC, EOMI, PERRLA, mildly dry MM, no carotid bruits or JVD noted. Lungs: Mildly diminished, greater bases, appropriate effort, currently on 2 L nasal cannula supplementation, no rales, ronchi or wheezing. Heart: Regular rate and rhythm; no gallop, rub audible. Abdomen: Soft, NTTP, ND, distant normal BS, no HSM. Extremities: No cyanosis, clubbing, or edema. No pain with any bilateral calf palpation of note. Neurological: Patient awake, alert, oriented as noted cognitive function intact; pupils equally reactive to light and accommodation, cranial nerves grossly normal, moving all 4 extremities, no focal deficits, strength moderately globally decreased secondary to acute complaints. Psychiatric: Affect appears fatigued otherwise normal, no acute evidence of depressive or anxiety feelings but does have underlying history. Vital Signs Vital Signs Vital Signs: 11/27/23 18:21 11/27/23 18:53 11/27/23 20:20 Temperature 98.1 F Temperature Source Temporal Pulse Rate 100 89 Respiratory Rate 16 16 Respiratory Effort Normal Respiratory Pattern Normal Blood Pressure 115/72 120/63 Blood Pressure Mean 86 82 Pulse Ox 96 95 Oxygen Delivery Method Room Air Room Air Oxygen Flow Rate (L/min) 11/27/23 20:49 11/27/23 20:49 11/27/23 21:05 Temperature 97.9 F Temperature Source Pulse Rate 83 Respiratory Rate 18 Respiratory Effort Respiratory Pattern Blood Pressure 111/65 Blood Pressure Mean 80 Pulse Ox 85 92 99 Oxygen Delivery Method Nasal Cannula Nasal Cannula Oxygen Flow Rate (L/min) 2 Weight Weight: 180 lb Body Mass Index (BMI) 26.6 Results Lab / Micro Data 11/27/23 18:35 11/27/23 18:35 Labs: Laboratory Results - last 24 hr 11/27/23 18:35: WBC 6.2, RBC 2.94 L, Hgb 8.0 L, Hct 25.8 L, MCV 87.8, MCH 27.2, MCHC 31.0 L, RDW Std Deviation 40.9, RDW Coeff of [place]on 12.8, Plt Count 298, MPV 9.1, PT 13.4, INR 1.0, APTT 26.0, Sodium 135 L, Potassium 4.1, Chloride 102, Carbon Dioxide 26.0, Anion Gap 7, BUN 15, Creatinine 1.62 H, Estim Creat Clear Calc 44.85, Est GFR (MDRD) Af Amer 55 L, Est GFR (MDRD) Non-Af 46 L, BUN/Creatinine Ratio 9.3 L, Glucose 332 H, Calcium 9.0, Total Bilirubin 0.20, AST 10 L, ALT 16, Alkaline Phosphatase 82, Troponin I High Sens 673 H*, B-Natriuretic Peptide 447.5 H, Total Protein 6.9, Albumin 3.4, Globulin 3.5, Albumin/Globulin Ratio 1.0, Blood Type A POSITIVE, Antibody Screen POSITIVE, Antibody Identification ANTI-Fya 11/27/23 21:10: PT 13.7, INR 1.1, APTT 25.9 Imaging Radiology Impression Chest X-Ray 11/27/23 18:45 IMPRESSION: No acute radiographic abnormalities. Electronically Signed: Nba Carson MD at 19:30 EDT Reading Location ID and State: [id number] Tel , Service support , Chest CTA 11/27/23 19:29 IMPRESSION: Moderate volume occlusive acute pulmonary emboli mostly in the left upper and lower lobe segmental and subsegmental pulmonary arteries. No evidence of right heart strain. Electronically Signed: Nba Carson MD at 20:07 EDT Reading Location ID and State: [employer] / [place] Tel , Service support , ADDENDUM: 11/27/232044 IMPRESSION: Moderate volume occlusive acute pulmonary emboli mostly in the left upper and lower lobe segmental and subsegmental pulmonary arteries. No evidence of right heart strain. N.B. : EUGENIA oHlt, confirmed on 11/27/2023 20:38:06 (ET) that the healthcare facility has received the radiology report. Electronically Signed: Nba Carson MD at 20:07 EDT , Assessment & Plan Assessment/Plan (1) Pulmonary embolism: PLAN: Plan The patient is a 68 y/o M w/ PMHx: Allergic rhinitis, CKD stage II per GFR trending, Chronic anemia/Fe deficiency anemia, HTN, HLD, Anxiety and Depression, Former tobacco use, Hx GI bleed with history of angiodysplasia of the colon, GERD, CAD s/p PCI w/ Ischemic cardiomyopathy, Diabetes mellitus type II who presents to the [facility] ED on 11/27/23 with history of significant fatigue and malaise worse with exertion with chronic anemia with no recent bleeding per rectum nor any dark black stools or any hemoptysis or hematemesis but given significant fatigue prompted eventual ED evaluation to be cautious. #1. Acute Hypoxia, Fatigue, malaise, worse with exertion secondary to Acute Pulmonary Embolism: EKG without acute findings, mild hypoxia evident in the ED with supplementation placed, initial troponin 673, chest x-ray with no acute cardiopulmonary findings, CTPA with moderate volume occlusive acute pulmonary emboli mostly in the left upper and lower segment and subsegmental pulmonary arteries. Patient denies any recent travel, surgical interventions, recent URI type illnesses that could be concerning for COVID thus at this time does not appear to be any type of provoked pulmonary emboli situation and no underlying known cancer history. Discussed with patient's that we will need to continue to follow and monitor outpatient additionally. Will admit to PCU, maintain on cardiac telemetry. Will obtain ECHO. Given age at this point hypercoagulable panel would be an appropriate but again will need to monitor for potential other reasons for VTE will need to investigate cost of oral options for discharge planning to home. If cardiac enzymes significantly rise further may need to consider involving cardiology. #2. Acute Renal Insufficiency/Creatinine elevation on Chronic Kidney Disease Stage II per GFR trending: Admission BUN/Cr 15/1.62, GFR 46, baseline renal function primarily 0.9-1.1, repeat BMP in AM. #3. Chronic normocytic anemia/Fe Deficiency anemia: Admission hemoglobin 8.0, MCV 87.8, baseline hemoglobin noted primarily 7-8, most recently prior to this 05/13/2023 hemoglobin 8.6, type and screen initiated in the ED per ED physician, will continue to trend CBC. #4. CAD, ischemic cardiomyopathy: Status post prior PCI, will continue aspirin, statin, temporally holding lisinopril, not on beta-brian therapy, encourage continued outpatient follow-up with cardiology as previously arranged. #5. Diabetes mellitus type II: Hold oral home regimen, ADA diet, accu checks w/ ISS. #6. Hypertension: Given elevated creatinine will temporally hold lisinopril, resume if clinically improves, as needed IV hydralazine in the interim. #7. Hyperlipidemia: Not on regimen, defer to outpatient. #8. Anxiety and depression: We will continue patient home paroxetine home regimen. #9. Allergic rhinitis: Will temporally hold as needed fluticasone regimen. May add back if symptomatic. #10. Former tobacco use: Encourage continued tobacco cessation. #11. GERD with history of previous GI bleed with noted angiodysplasia of the colon: Will continue patient home PPI. ED physician was concerned given presentation history and did touch base with gastroenterology who agreed with initiation of anticoagulant therapy. #12. DVT prophylaxis: Continue heparin drip as noted. #13. CODE status: Patient does not have healthcare power of business risk consultant or living will in place but notes if he needed a medical decision maker he would want his [id number] Sam to be this individual. Discussed CODE status at length including difference between FULL code, DNR-CCA and DNR-CC status. Following discussions about the differences in these status, requested Full Code status. Advanced Care Planning Face to Face Time: 16 minutes. Charges/Coding Visit Charges Inpatient E&M: 99564 Init Hosp L3 Procedures Hospitalists Procedures: 22348 Advncd Care Plan 30 Min
[2023-11-27 21:52] LABS: Troponin-I HS 638 pg/mL (3.0-78.0)
[2023-11-27] MEDS: HEPARIN/D5w 25,000 UNITS 25,000 UNITS/250 ML IV.SOLN. 10 UNITS CONT INF (21:59)
[2023-11-27 22:00] VITALS: BP 122/75; PULSE 85; RESP 18; O2SAT 100
[2023-11-27 22:16] LABS: Magnesium 1.9 mg/dL (1.6-2.6)
--- NOTE | 2023-11-27 23:35 | ECHOCS_ITS ---
Reason For Study: ELEVATED TROP Procedure This was a 2D Doppler, Color Flow transthoracic echocardiogram. The study was technically difficult. Contrast injection was performed. Exam performed portable in patient room. Left Ventricle Normal LV size. The left ventricular ejection fraction is 45 %. Mild to moderate segmental systolic dysfunction (see wall motion). Septal [place] : Akinetic. [place] : Hypokinetic. Mid-anteroseptal : Hypokinetic. Right Ventricle Normal RV size. Normal systolic function. Atria The left atrium is mildly enlarged. Normal right atrium. Mitral Valve Mild (1+) eccentric mitral valve insufficiency. Tricuspid Valve Normal tricuspid valve. Aortic Valve Trisinus/trileaflet aortic valve. Pulmonic Valve The pulmonic valve is not well visualized. Great Vessels Normal aortic root. The pulmonary artery is normal size. Normal inferior vena cava. Pericardium/Pleural No pericardial effusion. Medication Diluted definity 2ml given slow IV push to enhance endocardial definition. MMode/2D Measurements & Calculations LVIDd: 5.0 cm IVSd: 1.1 cm Ao root diam: 2.8 cm LVIDs: 4.4 cm LVPWd: 1.0 cm FS: 13.7 % LAV(MOD-bp): 65.5 ml LVAd ap4: 44.3 cm2 SV(MOD-sp4): 76.8 ml LAV(MOD-bp) Indexed: 33.1 ml/m2 LVLd ap4: 8.2 cm LAV(MOD-sp2): 52.4 ml EDV(MOD-sp4): 192.8 ml LAV(MOD-sp4): 65.4 ml EDV(sp4-el): 203.1 ml LVAs ap4: 32.8 cm2 LVLs ap4: 7.6 cm ESV(MOD-sp4): 115.9 ml ESV(sp4-el): 120.3 ml EF(MOD-sp4): 39.9 % EF(sp4-el): 40.8 % SV(sp4-el): 82.9 ml LA A4 area: 22.4 cm2 LA dimension(2D): 4.1 cm RA A4 area: 13.7 cm2 Time Measurements MV dec time: 0.08 sec Doppler Measurements & Calculations MV E max mayur: 96.7 cm/sec Lat Peak E' Mayur: 9.7 cm/sec Med Peak E' Mayur: 6.6 cm/sec MV A max mayur: 90.4 cm/sec E/E' lat: 10.0 E/E' med: 14.6 MV E/A: 1.1 MV V2 max: 97.1 cm/sec MV dec slope: 1240 cm/sec2 Ao V2 max: 89.9 cm/sec MV max P.8 mmHg Ao max P.3 mmHg MV V2 mean: 62.8 cm/sec Ao V2 mean: 63.9 cm/sec MV mean P.9 mmHg Ao mean P.8 mmHg MV V2 VTI: 25.6 cm Ao V2 VTI: 17.2 cm AV (velocity ratio): 1.1 LV V1 max: 94.5 cm/sec LV V1 max P.6 mmHg LV V1 mean P.0 mmHg LV V1 mean: 65.6 cm/sec LV V1 VTI: 19.0 cm ECHO/Echo Complete W/ Contrast Interpretation Summary The left ventricular ejection fraction is 45 %. Mild to moderate segmental systolic dysfunction (see wall motion). Normal LV size. Contrast injection was performed. Ordering Physician: Tennille Stauffer Referring Physician: NORMA SANTIAGO Performed By: Tali Berg and Student
[2023-11-28] VITALS (9 sets, daily range): BP systolic 94–127; BP diastolic 60–72; PULSE 84–98; RESP 16–18; TEMP 36.4–36.9; O2SAT 95–99; BMI 26.7
[2023-11-28] MEDS: 0.9% Normal Saline (1000mL) 1,000 ML 100 ML IV (00:28)
[2023-11-28] MEDS: Insulin Lispro 100 UNIT/ML INSULN.PEN SC ×5 (00:36→22:29)
[2023-11-28 01:07] LABS: Bedside Glucose 298 mg/dL (74-106)
[2023-11-28 01:16] LABS: Troponin-I HS 738 pg/mL (3.0-78.0)
[2023-11-28 04:27] LABS: Absolute Lymphocyte Count 1.38 X10^3/uL (0.83-4.51); Absolute Neutrophil Count 3.2 X10^3/uL (2.0-7.7); Basophil# 0.04 X10^3/uL; Basophil% 0.7 % (0-1); Eosinophil# 0.23 X10^3/uL; Eosinophils% 4.2 % (0-5); Hematocrit 23.4 % (40-54); Lymphocyte # 1.38 X10^3/ul (0.83-4.51); Lymphocyte % 25.4 % (19-41); Mean Corp Hgb Conc 29.9 g/dL (32-36); Mean Corpuscular Hgb 26.5 pg (27.0-32.0); Mean Corpuscular Volume 88.6 fL (80-94); Mean Platelet Vol. 9.4 fl (6.2-12.0); Monocyte# 0.55 X10^3/uL; Monocyte% 10.1 % (0-10); NRBC Flagged by Analyzer 0 % (0-5); Neutrophil # 3.23 X10^3/uL (2.7-7.7); Neutrophil % 59.4 % (47-70); Platelet Count 226 K/mm3 (150-450); RBC Distribution Width SD 41.5 fl (35.1-43.9); Red Blood Count 2.64 M/mm3 (4.6-6.2); White Blood Count 5.4 K/mm3 (4.4-11.0)
[2023-11-28 04:47] LABS: Partial Thromboplast Time 38.1 Seconds (24.1-36.2)
[2023-11-28 04:51] LABS: AST(SGOT) 8 U/L (15-37); Alanine Aminotransfer ALT/SGPT 13 U/L (16-61); Albumin, Serum 3.1 g/dL (3.2-5.0); Alkaline Phosphatase 75 U/L (45-117); Anion Gap 6 (5-15); BUN 14 mg/dL (7-18); BUN/Creat Ratio 12.2 RATIO (10-20); Calcium,Total 8.6 mg/dL (8.5-10.1); Chloride 105 mmol/L (98-107); Cholesterol 173 mg/dL (200); Creatinine, Serum 1.15 mg/dL (0.70-1.30); EST Glomerular Filtration Rate 68 mL/min (>60); Est Glom Filt Rate - Afr Amer 82 mL/min (>60); Estimated Creatinine Clearance 63.19 ml/min; Glucose 266 mg/dL (74-106); High Density Lipoprotein 33 mg/dL; Potassium 3.8 mmol/L (3.5-5.1); Protein, Total 6.1 g/dL (6.4-8.2); Sodium Level 138 mmol/L (136-145); Triglycerides 235 mg/dL; Very Low Density Lipoprotein 47 mg/dL (5-40)
[2023-11-28] MEDS: Heparin Injection (Vial) 5,000 UNIT/ML VIAL IV (05:15)
[2023-11-28 06:25] LABS: Troponin-I HS 620 pg/mL (3.0-78.0)
[2023-11-28 07:21] LABS: Bedside Glucose 273 mg/dL (74-106)
--- NOTE | 2023-11-28 07:27 | PCM.PN.HOSP ---
Reason for Visit Reason for Visit: Shortness of breath/fatigue Subjective Subjective Patient is a 68-year-old white male who presented to the emergency department at [facility] on 11/27/2019 for due to fatigue and malaise as well as dyspnea most notably with exertion. Due to his symptoms on presentation he felt that maybe his blood counts were off as they had been earlier this year when he was admitted for GI bleed. Vital signs on presentation showed temperature of 98.1, heart rate 100, respiratory rate 16, blood pressure 115/72 and pulse ox was 96% on room air. CBC showed a normal white count with a hemoglobin of 8.0 (8.6 on discharge 05/13/2023) and normal platelet count. His chemistry panel showed mild hyponatremia natremia with sodium 135, elevated serum creatinine 1.62 with a baseline of 1-1.2. Serum glucose was 332. Initial troponin was 673 and BNP was 447.5. Cardiac enzymes have been cycled since admission and have remained elevated in the 600-700 range, but have not escalated beyond that point. Chest x-ray is unremarkable however CTA of the chest was performed and showed moderate volume loss occlusive pulmonary emboli mostly in the left upper and lower segmental and subsegmental pulmonary arteries with no evidence of RV strain. He was started on a heparin drip by the emergency department and admitted to PCU for ongoing care. On 11/28/2019 far his hemoglobin dropped to 7.0. Review of previous EGD from April 2023 showed angiodysplastic lesions that were bleeding at the time of scope. GI was consulted due to this. Patient states his shortness of breath is much improved since he came in. He has been weaned to room air. We did discuss his anemia. He states he has not really noticed any dark stools but has had fatigue. I did discuss the need for repeat endoscopy given his ongoing anemia along with the need for him to start anticoagulation and he understood and voiced agreement. Plan will be for initially EGD and then possibly colonoscopy depending on findings. Objective Data Objective Data Vital Signs: Vital Signs Temp Pulse Resp BP Pulse Ox O2 Del Method O2 Flow Rate 97.7 F L 84 18 102/60 96 Room Air 2 11/28/23 04:34 11/28/23 04:34 11/28/23 04:34 11/28/23 04:34 11/28/23 06:36 11/28/23 06:36 11/28/23 06:33 Oxygen Flow Rate (L/min) 2 Oxygen Delivery Method Room Air Weight: 82.2 kg Body Mass Index (BMI) 26.7 Intake & Output: Intake and Output for Last 24 Hours 11/26/23 11/27/23 11/28/23 23:59 23:59 23:59 Intake Total 500 / 500 192.5 / 192.5 Balance 500 / 500 192.5 / 192.5 Lab / Micro Data 11/28/23 13:27 11/28/23 04:10 Labs: Laboratory Results - last 24 hr 11/27/23 18:35: WBC 6.2, RBC 2.94 L, Hgb 8.0 L, Hct 25.8 L, MCV 87.8, MCH 27.2, MCHC 31.0 L, RDW Std Deviation 40.9, RDW Coeff of [place] 12.8, Plt Count 298, MPV 9.1, PT 13.4, INR 1.0, APTT 26.0, Sodium 135 L, Potassium 4.1, Chloride 102, Carbon Dioxide 26.0, Anion Gap 7, BUN 15, Creatinine 1.62 H, Estim Creat Clear Calc 44.85, Est GFR (MDRD) Af Amer 55 L, Est GFR (MDRD) Non-Af 46 L, BUN/Creatinine Ratio 9.3 L, Glucose 332 H, Calcium 9.0, Total Bilirubin 0.20, AST 10 L, ALT 16, Alkaline Phosphatase 82, Troponin I High Sens 673 H*, B-Natriuretic Peptide 447.5 H, Total Protein 6.9, Albumin 3.4, Globulin 3.5, Albumin/Globulin Ratio 1.0, Blood Type A POSITIVE, Antibody Screen POSITIVE, Antibody Identification ANTI-Fya 11/27/23 20:16: Magnesium 1.9 11/27/23 21:10: PT 13.7, INR 1.1, APTT 25.9, Troponin I High Sens 638 H* 11/28/23 00:00: POC Glucose 298 H 11/28/23 00:35: Troponin I High Sens 738 H* 11/28/23 04:10: WBC 5.4, RBC 2.64 L, Hgb 7.0 L, Hct 23.4 L, MCV 88.6, MCH 26.5 L, MCHC 29.9 L, RDW Std Deviation 41.5, RDW Coeff of [place] 13.0, Plt Count 226, MPV 9.4, Immature Gran % (Auto) 0.200, Neut % (Auto) 59.4, Lymph % (Auto) 25.4, [place] % (Auto) 10.1 H, Eos % (Auto) 4.2, Baso % (Auto) 0.7, Absolute Neuts (auto) 3.2, Absolute Lymphs (auto) 1.38, Nucleated RBC % 0, APTT 38.1 H, Sodium 138, Potassium 3.8, Chloride 105, Carbon Dioxide 27.0, Anion Gap 6, BUN 14, Creatinine 1.15, Estim Creat Clear Calc 63.19, Est GFR (MDRD) Af Amer 82, Est GFR (MDRD) Non-Af 68, BUN/Creatinine Ratio 12.2, Glucose 266 H, Calcium 8.6, Total Bilirubin 0.10 L, AST 8 L, ALT 13 L, Alkaline Phosphatase 75, Total Protein 6.1 L, Albumin 3.1 L, Globulin 3.0, Albumin/Globulin Ratio 1.0, Triglycerides 235 H, Cholesterol 173, LDL Cholesterol 93, VLDL Cholesterol 47 H, HDL Cholesterol 33 L 11/28/23 05:40: Troponin I High Sens 620 H* 11/28/23 06:29: POC Glucose 273 H Radiography Diagnostic Testing: Radiology Impression Chest X-Ray 11/27/23 18:45 IMPRESSION: No acute radiographic abnormalities. Electronically Signed: Nba Carson MD at 19:30 EDT Reading Location ID and State: [facility] / [place] Tel , Service support , Chest CTA 11/27/23 19:29 IMPRESSION: Moderate volume occlusive acute pulmonary emboli mostly in the left upper and lower lobe segmental and subsegmental pulmonary arteries. No evidence of right heart strain. Electronically Signed: Nba Carson MD at 20:07 EDT , ADDENDUM: 11/27/232044 IMPRESSION: Moderate volume occlusive acute pulmonary emboli mostly in the left upper and lower lobe segmental and subsegmental pulmonary arteries. No evidence of right heart strain. N.B. : EUGENIA oHlt, confirmed on 11/27/2023 20:38:06 (ET) that the healthcare facility has received the radiology report. Electronically Signed: Nba Carson MD at 20:07 EDT , Physical Exam Const alert, oriented x3, average body habitus, healthy appearing and well nourished Constitutional Narrative: Upper middle-aged, white male, lying in bed, appears comfortable, nontoxic, currently on room air watching television and in no apparent distress HEENT head/scalp atraumatic and moist oral mucous membranes HEENT Narrative: Dentition is poor, Mallampati is 2, no thrush Head and Scalp: normocephalic Eyes PERRL and EOMs intact bilaterally; Negative for conjunctivae normal Neck no lymphadenopathy and supple Neck Narrative: Trachea midline, no thyroid enlargement Resp normal respiratory effort, no retractions, no use of accessory muscles and clear to auscultation bilaterally Auscultation: Negative for rales, rhonchi or wheezes Cardio regular rate, regular rhythm, S1 normal heart sound, S2 normal heart sound, no murmurs, no rub, no gallops and no clicks GI normal to inspection, nondistended, normoactive bowel sounds, soft to palpation and non-tender Extremity no clubbing, cyanosis or edema Extremity Narrative: 2+ pedal pulses Skin no rashes or lesions noted, no wounds, skin turgor normal, no jaundice, no petechiae and no mottling Skin Narrative: Pale Neuro oriented x3, moves all extremities and no focal motor deficits Speech: speech normal Psych affect normal Psych Narrative: Very pleasant, interacts appropriately Assessment & Plan Assessment/Plan (1) Pulmonary embolism: (2) History of GI bleed: (3) Acute on chronic anemia: (4) Hypoxia: (5) Hyperglycemia due to diabetes mellitus: PLAN: Plan Acute hypoxia secondary to pulmonary emboli -CT shows no RV strain however biomarkers are elevated -Troponin and BNP elevated -With no RV strain suspect this may be multifactorial related to his PE and marked anemia on presentation -Check echocardiogram -Continue heparin drip -Will likely transition to Eliquis tomorrow -85% on room air in the emergency department and placed on 2 L with adequate oxygenation following -Remains on 2 L today and will wean as able -Oxygen saturations seem to be improving -Will need ambulatory pulse ox prior to discharge -Consult vascular surgery for assessment of RV on echo to see if patient would be candidate for thrombectomy Acute on chronic anemia with recent GI bleed -April/2023 patient was admitted for anemia -EGD during that time showed normal esophagus with 3 bleeding angiodysplastic lesions in the stomach that were treated with heater probe and rest the scope was otherwise normal -Hemoglobin 8.0 on presentation but now 7.0 -Check iron studies -Consult GI as patient will need to be anticoagulated -Continue home iron supplementation -If serum iron studies are markedly deficient will likely need IV iron -Stop p.o. Protonix and add IV Protonix 40 IV twice daily -Cycle hemoglobin every 6 hours and transfuse for precipitous drop or less than 7 DM-2 with hyperglycemia -Blood sugars are markedly elevated in the 2-300 range -Takes only glimepiride and metformin at home -Check A1c however this will likely be artificially lower than what is actual for him due to his anemia -If elevated will likely need to add some insulin to his home regimen -Continue Accu-Cheks -SSI as ordered -May need to consider basal insulin -Cardiac/carb controlled diet History of GERD -PPI as noted above CAD/essential hypertension -Previous PCI -Continue aspirin -Continue home lisinopril Seasonal allergies -Continue home nasal spray History of ischemic cardiomyopathy -Not on any goal-directed therapy at this time -Echocardiogram is pending -Monitor clinically for any signs of volume overload History of gout -Patient takes no chronic suppression with medication -Monitor clinically Depression/anxiety -Continue home paroxetine DVT prophylaxis -Patient is on heparin drip currently with full anticoagulation for PE -Must continue this despite concern for worsening anemia CODE STATUS -full code as verified admission Charges/Coding Visit Charges Inpatient E&M: 77764 [facility] Hosp L3
[2023-11-28 09:33] LABS: Hemoglobin 7.6 g/dL (13.0-16.5)
[2023-11-28 10:35] LABS: Hemoglobin A1c 12.4 % (3.8-5.6)
[2023-11-28 11:05] LABS: Partial Thromboplast Time 43.4 Seconds (24.1-36.2)
[2023-11-28] MEDS: Pantoprazole Sodium 40 MG in 0.9% Normal Saline (100mL MB+) 100 ML 330 MG IV ×2 (11:49→22:23)
[2023-11-28] MEDS: 0.9% Saline Lock 10 ML Syringe IV ×4 (11:50→22:21)
[2023-11-28] MEDS: 0.9% Normal Saline (250mL Bag) 250 ML 15 ML IV (11:51)
[2023-11-28 12:44] LABS: Bedside Glucose 254 mg/dL (74-106)
[2023-11-28 13:44] LABS: Hemoglobin 7.4 g/dL (13.0-16.5)
[2023-11-28] MEDS: Acetaminophen 325 MG Tablet 650 MG PO (15:30)
[2023-11-28] MEDS: Aspirin 81 MG TAB.CHEW PO (15:30)
[2023-11-28] MEDS: PARoxetine 10 MG Tablet 30 MG PO (15:30)
[2023-11-28] MEDS: Ferrous Sulfate 325 MG Tablet PO (15:30)
--- NOTE | 2023-11-28 15:40 | CASEMGMT ---
JUSTINO LEON Assessment Face to Face with patient for initial transition planning/care coordination assessment. JUSTINO LEON introduced self and role at [facility], pt voices understanding. Pt is A&Ox4 and is resting comfortably in bed and is calm. Care providers, pharmacy, and demographics verified. Admitting dx: Acute PE, Elevated Troponin LACE Strata: 2 PCP: Travis Bassett Specialists: Hx with [facility] Preferred Pharmacy: [facility] Insurance: [facility] Prescription Benefit: Yes LNOK: Huey Hess (F), Sam Burrows (KODY) Living Arrangements: Pt lives alone in a single story apartment with a flat entrance. Pt states that his KODY stays with him at times ADLs/IADLs: Ind Transportation: Self. Pt denies concerns DME: BGM and supplies. HHC/SNF: Denies Hx or needs Pt?s goal: Home Plan: Home no needs. 6-click is 21. Pt denies HHC, OP Tx. CM to follow for anticoagulant Rx. Ambreen Barton RN, CM
[2023-11-28] MEDS: Bisacodyl 5 MG Tablet 20 MG PO (16:54)
[2023-11-28] MEDS: Metoclopramide 10 MG/2 ML Vial IV (16:54)
[2023-11-28] MEDS: HEPARIN/D5w 25,000 UNITS 25,000 UNITS/250 ML IV.SOLN. 13 UNITS CONT INF (16:59)
--- NOTE | 2023-11-28 17:28 | CON.PCM.SX_ITS ---
Assessment & Plan Assessment/Plan (1) Pulmonary embolism: QUALIFIERS: Chronicity: acute Acute cor pulmonale presence: w ithout acute cor pulmonale Pulmonary embolism type: unspecified Qualified Code(s): I26.99 - Other pulmonary embolism without acute cor pulmonale PLAN: -CT images reviewed, segmental branch thrombus, normal RV -hemodynamically stable, on RA -unclear why elevated biomarkers in relatively small PE -would not benefit from thrombectomy, ok to transition to PO agents HPI Consult Data Date of Consult: 11/28/23 HPI Narrative HPI Narrative: BRAD HALLMAN, is a 68 M who presents with SOB with exertion, found to have PE. Initial CT showed modest clot burden in segmental branches and no RV strain. His trop and BNP were elevated so evaluation for possible candidacy for thrombectomy was requested. He currently has no symptoms at rest, is on RA, has not ambulated much since admission. No CP, no leg pain/edema. [facility] Medical History Wears glasses Thyroid disease Gout Low iron High cholesterol Easy bruising Gastric reflux Cardiology follow-up encounter History of heart attack GI bleed Anemia Hypotension History of stress test Iron deficiency anemia Anxiety Diabetes Former smoker Myocardial infarct Hypertension Depression Essential (primary) hypertension Ischemic cardiomyopathy Hyperlipidemia History of anterior wall myocardial infarction Atherosclerotic heart disease of [place] coronary artery without angina pectoris Diabetes mellitus type II, controlled Home Medications ?Medication ?Instructions ?Recorded ?Last Taken ?Type paroxetine HCl 30 mg tablet 30 mg PO DAILY depression 12/02/14 05/10/23 History lisinopril 10 mg tablet 10 mg PO DAILY BP 05/14/17 03/15/23 History multivitamin 1 tab PO QDAY health 05/14/17 05/10/23 History glimepiride 4 mg tablet 2 mg PO DAILY DM 02/18/19 05/10/23 History aspirin 81 mg chewable tablet 81 mg PO DAILY@0800 heart ##0 02/19/19 05/10/23 Rx ferrous sulfate 325 mg (65 mg 325 mg PO DAILY #30 tabs 02/19/19 05/10/23 Rx iron) tablet pantoprazole 40 mg tablet,delayed 40 mg PO DAILY #30 tabs 02/19/19 05/10/23 Rx release metformin 500 mg tablet,extended 1,000 mg PO BID 05/10/23 05/10/23 History release 24 hr fluticasone propionate 50 1 spray intranasal DAILY PRN nasal 11/27/23 Unknown History mcg/actuation nasal congestion spray,suspension (Flonase Allergy Relief) Allergy/AdvReac Type Severity Reaction Status Date / Time No Known Allergies Allergy Verified 11/27/23 18:22 Family History Mother No problems noted. Father No problems noted. Surgical History History of surgery H/O cardiac catheterization Stented coronary artery Social History household members: none Smoking Status: Former smoker quit date: 01/20/91 alcohol intake: never substance use type: does not use ROS Constitutional Constitutional: Denies chills, fever(s), frequent falls, lethargy or weakness Eyes Eyes: Denies blind spots, change in vision or loss of vision ENT HEENT: Denies bleeding gums, hoarseness or sore throat Cardiovascular Cardiovascular: Reports dyspnea on exertion; Denies abdominal pain, bluish discoloration of hand/feet, chest pain with activity, claudication, cold extremities, cyanosis, erythema on extremities, irregular heart rhythm, leg edema, leg ulcers, numbness in extremities or weakness in extremities Respiratory/Chest Respiratory/Chest: Denies cough, excessive phlegm production, shortness of breath at rest, shortness of breath with exertion or wheezing Gastrointestinal Gastrointestinal: Denies anorexia, change in stool character, constipation, diarrhea, melena or rectal bleeding Genitourinary Genitourinary: Denies dysuria or hematuria Musculoskeletal Musculoskeletal: Denies abnormal gait Integumentary Integumentary: Reports other Details: ; Denies erythema, non-healing lesions or wounds Neurologic Neurologic: Denies abnormal speech, focal weakness, headache(s), loss of vision, numbness, paresthesias or sensory deficit Hematologic/Lymphatic Hematologic/Lymphatic: Denies easy bleeding, easy bruising or lymphadenopathy Physical Exam Const alert, oriented x3, no apparent distress and healthy appearing General Appearance: cooperative; Negative for combative or lethargic Orientation / Consciousness: awake Exam Limitations: no limitations HEENT Head and Scalp: normocephalic and atraumatic Eyes EOMs intact bilaterally General Eye: normal appearance of both eyes Neck full ROM, no lymphadenopathy and thyroid normal General: trachea midline; Negative for lymphadenopathy or tenderness Thyroid: thyroid normal Lymph Lymphatic: Negative for no lymphadenopathy noted Resp normal respiratory effort and no use of accessory muscles Effort and Inspection: Negative for labored, stridor or audible wheezes Cardio regular rate and regular rhythm Peripheral Pulses: brachial pulses present, radial pulses present, femoral pulses present, popliteal pulses present, posterior tibial pulses present and dorsalis pedis pulses present Back/Spine Cervical Spine: cervical ROM normal Extremity full ROM, normal capillary refill and no clubbing, cyanosis or edema Skin no rashes or lesions noted and no wounds Neuro oriented x3, CN's II-XII intact bilaterally, no focal motor deficits and no sensory deficits noted Psych thought process normal, cooperative, affect normal, speech normal and activity/motor behavior normal Lab / Micro Data 11/28/23 13:27 11/28/23 04:10 Labs: Laboratory Results - last 24 hr 11/27/23 18:35: WBC 6.2, RBC 2.94 L, Hgb 8.0 L, Hct 25.8 L, MCV 87.8, MCH 27.2, MCHC 31.0 L, RDW Std Deviation 40.9, RDW Coeff of Talon 12.8, Plt Count 298, MPV 9.1, PT 13.4, INR 1.0, APTT 26.0, Sodium 135 L, Potassium 4.1, Chloride 102, Carbon Dioxide 26.0, Anion Gap 7, BUN 15, Creatinine 1.62 H, Estim Creat Clear Calc 44.85, Est GFR (MDRD) Af Amer 55 L, Est GFR (MDRD) Non-Af 46 L, B UN/Creatinine Ratio 9.3 L, Glucose 332 H, Calcium 9.0, Total Bilirubin 0.20, AST 10 L, ALT 16, Alkaline Phosphatase 82, Troponin I High Sens 673 H*, B- Natriuretic Peptide 447.5 H, Total Protein 6.9, Albumin 3.4, Globulin 3.5, Albumin/Globulin Ratio 1.0, Blood Type A POSITIVE, Antibody Screen POSITIVE, Antibody Identification ANTI-Fya, Crossmatch See Detail 11/27/23 20:16: Magnesium 1.9 11/27/23 21:10: PT 13.7, INR 1.1, APTT 25.9, Troponin I High Sens 638 H* 11/28/23 00:00: POC Glucose 298 H 11/28/23 00:35: Troponin I High Sens 738 H* 11/28/23 04:10: WBC 5.4, RBC 2.64 L, Hgb 7.0 L 11/28/23 04:10: Hgb 7.6 L, Hct 23.4 L, MCV 88.6, MCH 26.5 L, MCHC 29.9 L, RDW Std Deviation 41.5, RDW Coeff of Talon 13.0, Plt Count 226, MPV 9.4, Immature Gran % (Auto) 0.200, Neut % (Auto) 59.4, Lymph % (Auto) 25.4, [place] % (Auto) 10.1 H, Eos % (Auto) 4.2, Baso % (Auto) 0.7, Absolute Neuts (auto) 3.2, Absolute Lymphs (auto) 1.38, Nucleated RBC % 0, APTT 38.1 H, Sodium 138, Potassium 3.8, Chloride 105, Carbon Dioxide 27.0, Anion Gap 6, BUN 14, Creatinine 1.15, Estim Creat Clear Calc 63.19, Est GFR (MDRD) Af Amer 82, Est GFR (MDRD) Non-Af 68, BUN/Creatinine Ratio 12.2, Glucose 266 H, Hemoglobin A1c 12.4 H, Calcium 8.6, T otal Bilirubin 0.10 L, AST 8 L, ALT 13 L, Alkaline Phosphatase 75, Total Protein 6.1 L, Albumin 3.1 L, Globulin 3.0, Albumin/Globulin Ratio 1.0, Triglycerides 235 H, Cholesterol 173, LDL Cholesterol 93, VLDL Cholesterol 47 H, HDL Cholesterol 33 L 11/28/23 05:40: Troponin I High Sens 620 H* 11/28/23 06:29: POC Glucose 273 H 11/28/23 10:50: APTT 43.4 H 11/28/23 11:38: POC Glucose 254 H 11/28/23 13:27: Hgb 7.4 L Imaging Radiology Impression Chest X-Ray 11/27/23 18:45 IMPRESSION: No acute radiographic abnormalities. Electronically Signed: Nba Carson MD at 19:30 EDT , Chest CTA 11/27/23 19:29 IMPRESSION: Moderate volume occlusive acute pulmonary emboli mostly in the left upper and lower lobe segmental and subsegmental pulmonary arteries. No evidence of right heart strain. Electronically Signed: Nba aCrson MD at 20:07 EDT , ADDENDUM: 11/27/232044 IMPRESSION: Moderate volume occlusive acute pulmonary emboli mostly in the left upper and lower lobe segmental and subsegmental pulmonary arteries. No evidence of right heart strain. N.B. : EUGENIA Holt, confirmed on 11/27/2023 20:38:06 (ET) that the healthcare facility has received the radiology report. Electronically Signed: Nba Carson MD at 20:07 EDT , Echocardiogram 11/27/23 23:35 Interpretation Summary The left ventricular ejection fraction is 45 %. Mild to moderate segmental systolic dysfunction (see wall motion). Normal LV size. Contrast injection was performed. Ordering Physician: Tennille Stauffer Referring Physician: NORMA SANTIAGO Performed By: Tali Berg and Student Charges/Coding Visit Charges Inpatient E&M: 54494 Init Hosp L3
[2023-11-28 17:31] LABS: Partial Thromboplast Time 48.3 Seconds (24.1-36.2)
[2023-11-28 17:46] LABS: Bedside Glucose 199 mg/dL (74-106)
--- NOTE | 2023-11-28 18:27 | EX.PCM.CON.G ---
HPI Consult Data Date of Consult: 11/28/23 HPI Narrative Reason for Consultation: Anemia HPI Narrative: BRAD HALLMAN, is a 68 M who presented to the ED with fatigue and weakness. He has a past medical history of Chronic anemia/Fe deficiency anemia, HTN, HLD, Anxiety and Depression, Former tobacco use, Hx GI bleed with history of angiodysplasia of the colon, GERD, CAD s/p PCI w/ Ischemic cardiomyopathy. He also has a past medical history of diabetes mellitus type II who presented to the [facility] ED on 11/27/23 with history of significant fatigue and malaise worse with exertion with chronic anemia with no recent bleeding per rectum nor any dark black stools or any hemoptysis or hematemesis but given significant fatigue prompted eventual ED evaluation to be cautious. Workup in the ED included T98.1, heart rate 100, BP 115/72, respiratory rate 16, 96% on room air with desaturation in the ED down to 85% requiring initiation of 2 L nasal cannula noted to maintain 92%, most recent vital signs T97.9, heart rate 83, BP 111/65, respiratory rate 18, CBC with WBC 6.2, hemoglobin 8.0, MCV 87.8, platelet 298 without differential, unremarkable coags, CMP with sodium 135, BUN/creatinine 15/1.62, GFR 46, glucose 332, BNP 447.5, initial troponin 673, type and screen initiated per ED physician, chest x-ray with no acute cardiopulmonary findings, chest CTA with a moderate volume occlusive acute pulmonary emboli mostly in the left upper and lower lobe segment and subsegmental pulmonary arteries with no evidence of any cardiac right heart strain, EKG with SR with no acute evidence of ischemia. In the ED patient ministered aspirin 81 mg as well as heparin bolus and drip [facility] Medical History Wears glasses Thyroid disease Gout Low iron High cholesterol Easy bruising Gastric reflux Cardiology follow-up encounter History of heart attack GI bleed Anemia Hypotension History of stress test Iron deficiency anemia Anxiety Diabetes Former smoker Myocardial infarct Hypertension Depression Essential (primary) hypertension Ischemic cardiomyopathy Hyperlipidemia History of anterior wall myocardial infarction Atherosclerotic heart disease of [place] coronary artery without angina pectoris Diabetes mellitus type II, controlled Home Medications ?Medication ?Instructions ?Recorded ?Last Taken ?Type paroxetine HCl 30 mg tablet 30 mg PO DAILY depression 12/02/14 05/10/23 History lisinopril 10 mg tablet 10 mg PO DAILY BP 05/14/17 03/15/23 History multivitamin 1 tab PO QDAY health 05/14/17 05/10/23 History glimepiride 4 mg tablet 2 mg PO DAILY DM 02/18/19 05/10/23 History aspirin 81 mg chewable tablet 81 mg PO DAILY@0800 heart ##0 02/19/19 05/10/23 Rx ferrous sulfate 325 mg (65 mg 325 mg PO DAILY #30 tabs 02/19/19 05/10/23 Rx iron) tablet pantoprazole 40 mg tablet,delayed 40 mg PO DAILY #30 tabs 02/19/19 05/10/23 Rx release metformin 500 mg tablet,extended 1,000 mg PO BID 05/10/23 05/10/23 History release 24 hr fluticasone propionate 50 1 spray intranasal DAILY PRN nasal 11/27/23 Unknown History mcg/actuation nasal congestion spray,suspension (Flonase Allergy Relief) Allergy/AdvReac Type Severity Reaction Status Date / Time No Known Allergies Allergy Verified 11/27/23 18:22 Family History Mother No problems noted. Father No problems noted. Surgical History History of surgery H/O cardiac catheterization Stented coronary artery Social History household members: none Smoking Status: Former smoker quit date: 01/20/91 alcohol intake: never substance use type: does not use ROS Constitutional Constitutional: Denies chills, fever(s), frequent falls, lethargy or weakness Eyes Eyes: Denies blind spots, change in vision or loss of vision ENT HEENT: Denies bleeding gums, hoarseness or sore throat Cardiovascular Cardiovascular: Reports dyspnea on exertion; Denies abdominal pain, bluish discoloration of hand/feet, chest pain with activity, claudication, cold extremities, cyanosis, erythema on extremities, irregular heart rhythm, leg edema, leg ulcers, numbness in extremities or weakness in extremities Respiratory/Chest Respiratory/Chest: Denies cough, excessive phlegm production, shortness of breath at rest, shortness of breath with exertion or wheezing Gastrointestinal Gastrointestinal: Denies anorexia, change in stool character, constipation, diarrhea, melena or rectal bleeding Genitourinary Genitourinary: Denies dysuria or hematuria Musculoskeletal Musculoskeletal: Denies abnormal gait Integumentary Integumentary: Reports other Details: ; Denies erythema, non-healing lesions or wounds Neurologic Neurologic: Denies abnormal speech, focal weakness, headache(s), loss of vision, numbness, paresthesias or sensory deficit Hematologic/Lymphatic Hematologic/Lymphatic: Denies easy bleeding, easy bruising or lymphadenopathy Physical Exam Const alert, oriented x3, no apparent distress and healthy appearing General Appearance: cooperative; Negative for combative or lethargic Orientation / Consciousness: awake Exam Limitations: no limitations HEENT Head and Scalp: normocephalic and atraumatic Eyes EOMs intact bilaterally General Eye: normal appearance of both eyes Neck full ROM, no lymphadenopathy and thyroid normal General: trachea midline; Negative for lymphadenopathy or tenderness Thyroid: thyroid normal Lymph Lymphatic: Negative for no lymphadenopathy noted Resp normal respiratory effort and no use of accessory muscles Effort and Inspection: Negative for labored, stridor or audible wheezes Cardio regular rate and regular rhythm Peripheral Pulses: brachial pulses present, radial pulses present, femoral pulses present, popliteal pulses present, posterior tibial pulses present and dorsalis pedis pulses present Back/Spine Cervical Spine: cervical ROM normal Extremity full ROM, normal capillary refill and no clubbing, cyanosis or edema Skin no rashes or lesions noted and no wounds Neuro oriented x3, CN's II-XII intact bilaterally, no focal motor deficits and no sensory deficits noted Psych thought process normal, cooperative, affect normal, speech normal and activity/motor behavior normal Lab / Micro Data 11/28/23 13:27 11/28/23 04:10 Labs: Laboratory Results - last 24 hr 11/27/23 18:35: WBC 6.2, RBC 2.94 L, Hgb 8.0 L, Hct 25.8 L, MCV 87.8, MCH 27.2, MCHC 31.0 L, RDW Std Deviation 40.9, RDW Coeff of Talon 12.8, Plt Count 298, MPV 9.1, PT 13.4, INR 1.0, APTT 26.0, Sodium 135 L, Potassium 4.1, Chloride 102, Carbon Dioxide 26.0, Anion Gap 7, BUN 15, Creatinine 1.62 H, Estim Creat Clear Calc 44.85, Est GFR (MDRD) Af Amer 55 L, Est GFR (MDRD) Non-Af 46 L, BUN/Creatinine Ratio 9.3 L, Glucose 332 H, Calcium 9.0, Total Bilirubin 0.20, AST 10 L, ALT 16, Alkaline Phosphatase 82, Troponin I High Sens 673 H*, B-Natriuretic Peptide 447.5 H, Total Protein 6.9, Albumin 3.4, Globulin 3.5, Albumin/Globulin Ratio 1.0, Blood Type A POSITIVE, Antibody Screen POSITIVE, Antibody Identification ANTI-Fya, Crossmatch See Detail 11/27/23 20:16: Magnesium 1.9 11/27/23 21:10: PT 13.7, INR 1.1, APTT 25.9, Troponin I High Sens 638 H* 11/28/23 00:00: POC Glucose 298 H 11/28/23 00:35: Troponin I High Sens 738 H* 11/28/23 04:10: WBC 5.4, RBC 2.64 L, Hgb 7.0 L 11/28/23 04:10: Hgb 7.6 L, Hct 23.4 L, MCV 88.6, MCH 26.5 L, MCHC 29.9 L, RDW Std Deviation 41.5, RDW Coeff of Talon 13.0, Plt Count 226, MPV 9.4, Immature Gran % (Auto) 0.200, Neut % (Auto) 59.4, Lymph % (Auto) 25.4, [place] % (Auto) 10.1 H, Eos % (Auto) 4.2, Baso % (Auto) 0.7, Absolute Neuts (auto) 3.2, Absolute Lymphs (auto) 1.38, Nucleated RBC % 0, APTT 38.1 H, Sodium 138, Potassium 3.8, Chloride 105, Carbon Dioxide 27.0, Anion Gap 6, BUN 14, Creatinine 1.15, Estim Creat Clear Calc 63.19, Est GFR (MDRD) Af Amer 82, Est GFR (MDRD) Non-Af 68, BUN/Creatinine Ratio 12.2, Glucose 266 H, Hemoglobin A1c 12.4 H, Calcium 8.6, Total Bilirubin 0.10 L, AST 8 L, ALT 13 L, Alkaline Phosphatase 75, Total Protein 6.1 L, Albumin 3.1 L, Globulin 3.0, Albumin/Globulin Ratio 1.0, Triglycerides 235 H, Cholesterol 173, LDL Cholesterol 93, VLDL Cholesterol 47 H, HDL Cholesterol 33 L 11/28/23 05:40: Troponin I High Sens 620 H* 11/28/23 06:29: POC Glucose 273 H 11/28/23 10:50: APTT 43.4 H 11/28/23 11:38: POC Glucose 254 H 11/28/23 13:27: Hgb 7.4 L 11/28/23 16:43: POC Glucose 199 H 11/28/23 17:10: APTT 48.3 H Imaging Radiology Impression Chest X-Ray 11/27/23 18:45 IMPRESSION: No acute radiographic abnormalities. Electronically Signed: Nba Carson MD at 19:30 EDT Reading Location ID and State: [email or web address] / [place] Tel , Service support , Chest CTA 11/27/23 19:29 IMPRESSION: Moderate volume occlusive acute pulmonary emboli mostly in the left upper and lower lobe segmental and subsegmental pulmonary arteries. No evidence of right heart strain. Electronically Signed: Nba Carson MD at 20:07 EDT Reading Location ID and State: [email or web address] / [place] Tel , Service support , ADDENDUM: 11/27/232044 IMPRESSION: Moderate volume occlusive acute pulmonary emboli mostly in the left upper and lower lobe segmental and subsegmental pulmonary arteries. No evidence of right heart strain. N.B. : EUGENIA Holt, confirmed on 11/27/2023 20:38:06 (ET) that the healthcare facility has received the radiology report. Electronically Signed: Nba Carson MD at 20:07 EDT , Echocardiogram 11/27/23 23:35 Interpretation Summary The left ventricular ejection fraction is 45 %. Mild to moderate segmental systolic dysfunction (see wall motion). Normal LV size. Contrast injection was performed. Ordering Physician: Tennille Stauffer Referring Physician: NORMA SANTIAGO Performed By: Tali Berg and Student Assessment & Plan Assessment/Plan (1) Acute on chronic anemia: PLAN: I previously saw him approximately 7 months ago when he presented to [facility] ER complaining that routine outpatient labs revealed severe acute blood loss anemia with hemoglobin of 5.8 g/dL requiring blood transfusion. He denies gross bleeding of any kind but he does admit to easy fatigability and SCHMITZ. He also stated he ran out of his iron supplement about 10 days ago but he has now restarted it with no other recent medication changes. He denied associated fever, chills, nausea, vomiting, appetite change or weight loss but he did admit to constipation earlier this week with subsequent normal once daily BM's. EGD was performed during his hospitalization which demonstrated multiple gastric AVMs that were successfully treated. He required 3 units of blood total to correct his anemia and on the day of discharge his hemoglobin went from 8.4 in the morning to 8.6 on recheck in the afternoon. Colonoscopy was attempted but his prep was very poor nothing could be seen due to the fact there was solid stool throughout the colon. Recommendations repeat upper endoscopy with possible push enteroscopy and repeat colonoscopy. Charges/Coding Visit Charges Inpatient E&M: 80758 Init Hosp L3
[2023-11-28] MEDS: Electrolyte Solution/Peg's 4000 ML PO (18:39)
[2023-11-28] MEDS: Empagliflozin 25 MG Tablet PO (18:47)
[2023-11-28 20:23] LABS: Hemoglobin 7.2 g/dL (13.0-16.5)
[2023-11-28 22:09] LABS: Bedside Glucose 164 mg/dL (74-106)
[2023-11-28] MEDS: Insulin Glargine-YFGN 100 UNIT/ML Pen 20 UNIT SC (22:30)
[2023-11-29] VITALS (19 sets, daily range): BP systolic 92–127; BP diastolic 58–81; PULSE 79–97; RESP 16–18; TEMP 36.3–36.7; O2SAT 92–98
[2023-11-29 01:08] LABS: Hemoglobin 7.1 g/dL (13.0-16.5)
[2023-11-29 01:18] LABS: Partial Thromboplast Time 56.3 Seconds (24.1-36.2)
--- NOTE | 2023-11-29 05:55 | EKG12_ITS ---
Test Reason : AM EKG Blood Pressure : / mmHG Vent. Rate : 082 BPM Atrial Rate : 082 BPM P-R Int : 142 ms QRS Dur : 082 ms QT Int : 358 ms P-R-T Axes : 042 043 225 degrees QTc Int : 418 ms Normal sinus rhythm ST & T wave abnormality, consider lateral ischemia Abnormal ECG When compared with ECG of 27-NOV-2023 18:34, Inverted T waves have replaced nonspecific T wave abnormality in Lateral leads Confirmed by JOS AMBRIZ, AQUILES ([id number]), material expeditor GABY LIN ([id number]) on 12/02/2023 8:26:36 AM Referred By: FRIDA Confirmed By:AQUILES ARGUELLO MD
[2023-11-29 06:34] LABS: Bedside Glucose 188 mg/dL (74-106)
[2023-11-29 07:43] LABS: Hematocrit 23.5 % (40-54); Hemoglobin 7.1 g/dL (13.0-16.5); Mean Corp Hgb Conc 30.2 g/dL (32-36); Mean Corpuscular Hgb 27.1 pg (27.0-32.0); Mean Corpuscular Volume 89.7 fL (80-94); Mean Platelet Vol. 9.9 fl (6.2-12.0); Platelet Count 263 K/mm3 (150-450); RBC Distribution Width CV 13.4 % (11.6-14.6); RBC Distribution Width SD 42.9 fl (35.1-43.9); Red Blood Count 2.62 M/mm3 (4.6-6.2); White Blood Count 5.3 K/mm3 (4.4-11.0)
[2023-11-29 08:04] LABS: Partial Thromboplast Time 69.3 Seconds (24.1-36.2)
[2023-11-29] MEDS: Pantoprazole Sodium 40 MG in 0.9% Normal Saline (100mL MB+) 100 ML 330 MG IV ×2 (08:57→22:40)
[2023-11-29 10:11] LABS: Anion Gap 8 (5-15); BUN 10 mg/dL (7-18); BUN/Creat Ratio 8.8 RATIO (10-20); Calcium,Total 9.2 mg/dL (8.5-10.1); Chloride 109 mmol/L (98-107); Creatinine, Serum 1.14 mg/dL (0.70-1.30); EST Glomerular Filtration Rate 68 mL/min (>60); Est Glom Filt Rate - Afr Amer 83 mL/min (>60); Estimated Creatinine Clearance 63.74 ml/min; Glucose 191 mg/dL (74-106); Potassium 3.8 mmol/L (3.5-5.1); Sodium Level 141 mmol/L (136-145)
[2023-11-29] MEDS: HEPARIN/D5w 25,000 UNITS 25,000 UNITS/250 ML IV.SOLN. 13 UNITS CONT INF (10:42)
[2023-11-29 12:00] LABS: Bedside Glucose 181 mg/dL (74-106)
[2023-11-29] MEDS: Lactated Ringers 1,000 ML 15 ML IV (12:50)
--- NOTE | 2023-11-29 13:21 | PCM.PRE.AN2 ---
ASA Classification* ASA Classification ASA Classification: 4 (see written pre anesthesia record for full assessment) and E Assessment & Plan Anesthesia* Anesthesia Assessment Anesthesia Assessment: Discussed sedation and/or anesthesia options, risks, benefits, and alternatives with patient/parents/legal guardian/POA. Questions invited. The patient/parents/legal guardian/POA seems to understand and agrees to proceed with anesthesia plan. Reviewed the physical assessment, medical history, allergy history and patient home medications list prior to surgery/procedure/anesthetic and documented any changes. Performed airway and anesthesia risk assessments. Anesthesia Type Anesthesia Type: MAC (see written pre anesthesia record for full assessment) Anesthesia Focused Assessment* Temperature: 97.7 F Pulse Rate: 81 Blood Pressure: 107/61 Respiratory Rate: 18 Pulse Ox: 96 Airway Assessment Mouth opens: >3 cm (see written pre anesthesia record for full assessment) Mallampati Score: III (see written pre anesthesia record for full assessment) Pertinent Findings ECHO Pertinent Findings:: November 28, 2023. Ejection fraction was 45%. Mild to moderate segmental systolic dysfunction. Akinetic septal apex. Focused Labs Anesthesia Preop lab: CBC WBC 5.8 K/mm3 (4.4-11.0) 11/30/23 04:35 RBC 3.56 M/mm3 (4.6-6.2) L 11/30/23 04:35 Hgb 9.7 g/dL (13.0-16.5) L 11/30/23 04:35 Hct 31.6 % (40-54) L 11/30/23 04:35 Plt Count 287 K/mm3 (150-450) 11/30/23 04:35 CHEMISTRY Potassium 3.4 mmol/L (3.5-5.1) L 11/30/23 04:35 Sodium 141 mmol/L (136-145) 11/30/23 04:35 Magnesium 1.9 mg/dL (1.6-2.6) 11/27/23 20:16 BUN 9 mg/dL (7-18) 11/30/23 04:35 Creatinine 1.11 mg/dL (0.70-1.30) 11/30/23 04:35 Glucose 124 mg/dL (74-106) H 11/30/23 04:35 POC Glucose 148 mg/dL (74-106) H 11/30/23 16:31 TSH 8.890 uIU/mL (0.358-3.740) H 11/29/23 06:45 COAG PT 13.7 SECONDS (11.7-14.9) 11/27/23 21:10 Pre-Assessment Diagnosis/Proposed Procedure Planned Operative Procedure(s): EGD and colonoscopy Anesthesia History 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 When Was Last Pacemaker Check QUESTION #4 FULL TEXT: You/Your Family Experience fever (hyperthermia) with Anesthesia Last Oral Intake Last Oral intake: Last Oral Intake NPO since 10:30 11/28/23 12:53 Meds taken in AM with sips of No 11/28/23 12:53 water? Meds patient instructed to take am of surgery PONV PONV - spa director/finance: PONV - spa director/finance Female HX of Motion Sickness HX of N/V After Surgery Non-Smoker Duration of Surgery greater than 60 minutes Number of Risk Factors PONV Score Height & Weight Height & Weight: Anesthesia: Height & Weight Height 5 ft 9 in 11/28/23 13:39 Weight: 82.2 kg 11/28/23 13:39 Body Mass Index (BMI) 26.7 11/28/23 12:53 Respiratory Assessment Respiratory Assessment - spa director/finance: Respiratory Tract Infection Hx - spa director/finance Hx Respiratory Tract Infection No 11/28/23 12:55 STOP Sleep Apnea STOP Sleep Apnea - spa director/finance: STOP Sleep Apnea - spa director/finance Hx Hypertension Yes 11/28/23 13:51 Hx Sleep Apnea No 11/28/23 00:05 CPAP No 11/28/23 00:05 BIPAP No 11/28/23 00:05 Do you snore loudly (louder No 11/28/23 00:05 than talking or can be heard Do you often feel tired/ Yes 11/28/23 00:05 fatigued/ sleepy during daytime? Has anyone observed you stop No 11/28/23 00:05 breathing during sleep? STOP Results Positive 11/28/23 00:05 QUESTION #5 FULL TEXT : Do you snore loudly (louder than talking or can be heard through closed doors)? 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 Specify any problems Hx of Preganancy in last 3 N/A 11/28/23 00:05 Months Nurse Filling Out Transfusion [employer] 11/28/23 00:05 & Questions: Date: 11/28/23 11/28/23 00:05 Time: 00:06 11/28/23 00:05 Patient unable to answer at this time (ie. confused, unrespo /Reproduction History /Reproductive History - spa director/finance: /Reproductive Hx- spa director/finance Hx Now No 11/28/23 12:55 Gestational Age (in weeks): EDC: Hx Hx Para Hx Section SAB No 05/10/23 23:10 Active Medications Active Medications: Current Medications Generic Name Dose Route Start Last Admin Trade Name Freq PRN Reason Stop Dose Admin Acetaminophen 650 mg 11/27/23 23:35 11/28/23 15:30 Acetaminophen 325 Mg Tablet PO 650 mg Q4H PRN PRN Administration Fever, pain 1-10/10 Al Hydrox/Mg Hydrox/Simethicone 30 ml 11/27/23 23:35 Mag /Aluminum/Simeth Wch Udc 30 Ml Oral.Susp PO Q6H PRN PRN Gastric Burning Albuterol Sulfate 2.5 mg 11/27/23 23:35 Albuterol 2.5 Mg/3 Ml Vial.Neb. INHALATION Q2H PRN PRN Dyspnea, wheezing Aspirin 81 mg 11/28/23 08:00 11/28/23 15:30 Aspirin 81 Mg Tab.Chew PO 81 mg DAILY@0800 LEANDRA Administration Empagliflozin 25 mg 11/28/23 17:30 11/28/23 18:47 Empagliflozin 25 Mg Tablet PO 25 mg DAILY LEANDRA Administration Ferrous Sulfate 325 mg 11/28/23 08:00 11/28/23 15:30 Ferrous Sulfate 325 Mg Tablet PO 325 mg DAILYCM LEANDRA Administration Glucagon 1 mg 11/27/23 23:35 Glucagon 1 Mg/Ml Syringe IM X1 PRN HYPOGLYCEMIA Protocol Guaifenesin 20 ml 11/27/23 23:35 Guaifenesin 10 Ml Udc (200mg/10ml) PO Q4H PRN PRN COUGH Heparin Sodium (Porcine) 0 unit 11/28/23 00:05 11/28/23 05:15 Heparin Injection (Vial) 5,000 Unit/Ml Vial IV 1,000 unit UD PRN Administration dose adjustment Protocol Hydralazine HCl 10 mg 11/27/23 23:35 Hydralazine 20 Mg/Ml Vial IV Q4H PRN PRN SBP > 160 Protocol Heparin Sodium/Dextrose 25,000 units in 250 mls @ 10 mls/hr 11/27/23 23:35 11/29/23 10:42 CONT INF 1,300 units/hr .Q25H LEANDRA 13 mls/hr Administration Protocol As Directed Dextrose 250 mls @ 0 mls/hr 11/27/23 23:35 Dextrose 10%-Water IV .Q0M PRN HYPOGLYCEMIA Protocol As Directed Sodium Chloride 250 mls @ 15 mls/hr 11/27/23 23:55 11/28/23 12:56 IV 0 mls/hr .[id number] PRN Infusion Additional IVPB Infusion Sodium Chloride 250 mls @ 15 mls/hr 11/27/23 23:55 IV .[id number] PRN Saline Flush Pantoprazole Sodium 40 mg/ 110 mls @ 330 mls/hr 11/28/23 10:00 11/29/23 11:11 Sodium Chloride IV Infused Q12 LEANDRA Infusion Lactated Ringer's 1,000 mls @ 15 mls/hr 11/29/23 13:00 11/29/23 12:50 IV 15 mls/hr .Q48H LEANDRA Administration Insulin Glargine 20 unit 11/28/23 22:00 11/28/23 22:30 Insulin Glargine-Yfgn 100 Unit/Ml Pen SC 20 unit QHS LEANDRA Administration Insulin Human Lispro 0 unit 11/27/23 23:35 11/29/23 11:10 Insulin Lispro 100 Unit/Ml Insuln.Pen SC Not Given ACHS [facility] Protocol Melatonin 3 mg 11/27/23 23:35 Melatonin 3 Mg Tablet PO QHS PRN PRN INSOMNIA Ondansetron HCl 4 mg 11/27/23 23:35 Ondansetron 4 Mg/2 Ml Vial IV Q8H PRN PRN NAUSEA/VOMITING Paroxetine HCl 30 mg 11/28/23 10:00 11/28/23 15:30 Paroxetine 10 Mg Tablet PO 30 mg DAILY LEANDRA Administration Prochlorperazine Edisylate 5 mg 11/27/23 23:35 Prochlorperazine 10 Mg/2 Ml Vial IV Q4H PRN PRN Breakthrough Nausea/Vomiting Senna/Docusate Sodium 2 tablet 11/27/23 23:35 Senna/Docusate Sodium 1 Tablet PO BID PRN PRN Constipation Sodium Chloride 10 - 40 ml 11/27/23 23:55 11/28/23 22:21 0.9% Saline Lock 10 Ml Syringe IV 10 ml UD PRN Administration SALINE FLUSH PFSH Medical History Wears glasses Thyroid disease Gout Low iron High cholesterol Easy bruising Gastric reflux Cardiology follow-up encounter History of heart attack GI bleed Anemia Hypotension History of stress test Iron deficiency anemia Anxiety Diabetes Former smoker Myocardial infarct Hypertension Depression Essential (primary) hypertension Ischemic cardiomyopathy Hyperlipidemia 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 Diabetes mellitus type II, controlled Home Medications ?Medication ?Instructions ?Recorded ?Last Taken ?Type paroxetine HCl 30 mg tablet 30 mg PO DAILY depression 12/02/14 05/10/23 History lisinopril 10 mg tablet 10 mg PO DAILY BP 05/14/17 03/15/23 History multivitamin 1 tab PO QDAY health 05/14/17 05/10/23 History aspirin 81 mg chewable tablet 81 mg PO DAILY@0800 heart ##0 02/19/19 05/10/23 Rx ferrous sulfate 325 mg (65 mg 325 mg PO DAILY #30 tabs 02/19/19 05/10/23 Rx iron) tablet pantoprazole 40 mg tablet,delayed 40 mg PO DAILY #30 tabs 02/19/19 05/10/23 Rx release metformin 500 mg tablet,extended 1,000 mg PO BID 05/10/23 05/10/23 History release 24 hr fluticasone propionate 50 1 spray intranasal DAILY PRN nasal 11/27/23 Unknown History mcg/actuation nasal congestion spray,suspension (Flonase Allergy Relief) apixaban 5 mg (74 tabs) tablets in See Rx Instructions PO .COMPLEX 11/29/23 Unknown Rx a dose pack ([employer] DVT-PE Treat #74 tabs 30D Start) insulin glargine-yfgn 100 unit/mL 26 unit (0.26 mL) subcut QHS #15 mL 11/29/23 Unknown Rx (3 mL) subcutaneous pen pen needle, diabetic 32 gauge x #100 ea 11/29/23 Unknown Rx 1/4 Allergy/AdvReac Type Severity Reaction Status Date / Time No Known Allergies Allergy Verified 11/27/23 18:22 Family History Mother No problems noted. Father No problems noted. Surgical History History of surgery H/O cardiac catheterization Stented coronary artery Social History household members: none Smoking Status: Former smoker quit date: 01/20/91 alcohol intake: never substance use type: does not use Review of Systems (Anesthesia) ROS Narrative System reviewed and no additional complaints, except as documented.
[2023-11-29 14:30] LABS: T4 Free Direct 0.92 ng/dL (0.76-1.46)
--- NOTE | 2023-11-29 15:15 | CHAPLAIN ---
Type of Pastoral Visit ___ Initial Visit ___ Follow-up Visit ___ On-call Visit ___ General Patient Visit ___ Spiritual Assessment ___ Family Conference ___ Bereavement ___ Rapid Response ___ Code Blue ___ Other (describe below) Pastoral Care Referral From ___ Patient ___ Family ___ Nurse ___ Physician ___ Senior Ux Developer ___ Senior Counsel Commercial ___ Other (describe below) Sacrament/Intervention ___ Active listening ___ Anointing ___ Religious ___ Bereavement ___ Communion ___ [place] exploration ___ ___ Life review ___ Prayer ___ Reconciliation ___ Sacrament of Sick ___ Supportive presence ___ Wedding ___ Other (describe below) Pastoral Comments patient and bed are out of the room; left a calling card
--- NOTE | 2023-11-29 15:22 | CASEMGMT ---
Patient to be discharging on Eliquis, Jardiance, and insulin. RN CM called [facility] to verify cost. Per Tre, no insurance on file. RN CM provided prescription coverage. Eliquis is $47, Jardiance $47, insulin $70 after insurance. RN CM in to updated patient of cost and provided Eliquis savings card. Patient states he should be able to afford prescriptions at discharge. RN CM encouraged patient to follow-up with PCP and discuss alternatives if it becomes too expensive for patient, patient voiced understanding. Discussed possible oxygen at discharge and prefers [employer]. Patient denied further questions or concerns. Green sheet placed on chart for possible home oxygen.
[2023-11-29] MEDS: PARoxetine 10 MG Tablet 30 MG PO (15:50)
[2023-11-29] MEDS: Empagliflozin 25 MG Tablet PO (15:50)
[2023-11-29] MEDS: Ferrous Sulfate 325 MG Tablet PO (15:51)
[2023-11-29] MEDS: Aspirin 81 MG TAB.CHEW PO (15:51)
--- NOTE | 2023-11-29 15:55 | PN.HOSP_ITS ---
Reason for Visit Reason for Visit: Shortness of breath Subjective Subjective Patient denies any current issues. We discussed his markedly elevated blood sugars and referral to Dr. Alberto after discharge. I did discuss with him his need for insulin at the time of discharge and he felt that he would be able to give himself shots. Nursing is to instruct him how to dose his insulin with a pen. We did discuss that unfortunately his scopes had to be canceled today due to anesthesia not wanting to pursue it with a hemoglobin being 7.1. We will give him 2 units of packed red blood cells and hoping they will be able to do it tomorrow. He voiced understanding however was fairly disappointed he would be able to discharge today. I did tell him that at the worst he may need to be here on Saturday to get his scopes done. Objective Data Objective Data Vital Signs: Vital Signs Temp Pulse Resp BP Pulse Ox O2 Del Method O2 Flow Rate 97.9 F 88 18 111/71 98 Room Air 2 11/29/23 15:45 11/29/23 15:45 11/29/23 15:45 11/29/23 15:45 11/29/23 15:45 11/29/23 15:45 11/29/23 13:23 Oxygen Flow Rate (L/min) 2 Oxygen Delivery Method Room Air Weight: 82.2 kg Body Mass Index (BMI) 26.7 Intake & Output: Intake and Output for Last 24 Hours 11/27/23 11/28/23 11/29/23 23:59 23:59 23:59 Intake Total 500 / 500 2548.68 / 2668.68 934.47 / 934.47 Balance 500 / 500 2548.68 / 2668.68 934.47 / 934.47 Lab / Micro Data 11/29/23 06:45 11/29/23 06:45 Labs: Laboratory Results - last 24 hr 11/27/23 18:35: Blood Type A POSITIVE, Antibody Screen POSITIVE, Antibody Identification ANTI-Fya, Crossmatch See Detail 11/28/23 16:43: POC Glucose 199 H 11/28/23 17:10: APTT 48.3 H 11/28/23 20:15: Hgb 7.2 L 11/28/23 21:47: POC Glucose 164 H 11/29/23 00:42: Hgb 7.1 L, APTT 56.3 H 11/29/23 06:12: POC Glucose 188 H 11/29/23 06:45: WBC 5.3, RBC 2.62 L, Hgb 7.1 L, Hct 23.5 L, MCV 89.7, MCH 27.1, MCHC 30.2 L, RDW Std Deviation 42.9, RDW Coeff of Talon 13.4, Plt Count 263, MPV 9.9, APTT 69.3 H, Sodium 141, Potassium 3.8, Chloride 109 H, Carbon Dioxide 24.0, Anion Gap 8, BUN 10, Creatinine 1.14, Estim Creat Clear Calc 63.74, Est GFR (MDRD) Af Amer 83, Est GFR (MDRD) Non-Af 68, BUN/Creatinine Ratio 8.8 L, G lucose 191 H, Calcium 9.2, TSH 8.890 H, Free T4 0.92 11/29/23 11:08: POC Glucose 181 H Radiography Diagnostic Testing: Radiology Impression Echocardiogram 11/27/23 23:35 Interpretation Summary The left ventricular ejection fraction is 45 %. Mild to moderate segmental systolic dysfunction (see wall motion). Normal LV size. Contrast injection was performed. Ordering Physician: Tennille Stauffer Referring Physician: NORMA SANTIAGO Performed By: Tali Berg and Student Physical Exam Const alert, oriented x3, no apparent distress, average body habitus, healthy appearing and well nourished Constitutional Narrative: Upper middle-aged, white male, lying in bed, appears comfortable, nontoxic, currently on room air watching television and in no apparent distress HEENT head/scalp atraumatic and moist oral mucous membranes HEENT Narrative: Mallampati 2, no thrush, dentition is poor Head and Scalp: normocephalic Eyes Negative for conjunctivae normal Resp normal respiratory effort, no retractions, no use of accessory muscles and clear to auscultation bilaterally Auscultation: Negative for rales, rhonchi or wheezes Cardio regular rate, regular rhythm, S1 normal heart sound, S2 normal heart sound, no murmurs, no rub, no gallops and no clicks GI normal to inspection, nondistended, normoactive bowel sounds, soft to palpation and non-tender Extremity no clubbing, cyanosis or edema Extremity Narrative: 2+ pedal pulses Neuro oriented x3, moves all extremities and no focal motor deficits Speech: speech normal Psych affect normal Psych Narrative: Very pleasant, interacts appropriately Assessment & Plan Assessment/Plan (1) Pulmonary embolism: QUALIFIERS: Pulmonary embolism type: unspecified Chronicity: a cute Acute cor pulmonale presence: without acute cor pulmonale Qualified Code(s): I26.99 - Other pulmonary embolism without acute cor pulmonale (2) History of GI bleed: (3) Acute on chronic anemia: (4) Hypoxia: (5) Hyperglycemia due to diabetes mellitus: PLAN: Plan Acute hypoxia secondary to pulmonary emboli -CT shows no RV strain however biomarkers are elevated -Troponin and BNP elevated -With no RV strain suspect this may be multifactorial related to his PE and marked anemia on presentation -Echo shows EF of 45% with stable wall motion abnormalities when compared to 2016 echocardiogram -Continue heparin drip -Will need to continue heparin drip until scope can be performed - hypoxia is resolved and patient is now 98% on room air -Vascular surgery has seen the patient and there is no indication for thrombectomy but they do agree that we need to rule out a GI bleed before sending him home with anticoagulation Acute on chronic anemia with recent GI bleed -April/2023 patient was admitted for anemia -EGD during that time showed normal esophagus with 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 DM-2 with hyperglycemia -Blood sugars are markedly elevated in the 2-300 range -Takes only glimepiride and metformin at home -A1c is 12.4, however this is likely be artificially lower than what is actual for him due to his anemia -Add Lantus 30 units--> nursing to train patient in insulin pen usage -Will continue glimepiride at discharge and continue metformin -Continue Accu-Cheks -SSI as ordered -Cardiac/carb controlled diet -Endocrinology referral at discharge History of GERD -PPI as noted above CAD/essential hypertension -Previous PCI -Continue aspirin -Continue home lisinopril Seasonal allergies -Continue home nasal spray History of ischemic cardiomyopathy -Not on any goal-directed therapy at this time -Echocardiogram shows EF of 45% and stable when compared to previous -No signs of volume overload -Given slightly depressed EF at 45% we will give 20 mg of IV Lasix between units of blood History of gout -Patient takes no chronic suppression with medication -Monitor clinically Depression/anxiety -Continue home paroxetine DVT prophylaxis -Continue heparin drip CODE STATUS -full code as verified admission Charges/Coding Visit Charges Inpatient E&M: 50609 Subs Hosp L2
--- NOTE | 2023-11-29 16:14 | EX.PCM.PN.GI ---
Subjective Subjective Patient was supposed to have EGD and colonoscopy today but the procedure was canceled by anesthesia. Objective Data Objective Data Vital Signs: Vital Signs Temp Pulse Resp BP Pulse Ox O2 Del Method O2 Flow Rate 97.8 F 90 18 112/60 97 Room Air 2 11/29/23 16:00 11/29/23 16:00 11/29/23 16:00 11/29/23 16:00 11/29/23 16:00 11/29/23 16:00 11/29/23 13:23 Oxygen Flow Rate (L/min) 2 Oxygen Delivery Method Room Air Weight: 181 lb 3.52 oz Body Mass Index (BMI) 26.7 Intake & Output: Intake and Output for Last 24 Hours 11/27/23 11/28/23 11/29/23 23:59 23:59 23:59 Intake Total 500 / 500 2548.68 / 2668.68 934.47 / 934.47 Balance 500 / 500 2548.68 / 2668.68 934.47 / 934.47 Lab / Micro Data 11/29/23 06:45 11/29/23 06:45 Labs: Laboratory Results - last 24 hr 11/27/23 18:35: Blood Type A POSITIVE, Antibody Screen POSITIVE, Antibody Identification ANTI-Fya, Crossmatch See Detail 11/28/23 16:43: POC Glucose 199 H 11/28/23 17:10: APTT 48.3 H 11/28/23 20:15: Hgb 7.2 L 11/28/23 21:47: POC Glucose 164 H 11/29/23 00:42: Hgb 7.1 L, APTT 56.3 H 11/29/23 06:12: POC Glucose 188 H 11/29/23 06:45: WBC 5.3, RBC 2.62 L, Hgb 7.1 L, Hct 23.5 L, MCV 89.7, MCH 27.1, MCHC 30.2 L, RDW Std Deviation 42.9, RDW Coeff of [place]on 13.4, Plt Count 263, MPV 9.9, APTT 69.3 H, Sodium 141, Potassium 3.8, Chloride 109 H, Carbon Dioxide 24.0, Anion Gap 8, BUN 10, Creatinine 1.14, Estim Creat Clear Calc 63.74, Est GFR (MDRD) Af Amer 83, Est GFR (MDRD) Non-Af 68, BUN/Creatinine Ratio 8.8 L, Glucose 191 H, Calcium 9.2, TSH 8.890 H, Free T4 0.92 11/29/23 11:08: POC Glucose 181 H Radiography Diagnostic Testing: Radiology Impression Echocardiogram 11/27/23 23:35 Interpretation Summary The left ventricular ejection fraction is 45 %. Mild to moderate segmental systolic dysfunction (see wall motion). Normal LV size. Contrast injection was performed. Ordering Physician: Tennille Stauffer Referring Physician: NORMA SANTIAGO Performed By: Tali Berg and Student Physical Exam Const alert, oriented x3, no apparent distress, average body habitus, healthy appearing and well nourished Constitutional Narrative: Upper middle-aged, white male, lying in bed, appears comfortable, nontoxic, currently on room air watching television and in no apparent distress HEENT head/scalp atraumatic and moist oral mucous membranes HEENT Narrative: Mallampati 2, no thrush, dentition is poor Head and Scalp: normocephalic Eyes Negative for conjunctivae normal Resp normal respiratory effort, no retractions, no use of accessory muscles and clear to auscultation bilaterally Auscultation: Negative for rales, rhonchi or wheezes Cardio regular rate, regular rhythm, S1 normal heart sound, S2 normal heart sound, no murmurs, no rub, no gallops and no clicks GI normal to inspection, nondistended, normoactive bowel sounds, soft to palpation and non-tender Extremity no clubbing, cyanosis or edema Extremity Narrative: 2+ pedal pulses Neuro oriented x3, moves all extremities and no focal motor deficits Speech: speech normal Psych affect normal Psych Narrative: Very pleasant, interacts appropriately Assessment & Plan Assessment/Plan (1) Acute on chronic anemia: PLAN: I previously saw him approximately 7 months ago when he presented to [facility] ER complaining that routine outpatient labs revealed severe acute blood loss anemia with hemoglobin of 5.8 g/dL requiring blood transfusion. He denies gross bleeding of any kind but he does admit to easy fatigability and SCHMITZ. He also stated he ran out of his iron supplement about 10 days ago but he has now restarted it with no other recent medication changes. He denied associated fever, chills, nausea, vomiting, appetite change or weight loss but he did admit to constipation earlier this week with subsequent normal once daily BM's. EGD was performed during his hospitalization which demonstrated multiple gastric AVMs that were successfully treated. He required 3 units of blood total to correct his anemia and on the day of discharge his hemoglobin went from 8.4 in the morning to 8.6 on recheck in the afternoon. Colonoscopy was attempted but his prep was very poor nothing could be seen due to the fact there was solid stool throughout the colon. Recommendations repeat upper endoscopy with possible push enteroscopy and repeat colonoscopy. PLAN: Plan 11/29/2023-patient getting blood transfusion at this time. I will discuss with anesthesiology when he can have his upper and lower endoscopy.
[2023-11-29 17:22] LABS: Bedside Glucose 129 mg/dL (74-106)
[2023-11-29 17:34] LABS: Partial Thromboplast Time 59.3 Seconds (24.1-36.2)
[2023-11-29] MEDS: Furosemide 20 MG/2 ML VIAL IV (17:44)
[2023-11-29] MEDS: 0.9% Saline Lock 10 ML Syringe IV (17:45)
[2023-11-29] MEDS: Insulin Lispro 100 UNIT/ML INSULN.PEN SC (21:26)
[2023-11-29] MEDS: Insulin Glargine-YFGN 100 UNIT/ML Pen 20 UNIT SC (21:27)
[2023-11-29 21:47] LABS: Bedside Glucose 201 mg/dL (74-106)
[2023-11-29 23:13] LABS: Partial Thromboplast Time 59.3 Seconds (24.1-36.2)
[2023-11-30] VITALS (11 sets, daily range): BP systolic 99–120; BP diastolic 58–71; PULSE 75–87; RESP 16–18; TEMP 36.1–36.8; O2SAT 95–100; BMI 25.9
[2023-11-30 06:37] LABS: Hematocrit 31.6 % (40-54); Hemoglobin 9.7 g/dL (13.0-16.5); Mean Corp Hgb Conc 30.7 g/dL (32-36); Mean Corpuscular Hgb 27.2 pg (27.0-32.0); Mean Corpuscular Volume 88.8 fL (80-94); Platelet Count 287 K/mm3 (150-450); RBC Distribution Width SD 47.8 fl (35.1-43.9); Red Blood Count 3.56 M/mm3 (4.6-6.2); White Blood Count 5.8 K/mm3 (4.4-11.0)
[2023-11-30 07:05] LABS: Anion Gap 10 (5-15); BUN 9 mg/dL (7-18); BUN/Creat Ratio 8.1 RATIO (10-20); Calcium,Total 9.2 mg/dL (8.5-10.1); Chloride 106 mmol/L (98-107); Creatinine, Serum 1.11 mg/dL (0.70-1.30); EST Glomerular Filtration Rate 70 mL/min (>60); Est Glom Filt Rate - Afr Amer 85 mL/min (>60); Estimated Creatinine Clearance 65.46 ml/min; Glucose 124 mg/dL (74-106); Potassium 3.4 mmol/L (3.5-5.1); Sodium Level 141 mmol/L (136-145)
[2023-11-30] MEDS: HEPARIN/D5w 25,000 UNITS 25,000 UNITS/250 ML IV.SOLN. 13 UNITS CONT INF (07:16)
[2023-11-30 07:23] LABS: Bedside Glucose 142 mg/dL (74-106)
[2023-11-30 07:50] LABS: Partial Thromboplast Time 61.4 Seconds (24.1-36.2)
[2023-11-30] MEDS: Potassium Chloride Oral Tablet 20 MEQ 40 MEQ PO (08:54)
[2023-11-30] MEDS: Pantoprazole Sodium 40 MG in 0.9% Normal Saline (100mL MB+) 100 ML 330 MG IV (08:54)
--- NOTE | 2023-11-30 08:55 | CON.PCM.CA_ITS ---
Assessment & Plan Assessment/Plan (1) Preop cardiovascular exam: PLAN: In terms of his preoperative cardiovascular exam he appears to be fairly stable at this time. He has recently been transfused. He did not have any angina and his troponin elevation is likely secondary from his pulmonary embolism. My recommendation is that at this juncture we can proceed with the EGD and colonoscopy which appear to be low risk. Have discussed this with the anesthesiologist, and the hospitalist. Of also discussed with the patient. (2) History of anterior wall myocardial infarction: PLAN: He does have a previous history of an anterior myocardial infarction. His echocardiogram demonstrates stable ventricular function estimated ejection fraction 45% with apical akinesis. No changes will be made. (3) Essential (primary) hypertension: PLAN: His blood pressure appears to be stable and I would not recommend that we make any major changes. Thank you for allowing me to participate in the care of your patient. Please don't hesitate to call if any issues arise. HPI Consult Data Date of Consult: 11/30/23 HPI Narrative HPI Narrative: BRAD HALLMAN, is a 68 M who presents with a history of pulmonary embolism and anemia and known coronary artery disease. I been asked to see him for preoperative cardiac evaluation for colonoscopy and EGD. He does not have any evidence of chest pain or dizziness or diaphoresis or near syncope. His hemoglobin was noted to be low at about 7 he was transfused with 2 units of packed red blood cells. Cardiac enzymes were noted to be abnormal likely from his recent pulmonary embolism as well as his EKG changes. He does have evidence of known coronary artery disease with an estimated ejection fraction of 45% with apical akinesis. On this visit he has had no cardiac complaints. I was called by the hospitalist about possibly evaluating him for colonoscopy. I did discuss this with the anesthesia department. [facility] Medical History Wears glasses Thyroid disease Gout Low iron High cholesterol Easy bruising Gastric reflux Cardiology follow-up encounter History of heart attack GI bleed Anemia Hypotension History of stress test Iron deficiency anemia Anxiety Diabetes Former smoker Myocardial infarct Hypertension Depression Essential (primary) hypertension Ischemic cardiomyopathy Hyperlipidemia History of anterior wall myocardial infarction Atherosclerotic heart disease of [place] coronary artery without angina pectoris Diabetes mellitus type II, controlled Home Medications ?Medication ?Instructions ?Recorded ?Last Taken ?Type paroxetine HCl 30 mg tablet 30 mg PO DAILY depression 12/02/14 05/10/23 History lisinopril 10 mg tablet 10 mg PO DAILY BP 05/14/17 03/15/23 History multivitamin 1 tab PO QDAY health 05/14/17 05/10/23 History aspirin 81 mg chewable tablet 81 mg PO DAILY@0800 heart ##0 02/19/19 05/10/23 Rx ferrous sulfate 325 mg (65 mg 325 mg PO DAILY #30 tabs 02/19/19 05/10/23 Rx iron) tablet pantoprazole 40 mg tablet,delayed 40 mg PO DAILY #30 tabs 02/19/19 05/10/23 Rx release metformin 500 mg tablet,extended 1,000 mg PO BID 05/10/23 05/10/23 History release 24 hr fluticasone propionate 50 1 spray intranasal DAILY PRN nasal 11/27/23 Unknown History mcg/actuation nasal congestion spray,suspension (Flonase Allergy Relief) apixaban 5 mg (74 tabs) tablets in See Rx Instructions PO .COMPLEX 11/29/23 Unknown Rx a dose pack (Eliquis DVT-PE Treat #74 tabs 30D Start) empagliflozin 25 mg tablet 25 mg PO DAILY #30 tabs 11/29/23 Unknown Rx (Jardiance) insulin glargine-yfgn 100 unit/mL 26 unit (0.26 mL) subcut QHS #15 mL 11/29/23 Unknown Rx (3 mL) subcutaneous pen pen needle, diabetic 32 gauge x #100 ea 11/29/23 Unknown Rx 1/4 Allergy/AdvReac Type Severity Reaction Status Date / Time No Known Allergies Allergy Verified 11/27/23 18:22 Family History Mother No problems noted. Father No problems noted. Surgical History History of surgery H/O cardiac catheterization Stented coronary artery Social History household members: none Smoking Status: Former smoker quit date: 01/20/91 alcohol intake: never substance use type: does not use ROS Constitutional Constitutional: Denies fever(s) or weight loss Eyes Eyes: Reports systems reviewed and no addt'l complaints, except as documented ENT HEENT: Reports systems reviewed and no addt'l complaints, except as documented Cardiovascular Cardiovascular: Denies chest pain at rest, chest pain with activity, dyspnea at rest, dyspnea on exertion, edema, palpitations or paroxysmal nocturnal dyspnea Respiratory/Chest Respiratory/Chest: Denies dyspnea on exertion, productive cough, shortness of breath at rest or shortness of breath with exertion Gastrointestinal Gastrointestinal: Denies change in bowel habits, nausea, vomiting or weight changes Genitourinary Genitourinary: Denies difficulty urinating Musculoskeletal Musculoskeletal: Denies joint stiffness or muscle weakness Integumentary Integumentary: Denies lesions Neurologic Neurologic: Denies dizziness or syncope Psychiatric Psychiatric: Denies anxiety Endocrine Endocrinology: Denies excessive sweating or fatigue Hematologic/Lymphatic Hematologic/Lymphatic: Denies anemia Allergic/Immunologic Allergic/Immunologic: Denies seasonal rhinorrhea Physical Exam Const alert, oriented x3 and no apparent distress General Appearance: cooperative HEENT hearing grossly normal bilaterally Head and Scalp: atraumatic Eyes EOMs intact bilaterally Neck General: normal visual inspection Chest inspection of chest normal and palpation of chest normal Resp normal respiratory effort Auscultation: clear to auscultation bilaterally Cardio regular rate, regular rhythm, S1 normal heart sound and S2 normal heart sound Jugular Venous Distention: JVD GI normal to inspection, nondistended, normoactive bowel sounds Extremity normal capillary refill and no pedal edema Peripheral Pulses: Yes pulses 2+ throughout and femoral pulses present Skin no rashes or lesions noted Neuro oriented x3 and CN's II-XII intact bilaterally Psych Appearance: grossly normal and appropriate Risk Stratification Risk Stratification Applicable: Yes Age >/= 65: Yes >/= 3 CAD Risk Factors (HTN, HLD, DM, family hx of CAD, or current smoker): Yes Aspirin Use in the Past 7 Days: No Severe Angina (>/= episodes in 24 hours): No EKG ST Changes >/= 0.5mm: No Positive Cardiac Marker: Yes ALLEN Risk Stratification Score: 3 ALLEN % Risk: 13% Risk Objective Data Vital Signs: Vital Signs Temp Pulse Resp BP Pulse Ox O2 Del Method O2 Flow Rate 97.0 F L 80 16 99/60 99 Room Air 2 11/30/23 08:43 11/30/23 08:43 11/30/23 08:43 11/30/23 08:43 11/30/23 08:43 11/30/23 08:43 11/30/23 08:04 Oxygen Flow Rate (L/min) 2 Oxygen Delivery Method Room Air Weight: 175 lb 7.807 oz Body Mass Index (BMI) 25.9 Intake & Output: Intake and Output for Last 24 Hours 11/28/23 11/29/23 11/30/23 23:59 23:59 23:59 Intake Total 2548.68 / 2668.68 1575.69 / 1575.69 Balance 2548.68 / 2668.68 1575.69 / 1575.69 Lab / Micro Data 11/30/23 04:35 11/30/23 04:35 Labs: Laboratory Results - last 24 hr 11/27/23 18:35: Blood Type A POSITIVE, Antibody Screen POSITIVE, Antibody Identification ANTI-Fya, Crossmatch See Detail 11/29/23 06:45: Sodium 141, Potassium 3.8, Chloride 109 H, Carbon Dioxide 24.0, Anion Gap 8, BUN 10, Creatinine 1.14, Estim Creat Clear Calc 63.74, Est GFR (MDRD) Af Amer 83, Est GFR (MDRD) Non-Af 68, BUN/Creatinine Ratio 8.8 L, Glucose 191 H, Calcium 9.2, TSH 8.890 H, Free T4 0.92 11/29/23 11:08: POC Glucose 181 H 11/29/23 16:54: APTT 59.3 H 11/29/23 17:03: POC Glucose 129 H 11/29/23 21:23: POC Glucose 201 H 11/29/23 22:50: APTT 59.3 H 11/30/23 04:35: WBC 5.8, RBC 3.56 L, Hgb 9.7 L, Hct 31.6 L, MCV 88.8, MCH 27.2, MCHC 30.7 L, RDW Std Deviation 47.8 H, RDW Coeff of [place]on 15.0 H, Plt Count 287, MPV 10.0, Sodium 141, Potassium 3.4 L, Chloride 106, Carbon Dioxide 25.0, Anion Gap 10, BUN 9, Creatinine 1.11, Estim Creat Clear Calc 65.46, Est GFR (MDRD) Af Amer 85, Est GFR (MDRD) Non-Af 70, BUN/Creatinine Ratio 8.1 L, Glucose 124 H, Calcium 9.2 11/30/23 07:06: POC Glucose 142 H 11/30/23 07:16: APTT 61.4 H Cardiology Labs/Tests 11/29/23 06:45: Sodium 141, Potassium 3.8, Chloride 109 H, Carbon Dioxide 24.0, Anion Gap 8, BUN 10, Creatinine 1.14, Est GFR (MDRD) Af Amer 83, Est GFR (MDRD) Non-Af 68, BUN/Creatinine Ratio 8.8 L, Glucose 191 H, Calcium 9.2 11/29/23 16:54: APTT 59.3 H 11/29/23 22:50: APTT 59.3 H 11/30/23 04:35: WBC 5.8, RBC 3.56 L, Hgb 9.7 L, Hct 31.6 L, MCV 88.8, MCH 27.2, MCHC 30.7 L, Plt Count 287, MPV 10.0, Sodium 141, Potassium 3.4 L, Chloride 106, Carbon Dioxide 25.0, Anion Gap 10, BUN 9, Creatinine 1.11, Est GFR (MDRD) Af Amer 85, Est GFR (MDRD) Non-Af 70, BUN/Creatinine Ratio 8.1 L, Glucose 124 H, Calcium 9.2 11/30/23 07:16: APTT 61.4 H Rhythm: EKG: ECHO: Stress Test: Cardiac Cath: PCI: CT Surgery: Holter monitor: EPS: PPM: CXR: Chest CT Scan:
--- NOTE | 2023-11-30 09:54 | CASEMGMT ---
JUSTINO LEON NOTE: Per Dr Verma, pt reports Jessica Dickson notified him cost of Rx's there are /$1500 and that pt states has not been given Eliquis savings card. Per note by Amie BADILLO CM, pt has been provided Eliquis card. JUSTINO LEON placed call to [facility] and spoke w/Hanny. Per Hanny, cost is $229.64 for medications as follows: Eliquis- $47. Jardiance- $47 Insulin Glargine- $70 Insulin pen needles- $65.64. JUSTINO LEON to room. Introduced self and role. Discussed Eliquis savings card. Pt then remembered he was provided this and thinks it was placed in a folder or w/his belongings. JUSTINO LEON found the savings card in [facility] folder in his room and reviewed it with him again/instructed on use. Made aware cost will be $47/30 day supply (as noted above) without the card, but w/the card, 1st 30-day supply will be free. He voices understanding. Discussed remainder cost of medications--insulin, pen needles, and Jardiance. Initially pt stated he could probably afford the cost of the other medications, totalling $182.64. He states he drove to [facility] and he plans to drive home @ [place]. He states he plans to go to the bank to see how much $ he has and if he has enough $ left after paying his rent, then he would get the medications Upon further discussion, Made aware, per Dr Verma, if Jardiance is not affordable, that is not an absolute necessary medication and she would discontinue it, if pt unable to afford it. Cost w/out the Jardiance and w/use of Eliquis 30-day free card would then be $135.64 for the insulin and insulin pen needles. 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 JUSTINO LEON inquired if there is anyone he can borrow the $ from and he states there is not. JUSTINO LEON spoke w/JUSTINO Mazariegos CM director, who approved [facility] Rx assist/ronnie program use for the insulin glargine and pen needles only. Pt made aware of Rx assist/ronnie program through [facility] and made aware this is only a once/yr option and only w/approval, as he does have insurance. Pt agreeable to having Rx's transferred to [facility] retail pharmacy to use the [facility] Rx ronnie program. Pt has been provided w/the following resources: [employer], [employer] application[employer], [employer], and Rx assist resources, as well as [facility] info. Pt made aware to f/u with [facility] re: Jardiance and that Dr Verma is recommending he take it. Pt denies other discharge needs. Dr Verma made aware of above and she states will discontinue the Jardiance Rx @ [facility]. Call placed to [facility] Retail pharmacy and spoke to Dave to have Rx's for Eliquis, insulin glargine, and insulin pen needles transferred to [facility] Retail pharmacy and made aware Rx assist/ronnie program has been approved. Form completed for Rx ronnie program and sent to [facility] retail pharmacy. Meds to be delivered to pt's room once he is discharged, Dave in pharmacy aware. Denice MCCRACKEN RN CM
--- NOTE | 2023-11-30 12:05 | COLBX_PTH ---
[id number] U#:[id number] AGE/SX: 68/M ROOM: [facility] RE11/27/[address]: Dr. Ligia Verma DO : 1955 BED: 1 DIS: 11/30/2023 SPEC #: [id number] RECD: 12/02/23 07:45 STATUS: TEOFILO REQ #: [id number] DEVON: 11/30/23 12:[address]: Aly Gregg DEPT: SURGICAL PATHOLOGY RECD BY: Phyllis Broderick ENTERED: 12/02/23 09:51 SP TYPE: COLON BX OTHR DR: Brittany Burns, MD Dr. Calixto Gil Dr., MD Dr. Autumn L White, MD Dr. Brendan Duffy, MD Dr. Cyril Ofori, MD Dr. Emile Daoud, MD Dr. Eric Turney, MD Dr. Farouk Belal, MD Dr. Kathryn Lee, DO Dr. Mark Elderbrock, MD Dr. Michael Hughes, MD Dr. Nagapradee Nagajothi, MD Dr. Salvatore Savona, MD John H Roof, NP-GILBERTO Munoz PA Tissues: COLON BIOPSY Procedures: Surgery Specimen Level IV HEADER OPERATION: Colonoscopy with biopsy, EGD PRE-OP DIAGNOSIS: GI bleed TISSUE SUBMITTED: Random colon biopsy MICROSCOPIC DIAGNOSIS Colon, random biopsy: No pathologic change. / 12/03/2023 MICROSCOPIC DESCRIPTION Slides are reviewed. GROSS DESCRIPTION Received in fixative is one container labeled with the patient's name and designated Random colon biopsy. The specimen consists of multiple irregular fragments of light walker soft tissue that in aggregate measure 1.0 x 0.3 x 0.1 cm. The specimen is totally submitted in one cassette. 12/02/2023 TC:5 CPT:27925
--- NOTE | 2023-11-30 12:15 | OP.EGD_ITS ---
Patient Name: Iftikhar Hess Procedure Date: 11/30/2023 11:17 AM Date of : 1955 Age: 68 Procedure: Upper GI endoscopy Indications: Iron deficiency anemia Providers: Aly Gregg DO Medicines: Monitored Anesthesia Care Patient Profile: This is a 68 year old male. Refer to note in patient chart for documentation of history and physical. Patient has symptoms. Complications: No immediate complications. Procedure: Pre-Anesthesia Assessment: - Prior to the procedure, a History and Physical was performed, and patient medications and allergies were reviewed. The patient is competent. The risks and benefits of the procedure and the sedation options and risks were discussed with the patient. All questions were answered and informed consent was obtained. Patient identification and proposed procedure were verified by the physician in the pre-procedure area. Mental Status Examination: alert and oriented. Airway Examination: normal oropharyngeal airway and neck mobility. Respiratory Examination: clear to auscultation. CV Examination: normal. Prophylactic Antibiotics: The patient does not require prophylactic antibiotics. Prior Anticoagulants: The patient has taken no anticoagulant or antiplatelet agents except for NSAID medication. ASA Grade Assessment: II - A patient with mild systemic disease. After reviewing the risks and benefits, the patient was deemed in satisfactory condition to undergo the procedure. The anesthesia plan was to use monitored anesthesia care (MAC). Immediately prior to administration of medications, the patient was re-assessed for adequacy to receive sedatives. The heart rate, respiratory rate, oxygen saturations, blood pressure, adequacy of pulmonary ventilation, and response to care were monitored throughout the procedure. The physical status of the patient was re-assessed after the procedure. After obtaining informed consent, the endoscope was passed under direct vision. Throughout the procedure, the patient's blood pressure, pulse, and oxygen saturations were monitored continuously. The colonoscope was introduced through the mouth, and advanced to the second part of duodenum. The upper GI endoscopy was accomplished without difficulty. The patient tolerated the procedure well. Scope In: 11:43:12 AM Scope Out: 11:46:16 AM Total Procedure Duration Time 0 hours 3 minutes 4 seconds Findings: The examined esophagus was normal. A small hiatal hernia was present. No other significant abnormalities were identified in a careful examination of the stomach. The second portion of the duodenum was normal. Impression: - Normal esophagus. - Small hiatal hernia. - Normal second portion of the duodenum. - No specimens collected. Recommendation: - [facility]. - Resume previous diet today. - Continue present medications. - Await pathology results. Procedure Code(s): --- Professional --- 13850, Esophagogastroduodenoscopy, flexible, transoral; diagnostic, including collection of specimen(s) by brushing or washing, when performed (separate procedure) CPT copyright 2021 [employer]. All rights reserved. The codes documented in this report are preliminary and upon computational chemist review may be revised to meet current compliance requirements. Aly Gregg DO 11/30/2023 12:14:20 PM This report has been signed electronically. Number of Addenda: 0 Note Initiated On: 11/30/2023 11:17 AM
--- NOTE | 2023-11-30 12:15 | OP.CCLET_ITS ---
11/30/2023 Travis Bassett [address] [place] [address] Re : Upper GI endoscopy procedure for Iftikhar Monetamy Dear Dr. Bassett This procedure was performed on Thursday, November 30, 2023. My impressions and recommendations are as follows: Impressions : - Normal esophagus. - Small hiatal hernia. - Normal second portion of the duodenum. - No specimens collected. Recommendations : - [facility] to [facility]. - Resume previous diet today. - Continue present medications. - Await pathology results. My findings are described in the full procedure note, which is enclosed. If I can be of further assistance, please feel free to contact me at . Sincerely, Aly Gregg, 11/30/2023 12:14:20 PM This report has been signed electronically.
--- NOTE | 2023-11-30 12:18 | OP.CCLET_ITS ---
11/30/2023 Travis Bassett [address] [place] [address] Re : Colonoscopy procedure for Iftikhar Hess Dear Dr. Bassett This procedure was performed on Thursday, November 30, 2023. My impressions and recommendations are as follows: Impressions : - Preparation of the colon was fair. - Diverticulosis in the recto-sigmoid colon and in the sigmoid colon. - Diffuse moderate inflammation was found in the descending colon, at the splenic flexure, in the transverse colon, at the hepatic flexure and in the ascending colon secondary to colitis. Biopsied. - Stool in the entire examined colon. Recommendations : - [facility] to [facility] care. - Resume regular diet. - Continue present medications. - Await pathology results. - Repeat colonoscopy is recommended for surveillance. The colonoscopy date will be determined after pathology results from today's exam become available for review. My findings are described in the full procedure note, which is enclosed. If I can be of further assistance, please feel free to contact me at . Sincerely, Aly Gregg, 11/30/2023 12:17:40 PM This report has been signed electronically.
--- NOTE | 2023-11-30 12:18 | OP.COLON_ITS ---
Patient Name: Iftikhar Hess Procedure Date: 11/30/2023 11:46 AM Date of : 1955 Age: 68 Procedure: Colonoscopy Indications: Iron deficiency anemia Providers: Aly Gregg DO Medicines: Monitored Anesthesia Care Patient Profile: This is a 68 year old male. Refer to note in patient chart for documentation of history and physical. Patient has symptoms. Last Colonoscopy: 1 year ago. Complications: No immediate complications. Procedure: Pre-Anesthesia Assessment: - Prior to the procedure, a History and Physical was performed, and patient medications and allergies were reviewed. The patient is competent. The risks and benefits of the procedure and the sedation options and risks were discussed with the patient. All questions were answered and informed consent was obtained. Patient identification and proposed procedure were verified by the physician in the pre-procedure area. Mental Status Examination: alert and oriented. Airway Examination: normal oropharyngeal airway and neck mobility. Respiratory Examination: clear to auscultation. CV Examination: normal. Prophylactic Antibiotics: The patient does not require prophylactic antibiotics. Prior Anticoagulants: The patient has taken no anticoagulant or antiplatelet agents except for NSAID medication. ASA Grade Assessment: II - A patient with mild systemic disease. After reviewing the risks and benefits, the patient was deemed in satisfactory condition to undergo the procedure. The anesthesia plan was to use monitored anesthesia care (MAC). Immediately prior to administration of medications, the patient was re-assessed for adequacy to receive sedatives. The heart rate, respiratory rate, oxygen saturations, blood pressure, adequacy of pulmonary ventilation, and response to care were monitored throughout the procedure. The physical status of the patient was re-assessed after the procedure. After I obtained informed consent, the scope was passed under direct vision. Throughout the procedure, the patient's blood pressure, pulse, and oxygen saturations were monitored continuously. The colonoscope was introduced through the anus and advanced to the ileocecal valve. The colonoscopy was performed without difficulty. The patient tolerated the procedure well. The quality of the bowel preparation was fair. Scope In: 11:51:56 AM Scope Withdrawal Time 0 hours 11 minutes 1 second Scope Out: 12:09:51 PM Total Procedure Duration Time 0 hours 17 minutes 55 seconds Findings: The perianal and digital rectal examinations were normal. A few small-mouthed diverticula were found in the recto-sigmoid colon and sigmoid colon. Diffuse moderate inflammation characterized by friability and granularity was found in the descending colon, at the splenic flexure, in the transverse colon, at the hepatic flexure and in the ascending colon. Biopsies were taken with a cold forceps for histology. Verification of patient identification for the specimen was done. Estimated blood loss was minimal. Stool was found in the entire colon. Lavage of the area was performed using greater than 500 mL of sterile water, resulting in clearance with fair visualization. Impression: - Preparation of the colon was fair. - Diverticulosis in the recto-sigmoid colon and in the sigmoid colon. - Diffuse moderate inflammation was found in the descending colon, at the splenic flexure, in the transverse colon, at the hepatic flexure and in the ascending colon secondary to colitis. Biopsied. - Stool in the entire examined colon. Recommendation: - Return patient to [facility] for [facility] care. - Resume regular diet. - Continue present medications. - Await pathology results. - Repeat colonoscopy is recommended for surveillance. The colonoscopy date will be determined after pathology results from today's exam become available for review. Procedure Code(s): --- Professional --- 24602, Colonoscopy, flexible; with biopsy, single or multiple CPT copyright 2021 [employer]. All rights reserved. The codes documented in this report are preliminary and upon policy and planning manager review may be revised to meet current compliance requirements. Aly Gregg DO 11/30/2023 12:17:40 PM This report has been signed electronically. Number of Addenda: 0 Note Initiated On: 11/30/2023 11:46 AM
--- NOTE | 2023-11-30 13:12 | PCM.POST.ANE ---
Anesthesia: Postop Eval I Current Vital Signs Temperature: 97.5 F Pulse Rate: 85 Blood Pressure: 116/63 Respiratory Rate: 16 Pulse Ox: 100 Assessment Airway patent: Yes Spontaneous unlabored respirations: Yes nausea: No Vomiting: No Anesthesia Complication: No Fluid Hydration Crystalloid volume administer (ml): 1,000 Total IV fluid infused: 1,000 Progress Note Anesthesia document: Postop Eval 1 completed: No
--- NOTE | 2023-11-30 13:13 | PCM.POSTANE2 ---
Anesthesia Postop Eval I Sum Postop Eval Completion status Anesthesia document: Postop Eval 1 completed: No Anesthesia Postop Eval I Summary Anesthesia Postop Eval I Summary: Anesthesia Postop Eval I: Assessment Summary Airway patent Yes 11/30/23 13:12 Spontaneous unlabored Yes 11/30/23 13:12 respirations Mental status nausea No 11/30/23 13:12 Vomiting No 11/30/23 13:12 Anesthesia Postop Eval I: Fluid Summary Crystalloid volume administer 1,000 11/30/23 13:12 (ml) Colloids volume administered ( ml) Blood Product volume administered (ml) Total IV fluid infused 1,000 11/30/23 13:12 Anesthesia Postop Eval I: Summary Notes Anesthesia Complication No 11/30/23 13:12 Anesthesia Complication Comment: Post-operative progress note Anesthesia: Postop Eval II Evaluation Mental status: Awake Pain Level: 0 nausea: No Vomiting: No
[2023-11-30 14:15] LABS: Partial Thromboplast Time 55.6 Seconds (24.1-36.2)
[2023-11-30] MEDS: Empagliflozin 25 MG Tablet PO (14:24)
[2023-11-30] MEDS: Aspirin 81 MG TAB.CHEW PO (14:25)
[2023-11-30] MEDS: Ferrous Sulfate 325 MG Tablet PO (14:25)
[2023-11-30] MEDS: PARoxetine 10 MG Tablet 30 MG PO (14:26)
--- NOTE | 2023-11-30 14:36 | PCM.DC.SUM ---
Providers Date of Admission: 11/27/23 Date of Discharge: 11/30/23 Primary Care Physician: Dr. Travis Bassett MD Consultations 11/28/23 07:25 Consult: Gastroenterology Routine Consulting Provider: [facility] Reason for Consult: anemia and needs anticoagulation EMERGENT Consult: No Notified: Yes Date Notified: 11/28/23 Time Notified: 07:26 Method of Notification: Text Consult: Vascular Surgery Routine Consulting Provider: Lucas Gutiérrez Reason for Consult: PE EMERGENT Consult: No Notified: Yes Date Notified: 11/28/23 Time Notified: 07:28 Method of Notification: Verbal 11/30/23 09:08 Consult: Cardiology Routine Consulting Provider: Klaus Coon Reason for Consult: clear for scope EMERGENT Consult: Yes Notified: Yes Date Notified: 11/30/23 Time Notified: 09:08 Method of Notification: Verbal Method of Consult:: In-Person Comments:: maria antonia aware talked to Bayron Reason For Visit: ACUTE PE, ELEVATED TROPONIN Diagnosis Discharge Diagnosis (1) Preop cardiovascular exam: Status: Acute Code(s): Z01.810 - Encounter for preprocedural cardiovascular examination (2) History of anterior wall myocardial infarction: Status: Chronic Code(s): I25.2 - Old myocardial infarction (3) Essential (primary) hypertension: Status: Chronic Code(s): I10 - Essential (primary) hypertension Medications at Discharge Home Medications paroxetine HCl 30 mg tablet 30 mg PO DAILY depression 12/02/14 lisinopril 10 mg tablet 10 mg PO DAILY BP 05/14/17 multivitamin 1 tab PO QDAY health 05/14/17 aspirin 81 mg chewable tablet 81 mg PO DAILY@0800 heart ##0 02/19/19 ferrous sulfate 325 mg (65 mg iron) tablet 325 mg PO DAILY #30 tabs 02/19/19 pantoprazole 40 mg tablet,delayed release 40 mg PO DAILY #30 tabs 02/19/19 metformin 500 mg tablet,extended release 24 hr 1,000 mg PO BID 05/10/23 fluticasone propionate 50 mcg/actuation nasal spray,suspension (Flonase Allergy Relief) 1 spray intranasal DAILY PRN nasal congestion 11/27/23 apixaban 5 mg (74 tabs) tablets in a dose pack (Eliquis DVT-PE Treat 30D Start) See Rx Instructions PO .COMPLEX #74 tabs 11/29/23 insulin glargine-yfgn 100 unit/mL (3 mL) subcutaneous pen 26 unit (0.26 mL) subcut QHS #15 mL 11/29/23 pen needle, diabetic 32 gauge x 1/4 #100 ea 11/29/23 Hospital Course Operations None Procedures 2-D Echocardiogram, Blood transfusion, Colonoscopy, EGD, EKG and - Summary of Care Provided Minutes Spent on Discharge: 42 Hospital Course: Patient is a 68-year-old white male who presented to the emergency department at [facility] on 11/27/2019 for due to fatigue and malaise as well as dyspnea most notably with exertion. Due to his symptoms on presentation he felt that maybe his blood counts were off as they had been earlier this year when he was admitted for GI bleed. Vital signs on presentation showed temperature of 98.1, heart rate 100, respiratory rate 16, blood pressure 115/72 and pulse ox was 96% on room air. CBC showed a normal white count with a hemoglobin of 8.0 (8.6 on discharge 05/13/2023) and normal platelet count. His chemistry panel showed mild hyponatremia natremia with sodium 135, elevated serum creatinine 1.62 with a baseline of 1-1.2. Serum glucose was 332. Initial troponin was 673 and BNP was 447.5. Cardiac enzymes have been cycled since admission and have remained elevated in the 600-700 range, but have not escalated beyond that point. Chest x-ray is unremarkable however CTA of the chest was performed and showed moderate volume loss occlusive pulmonary emboli mostly in the left upper and lower segmental and subsegmental pulmonary arteries with no evidence of RV strain. He was started on a heparin drip by the emergency department and admitted to PCU for ongoing care. Vascular surgery was consulted and reviewed the imaging and echocardiogram and deemed him not in need of thrombectomy. It was felt his biomarkers are likely elevated due to a combination of PE and his anemia. On 11/28/2019 far his hemoglobin dropped to 7.0 from 8.0 on presentation. Review of previous EGD from April 2023 showed angiodysplastic lesions that were bleeding at the time of scope. GI was consulted as he was going to need to be on ongoing anticoagulation with acute on chronic anemia. Serial hemoglobins were ordered for serially since he was on an heparin drip and were stable in the 7-7.5 range. Plan for EGD and colonoscopy was initially for 11/29/2023 however case was delayed due to anesthesia. He was given 2 units of packed red blood cells with a repeat hemoglobin at 9.7 on 11/30/2023 and cardiology was consulted to clear him for EGD/colonoscopy. He was taken for EGD and colonoscopy on 11/30/2023. EGD showed normal esophagus, small hiatal hernia and a normal second portion of the duodenum with no findings consistent with previous bleeding angiodysplastic lesions. Colonoscopy showed fair colon prep with diverticulosis in the rectosigmoid and sigmoid colon, diffuse moderate inflammation in the descending colon, splenic flexure, transverse colon, hepatic flexure and ascending colon secondary to colitis with concerns for inflammatory bowel disease. Biopsies were obtained with no signs of bleeding postbiopsy. Per discussion with Dr. Gregg he will need to follow-up in his office for the results of this and will need an outpatient capsule endoscopy. In addition to the above a hemoglobin A1c was obtained due to markedly elevated blood sugars during his hospital stay. A1c was found to be 12.4 despite his anemia and this was drawn prior to transfusion. We started him on some subcu insulin with insulin glargine daily at 26 units at at bedtime which improved blood sugar control. He will continue to be on metformin. We ideally wanted to start him on Jardiance with his chronically mild LV depression at 45% in addition to his diabetes however cost was prohibitive. I have asked him to follow-up with Dr. Raffaele Alberto from endocrinology. Her information was given to the patient and I have asked that he call on Saturday. We have also made a referral to hematology as this was an unprovoked VTE and he has no previous history. He will need to follow-up with Dr. Gregg as noted above and I have asked that he call the office on Saturday to schedule appointment to be seen in the next 2 to 4 weeks. He also need to follow-up with his primary care physician within the next week. Have asked him to get a CBC in the next week to reassess his hemoglobin with ongoing anticoagulation at discharge. Prescriptions for his insulin and Eliquis were sent to local pharmacy prior to discharge and were filled at the hospital prior to him leaving. He was discharged home in stable condition on 11/30/2023. Discharge diagnoses: Acute hypoxia-resolved Acute pulmonary emboli Acute on chronic anemia History of upper GI bleed secondary to angiodysplastic lesions Uncontrolled DM-2 GERD CAD Essential hypertension Ischemic cardiomyopathy History of gout Anxiety/depression Physical Exam Narrative Patient states he is feeling well. Denies any pain. Pleased that his scopes will occur today so he can hopefully go home. Const alert, oriented x3, no apparent distress, average body habitus, no limitations, healthy appearing and well nourished Constitutional Narrative: Upper middle-aged, white male, lying in bed, appears comfortable, nontoxic, currently on room air watching television and in no apparent distress General Appearance: cooperative, comfortable, well kempt and well developed Exam Limitations: no limitations HEENT normocephalic, head/scalp atraumatic, hearing grossly normal bilaterally and moist oral mucous membranes HEENT Narrative: Dentition is poor, Mallampati is 2, no thrush Eyes PERRL and EOMs intact bilaterally; Negative for conjunctivae normal Eyes Narrative: Mild conjunctival pallor bilaterally, no scleral icterus Neck no lymphadenopathy and supple Neck Narrative: Trachea midline, no thyroid enlargement Resp normal respiratory effort, no retractions, no use of accessory muscles and clear to auscultation bilaterally Auscultation: Negative for rales, rhonchi or wheezes Cardio regular rate, regular rhythm, S1 normal heart sound, S2 normal heart sound, no murmurs, no rub, no gallops and no clicks GI normal to inspection, nondistended, normoactive bowel sounds, soft to palpation and non-tender Extremity no clubbing, cyanosis or edema Extremity Narrative: 2+ pedal pulses Skin no rashes or lesions noted, no wounds, skin turgor normal, no jaundice, no petechiae and no mottling Skin Narrative: Pale Neuro oriented x3, CN's II-XII intact bilaterally, moves all extremities and no focal motor deficits Speech: speech normal Psych affect normal Psych Narrative: Very pleasant, interacts appropriately Weight / BMI Weight Weight: 79.6 kg Body Mass Index (BMI) 25.9 ABG / Lab / Microbiology Data 11/30/23 04:35 11/30/23 04:35 Laboratory: Laboratory Results - last 24 hr 11/27/23 18:35: Blood Type A POSITIVE, Antibody Screen POSITIVE, Antibody Identification ANTI-Fya, Crossmatch See Detail 11/29/23 16:54: APTT 59.3 H 11/29/23 17:03: POC Glucose 129 H 11/29/23 21:23: POC Glucose 201 H 11/29/23 22:50: APTT 59.3 H 11/30/23 04:35: WBC 5.8, RBC 3.56 L, Hgb 9.7 L, Hct 31.6 L, MCV 88.8, MCH 27.2, MCHC 30.7 L, RDW Std Deviation 47.8 H, RDW Coeff of Talon 15.0 H, Plt Count 287, MPV 10.0, Sodium 141, Potassium 3.4 L, Chloride 106, Carbon Dioxide 25.0, Anion Gap 10, BUN 9, Creatinine 1.11, Estim Creat Clear Calc 65.46, Est GFR (MDRD) Af Amer 85, Est GFR (MDRD) Non-Af 70, BUN/Creatinine Ratio 8.1 L, Glucose 124 H, Calcium 9.2 11/30/23 07:06: POC Glucose 142 H 11/30/23 07:16: APTT 61.4 H 11/30/23 13:46: APTT 55.6 H D/C Instructions Discharge Diet: Low fat / Low cholesterol and 2000 Calorie Control Diet Discharge Activity: Return to Normal Activity Return to work on: 12/02/23 Meaningful Use Info Meaningful Use Meaningful Use Diagnoses (Choose all that apply): VTE Ischemic Stroke Statin Dosing Therapy Reference: STATIN DOSE THERAPY REFERENCE: * Patients > 75 years receive moderate or high dose statin therapy. * Patients 75 years or YOUNGER should receive HIGH intensity statin dose unless contraindicated. You will be required to document reason for non-treatment if statin daily dose does not meet guidelines. HIGH DOSE STATIN THERAPY DAILY Atorvastatin > than or = to 40 mg Rosuvastatin > than or = to 20 mg Amlodipine + Atorvastatin > than or = to 2.5/40 mg Ezetimibe + Simvastatin 10/80 mg Simvastatin 80mg VTE Anticoag overlap given w/in hospital stay or rx'd at dc?: No Pt receive overlap for 5 days?: No Reason overlap not ordered, prescribed, or given for 5 days: Treatment Not Indicated Discharge Plan Admission Admit Date/Time: 11/27/23 21:36 Primary Reason for Your Visit: Shortness of Breath Attending Provider: Ligia Verma Primary Care Provider: Travis Bassett Consulting Providers: Tennille Stauffer; Lucas Gutiérrez; Brittany Burns; Joellen Hanley; Calixto Hamilton; Roderick Cagle; Thierry Baeza; Eloy Norton; Carlos Rosario; Costa Odell; Mona Frank; Ayad Pandya; Sarwat Chang [employer]IC[employer]IAL WORKER; Brittany Chung NP; Nellie Knox PA Instructions Additional Instructions / Restrictions: 1. Your blood sugars were found to be [id number] with a 3-month blood sugar average (hemoglobin A1c) is being 12.4. We did start insulin as noted below. I have referred you to endocrinology to get some help with improved control of your blood sugars. Please call on Saturday to set up an appointment to be seen at their first available appointment. 2. It is very important that you take your Eliquis as instructed in the packet and please follow-up with hematology as noted below. Discharge Orders/Prescriptions Prescriptions: New insulin glargine-yfgn 100 unit/mL (3 mL) Insulin Pen 26 unit subcut QHS Qty: 15 0RF Eliquis DVT-PE Treat 30D Start 5 mg (74 tabs) tablets,dose pack See Rx Instructions .ROUTE .COMPLEX Qty: 74 0RF Rx Instructions: orally per package directions (DME) pen needle, diabetic 32 gauge x 1/4 needle See Rx Instructions .Route Qty: 100 0RF Rx Instructions: As directed Continued lisinopril 10 mg tablet 10 mg PO DAILY Patient Comments: THINKS HE RAN OUT multivitamin tablet 1 tab PO QDAY paroxetine HCl 30 MG tablet 30 mg PO DAILY pantoprazole 40 MG tablet 40 mg PO DAILY Qty: 30 0RF ferrous sulfate 325 MG tablet 325 mg PO DAILY Qty: 30 0RF aspirin 81 MG tablet,chewable 81 mg PO DAILY@0800 Qty: 0 0RF metformin 500 mg tablet extended release 24 hr 1,000 mg PO BID fluticasone propionate [Flonase Allergy Relief] 50 mcg/actuation spray,suspension 1 spray intranasal DAILY PRN (Reason: nasal congestion) Rx Instructions: administer into each nostril Discontinued glimepiride 4 MG tablet 2 mg PO DAILY Patient Comments: TAKE 1 TABLET BY MOUTH ONCE DAILY WITH BREAKFAST Referrals / Follow Up: Travis Bassett MD [Primary Care Provider] - In 1 Week Mychal Massey DO [Med Staff - Active Staff] - Within 3 Months (Blood clot in the lung) Aly Gregg DO [Med Staff - Active Staff] - See Referral Note (Please call on Saturday to make a follow-up appointment to be seen within the next 2 to 4 weeks for hospital follow-up per Dr. Gregg's instructions) Raffaele Alberto MD [Med Staff - Courtesy Staff] - Within 1 Month (High blood sugars-please call Saturday to set up an appointment) Disposition Disposition (needs filled in before D/C Order can be placed): Home, Self Care Charges/Coding Visit Charges Inpatient E&M: 10983 Disch Hosp >30min
[2023-11-30] MEDS: APIXABAN 5 MG TABLET 10 MG PO (16:25)
[2023-11-30 17:12] LABS: Bedside Glucose 148 mg/dL (74-106)
== END 2023-11-30 17:50 | disposition home or self-care (01) | DRG 176 ==
LOC: ED 18:56 → PCU 11-28 00:40
PROVIDERS: Internal Medicine Gastroenterology; Admitting Provider Family Medicine; Emergency Provider Emergency Medicine; PCP Family Medicine; Visit Provider Internal Medicine
PROC: 0DJD8ZZ Inspection of Lower Intestinal Tract, Via Natural or Artificial Opening Endoscopic (ICD-10-PCS; CPT 45378; principal; 2023-11-30 12:00)
DX: I26.99 Other pulmonary embolism without acute cor pulmonale (principal); E87.1 Hypo-osmolality and hyponatremia; E11.22 Type 2 diabetes mellitus with diabetic chronic kidney disease; D50.9 Iron deficiency anemia, unspecified; E11.65 Type 2 diabetes mellitus with hyperglycemia; E78.00 Pure hypercholesterolemia, unspecified; I12.9 Hypertensive chronic kidney disease with stage 1 through stage 4 chronic kidney disease, or unspecified chronic kidney disease; F32.A Depression, unspecified; I25.10 Atherosclerotic heart disease of native coronary artery without angina pectoris; N18.2 Chronic kidney disease, stage 2 (mild); K21.9 Gastro-esophageal reflux disease without esophagitis; I25.5 Ischemic cardiomyopathy; J30.2 Other seasonal allergic rhinitis; K57.30 Diverticulosis of large intestine without perforation or abscess without bleeding; K52.9 Noninfective gastroenteritis and colitis, unspecified; K44.9 Diaphragmatic hernia without obstruction or gangrene; Z79.4 Long term (current) use of insulin; F41.9 Anxiety disorder, unspecified; I25.2 Old myocardial infarction; Z87.891 Personal history of nicotine dependence; Z86.711 Personal history of pulmonary embolism; Z79.82 Long term (current) use of aspirin; Z79.899 Other long term (current) drug therapy; Z79.84 Long term (current) use of oral hypoglycemic drugs; Z95.5 Presence of coronary angioplasty implant and graft
CPT/HCPCS: 36415; 71045; 71275; 80048; 80053; 80061; 82962; 83036; 83735; 83880; 84439; 84443; 84484; 85018; 85025; 85027; 85610; 85730; 86850; 86870; 86900; 86901; 86902; 86920; 86922; 88305; 93005; 93306; 94668; 94762; 97802; 99285; J7030; J7040; J7050; J7120; P9016; Q9957; Q9967; A4216; C8929; J1940

== ENCOUNTER 2024-03-23 11:47 | Inpatient (IN) | payer MEDICARE, SELFPAY ==
[2024-03-23] VITALS (10 sets, daily range): BP systolic 78–128; BP diastolic 45–88; PULSE 83–109; RESP 14–18; TEMP 36.2–37.2; O2SAT 95–100; BMI 26.4; BMI 25.2
[2024-03-23 12:11] LABS: Absolute Lymphocyte Count 1.38 X10^3/uL (0.83-4.51); Absolute Neutrophil Count 6.6 X10^3/uL (2.0-7.7); Basophil# 0.03 X10^3/uL; Basophil% 0.3 % (0-1); Eosinophils% 2.3 % (0-5); Hematocrit 21.3 % (40-54); Hemoglobin 6.5 g/dL (13.0-16.5); Lymphocyte # 1.38 X10^3/ul (0.83-4.51); Lymphocyte % 15.5 % (19-41); Mean Corp Hgb Conc 30.5 g/dL (32-36); Mean Corpuscular Hgb 26.1 pg (27.0-32.0); Mean Corpuscular Volume 85.5 fL (80-94); Mean Platelet Vol. 9.9 fl (6.2-12.0); Monocyte# 0.68 X10^3/uL; Monocyte% 7.7 % (0-10); NRBC Flagged by Analyzer 0 % (0-5); Neutrophil # 6.55 X10^3/uL (2.7-7.7); Neutrophil % 73.7 % (47-70); Platelet Count 295 K/mm3 (150-450); RBC Distribution Width CV 14.4 % (11.6-14.6); RBC Distribution Width SD 43.8 fl (35.1-43.9); Red Blood Count 2.49 M/mm3 (4.6-6.2); White Blood Count 8.9 K/mm3 (4.4-11.0)
[2024-03-23 12:39] LABS: Anion Gap 7 (5-15); BUN 23 mg/dL (7-18); BUN/Creat Ratio 17.4 RATIO (10-20); Calcium,Total 8.8 mg/dL (8.5-10.1); Chloride 104 mmol/L (98-107); Creatinine, Serum 1.32 mg/dL (0.70-1.30); EST Glomerular Filtration Rate 58 mL/min (>60); Est Glom Filt Rate - Afr Amer 70 mL/min (>60); Estimated Creatinine Clearance 55.05 ml/min; Glucose 284 mg/dL (74-106); Potassium 4.2 mmol/L (3.5-5.1); Sodium Level 134 mmol/L (136-145); Troponin-I HS (w/2H Reflex) 656 pg/mL (3.0-78.0)
[2024-03-23 14:07] LABS: Reflex Troponin-HS? (from REC) Y
--- NOTE | 2024-03-23 14:09 | EKG12_ITS ---
Test Reason : Blood Pressure : */* mmHG Vent. Rate : 89 BPM Atrial Rate : 89 BPM P-R Int : 148 ms QRS Dur : 84 ms QT Int : 350 ms P-R-T Axes : 69 73 199 degrees QTcB Int : 425 ms Normal sinus rhythm ST & T wave abnormality, consider inferior ischemia ST & T wave abnormality, consider anterolateral ischemia Abnormal ECG Confirmed by JOS AMBRIZ, AQUILES ([id number]), algologist HUMZA WHALEN ([id number]) on 03/24/2024 7:56:37 AM Referred By: Confirmed By: AQUILES ARGUELLO MD
--- NOTE | 2024-03-23 14:15 | RAD_ITS ---
STUDY: X-RAY CHEST REASON FOR EXAM: Male, 68 years old. Shortness of breath and cough TECHNIQUE: Single AP portable view of the chest. COMPARISON: 11/27/2023 FINDINGS: EKG leads overlie the chest The lungs are clear and expanded. There is no demonstrated pleural abnormality. Normal size heart. Normal mediastinum and lee. Normal visualized pulmonary arteries. Normal visualized aortic arch and descending thoracic aorta. There are diffuse degenerative changes of the visualized thoracic spine. There is degenerative osteoarthritis of the bilateral shoulders. There is no demonstrated abnormality of the visualized soft tissue structures of the upper abdomen. RAD/Chest 1 View (Portable) IMPRESSION: No acute pulmonary process Electronically Signed: Levi Paul MD at 14:46 EST ,
[2024-03-23] MEDS: 0.9% Normal Saline (1000mL) 1,000 ML 1000 ML IV (14:26)
[2024-03-23 14:27] LABS: International Normalized Ratio 1.6; Prothrombin Time (Protime)PT. 19.6 SECONDS (11.7-14.9)
--- NOTE | 2024-03-23 14:37 | EDS_ITS ---
HPI History of Present Illness Chief Complaint: Weakness Narrative Narrative: Chief complaint and HPI: Weakness. 68-year-old male with history of DM2, HLD, ischemic cardiomyopathy, CAD, PE on Eliquis, history of upper GI bleed secondary to gastric AVMs presents for evaluation of weakness. Patient states for the past week he has had progressive weakness. He endorses intermittent lightheadedness with ambulation and change in position. Also endorses shortness of breath worse with exertion. Patient states he may have had darkening of the stools but is unsure. Patient states last time he felt like this he needed a blood transfusion which is why he presents today. He denies any fever, chills, chest pain, URI symptoms, abdominal pain, nausea, vomiting, dysuria. Review of systems: See HPI Medications: As listed on the chart Allergies: As listed on the chart PFSH: Per chart Vital signs: As listed on the chart. Reviewed. Physical exam: Gen: A&O x3 Head: Normocephalic, atraumatic Eyes: No sclera icterus, conjunctiva clear, PERRL, EOMI ENT: Dry mucous membranes Neck: Trachea midline, No JVD CV: RRR , no murmurs, no peripheral edema Resp: Lungs CTA BL, no w/r/c GI: Abd soft, non-distended, non-tender, no r/r/g Rectal: Normal external examination. No evidence of hemorrhoids or fissures. Normal tone and sensation. No masses, fluctuance, or tenderness. No pain out of proportion. Dark stool. Musc: Full ROM, no deformity Skin: Warm, pale Neuro: Alert, oriented, grossly intact, sensation intact Psych: Cooperative, appropriate mood and affect [facility] Medical History History of GI bleed Wears glasses Thyroid disease Gout Low iron High cholesterol Easy bruising Gastric reflux Cardiology follow-up encounter History of heart attack GI bleed Anemia Hypotension History of stress test Iron deficiency anemia Anxiety Diabetes Former smoker Myocardial infarct Hypertension Depression Essential (primary) hypertension Ischemic cardiomyopathy Hyperlipidemia History of anterior wall myocardial infarction Atherosclerotic heart disease of [place] coronary artery without angina pectoris Diabetes mellitus type II, controlled Home Medications ?Medication ?Instructions ?Recorded ?Last Taken ?Type paroxetine HCl 30 mg tablet 30 mg PO DAILY depression 12/02/14 03/23/24 History lisinopril 10 mg tablet 10 mg PO DAILY BP 05/14/17 03/23/24 History ferrous sulfate 325 mg (65 mg 325 mg PO DAILY #30 tabs 02/19/19 03/23/24 Rx iron) tablet pantoprazole 40 mg tablet,delayed 40 mg PO DAILY #30 tabs 02/19/19 03/23/24 Rx release fluticasone propionate 50 1 spray intranasal DAILY PRN nasal 11/27/23 Unknown History mcg/actuation nasal congestion spray,suspension (Flonase Allergy Relief) pen needle, diabetic 32 gauge x #100 ea 11/29/23 Unknown Rx 1/4 apixaban 5 mg tablet (Eliquis) 5 mg PO BID 03/23/24 03/23/24 History atorvastatin 80 mg tablet 80 mg PO DAILY cholesterol 03/23/24 03/23/24 History insulin glargine 100 unit/mL (3 26 unit subcut QHS 03/23/24 03/22/24 History mL) subcutaneous pen (Lantus Solostar U-100 Insulin) levothyroxine 100 mcg tablet 100 mcg PO DAILY disorder of 03/23/24 03/23/24 History thyroid gland Allergy/AdvReac Type Severity Reaction Status Date / Time No Known Allergies Allergy Verified 03/23/24 11:50 Family History Mother No problems noted. Father No problems noted. Surgical History History of coronary artery stent placement History of surgery H/O cardiac catheterization Stented coronary artery Social History household members: none Smoking Status: Former smoker quit date: 01/20/91 alcohol intake: never substance use type: does not use EXAM Physical Exam Const Vital Signs: 03/23/24 11:48 03/23/24 12:06 03/23/24 14:00 Temperature 97.1 F L Temperature Source Oral Pulse Rate 109 H 83 Respiratory Rate 18 18 Respiratory Effort Short of Breath Respiratory Pattern Normal Blood Pressure 124/66 H 78/45 L Blood Pressure Mean 85 56 Pulse Ox 100 95 Oxygen Delivery Method Room Air Room Air 03/23/24 14:43 Temperature Temperature Source Pulse Rate Respiratory Rate Respiratory Effort Respiratory Pattern Blood Pressure 116/88 H Blood Pressure Mean 97 Pulse Ox Oxygen Delivery Method MDM MDM MDM Narrative Medical decision making narrative: 68-year-old male with history of DM2, HLD, ischemic cardiomyopathy, CAD, PE on Eliquis, history of upper GI bleed secondary to gastric AVMs presents for evaluation of weakness. Patient took his Eliquis today. Differential diagnosis includes but is not limited to GI bleed, anemia, electrolyte abnormality, DIXON, pneumonia, ACS. Patient does endorse exertional shortness of breath however schultz spect less likely PE given that patient has been on his Eliquis and is not hypoxic. Patient had protocol orders started in triage. By the time I saw the patient labs had resulted. CBC without leukocytosis. Patient has acute anemia with a hemoglobin of 6.5. Type and screen was ordered. Platelet count unremarkable. INR 1.6. Patient on Eliquis. BMP shows renal insufficiency due to dehydration. Creatinine 1.32. Troponin elevated at 656. This is elevated from 11/28/2023 at 620. Repeat troponin pending. Patient is hypotensive with SBP in the 80s. I suspect that this is type II ischemia. NS bolus ordered. 2 units packed RBCs ordered. IV Protonix ordered. Fecal occult, chest x-ray, UA added. Fecal occult positive. Patient has a GI bleed which explains his acute anemia and symptoms. On chart review, patient had colonoscopy on 11/29 and EGD done by Dr. Gregg. Colonoscopy showed inflammation. EGD was unremarkable. Patient will warrant admission to the hospital for his GI bleed and acute anemia. Patient will likely need EGD. Dr. Gregg was contacted and patient was discussed. He will see him in consult. Patient was discussed with Dr. Malone who accepted admission. Patient confirmed understanding of the plan and consented. EKG: Interpreted by me/EM physician: EKG shows normal sinus rhythm. Patient has some nonspecific ST depressions. However these are similar to previous EKG from 11/29/2023. Diagnostic: Interpreted by me/EM physician: Chest x-ray without pneumonia, effusion, cardiomegaly, pneumothorax 30 minutes of critical care time utilized in managing the patient. This is due to high probability of and deterioration of the patient based on the patient's condition and excludes any separately billable procedures. Impression: 1. GI bleed on Eliquis 2. Acute blood loss anemia secondary to #1, requiring blood transfusion 3. Elevated troponin, suspect type II demand 4. Renal insufficiency Lab Data Labs: Laboratory Results - last 24 hr 03/23/24 11:59 WBC 8.9 RBC 2.49 L Hgb 6.5 L Hct 21.3 L MCV 85.5 MCH 26.1 L MCHC 30.5 L RDW Std Deviation 43.8 RDW Coeff of Talon 14.4 Plt Count 295 MPV 9.9 Immature Gran % (Auto) 0.500 Neut % (Auto) 73.7 H Lymph % (Auto) 15.5 L [place] % (Auto) 7.7 Eos % (Auto) 2.3 Baso % (Auto) 0.3 Absolute Neuts (auto) 6.6 Absolute Lymphs (auto) 1.38 Nucleated RBC % 0 PT 19.6 H INR 1.6 Sodium 134 L Potassium 4.2 Chloride 104 Carbon Dioxide 23.0 Anion Gap 7 BUN 23 H Creatinine 1.32 H Estim Creat Clear Calc 55.05 Est GFR (MDRD) Af Amer 70 Est GFR (MDRD) Non-Af 58 L BUN/Creatinine Ratio 17.4 Glucose 284 H Calcium 8.8 Troponin I High Sens 656 H* Blood Type A POSITIVE Antibody Screen POSITIVE Antibody Identification ANTI-Fya Crossmatch See Detail Radiography Diagnostic Testing: Clinical Impression(s) from Imaging Studies Chest X-Ray 03/23/24 14:15 IMPRESSION: No acute pulmonary process Electronically Signed: Levi Paul MD at 14:46 EST Reading Location ID and State: [facility] / [place] , Service support , Discharge Plan Disposition Disposition: Acute Care Hospital [facility] Discharge Date/Time: 03/23/24 18:18
[2024-03-23] MEDS: Pantoprazole Sodium 40 MG in 0.9% Normal Saline (100mL MB+) 100 ML 330 MG IV ×2 (14:55→21:01)
--- NOTE | 2024-03-23 15:41 | ECHOLC_ITS ---
Version 2 Reason For Study: ELEVATED TROPONIN Procedure This was a limited 2D transthoracic echocardiogram. The study was technically difficult. Contrast injection was performed. Exam performed portable in patient room. Left Ventricle Normal LV size. The left ventricular ejection fraction is 35 %. There is moderate global hypokinesis of the left ventricle. Right Ventricle Normal RV size. Normal systolic function. Atria Normal left atrium. Normal right atrium. Mitral Valve Normal mitral valve. Moderate (2+) eccentric mitral valve insufficiency. Tricuspid Valve Normal tricuspid valve. Mild to moderate (1-2+) tricuspid valve insufficiency. Pulmonary artery systolic pressure is 43 mmHg. Great Vessels The pulmonary artery is normal size. Inferior vena cava collapse with sniff. Pericardium/Pleural No pericardial effusion. Medication Diluted definity 1.5ml given slow IV push to enhance endocardial definition. MMode/2D Measurements & Calculations LVIDd: 5.3 cm IVSd: 0.81 cm LVOT diam: 2.1 cm LVIDs: 4.7 cm LVPWd: 0.81 cm LVOT area: 3.5 cm2 RVDd: 3.7 cm FS: 12.8 % LAV(MOD-bp): 67.2 ml LVAd ap4: 44.1 cm2 LVAd ap2: 38.3 cm2 LAV(MOD-bp) Indexed: 47.6 ml/m2 LVLd ap4: 8.8 cm LVLd ap2: 8.4 cm LAV(MOD-sp2): 62.7 ml EDV(MOD-sp4): 185.4 ml EDV(MOD-sp2): 140.3 ml LAV(MOD-sp4): 60.9 ml EDV(sp4-el): 187.5 ml EDV(sp2-el): 147.9 ml LVAs ap4: 34.4 cm2 LVAs ap2: 29.8 cm2 LVLs ap4: 8.2 cm LVLs ap2: 7.8 cm ESV(MOD-sp4): 120.3 ml ESV(MOD-sp2): 94.4 ml ESV(sp4-el): 122.2 ml ESV(sp2-el): 96.9 ml EF(MOD-sp4): 35.1 % EF(MOD-sp2): 32.7 % EF(sp4-el): 34.8 % SV(MOD-sp4): 65.2 ml SV(MOD-sp2): 45.8 ml SV(sp4-el): 65.3 ml SI(MOD-sp4): 46.2 ml/m2 SI(MOD-sp2): 32.5 ml/m2 Ao sinus diam: 3.[address] Junction: 2.8 cm LA A4 area: 20.9 cm2 LA dimension(2D): 4.5 cm RA A4 area: 13.6 cm2 TAPSE: 1.7 cm Time Measurements MV dec time: 0.13 sec Doppler Measurements & Calculations MV E max mayur: 99.6 cm/sec Lat Peak E' Mayur: 7.4 cm/sec Med Peak E' Mayur: 6.0 cm/sec MV A max mayur: 73.3 cm/sec E/E' lat: 13.4 E/E' med: 16.5 MV E/A: 1.4 MV dec slope: 757.0 cm/sec2 TR max mayur: 312.9 cm/sec TR max P.2 mmHg ECHO/Echo Limited w/Contrast Interpretation Summary Normal LV size. The left ventricular ejection fraction is 35 %. There is moderate global hypokinesis of the left ventricle. Moderate (2+) eccentric mitral valve insufficiency. Pulmonary artery systolic pressure is 43 mmHg. Contrast injection was performed. Compared to previous study, the left ventricu lar systolic function has worsened.. Ordering Physician: Lucas Malone Referring Physician: MD Danyelle Travis Performed By: Analy Moore RDCS
--- NOTE | 2024-03-23 15:52 | HP.PCM.HOS_ITS ---
[facility] - General General Date of Service: 03/23/24 Chief Complaint: Shortness of breath HPI Narrative BRAD HALLMAN, is a 68 M who presents with shortness of breath. This is a 68-year-old male with history of anemia, PE on Eliquis presents with a several day history of shortness of breath. Recently, the patient has not been taking his Eliquis because he simply ran out. Did resume taking it about 3 days ago. There is shortness of breath progressed over the weekend and the presented here for further evaluation. In the emergency room, he was noted to be anemic with a hemoglobin 6.5. Hemoccult was positive. Did also have elevated troponins of 656. Previous admissions have shown his troponins to be elevated. Dr. Gregg, gastroenterology was contacted and agreed to see the patient in consultation. Patient was typed and crossed for 2 units of packed red blood cells. He states that he is feeling slightly dizzy also has some leg pain when he walks it gets better with rest. He is coughing but is nonproductive. Did recently have some sinus congestion but that is since resolved. [facility] Medical History History of GI bleed Wears glasses Thyroid disease Gout Low iron High cholesterol Easy bruising Gastric reflux Cardiology follow-up encounter History of heart attack GI bleed Anemia Hypotension History of stress test Iron deficiency anemia Anxiety Diabetes Former smoker Myocardial infarct Hypertension Depression Essential (primary) hypertension Ischemic cardiomyopathy Hyperlipidemia History of anterior wall myocardial infarction Atherosclerotic heart disease of [place] coronary artery without angina pectoris Diabetes mellitus type II, controlled Home Medications ?Medication ?Instructions ?Recorded ?Last Taken ?Type paroxetine HCl 30 mg tablet 30 mg PO DAILY depression 12/02/14 03/23/24 History lisinopril 10 mg tablet 10 mg PO DAILY BP 05/14/17 03/23/24 History ferrous sulfate 325 mg (65 mg 325 mg PO DAILY #30 tabs 02/19/19 03/23/24 Rx iron) tablet pantoprazole 40 mg tablet,delayed 40 mg PO DAILY #30 tabs 02/19/19 03/23/24 Rx release fluticasone propionate 50 1 spray intranasal DAILY PRN nasal 11/27/23 Unknown History mcg/actuation nasal congestion spray,suspension (Flonase Allergy Relief) pen needle, diabetic 32 gauge x #100 ea 11/29/23 Unknown Rx / apixaban 5 mg tablet (Eliquis) 5 mg PO BID 03/23/24 03/23/24 History atorvastatin 80 mg tablet 80 mg PO DAILY cholesterol 03/23/24 03/23/24 History insulin glargine 100 unit/mL (3 26 unit subcut QHS 03/23/24 03/22/24 History mL) subcutaneous pen (Lantus Solostar U-100 Insulin) levothyroxine 100 mcg tablet 100 mcg PO DAILY disorder of 03/23/24 03/23/24 History thyroid gland Allergy/AdvReac Type Severity Reaction Status Date / Time No Known Allergies Allergy Verified 03/23/24 11:50 Family History Mother No problems noted. Father No problems noted. Surgical History History of coronary artery stent placement History of surgery H/O cardiac catheterization Stented coronary artery Social History household members: none Smoking Status: Former smoker quit date: 01/20/91 alcohol intake: never substance use type: does not use ROS ROS Narrative No suicidal homicidal ideation. No lower extremity edema. All review of systems were negative except as mentioned above in the history of present illness and the other review of systems. Vital Signs Vital Signs Vital Signs: 03/23/24 11:48 03/23/24 12:06 03/23/24 14:00 Temperature 36.2 C L Temperature Source Oral Pulse Rate 109 H 83 Respiratory Rate 18 18 Respiratory Effort Short of Breath Respiratory Pattern Normal Blood Pressure 124/66 H 78/45 L Blood Pressure Mean 85 56 Pulse Ox 100 95 Oxygen Delivery Method Room Air Room Air 03/23/24 14:43 Temperature Temperature Source Pulse Rate Respiratory Rate Respiratory Effort Respiratory Pattern Blood Pressure 116/88 H Blood Pressure Mean 97 Pulse Ox Oxygen Delivery Method Weight Weight: 81.193 kg Body Mass Index (BMI) 26.4 Physical Exam Const alert and no apparent distress Constitutional Narrative: Pale appearance. Nontoxic. Pleasant. Afebrile. HEENT normocephalic and head/scalp atraumatic Eyes Eyes Narrative: No icterus Neck no lymphadenopathy, supple, no JVD and no carotid bruits Resp normal respiratory effort, no retractions, no use of accessory muscles and clear to auscultation bilaterally Cardio regular rate, regular rhythm, S1 normal heart sound and S2 normal heart sound GI normal to inspection, nondistended, normoactive bowel sounds, soft to palpation, non-tender and non-distended Extremity normal to inspection and no clubbing, cyanosis or edema Extremity Narrative: No calf tenderness Skin Skin Narrative: No rashes. No bruising. Neuro moves all extremities and no focal motor deficits Sensorium / Orientation: awake and alert Speech: speech normal Psych affect normal Results Lab / Micro Data Attestation: I reviewed the patient's lab results. 03/23/24 11:59 03/23/24 11:59 Labs: Laboratory Results - last 24 hr 03/23/24 11:59: WBC 8.9, RBC 2.49 L, Hgb 6.5 L, Hct 21.3 L, MCV 85.5, MCH 26.1 L , MCHC 30.5 L, RDW Std Deviation 43.8, RDW Coeff of [place] 14.4, Plt Count 295, MPV 9.9, Immature Gran % (Auto) 0.500, Neut % (Auto) 73.7 H, Lymph % (Auto) 15.5 L, [place] % (Auto) 7.7, Eos % (Auto) 2.3, Baso % (Auto) 0.3, Absolute Neuts (auto) 6.6, Absolute Lymphs (auto) 1.38, Nucleated RBC % 0, PT 19.6 H, INR 1.6, Sodium 134 L, Potassium 4.2, Chloride 104, Carbon Dioxide 23.0, Anion Gap 7, BUN 23 H, Creatinine 1.32 H, Estim Creat Clear Calc 55.05, Est GFR (MDRD) Af Amer 70, Est GFR (MDRD) Non-Af 58 L, BUN/Creatinine Ratio 17.4, Glucose 284 H, Calcium 8.8, T roponin I High Sens 656 H*, Blood Type A POSITIVE, Antibody Screen POSITIVE, Antibody Identification ANTI-Fya, Crossmatch See Detail Micro: Microbiology 03/23/24 14:30 Stool Stool Occult Blood (NAYELI) - Final Occult Blood Positive EKG Initial EKG: Attestation: I personally reviewed and interpreted this EKG as follows: Prior EKG tracings: available for review EKG Rhythm Intrepretation: Sinus Rhythm (Lateral ST depressions.) Imaging Radiology Impression Chest X-Ray 03/23/24 14:15 IMPRESSION: No acute pulmonary process Electronically Signed: Levi Paul MD at 14:46 EST Reading Location ID and State: [address] [place] [address] , Service support , Assessment & Plan Assessment/Plan (1) Acute on chronic anemia: PLAN: Suspected acute blood loss due to GI. Patient was heme positive in the emergency room. Patient did have colonoscopy back in November that showed diverticulosis in the rectosigmoid and sigmoid colon. Diffuse moderate inflammation found in the descending colon at the splenic flexure, transverse colon and hepatic flexure. EGD at that time showed normal findings. Pathology report from that time was unremarkable. Bleeding may be related with diverticulosis questionable colitis compounded by use of apixaban (though he had several days where he was not taking medication because he ran out) Plan is to consult GI to evaluate to see if patient requires further endoscopy. Patient typed and crossed 2 units of proper blood cells. Monitor hemoglobin. Hold apixaban for now. IV pantoprazole. (2) NSTEMI, initial episode of care: PLAN: I suspect type II. This likely due to his anemia and may also be chronically elevated as per previous labs. Will cycle troponins and if they do go up considerably then we will consult cardiology if not then follow-up echocardiogram. PLAN: Plan Chronic conditions * VTE: Patient had a CAT scan back in November that showed left upper and left lower lobe PE. Apixaban will be held given the anemia for now. * Diabetes mellitus type 2: Continue with basal insulin and sliding scale insulin. Will cut the basal insulin in half if he is NPO. * Hypothyroidism: Continue levothyroxine VTE prophylaxis with SCDs CODE STATUS: Addressed with the patient. Patient wishes to be full code Charges/Coding Visit Charges Inpatient E&M: 03605 Init Hosp L3
[2024-03-23 16:43] LABS: Troponin-I HS 675 pg/mL (3.0-78.0)
[2024-03-23 19:33] LABS: Troponin-I HS 680 pg/mL (3.0-78.0)
--- NOTE | 2024-03-23 20:22 | EX.PCM.CON.G ---
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 Patient states for the past week he has had progressive weakness. He endorses intermittent lightheadedness with ambulation and change in position. He also endorses shortness of breath worse with exertion. Patient states he may have had darkening of the stools but is unsure. Patient states last time he felt like this he needed a blood transfusion which is why he presents today. He denies any fever, chills, chest pain, URI symptoms, abdominal pain, nausea, vomiting, dysuria. I saw him back on 11/28/2023 when his his hemoglobin dropped to 7.0 from 8.0. Review of previous EGD from April 2023 showed angiodysplastic lesions that were bleeding at the time of scope. He also was identified of having a pulmonary embolism during his visit so serial hemoglobins were ordered for serially since he was on an heparin drip and were stable in the 7-7.5 range. He underwent EGD and colonoscopy was initially for 11/29/2023 . He was given 2 units of packed red blood cells with a repeat hemoglobin at 9.7 on 11/30/2023 and cardiology was consulted to clear him for EGD/colonoscopy. He was taken for EGD and colonoscopy on 11/30/2023. EGD showed normal esophagus, small hiatal hernia and a normal second portion of the duodenum with no findings consistent with previous bleeding angiodysplastic lesions. Colonoscopy showed fair colon prep with diverticulosis in the rectosigmoid and sigmoid colon, diffuse moderate inflammation in the descending colon, splenic flexure, transverse colon, hepatic flexure and ascending colon secondary to colitis with concerns for inflammatory bowel disease. Biopsies were obtained with no signs of bleeding postbiopsy. He is supposed to follow-up for an outpatient capsule endoscopy. [facility] Medical History History of GI bleed Wears glasses Thyroid disease Gout Low iron High cholesterol Easy bruising Gastric reflux Cardiology follow-up encounter History of heart attack GI bleed Anemia Hypotension History of stress test Iron deficiency anemia Anxiety Diabetes Former smoker Myocardial infarct Hypertension Depression Essential (primary) hypertension Ischemic cardiomyopathy Hyperlipidemia History of anterior wall myocardial infarction Atherosclerotic heart disease of [place] coronary artery without angina pectoris Diabetes mellitus type II, controlled Home Medications ?Medication ?Instructions ?Recorded ?Last Taken ?Type paroxetine HCl 30 mg tablet 30 mg PO DAILY depression 12/02/14 03/23/24 History lisinopril 10 mg tablet 10 mg PO DAILY BP 05/14/17 03/23/24 History ferrous sulfate 325 mg (65 mg 325 mg PO DAILY #30 tabs 02/19/19 03/23/24 Rx iron) tablet pantoprazole 40 mg tablet,delayed 40 mg PO DAILY #30 tabs 02/19/19 03/23/24 Rx release fluticasone propionate 50 1 spray intranasal DAILY PRN nasal 11/27/23 Unknown History mcg/actuation nasal congestion spray,suspension (Flonase Allergy Relief) pen needle, diabetic 32 gauge x #100 ea 11/29/23 Unknown Rx 1/4 apixaban 5 mg tablet (Eliquis) 5 mg PO BID 03/23/24 03/23/24 History atorvastatin 80 mg tablet 80 mg PO DAILY cholesterol 03/23/24 03/23/24 History insulin glargine 100 unit/mL (3 26 unit subcut QHS 03/23/24 03/22/24 History mL) subcutaneous pen (Lantus Solostar U-100 Insulin) levothyroxine 100 mcg tablet 100 mcg PO DAILY disorder of 03/23/24 03/23/24 History thyroid gland Allergy/AdvReac Type Severity Reaction Status Date / Time No Known Allergies Allergy Verified 03/23/24 11:50 Family History Mother No problems noted. Father No problems noted. Surgical History History of coronary artery stent placement History of surgery H/O cardiac catheterization Stented coronary artery Social History household members: none Smoking Status: Former smoker quit date: 01/20/91 alcohol intake: never substance use type: does not use ROS Constitutional Constitutional: Denies fatigue, fever(s), poor appetite, weight gain or weight loss Gastrointestinal Gastrointestinal: Denies belching, bloating, change in bowel habits, change in stool character, chewing difficulty, coffee ground emesis, constipation, cramping, diarrhea, dyspepsia, dysphagia, early satiety, excessive flatus, fecal incontinence, heartburn, hematemesis, hematochezia, hemorrhoids, loose stools, melena, nausea, odynophagia, rectal bleeding, tenesmus, vomiting or weight changes Physical Exam Const alert and no apparent distress Constitutional Narrative: Pale appearance. Nontoxic. Pleasant. Afebrile. HEENT normocephalic and head/scalp atraumatic Eyes Eyes Narrative: No icterus Neck no lymphadenopathy, supple, no JVD and no carotid bruits Resp normal respiratory effort, no retractions, no use of accessory muscles and clear to auscultation bilaterally Cardio regular rate, regular rhythm, S1 normal heart sound and S2 normal heart sound GI normal to inspection, nondistended, normoactive bowel sounds, soft to palpation, non-tender and non-distended Extremity normal to inspection and no clubbing, cyanosis or edema Extremity Narrative: No calf tenderness Skin Skin Narrative: No rashes. No bruising. Neuro moves all extremities and no focal motor deficits Sensorium / Orientation: awake and alert Speech: speech normal Psych affect normal Lab / Micro Data 03/23/24 11:59 03/23/24 11:59 Labs: Laboratory Results - last 24 hr 03/23/24 11:59: WBC 8.9, RBC 2.49 L, Hgb 6.5 L, Hct 21.3 L, MCV 85.5, MCH 26.1 L, MCHC 30.5 L, RDW Std Deviation 43.8, RDW Coeff of [place] 14.4, Plt Count 295, MPV 9.9, Immature Gran % (Auto) 0.500, Neut % (Auto) 73.7 H, Lymph % (Auto) 15.5 L, [place] % (Auto) 7.7, Eos % (Auto) 2.3, Baso % (Auto) 0.3, Absolute Neuts (auto) 6.6, Absolute Lymphs (auto) 1.38, Nucleated RBC % 0, PT 19.6 H, INR 1.6, Sodium 134 L, Potassium 4.2, Chloride 104, Carbon Dioxide 23.0, Anion Gap 7, BUN 23 H, Creatinine 1.32 H, Estim Creat Clear Calc 55.05, Est GFR (MDRD) Af Amer 70, Est GFR (MDRD) Non-Af 58 L, BUN/Creatinine Ratio 17.4, Glucose 284 H, Calcium 8.8, Troponin I High Sens 656 H*, Blood Type A POSITIVE, Antibody Screen POSITIVE, Antibody Identification ANTI-Fya, Crossmatch See Detail 03/23/24 15:50: Troponin I High Sens 675 H* 03/23/24 18:50: Troponin I High Sens 680 H* Micro: Microbiology 03/23/24 14:30 Stool Stool Occult Blood (NAYELI) - Final Occult Blood Positive Imaging Radiology Impression Chest X-Ray 03/23/24 14:15 IMPRESSION: No acute pulmonary process Electronically Signed: Levi Paul MD at 14:46 EST Reading Location ID and State: [address] [place] [address] , Service support , Assessment & Plan Assessment/Plan (1) Acute on chronic anemia: PLAN: I previously saw him approximately 7 months ago when he presented to [facility] ER complaining that routine outpatient labs revealed severe acute blood loss anemia with hemoglobin of 5.8 g/dL requiring blood transfusion. He denies gross bleeding of any kind but he does admit to easy fatigability and SCHMITZ. He also stated he ran out of his iron supplement about 10 days ago but he has now restarted it with no other recent medication changes. He denied associated fever, chills, nausea, vomiting, appetite change or weight loss but he did admit to constipation earlier this week with subsequent normal once daily BM's. EGD was performed during his hospitalization which demonstrated multiple gastric AVMs that were successfully treated. He required 3 units of blood total to correct his anemia and on the day of discharge his hemoglobin went from 8.4 in the morning to 8.6 on recheck in the afternoon. Colonoscopy was attempted but his prep was very poor nothing could be seen due to the fact there was solid stool throughout the colon. We repeated his upper or lower endoscopy back in 2023. His upper endoscopy did not show any abnormalities. That was not a push enteroscopy. His colonoscopy also did not show any signs of acute or chronic GI blood loss. Recommendations repeat upper endoscopy with possible push enteroscopy Charges/Coding Visit Charges Inpatient E&M: 88319 Init Hosp L3
[2024-03-23] MEDS: Insulin Glargine-YFGN 100 UNIT/ML Pen 26 UNIT SC (23:51)
[2024-03-24] VITALS (13 sets, daily range): BP systolic 94–114; BP diastolic 52–69; PULSE 82–98; RESP 16–18; TEMP 36.1–36.7; O2SAT 92–98; BMI 25.2
[2024-03-24 00:36] LABS: Bedside Glucose 173 mg/dL (74-106)
[2024-03-24 00:36] LABS: Bedside Glucose 155 mg/dL (74-106)
[2024-03-24 04:02] LABS: Absolute Lymphocyte Count 0.97 X10^3/uL (0.83-4.51); Absolute Neutrophil Count 4.5 X10^3/uL (2.0-7.7); Basophil# 0.03 X10^3/uL; Basophil% 0.5 % (0-1); Eosinophil# 0.18 X10^3/uL; Eosinophils% 2.8 % (0-5); Hematocrit 24.8 % (40-54); Hemoglobin 7.9 g/dL (13.0-16.5); Lymphocyte # 0.97 X10^3/ul (0.83-4.51); Lymphocyte % 15.1 % (19-41); Mean Corp Hgb Conc 31.9 g/dL (32-36); Mean Corpuscular Hgb 27.2 pg (27.0-32.0); Mean Corpuscular Volume 85.5 fL (80-94); Mean Platelet Vol. 9.2 fl (6.2-12.0); Monocyte# 0.66 X10^3/uL; Monocyte% 10.3 % (0-10); NRBC Flagged by Analyzer 0 % (0-5); Neutrophil # 4.54 X10^3/uL (2.7-7.7); Neutrophil % 70.8 % (47-70); Platelet Count 207 K/mm3 (150-450); RBC Distribution Width CV 14.7 % (11.6-14.6); RBC Distribution Width SD 44.3 fl (35.1-43.9); White Blood Count 6.4 K/mm3 (4.4-11.0)
[2024-03-24 04:25] LABS: Anion Gap 5 (5-15); BUN 16 mg/dL (7-18); BUN/Creat Ratio 14.4 RATIO (10-20); Calcium,Total 8.3 mg/dL (8.5-10.1); Chloride 109 mmol/L (98-107); Creatinine, Serum 1.11 mg/dL (0.70-1.30); EST Glomerular Filtration Rate 70 mL/min (>60); Est Glom Filt Rate - Afr Amer 85 mL/min (>60); Estimated Creatinine Clearance 67.59 ml/min; Glucose 166 mg/dL (74-106); Sodium Level 137 mmol/L (136-145)
[2024-03-24 04:50] LABS: Partial Thromboplast Time 33.3 Seconds (24.1-36.2)
[2024-03-24 07:09] LABS: Bedside Glucose 150 mg/dL (74-106)
[2024-03-24] MEDS: Acetaminophen 325 MG Tablet 650 MG PO (07:47)
[2024-03-24 07:59] LABS: Hemoglobin A1c 9.9 % (3.8-5.6)
[2024-03-24] MEDS: Pantoprazole Sodium 40 MG in 0.9% Normal Saline (100mL MB+) 100 ML 330 MG IV ×2 (10:04→21:16)
[2024-03-24] MEDS: Lisinopril 10 MG Tablet PO (10:05)
[2024-03-24] MEDS: Paroxetine 20 MG Tablet 30 MG PO (10:05)
--- NOTE | 2024-03-24 10:25 | PCM.PN.HOSP ---
Subjective Subjective Doing well, no issues overnight Objective Data Objective Data Vital Signs: Vital Signs Temp Pulse Resp BP Pulse Ox O2 Del Method 97.8 F 93 18 114/65 97 Room Air 03/24/24 09:20 03/24/24 09:20 03/24/24 09:20 03/24/24 09:20 03/24/24 09:20 03/24/24 09:20 Oxygen Delivery Method Room Air Weight: 175 lb 7.807 oz Body Mass Index (BMI) 25.2 Intake & Output: Intake and Output for Last 24 Hours 03/23/24 03/24/24 03/25/24 03:59 03:59 03:59 Intake Total 2520 / 2520 0 / 0 Balance 2520 / 2520 0 / 0 Lab / Micro Data 03/24/24 03:54 03/24/24 03:54 Labs: Laboratory Results - last 24 hr 03/23/24 11:59: WBC 8.9, RBC 2.49 L, Hgb 6.5 L, Hct 21.3 L, MCV 85.5, MCH 26.1 L, MCHC 30.5 L, RDW Std Deviation 43.8, RDW Coeff of [place]on 14.4, Plt Count 295, MPV 9.9, Immature Gran % (Auto) 0.500, Neut % (Auto) 73.7 H, Lymph % (Auto) 15.5 L, [place] % (Auto) 7.7, Eos % (Auto) 2.3, Baso % (Auto) 0.3, Absolute Neuts (auto) 6.6, Absolute Lymphs (auto) 1.38, Nucleated RBC % 0, PT 19.6 H, INR 1.6, Sodium 134 L, Potassium 4.2, Chloride 104, Carbon Dioxide 23.0, Anion Gap 7, BUN 23 H, Creatinine 1.32 H, Estim Creat Clear Calc 55.05, Est GFR (MDRD) Af Amer 70, Est GFR (MDRD) Non-Af 58 L, BUN/Creatinine Ratio 17.4, Glucose 284 H, Calcium 8.8, Troponin I High Sens 656 H*, Blood Type A POSITIVE, Antibody Screen POSITIVE, Antibody Identification ANTI-Fya, Crossmatch See Detail 03/23/24 15:50: Troponin I High Sens 675 H* 03/23/24 18:50: Troponin I High Sens 680 H* 03/23/24 21:12: POC Glucose 155 H 03/23/24 23:49: POC Glucose 173 H 03/24/24 03:54: WBC 6.4, RBC 2.90 L, Hgb 7.9 L, Hct 24.8 L, MCV 85.5, MCH 27.2, MCHC 31.9 L, RDW Std Deviation 44.3 H, RDW Coeff of [place] 14.7 H, Plt Count 207, MPV 9.2, Immature Gran % (Auto) 0.500, Neut % (Auto) 70.8 H, Lymph % (Auto) 15.1 L, [place] % (Auto) 10.3 H, Eos % (Auto) 2.8, Baso % (Auto) 0.5, Absolute Neuts (auto) 4.5, Absolute Lymphs (auto) 0.97, Nucleated RBC % 0, APTT 33.3, Sodium 137, Potassium 4.0, Chloride 109 H, Carbon Dioxide 23.0, Anion Gap 5, BUN 16, Creatinine 1.11, Estim Creat Clear Calc 67.59, Est GFR (MDRD) Af Amer 85, Est GFR (MDRD) Non-Af 70, BUN/Creatinine Ratio 14.4, Glucose 166 H, Hemoglobin A1c 9.9 H, Calcium 8.3 L, TSH 4.620 H 03/24/24 06:48: POC Glucose 150 H Micro: Microbiology 03/23/24 14:30 Stool Stool Occult Blood (NAYELI) - Final Occult Blood Positive Radiography Diagnostic Testing: Radiology Impression Chest X-Ray 03/23/24 14:15 IMPRESSION: No acute pulmonary process Electronically Signed: Levi Paul MD at 14:46 EST Reading Location ID and State: [facility] / [place] , Service support , Physical Exam Narrative General: Alert, Oriented x3, Cooperative, No apparent distress, little pale HEENT: Atraumatic, PERRLA, EOMI, Normocephalic Oral: Moist Mucosa Neck: Supple, No JVD Lungs: Clear to auscultation, Normal air movement, No rhonchi, No wheeze, No rales Cardiovascular: Regular rate, Regular Rhythm, Normal S1, Normal S2, No murmurs Abdomen: Soft, Non Tender, Non-Distended, No Hepato-splenomegaly Extremities: No edema, Capillary Refill Less than 3 Seconds Skin: No rashes, No breakdown Musculoskeletal: No Tenderness to Palpation of Joints or Extremities Neurological: No focal neurological deficits, Motor Exam 5/5 strength throughout, Sensory exam intact to light touch and pain Psych/Mental Status: Normal Affect, Appropriate Assessment & Plan Assessment/Plan (1) Acute on chronic anemia: (2) NSTEMI, initial episode of care: PLAN: Plan 1. Acute blood loss anemia from a likely GI bleed with NSTEMI type II/GERD/iron deficiency anemia ? Transfused to 7.9, will recheck this evening ? Consult GI ? Continue PPI ? He has a history of previous descending colon inflammation as well as gastric AVMs so we will start with an EGD ? Troponins remained stable at his baseline since November, no further follow-up at this time 2. Essential HTN/HLD/CAD status post stents ? She had a stents placed 2015 ? Since November his troponins have been elevated to over 600, continue outpatient management by PCP and cardiology ? Continue with statin ? Continue with his home blood pressure medications ? Will monitor make adjustments as necessary 3. Recent PE ? Was diagnosed with PE in November, will hold Eliquis during this intervention however will need to be restarted on discharge 4. DM2 ? Continue with insulin ? Accu-Cheks ACHS ? Will monitor make adjustments as necessary 5. Hypothyroidism ? Stable ? Continue with his home Synthroid 6. Anxiety/depression ? Stable ? Continue with his home medications DVT: SCDs Charges/Coding Visit Charges Inpatient E&M: 07897 Subs Hosp L2
--- NOTE | 2024-03-24 11:35 | CASEMGMT ---
JUSTINO LEON Assessment: Face to Face with pt for initial transition planning/care coordination assessment. RN EDWARD introduced self and role at [facility] [place], pt voices understanding and consents to assessment. Pt is A&O x4 and answers all questions appropriately at this time. Pt lying in bed in no distress, KODY sitting at bedside. Care providers, pharmacy, and demographics verified/updated. Strata: 3 Admitting Dx: Anemia PCP: Danyelle Specialists: HENRY Preferred Pharmacy: [facility] Insurance: [facility] Prescription Benefit: yes LNOK: Father, Huey; KODY, Sam Living Arrangements: Pt lives alone, KODY stays with him sometimes. Lives in a 1 story home with no steps to enter. ADLs: Pt reports I at baseline. Transportation: Pt drives self and denies concerns with transportation. DME: [employer] and supplies HHC/SNF: Denies Hx. Pt states no concerns with going home at time of dc. Pt states no further concerns/needs. CM to follow. Advised pt to ask CM if any further question/concerns/needs arise, voices understanding. Pt Goal: Home Plan: Home with family support, follow for safe DC. Kareem BADILLO CM
[2024-03-24 12:00] LABS: Bedside Glucose 129 mg/dL (74-106)
--- NOTE | 2024-03-24 13:19 | NURSING ---
POLICE LIEUTENANT PRECINCT reported to this nurse that patient was assisted to RR and when patient stood a can of chewing tobacco fell out into the bed. Educated patient that we are a tobacco free facility and advised that patient is not to be chewing.
--- NOTE | 2024-03-24 16:32 | EX.PCM.PN.GI ---
Subjective Subjective The patient has been NPO. No signs or symptoms of bleeding at this time. He did get transfused 2 units of packed red blood cells. Objective Data Objective Data Vital Signs: Vital Signs Temp Pulse Resp BP Pulse Ox O2 Del Method 98.1 F 90 16 108/62 97 Room Air 03/24/24 15:00 03/24/24 15:00 03/24/24 15:00 03/24/24 15:00 03/24/24 15:00 03/24/24 15:00 Oxygen Delivery Method Room Air Weight: 175 lb 7.807 oz Body Mass Index (BMI) 25.2 Intake & Output: Intake and Output for Last 24 Hours 03/22/24 03/23/24 03/24/24 23:59 23:59 23:59 Intake Total 1719 910 / 910 Balance 1719 910 / 910 Lab / Micro Data 03/24/24 03:54 03/24/24 03:54 Labs: Laboratory Results - last 24 hr 03/23/24 11:59: Blood Type A POSITIVE, Antibody Screen POSITIVE, Antibody Identification ANTI-Fya, Crossmatch See Detail 03/23/24 15:50: Troponin I High Sens 675 H* 03/23/24 18:50: Troponin I High Sens 680 H* 03/23/24 21:12: POC Glucose 155 H 03/23/24 23:49: POC Glucose 173 H 03/24/24 03:54: WBC 6.4, RBC 2.90 L, Hgb 7.9 L, Hct 24.8 L, MCV 85.5, MCH 27.2, MCHC 31.9 L, RDW Std Deviation 44.3 H, RDW Coeff of [place]on 14.7 H, Plt Count 207, MPV 9.2, Immature Gran % (Auto) 0.500, Neut % (Auto) 70.8 H, Lymph % (Auto) 15.1 L, [place] % (Auto) 10.3 H, Eos % (Auto) 2.8, Baso % (Auto) 0.5, Absolute Neuts (auto) 4.5, Absolute Lymphs (auto) 0.97, Nucleated RBC % 0, APTT 33.3, Sodium 137, Potassium 4.0, Chloride 109 H, Carbon Dioxide 23.0, Anion Gap 5, BUN 16, Creatinine 1.11, Estim Creat Clear Calc 67.59, Est GFR (MDRD) Af Amer 85, Est GFR (MDRD) Non-Af 70, BUN/Creatinine Ratio 14.4, Glucose 166 H, Hemoglobin A1c 9.9 H, Calcium 8.3 L, TSH 4.620 H 03/24/24 06:48: POC Glucose 150 H 03/24/24 11:42: POC Glucose 129 H Micro: Microbiology 03/23/24 14:30 Stool Stool Occult Blood (NAYELI) - Final Occult Blood Positive Radiography Diagnostic Testing: Radiology Impression Echocardiogram 03/23/24 15:41 Interpretation Summary Normal LV size. The left ventricular ejection fraction is 35 %. There is moderate global hypokinesis of the left ventricle. Moderate (2+) eccentric mitral valve insufficiency. Pulmonary artery systolic pressure is 43 mmHg. Contrast injection was performed. Compared to previous study, the left ventricular systolic function has worsened.. Ordering Physician: Lucas Malone Referring Physician: MD Danyelle Travis Performed By: Analy Moore DONNA Physical Exam Narrative General: Alert, Oriented x3, Cooperative, No apparent distress, little pale HEENT: Atraumatic, PERRLA, EOMI, Normocephalic Oral: Moist Mucosa Neck: Supple, No JVD Lungs: Clear to auscultation, Normal air movement, No rhonchi, No wheeze, No rales Cardiovascular: Regular rate, Regular Rhythm, Normal S1, Normal S2, No murmurs Abdomen: Soft, Non Tender, Non-Distended, No Hepato-splenomegaly Extremities: No edema, Capillary Refill Less than 3 Seconds Skin: No rashes, No breakdown Musculoskeletal: No Tenderness to Palpation of Joints or Extremities Neurological: No focal neurological deficits, Motor Exam 5/5 strength throughout, Sensory exam intact to light touch and pain Psych/Mental Status: Normal Affect, Appropriate Assessment & Plan Assessment/Plan (1) Acute on chronic anemia: (2) NSTEMI, initial episode of care: PLAN: Plan Acute blood loss anemia from a likely GI bleed with NSTEMI type II/GERD/iron deficiency anemia ? Transfused to 7.9, will recheck this evening ? He was explained alternatives, risk and benefits include understanding bleeding, infection, sepsis, perforation, need emergent and . Have an ASA of 3. ? Continue PPI ? He has a history of previous descending colon inflammation as well as gastric AVMs so we will start with an EGD Charges/Coding Visit Charges Inpatient E&M: 98910 Subs Hosp L3
--- NOTE | 2024-03-24 16:38 | PRE.ANES_ITS ---
ASA Classification* ASA Classification ASA Classification: 3 Assessment & Plan Anesthesia* Anesthesia Assessment Anesthesia Assessment: Discussed sedation and/or anesthesia options, risks, benefits, and alternatives with patient/parents/legal guardian/POA. Questions invited. The patient/parents/legal guardian/POA seems to understand and agrees to proceed with anesthesia plan. Reviewed the physical assessment, medical history, allergy history and patient home medications list prior to surgery/procedure/anesthetic and documented any changes. Performed airway and anesthesia risk assessments. Anesthesia Type Anesthesia Type: MAC Anesthesia Focused Assessment* Temperature: 98.1 F Pulse Rate: 90 Blood Pressure: 108/62 Respiratory Rate: 16 Pulse Ox: 97 Airway Assessment Mouth opens: >3 cm Mallampati Score: II Focused Labs Anesthesia Preop lab: CBC WBC 6.4 K/mm3 (4.4-11.0) 03/24/24 03:54 RBC 2.90 M/mm3 (4.6-6.2) L 03/24/24 03:54 Hgb 7.9 g/dL (13.0-16.5) L 03/24/24 03:54 Hct 24.8 % (40-54) L 03/24/24 03:54 Plt Count 207 K/mm3 (150-450) 03/24/24 03:54 CHEMISTRY Potassium 4.0 mmol/L (3.5-5.1) 03/24/24 03:54 Sodium 137 mmol/L (136-145) 03/24/24 03:54 Magnesium 1.9 mg/dL (1.6-2.6) 11/27/23 20:16 BUN 16 mg/dL (7-18) 03/24/24 03:54 Creatinine 1.11 mg/dL (0.70-1.30) 03/24/24 03:54 Glucose 166 mg/dL (74-106) H 03/24/24 03:54 POC Glucose 129 mg/dL (74-106) H 03/24/24 11:42 TSH 4.620 uIU/mL (0.358-3.740) H 03/24/24 03:54 COAG PT 19.6 SECONDS (11.7-14.9) H 03/23/24 11:59 Pre-Assessment Diagnosis/Proposed Procedure Planned Operative Procedure(s): EGD Anesthesia History 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 When Was Last Pacemaker Check QUESTION #4 FULL TEXT: You/Your Family Experience fever (hyperthermia) with Anesthesia Last Oral Intake Last Oral intake: Last Oral Intake NPO since 00:00 03/24/24 01:14 Meds taken in AM with sips of Yes 03/24/24 01:14 water? 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 Female HX of Motion Sickness HX of N/V After Surgery Non-Smoker Duration of Surgery greater than 60 minutes Number of Risk Factors PONV Score Height & Weight Height & Weight: Anesthesia: Height & Weight Height 5 ft 10 in 03/24/24 01:14 Weight: 79.6 kg 03/24/24 01:14 Body Mass Index (BMI) 25.2 03/24/24 01:14 Respiratory Assessment Respiratory Assessment - residential carpet installer: Respiratory Tract Infection Hx - residential carpet installer Hx Respiratory Tract Infection No 03/24/24 06:30 STOP Sleep Apnea STOP Sleep Apnea - residential carpet installer: STOP Sleep Apnea - residential carpet installer Hx Hypertension Yes 03/23/24 18:30 Hx Sleep Apnea No 03/23/24 18:30 CPAP No 03/23/24 18:30 BIPAP No 03/23/24 18:30 Do you snore loudly (louder No 03/23/24 18:30 than talking or can be heard Do you often feel tired/ No 03/23/24 18:30 fatigued/ sleepy during daytime? Has anyone observed you stop No 03/23/24 18:30 breathing during sleep? STOP Results Negative 03/23/24 18:30 QUESTION #5 FULL TEXT : Do you snore loudly (louder than talking or can be heard through closed doors)? 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 Specify any problems Hx of Preganancy in last 3 N/A 03/23/24 18:30 Months Nurse Filling Out Transfusion FSTEINER 03/23/24 18:30 & Questions: Date: 03/23/24 03/23/24 18:30 Time: 18:31 03/23/24 18:30 Patient unable to answer at this time (ie. confused, unrespo /Reproduction History /Reproductive History - residential carpet installer: /Reproductive Hx- residential carpet installer Hx Now No 03/24/24 06:30 Gestational Age (in weeks): EDC: Hx Hx Para Hx Section SAB No 03/24/24 06:30 Active Medications Active Medications: Current Medications Generic Name Dose Route Start Last Admin Trade Name Freq PRN Reason Stop Dose Admin Acetaminophen 650 mg 03/23/24 18:26 03/24/24 07:47 Acetaminophen 325 Mg Tablet PO 650 mg Q6H PRN PRN Administration Pain 1-10 Or Fever >100.7 Atorvastatin Calcium 80 mg 03/24/24 22:00 Atorvastatin Calcium 80 Mg Tablet PO QHS LEANDRA Empagliflozin 10 mg 03/25/24 10:00 Empagliflozin 10 Mg Tablet PO DAILY LEANDRA Ferrous Sulfate 325 mg 03/24/24 08:00 03/24/24 10:05 Ferrous Sulfate 325 Mg Tablet PO Not Given DAILYCM LEANDRA Fluticasone Propionate 1 spray 03/23/24 18:26 Fluticasone 0.05% 1 [place] Nasal.Sry NASAL DAILY PRN nasal congestion Pantoprazole Sodium 40 mg/ 110 mls @ 330 mls/hr 03/23/24 22:00 03/24/24 10:39 Sodium Chloride IV Infused Q12 LEANDRA Infusion Sodium Chloride 100 mls @ 15 mls/hr 03/23/24 18:36 IV .Q6H40M PRN Saline Flush Sodium Chloride 100 mls @ 15 mls/hr 03/23/24 18:36 IV .Q6H40M PRN Additional IVPB Infusion Insulin Glargine 26 unit 03/23/24 22:00 03/23/24 23:51 Insulin Glargine-Yfgn 100 Unit/Ml Pen SC 13 unit QHS LEANDRA Administration Levothyroxine Sodium 100 mcg 03/24/24 06:00 03/24/24 06:42 Levothyroxine 100 Mcg Tablet PO Not Given DAILY@0600 LEANDRA Lisinopril 10 mg 03/24/24 10:00 03/24/24 10:05 Lisinopril 10 Mg Tablet PO 10 mg DAILY LEANDRA Administration Protocol Oxycodone HCl 2.5 - 5 mg 03/23/24 18:26 Oxycodone 5 Mg Tablet PO Q4H PRN PRN Pain Score 4-10 Paroxetine HCl 30 mg 03/24/24 10:00 03/24/24 10:05 Paroxetine 20 Mg Tablet PO 30 mg DAILY LEANDRA Administration Sodium Chloride 10 - 40 ml 03/23/24 18:36 0.9% Saline Lock 10 Ml Syringe IV UD PRN SALINE FLUSH PFSH Medical History History of GI bleed Wears glasses Thyroid disease Gout Low iron High cholesterol Easy bruising Gastric reflux Cardiology follow-up encounter History of heart attack GI bleed Anemia Hypotension History of stress test Iron deficiency anemia Anxiety Diabetes Former smoker Myocardial infarct Hypertension Depression Essential (primary) hypertension Ischemic cardiomyopathy Hyperlipidemia 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 Diabetes mellitus type II, controlled Home Medications ?Medication ?Instructions ?Recorded ?Last Taken ?Type paroxetine HCl 30 mg tablet 30 mg PO DAILY depression 12/02/14 03/23/24 History lisinopril 10 mg tablet 10 mg PO DAILY BP 05/14/17 03/23/24 History ferrous sulfate 325 mg (65 mg 325 mg PO DAILY #30 tabs 02/19/19 03/23/24 Rx iron) tablet pantoprazole 40 mg tablet,delayed 40 mg PO DAILY #30 tabs 02/19/19 03/23/24 Rx release fluticasone propionate 50 1 spray intranasal DAILY PRN nasal 11/27/23 Unknown History mcg/actuation nasal congestion spray,suspension (Flonase Allergy Relief) pen needle, diabetic 32 gauge x #100 ea 11/29/23 Unknown Rx 1/4 apixaban 5 mg tablet (Eliquis) 5 mg PO BID 03/23/24 03/23/24 History atorvastatin 80 mg tablet 80 mg PO DAILY cholesterol 03/23/24 03/23/24 History insulin glargine 100 unit/mL (3 26 unit subcut QHS 03/23/24 03/22/24 History mL) subcutaneous pen (Lantus Solostar U-100 Insulin) levothyroxine 100 mcg tablet 100 mcg PO DAILY disorder of 03/23/24 03/23/24 History thyroid gland Allergy/AdvReac Type Severity Reaction Status Date / Time No Known Allergies Allergy Verified 03/23/24 11:50 Family History Mother No problems noted. Father No problems noted. Surgical History History of coronary artery stent placement History of surgery H/O cardiac catheterization Stented coronary artery Social History household members: none Smoking Status: Former smoker quit date: 01/20/91 alcohol intake: never substance use type: does not use Review of Systems (Anesthesia) ROS Narrative System reviewed and no additional complaints, except as documented.
--- NOTE | 2024-03-24 17:16 | OP.CCLET_ITS ---
03/24/2024 Travis Bassett [address] [place] [address] Re : Upper GI endoscopy procedure for Iftikhar Hess Dear Dr. Bassett This procedure was performed on Sunday, March 24, 2024. My impressions and recommendations are as follows: Impressions : - Normal esophagus. - Medium-sized hiatal hernia. - Normal stomach. 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 Treated with a heater probe. - No specimens collected. Recommendations : - [facility]. - Resume regular diet. - Continue present medications. My findings are described in the full procedure note, which is enclosed. If I can be of further assistance, please feel free to contact me at . Sincerely, Aly Gregg, 03/24/2024 5:16:12 PM This report has been signed electronically.
--- NOTE | 2024-03-24 17:16 | OP.EGD_ITS ---
Patient Name: Iftikhar Hess Procedure Date: 03/24/2024 4:24 PM Date of : 1955 Age: 68 Procedure: Upper GI endoscopy Indications: Acute post hemorrhagic anemia, Iron deficiency anemia, Recent gastrointestinal bleeding Providers: Aly Gregg DO Medicines: Monitored Anesthesia Care Patient Profile: This is a 68 year old male. Refer to note in patient chart for documentation of history and physical. Patient has symptoms. Complications: No immediate complications. Procedure: Pre-Anesthesia Assessment: - Prior to the procedure, a History and Physical was performed, and patient medications and allergies were reviewed. The patient is competent. The risks and benefits of the procedure and the sedation options and risks were discussed with the patient. All questions were answered and informed consent was obtained. Patient identification and proposed procedure were verified in the pre-procedure area. Mental Status Examination: alert and oriented. Airway Examination: normal oropharyngeal airway and neck mobility. Respiratory Examination: clear to auscultation. CV Examination: normal. Prophylactic Antibiotics: The patient does not require prophylactic antibiotics. Prior Anticoagulants: The patient has taken no anticoagulant or antiplatelet agents except for NSAID medication. ASA Grade Assessment: II - A patient with mild systemic disease. After reviewing the risks and benefits, the patient was deemed in satisfactory condition to undergo the procedure. The anesthesia plan was to use monitored anesthesia care (MAC). Immediately prior to administration of medications, the patient was re-assessed for adequacy to receive sedatives. The heart rate, respiratory rate, oxygen saturations, blood pressure, adequacy of pulmonary ventilation, and response to care were monitored throughout the procedure. The physical status of the patient was re-assessed after the procedure. After obtaining informed consent, the endoscope was passed under direct vision. Throughout the procedure, the patient's blood pressure, pulse, and oxygen saturations were monitored continuously. The Colonoscope was introduced through the mouth, and advanced to the jejunum. Small bowel enteroscopy was deemed necessary. The upper GI endoscopy was accomplished without difficulty. The patient tolerated the procedure well. Scope In: 4:56:24 PM Scope Out: 5:06:04 PM Total Procedure Duration Time 0 hours 9 minutes 40 seconds Findings: The examined esophagus was normal. A medium-sized hiatal hernia was present. The entire examined stomach was normal. A few 5 mm angiodysplastic lesions with bleeding were found in the fourth portion of the duodenum. Coagulation for hemostasis using heater probe was successful. Impression: - Normal esophagus. - Medium-sized hiatal hernia. - Normal stomach. 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 Treated with a heater probe. - No specimens collected. Recommendation: - Return patient to [facility] for [facility] care. - Resume regular diet. - Continue present medications. Procedure Code(s): --- Professional --- 54216, Small intestinal endoscopy, enteroscopy beyond second portion of duodenum, not including ileum; with control of bleeding (eg, injection, bipolar cautery, unipolar cautery, laser, heater probe, stapler, plasma food service utility worker) CPT copyright 2021 [employer]. All rights reserved. The codes documented in this report are preliminary and upon patient information coordinator review may be revised to meet current compliance requirements. Aly Gregg DO 03/24/2024 5:16:12 PM This report has been signed electronically. Number of Addenda: 0 Note Initiated On: 03/24/2024 4:24 PM
--- NOTE | 2024-03-24 17:29 | PCM.POST.ANE ---
Anesthesia: Postop Eval I Current Vital Signs Temperature: 97.1 F Pulse Rate: 87 Blood Pressure: 103/57 Respiratory Rate: 16 Pulse Ox: 98 Oxygen Delivery Method: Room Air Assessment Airway patent: Yes Spontaneous unlabored respirations: Yes Mental status: Awake and Calm nausea: No Vomiting: No Anesthesia Complication: No Fluid Hydration Crystalloid volume administer (ml): 40 Total IV fluid infused: 40 Progress Note Anesthesia document: Postop Eval 1 completed: Yes
--- NOTE | 2024-03-24 18:20 | NURSING ---
Pt refused to have dinner accucheck. States I have not ate all day, there is no point.
[2024-03-24 18:59] LABS: Hematocrit 24.7 % (40-54); Hemoglobin 7.8 g/dL (13.0-16.5)
--- NOTE | 2024-03-24 20:05 | PCM.POSTANE2 ---
Anesthesia Postop Eval I Sum Postop Eval Completion status Anesthesia document: Postop Eval 1 completed: Yes Anesthesia Postop Eval I Summary Anesthesia Postop Eval I Summary: Anesthesia Postop Eval I: Assessment Summary Airway patent Yes 03/24/24 17:29 [email or web address] Spontaneous unlabored Yes 03/24/24 17:29 [email or web address] respirations Mental status Awake,Calm 03/24/24 17:29 [email or web address] nausea No 03/24/24 17:29 [email or web address] Vomiting No 03/24/24 17:29 [email or web address] Anesthesia Postop Eval I: Fluid Summary Crystalloid volume administer 40 03/24/24 17:29 [email or web address] (ml) Colloids volume administered ( ml) Blood Product volume administered (ml) Total IV fluid infused 40 03/24/24 17:29 [email or web address] Anesthesia Postop Eval I: Summary Notes Anesthesia Complication No 03/24/24 17:29 [email or web address] Anesthesia Complication Comment: Post-operative progress note Anesthesia: Postop Eval II Evaluation Mental status: Awake Pain Level: 0 nausea: No Vomiting: No
[2024-03-24] MEDS: Atorvastatin Calcium 80 MG Tablet PO (21:15)
[2024-03-24] MEDS: Insulin Glargine-YFGN 100 UNIT/ML Pen 26 UNIT SC (21:15)
[2024-03-24] MEDS: 0.9% Saline Lock 10 ML Syringe IV (21:23)
[2024-03-24 21:41] LABS: Bedside Glucose 239 mg/dL (74-106)
[2024-03-25 04:28] LABS: Absolute Lymphocyte Count 0.84 X10^3/uL (0.83-4.51); Absolute Neutrophil Count 4.9 X10^3/uL (2.0-7.7); Basophil# 0.01 X10^3/uL; Basophil% 0.1 % (0-1); Eosinophil# 0.15 X10^3/uL; Eosinophils% 2.2 % (0-5); Hematocrit 26.2 % (40-54); Lymphocyte # 0.84 X10^3/ul (0.83-4.51); Lymphocyte % 12.6 % (19-41); Mean Corp Hgb Conc 30.5 g/dL (32-36); Mean Corpuscular Hgb 26.6 pg (27.0-32.0); Mean Platelet Vol. 9.7 fl (6.2-12.0); Monocyte# 0.76 X10^3/uL; Monocyte% 11.4 % (0-10); NRBC Flagged by Analyzer 0 % (0-5); Neutrophil # 4.88 X10^3/uL (2.7-7.7); Neutrophil % 73.3 % (47-70); Platelet Count 209 K/mm3 (150-450); RBC Distribution Width SD 47.5 fl (35.1-43.9); Red Blood Count 3.01 M/mm3 (4.6-6.2); White Blood Count 6.7 K/mm3 (4.4-11.0)
[2024-03-25 04:56] LABS: Anion Gap 4 (5-15); BUN 12 mg/dL (7-18); BUN/Creat Ratio 10.8 RATIO (10-20); Calcium,Total 8.6 mg/dL (8.5-10.1); Chloride 107 mmol/L (98-107); Creatinine, Serum 1.11 mg/dL (0.70-1.30); EST Glomerular Filtration Rate 70 mL/min (>60); Est Glom Filt Rate - Afr Amer 85 mL/min (>60); Estimated Creatinine Clearance 67.59 ml/min; Glucose 225 mg/dL (74-106); Potassium 4.2 mmol/L (3.5-5.1); Sodium Level 136 mmol/L (136-145)
[2024-03-25] MEDS: Levothyroxine 100 MCG Tablet PO (05:08)
[2024-03-25 05:15] VITALS: BP 106/57; PULSE 83; RESP 16; TEMP 36.4; O2SAT 93
[2024-03-25 09:35] VITALS: BP 121/83; PULSE 92; RESP 18; TEMP 36.7; O2SAT 98
[2024-03-25] MEDS: Empagliflozin 10 MG Tablet PO (09:40)
[2024-03-25] MEDS: Ferrous Sulfate 325 MG Tablet PO (09:40)
[2024-03-25] MEDS: Paroxetine 20 MG Tablet 30 MG PO (09:41)
[2024-03-25] MEDS: 0.9% Saline Lock 10 ML Syringe IV (09:42)
[2024-03-25] MEDS: Lisinopril 10 MG Tablet PO (09:42)
[2024-03-25] MEDS: Pantoprazole Sodium 40 MG in 0.9% Normal Saline (100mL MB+) 100 ML 330 MG IV (09:47)
--- NOTE | 2024-03-25 10:06 | DCINST_ITS ---
Discharge Instructions Diet Discharge Diet: Low fat / Low cholesterol and Carb Control Diet DC O2, CPAP, BIPAP needs Home O2 Discharge instructions: No Dressing / Incision Discharge Activity: Return to Normal Activity Dressing / Incision Call your doctor if you observe: Fever of 101 or Higher, Shortness of breath, Dizziness, Fainting spells, Swelling in the ankles, Chest pain and Increased palpitations (irregular heartbeat) Follow Up Care Test Results: Test results from this visit will be discussed in further detail at your follow- up appointment, if applicable. Discharge Plan Admission Admit Date/Time: 03/23/24 15:37 Attending Provider: Asaf Argueta Primary Care Provider: Travis Bassett Consulting Providers: Lucas Malone Instructions Additional Instructions / Restrictions: Follow-up with your PCP in 3 to 5 days to monitor your hemoglobin and anemia. Discharge Orders/Prescriptions Prescriptions: New Jardiance 10 mg Tablet 10 mg PO DAILY 30 Days Qty: 30 0RF Continued lisinopril 10 mg tablet 10 mg PO DAILY paroxetine HCl 30 MG tablet 30 mg PO DAILY pantoprazole 40 MG tablet 40 mg PO DAILY Qty: 30 0RF ferrous sulfate 325 MG tablet 325 mg PO DAILY Qty: 30 0RF fluticasone propionate [Flonase Allergy Relief] 50 mcg/actuation spray,suspension 1 spray intranasal DAILY PRN (Reason: nasal congestion) Rx Instructions: administer into each nostril (DME) pen needle, diabetic 32 gauge x 1/4 needle See Rx Instructions .Route Qty: 100 0RF Rx Instructions: As directed atorvastatin 80 mg tablet 80 mg PO DAILY levothyroxine 100 mcg tablet 100 mcg PO DAILY insulin glargine [Lantus Solostar U-100 Insulin] 100 unit/mL (3 mL) insulin pen 26 unit subcut QHS Held Eliquis 5 mg tablet 5 mg PO BID Hold Instructions: Resume on 03/27/24. Referrals / Follow Up: Travis Bassett MD [Primary Care Provider] - Within 1 Week Disposition Disposition (needs filled in before D/C Order can be placed): Home, Self Care
[2024-03-25 10:09] VITALS: BP 109/66; PULSE 92; RESP 16; TEMP 36.6; O2SAT 100
--- NOTE | 2024-03-25 10:09 | DS.PCM_ITS ---
Providers Date of Admission: 03/23/24 Primary Care Physician: Dr. Travis Bassett MD Consultations 03/23/24 18:26 Consult: Gastroenterology Routine Consulting Provider: [facility] Reason for Consult: GI bleed EMERGENT Consult: No MD Notified: Yes Date Notified: 03/23/24 Time Notified: 15:40 Method of Notification: ED Physician Initiated Reason For Visit: ANEMIA Diagnosis Discharge Diagnosis (1) Acute on chronic anemia: Status: Chronic Code(s): D64.9 - Anemia, unspecified (2) NSTEMI, initial episode of care: Status: Acute Code(s): I21.4 - Non-ST elevation (NSTEMI) myocardial infarction Medications at Discharge Home Medications paroxetine HCl 30 mg tablet 30 mg PO DAILY depression 12/02/14 lisinopril 10 mg tablet 10 mg PO DAILY BP 05/14/17 ferrous sulfate 325 mg (65 mg iron) tablet 325 mg PO DAILY #30 tabs 02/19/19 pantoprazole 40 mg tablet,delayed release 40 mg PO DAILY #30 tabs 02/19/19 fluticasone propionate 50 mcg/actuation nasal spray,suspension (Flonase Allergy Relief) 1 spray intranasal DAILY PRN nasal congestion 11/27/23 pen needle, diabetic 32 gauge x 1/4 #100 ea 11/29/23 apixaban 5 mg tablet (Eliquis) 5 mg PO BID 03/23/24 atorvastatin 80 mg tablet 80 mg PO DAILY cholesterol 03/23/24 insulin glargine 100 unit/mL (3 mL) subcutaneous pen (Lantus Solostar U-100 Insulin) 26 unit subcut QHS 03/23/24 levothyroxine 100 mcg tablet 100 mcg PO DAILY disorder of thyroid gland 03/23/24 empagliflozin 10 mg tablet (Jardiance) 10 mg PO DAILY 30 days #30 tabs 03/25/24 Hospital Course Operations None Procedures EGD Summary of Care Provided Minutes Spent on Discharge: 35 Hospital Course: Per HPI: BRAD HALLMAN, is a 68 M who presents with shortness of breath. This is a 68-year-old male with history of anemia, PE on Eliquis presents with a several day history of shortness of breath. Recently, the patient has not been taking his Eliquis because he simply ran out. Did resume taking it about 3 days ago. There is shortness of breath progressed over the weekend and the presented here for further evaluation. In the emergency room, he was noted to be anemic with a hemoglobin 6.5. Hemoccult was positive. Did also have elevated troponins of 656. Previous admissions have shown his troponins to be elevated. Dr. Gregg, gastroenterology was contacted and agreed to see the patient in consultation. Patient was typed and crossed for 2 units of packed red blood cells. He states that he is feeling slightly dizzy also has some leg pain when he walks it gets better with rest. He is coughing but is nonproductive. Did recently have some sinus congestion but that is since resolved. Hospital Course: 1. Acute blood loss anemia secondary to gastric AVM leading to non-STEMI type II/GERD/iron deficiency anemia?68-year-old male was found to have a gastric AVM, he has a history of these. This was treated during his EGD and his hemoglobin is stabilized with a hemoglobin of 8 today. I do recommend that he follow-up with his PCP in 3 to 5 days to monitor his hemoglobin. Of note his troponin is chronically elevated but an echo was obtained which demonstrated a slight worsening in his ejection fraction from 45% to 35% therefore he was started on Jardiance as part of goal-directed therapy. Continue with his iron supplementation and we will hold his Eliquis for another 2 or 3 days though this has to be restarted secondary to a PE that he developed in November. I do recommend outpatient follow-up with vascular surgery for possible filter given his issues with gastric AVMs and colonic AVMs. I discussed with him the plan for discharge today he expressed understanding of the risk benefits going home and would like to go home today. 2. Essential HTN/HLD/CAD status post stent/chronic systolic CHF?as mentioned above started on Jardiance on discharge for goal-directed therapy. Would recommend outpatient follow-up with cardiology given the worsening in his EF from 45 to 35%, this could just be a side effect of his anemia. 3. Recent PE, type 2 diabetes, hypothyroidism, anxiety, depression all chronic medical conditions which complicate his care. His home medications were continued where appropriate Physical Exam Narrative General: Alert, Oriented x3, Cooperative, No apparent distress, little pale HEENT: Atraumatic, PERRLA, EOMI, Normocephalic Oral: Moist Mucosa Neck: Supple, No JVD Lungs: Clear to auscultation, Normal air movement, No rhonchi, No wheeze, No rales Cardiovascular: Regular rate, Regular Rhythm, Normal S1, Normal S2, No murmurs Abdomen: Soft, Non Tender, Non-Distended, No Hepato-splenomegaly Extremities: No edema, Capillary Refill Less than 3 Seconds Skin: No rashes, No breakdown Musculoskeletal: No Tenderness to Palpation of Joints or Extremities Neurological: No focal neurological deficits, Motor Exam 5/5 strength throughout, Sensory exam intact to light touch and pain Psych/Mental Status: Normal Affect, Appropriate Weight / BMI Weight Weight: 175 lb 7.807 oz Body Mass Index (BMI) 25.2 ABG / Lab / Microbiology Data 03/25/24 03:37 03/25/24 03:37 Laboratory: Laboratory Results - last 24 hr 03/24/24 11:42: POC Glucose 129 H 03/24/24 18:55: Hgb 7.8 L, Hct 24.7 L 03/24/24 21:14: POC Glucose 239 H 03/25/24 03:37: WBC 6.7, RBC 3.01 L, Hgb 8.0 L, Hct 26.2 L, MCV 87.0, MCH 26.6 L , MCHC 30.5 L, RDW Std Deviation 47.5 H, RDW Coeff of [place] 16.0 H, Plt Count 209, MPV 9.7, Immature Gran % (Auto) 0.400, Neut % (Auto) 73.3 H, Lymph % (Auto) 12.6 L, [place] % (Auto) 11.4 H, Eos % (Auto) 2.2, Baso % (Auto) 0.1, Absolute Neuts (auto) 4.9, Absolute Lymphs (auto) 0.84, Nucleated RBC % 0, Sodium 136, Potassium 4.2, Chloride 107, Carbon Dioxide 25.0, Anion Gap 4 L, BUN 12, Creatinine 1.11, Estim Creat Clear Calc 67.59, Est GFR (MDRD) Af Amer 85, Est GFR (MDRD) Non-Af 70, BUN/Creatinine Ratio 10.8, Glucose 225 H, Calcium 8.6 Microbiology: Microbiology 03/23/24 14:30 Stool Stool Occult Blood (NAYELI) - Final Occult Blood Positive Radiography Diagnostic Testing: Radiology Impression Echocardiogram 03/23/24 15:41 Interpretation Summary Normal LV size. The left ventricular ejection fraction is 35 %. There is moderate global hypokinesis of the left ventricle. Moderate (2+) eccentric mitral valve insufficiency. Pulmonary artery systolic pressure is 43 mmHg. Contrast injection was performed. Compared to previous study, the left ventricular systolic function has worsened.. Ordering Physician: Lucas Malone Referring Physician: MD Travis Bassett Performed By: Analy Moore RDCS D/C Instructions Discharge Diet: Low fat / Low cholesterol and Carb Control Diet Call your doctor if you observe: Fever of 101 or Higher, Shortness of breath, Dizziness, Fainting spells, Swelling in the ankles, Chest pain and Increased palpitations (irregular heartbeat) DC O2, CPAP, BIPAP Needs Home O2 Discharge instructions: No Meaningful Use Info Meaningful Use Meaningful Use Diagnoses (Choose all that apply): None applicable Ischemic Stroke Statin Dosing Therapy Reference: STATIN DOSE THERAPY REFERENCE: * Patients > 75 years receive moderate or high dose statin therapy. * Patients 75 years or YOUNGER should receive HIGH intensity statin dose unless contraindicated. You will be required to document reason for non-treatment if statin daily dose does not meet guidelines. HIGH DOSE STATIN THERAPY DAILY Atorvastatin > than or = to 40 mg Rosuvastatin > than or = to 20 mg Amlodipine + Atorvastatin > than or = to 2.5/40 mg Ezetimibe + Simvastatin 10/80 mg Simvastatin 80mg Discharge Plan Admission Admit Date/Time: 03/23/24 15:37 Attending Provider: Asaf Argueta Primary Care Provider: Travis Bassett Consulting Providers: Lucas Malone Instructions Additional Instructions / Restrictions: Follow-up with your PCP in 3 to 5 days to monitor your hemoglobin and anemia. Discharge Orders/Prescriptions Prescriptions: New Jardiance 10 mg Tablet 10 mg PO DAILY 30 Days Qty: 30 0RF Continued lisinopril 10 mg tablet 10 mg PO DAILY paroxetine HCl 30 MG tablet 30 mg PO DAILY pantoprazole 40 MG tablet 40 mg PO DAILY Qty: 30 0RF ferrous sulfate 325 MG tablet 325 mg PO DAILY Qty: 30 0RF fluticasone propionate [Flonase Allergy Relief] 50 mcg/actuation spray,suspension 1 spray intranasal DAILY PRN (Reason: nasal congestion) Rx Instructions: administer into each nostril (DME) pen needle, diabetic 32 gauge x 1/4 needle See Rx Instructions .Route Qty: 100 0RF Rx Instructions: As directed atorvastatin 80 mg tablet 80 mg PO DAILY levothyroxine 100 mcg tablet 100 mcg PO DAILY insulin glargine [Lantus Solostar U-100 Insulin] 100 unit/mL (3 mL) insulin pen 26 unit subcut QHS Held Eliquis 5 mg tablet 5 mg PO BID Hold Instructions: Resume on 03/27/24. Referrals / Follow Up: Travis Bassett MD [Primary Care Provider] - Within 1 Week Disposition Disposition (needs filled in before D/C Order can be placed): Home, Self Care Charges/Coding Visit Charges Inpatient E&M: 61553 Disch Hosp >30min
[2024-03-25 14:37] VITALS: BP 109/66; PULSE 92; RESP 16; TEMP 36.6; O2SAT 100
== END 2024-03-25 15:29 | disposition home or self-care (01) | DRG 378 ==
LOC: ED 14:34 → PCU 18:15
PROVIDERS: Anesthesiology; Internal Medicine Gastroenterology; Emergency Provider Surgery; PCP Family Medicine; Visit Provider Family Medicine
PROC: 0DJ08ZZ Inspection of Upper Intestinal Tract, Via Natural or Artificial Opening Endoscopic (ICD-10-PCS; CPT 43235; principal; 2024-03-24 16:55)
DX: K31.811 Angiodysplasia of stomach and duodenum with bleeding (principal); I24.89 Other forms of acute ischemic heart disease; D62 Acute posthemorrhagic anemia; I50.22 Chronic systolic (congestive) heart failure; E11.9 Type 2 diabetes mellitus without complications; E03.9 Hypothyroidism, unspecified; D50.9 Iron deficiency anemia, unspecified; I11.0 Hypertensive heart disease with heart failure; F32.A Depression, unspecified; E86.0 Dehydration; E78.00 Pure hypercholesterolemia, unspecified; I25.5 Ischemic cardiomyopathy; I25.10 Atherosclerotic heart disease of native coronary artery without angina pectoris; K21.9 Gastro-esophageal reflux disease without esophagitis; I25.2 Old myocardial infarction; K44.9 Diaphragmatic hernia without obstruction or gangrene; Z79.4 Long term (current) use of insulin; N28.9 Disorder of kidney and ureter, unspecified; Z95.5 Presence of coronary angioplasty implant and graft; Z86.711 Personal history of pulmonary embolism; Z79.01 Long term (current) use of anticoagulants; Z87.19 Personal history of other diseases of the digestive system; Z87.891 Personal history of nicotine dependence; Z79.890 Hormone replacement therapy; Z91.148 Patient's other noncompliance with medication regimen for other reason
CPT/HCPCS: 36415; 71045; 80048; 82274; 82962; 83036; 84443; 84484; 85014; 85018; 85025; 85610; 85730; 86850; 86870; 86900; 86901; 86902; 86920; 86922; 93005; 93308; 99285; P9016; Q9957; A4216; C8924; J2405